=== PATIENT | male | born 1940 | race Caucasian/White ===

== ENCOUNTER 2017-11-28 21:52 | Emergency (ER) | payer MEDICARE, OTHER, SELFPAY ==
[2017-11-28 22:11] VITALS: BP 162/81; PULSE 67; RESP 18; TEMP 36.9; O2SAT 97; BMI 30.7
--- NOTE | 2017-11-28 23:17 | ED.BACK ---
HPI - Back Pain/Injury General Chief Complaint: Back Pain/Injury Stated Complaint: BACK SPASMS UNABLE TO STAND UP Time Seen by Provider: 11/28/17 22:42 Source: patient Mode of arrival: ambulatory Limitations: no limitations History of Present Illness HPI Narrative: Patient is a 77-year-old male here for evaluation of left-sided back spasms. He states that he saw his primary care doctor yesterday. Was diagnosed with a muscle spasm. Was told to take Aleve with food. He states that he has been taking this. States that the symptoms returned/continued today. No urinary symptoms. No fevers. No trauma. Related Data Previous Rx's Medication Instructions Recorded cyclobenzaprine 10 mg PO TID PRN #14 tab 11/28/17 Allergies Allergy/AdvReac Type Severity Reaction Status Date / Time latex Allergy Rash Verified 11/28/17 22:19 Penicillin Allergy Unknown Uncoded 06/24/17 11:49 Review of Systems Constitutional Denies fever(s), Denies frequent falls and Denies headache(s) ENT Ears, Nose, Mouth, and Throat: Denies headache(s) Cardiovascular Denies chest pain, Denies edema and Denies dyspnea Respiratory Denies dyspnea Gastrointestinal Gastrointestinal: Denies abdominal pain, Denies nausea and Denies vomiting Genitourinary Denies dysuria, Denies urinary frequency, Denies urinary hesitancy and Denies urinary incontinence Musculoskeletal Denies myalgias and Denies arthralgias Integumentary/Breasts Denies lesions and Denies rash Neurologic Denies frequent falls and Denies headache(s) Hematologic/Lymphatic Denies easy bleeding and Denies easy bruising [facility] Medical History Healthy adult (Acute) Surgical History No pertinent past surgical history (Acute) Social History Smoking Status: Never smoker Exam Initial Vital Signs Initial Vital Signs: Vital Signs Temperature 98.5 F 11/28/17 22:11 Pulse Rate 67 11/28/17 22:11 Respiratory Rate 18 11/28/17 22:11 Blood Pressure 162/81 H 11/28/17 22:11 Pulse Oximetry 97 11/28/17 22:11 Const General: cooperative, healthy appearing, comfortable, well developed, well groomed and No acute distress Orientation: alert, awake and oriented x3 HENMT Head: normal to inspection and normocephalic Resp Effort & Inspection: normal respiratory effort Cardio Rate: regular rate Back/Spine/Pelvis Cervical Spine: cervical ROM normal Other: Patient with tenderness to palpation left-sided lumbar paraspinal region with muscle fullness over the area of maximal tenderness. No midline tenderness. No right-sided tenderness. Skin Lesions: no lesions Rashes: no rashes Neuro General: alert, awake and oriented x3 Cognition: normal cognition Speech: speech normal Extrem General: normal to inspection and capillary refill normal Psych Appearance: grossly normal and well kempt Course Orders Ordered: Discontinued Medications Cyclobenzaprine HCl (Flexeril) 10 mg PO NOW ONE Stop: 11/28/17 23:18 Last Admin: 11/28/17 23:36 Dose: 10 mg Cyclobenzaprine HCl (Flexeril 10 Mg Prepack) 1 bottle MISC SEEINSTR ONE Stop: 11/28/17 23:18 Last Admin: 11/28/17 23:36 Dose: 1 bottle Vital Signs - 8 hr 11/28/17 22:11 11/28/17 23:45 Temperature 98.5 F Pulse Rate 67 69 Respiratory Rate 18 20 Blood Pressure 162/81 H Pulse Oximetry 97 98 MDM - Back Pain/Injury MDM Narrative Medical decision making narrative: No trauma. Left-sided back tenderness with pinpoint tenderness to palpation with muscle fullness. History and physical exam is not consistent with cauda equina. Doubt fracture. Will hold on x-rays hurt help. Will send home with muscle relaxers. He was given return precautions. He expressed understanding and agreement with plan. We also discussed the importance of him being careful secondary to the fact that the Flexeril can make him drowsy. Discharge Plan Departure Patient Disposition: Home Clinical Impression: Spasm of muscle of lower back Discharge Date/Time: 11/28/17 23:50 Interventions: ED Discharge Assessment Last Done: 11/28/17 23:45 Instructions: How To Perform RICE (Rest, Ice, Compress, Elevate), Activity May Be Better then Rest for Low Back Pain Recovery, DI for Back Spasm Activity Restrictions/Additional Instructions: Recommend that you continue with the anti-inflammatories such as Aleve. Make sure you are taking this with some food. Take the muscle relaxers as directed. Return to the emergency department for any new or worsening symptoms Prescriptions: New cyclobenzaprine 10 mg tablet 10 mg PO TID PRN (Reason: muscle spasm) Qty: 14 RF: 0
[2017-11-28] MEDS: CYCLOBENZAPRINE 10 MG TABLET PO (23:36)
[2017-11-28] MEDS: CYCLOBENZAPRINE 10 MG PREPACK 1 BOTTLE MISC (23:36)
[2017-11-28 23:45] VITALS: PULSE 69; RESP 20; O2SAT 98
== END 2017-11-28 23:50 | disposition home or self-care (01) ==
PROVIDERS: Emergency Provider Emergency Medicine
DX: M62.830 Muscle spasm of back (principal)
CPT/HCPCS: 99282; 99283

== ENCOUNTER → 2018-11-29 13:38 | Outpatient (CLI) | payer MEDICARE, OTHER, SELFPAY ==
[2018-11-29 14:14] LABS: HEMOLYSIS 16 (0-50); Sodium 141 mmol/L (137-145)
[2018-11-29 14:17] LABS: Blood Urea Nitrogen 19 mg/dL (9-20); Calcium 9.5 mg/dL (8.4-10.2); Carbon Dioxide 29 mmol/L (22-32); Chloride 102 mmol/L (98-107); Estimated Glomerular Filt Rate > 60.0 mL/min (>60); Glucose 84 mg/dL (80-110); Potassium 4.5 mmol/L (3.4-5.1)
== END ==
PROVIDERS: PCP Internal Medicine; Visit Provider Internal Medicine
DX: I10 Essential (primary) hypertension (principal)
CPT/HCPCS: 36415; 80048

== ENCOUNTER → 2019-08-25 10:54 | Outpatient (CLI) | payer MEDICARE, OTHER, SELFPAY ==
[2019-08-25 12:27] LABS: BUN Creatinine Ratio 23.2 (6-22); Blood Urea Nitrogen 22 mg/dL (9-20); Calcium 9.6 mg/dL (8.4-10.2); Carbon Dioxide 28 mmol/L (22-32); Chloride 103 mmol/L (98-107); Estimated Glomerular Filt Rate > 60.0 mL/min (>60); Glucose 94 mg/dL (80-110); HEMOLYSIS < 15 (0-50); Potassium 4.5 mmol/L (3.4-5.1); Sodium 139 mmol/L (137-145)
== END ==
PROVIDERS: PCP Internal Medicine; Referring Provider Internal Medicine; Visit Provider Internal Medicine
DX: I10 Essential (primary) hypertension (principal)
CPT/HCPCS: 36415; 80048

== ENCOUNTER → 2021-01-11 12:30 | Outpatient (CLI) | payer MEDICARE, OTHER, SELFPAY ==
--- NOTE | 2021-01-11 | DI.RAD.S_ITS ---
PROCEDURE: FL JOINT INJECTION LARGE RT INDICATIONS: Unilateral primary osteoarthritis, right hip COMPARISON: None. TECHNIQUE: The indications, alternatives, benefits, risks, and complications of the procedure were explained to the patient. Written informed consent was obtained and placed in the chart. The patient was placed in an appropriate position on the fluoroscopy table, and a site was chosen for percutaneous access under fluoroscopic guidance. The site was prepped and draped in a sterile fashion. Local anesthetic was administered using a 1% lidocaine solution. A hypodermic or spinal needle was then used to access the symptomatic joint. Intra-articular location of the needle tip was confirmed by injecting a small amount of contrast, followed by steroid administration. The needle was then withdrawn, and a bandage applied to the puncture site. FINDINGS: Joint injected: Right hip Medications injected: 1 mL of 40 mg/mL Kenalog and 3 cc 0.5% Ropivacaine mixture. Patient's pain before injection: 0/1 out of 10. Patient's pain after injection: Unchanged. Complications: None. IMPRESSION: Successful fluoroscopically guided administration of steroid and anaesthetic solution into the right hip joint. Dictated by: Jasper Kenney M.D. on 01/14/2021 at 9:35 Approved by: Jasper Kenney M.D. on 01/14/2021 at 9:43
== END ==
PROVIDERS: PCP Internal Medicine; Referring Provider Orthopaedic Surgery; Visit Provider Orthopaedic Surgery
DX: M16.11 Unilateral primary osteoarthritis, right hip (principal)
CPT/HCPCS: 20610; 77002

== ENCOUNTER 2021-06-23 08:35 | Emergency (ER) | payer MEDICARE, SELFPAY ==
[2021-06-23] VITALS (12 sets, daily range): BP systolic 168–179; BP diastolic 79–80; PULSE 65–77; RESP 18; TEMP 36.7; O2SAT 93–99
--- NOTE | 2021-06-23 10:19 | ED.MALEGU ---
HPI - Male Genitourinary General Chief complaint: Urogenital-Male Stated complaint: Hematuria Time Seen by Provider: 06/23/21 08:38 Source: patient and EMS Mode of arrival: EMS History of Present Illness HPI Narrative: 81M nonsmoker presents with a chief complaint of blood in his urine for the past few days. He denies any pain. He is not dizzy nor weak or lightheaded. He has had no fever or chills. He has had no difficulty with urine such as dysuria, frequency or urgency. He recently had a total hip surgery and has had trouble moving his bowels in the aftermath. He denies nausea or vomiting. Related Data Previous Rx's Medication Instructions Recorded cyclobenzaprine 10 mg tablet 10 mg PO TID PRN #14 tab 11/28/17 cefuroxime axetil 500 mg tablet 500 mg PO BID #14 tab 06/23/21 Allergies Allergy/AdvReac Type Severity Reaction Status Date / Time latex Allergy Rash Verified 11/28/17 22:19 Penicillin Allergy Unknown Uncoded 06/24/17 11:49 Review of Systems Review of Systems Narrative: GENERAL: Denies chills, fatigue, malaise, fever, sweats. HEENT: Denies sinus pain, ear pain, sore throat, difficulty swallowing, dizziness. RESPIRATORY: Denies dyspnea, cough, wheezing, hemoptysis, sputum. CARDIOVASCULAR: Denies chest pain, palpitations, orthopnea, edema, GASTROINTESTINAL: See HPI : See HPI MUSCULOSKELETAL: denies weakness, joint pain, or bony pain SKIN: Denies rash, skin lesions, or other NEUROLOGIC: Denies weakness, headache, numbness, change in speech, confusion, seizures, incoordination. PSYCHIATRIC: No concerning psychosocial issues. 12 point review of systems is negative except for those stated above Patient History Medical History Healthy adult Surgical History No pertinent past surgical history Social History Smoking Status: Never smoker Smoking Status: Never smoker alcohol intake frequency: 0-2 drinks per day Substance Use Type: does not use Exam Narrative Exam Narrative: GENERAL: [81] year old patient appears stated age. Well-developed patient, in mild distress. HEAD: Atraumatic. Normocephalic. EYES: Pupils equal round and reactive. Extraocular motions intact. No scleral icterus. No injection or drainage. ENT: Nose without bleeding, purulent drainage. Throat without erythema, tonsillar hypertrophy or exudate. Airway patent. NECK: Trachea midline. Non tender CARDIOVASCULAR: Regular rate and rhythm without murmurs, gallops, or rubs. RESPIRATORY: Clear to auscultation. Breath sounds equal bilaterally. No wheezes, rales, or rhonchi. GASTROINTESTINAL: Abdomen soft, non-tender, nondistended. EXTREMITIES: No edema or joint tenderness. BACK: Nontender without deformity or crepitance. No flank tenderness. NEURO: Cranial nerves 2-12 grossly intact SKIN: No rash or erythema of visible areas Initial Vital Signs Initial Vital Signs: Vital Signs Temperature 98.0 F 06/23/21 08:25 Pulse Rate 76 06/23/21 08:25 Respiratory Rate 18 06/23/21 08:25 Blood Pressure 179/79 H 06/23/21 08:25 Pulse Oximetry 93 06/23/21 08:25 Course Orders Ordered: ED Orders 06/23/21 10:17 Urinalysis and Microscopic Stat Urine Culture Stat 06/23/21 11:55 CT kidney ureter bladder (KUB) Stat Vital Signs Vital signs: Vital Signs - 8 hr 06/23/21 08:25 06/23/21 08:42 06/23/21 09:30 Temperature 98.0 F Pulse Rate 76 66 Respiratory Rate 18 Blood Pressure 179/79 H 179/79 H Pulse Oximetry 93 96 06/23/21 10:00 06/23/21 10:30 06/23/21 11:00 Temperature Pulse Rate 65 67 67 Respiratory Rate Blood Pressure Pulse Oximetry 96 96 98 06/23/21 11:30 06/23/21 12:00 06/23/21 12:30 Temperature Pulse Rate 67 75 67 Respiratory Rate 18 Blood Pressure Pulse Oximetry 97 98 99 06/23/21 13:00 06/23/21 13:30 06/23/21 13:32 Temperature Pulse Rate 66 77 73 Respiratory Rate Blood Pressure 168/80 H Pulse Oximetry 98 98 99 MDM - Male Genitourinary Lab Data Labs: Lab Results 06/23/21 Range/Units 10:17 Urine Color Yellow Urine Appearance Sl cloudy Urine pH 7.0 (4.5-8.0) Ur Specific Mascot 1.015 (1.000-1.035) Urine Protein Trace H (Negative) Urine Glucose (UA) Negative (Negative) g/dL Urine Ketones Trace H (NEGATIVE) Urine Occult Blood 1+ H (Negative) Urine Nitrate Negative (Negative) Urine Bilirubin Negative (NEGATIVE) Urine Urobilinogen 1.0 (0.2) E.U./dL Ur Leukocyte Esterase Trace H (NEGATIVE) Urine RBC 1-5/hpf (0-5/HPF) Urine WBC 10-30/hpf H (0-5/HPF) Ur Squamous Epith Cells 0-1 /hpf (0-5/HPF) Urine Bacteria Many (>30) H (None) Urine Mucus 1+ H (Negative) Ur Culture Indicated? Specimen cultured Imaging Data CT scan - abdomen/pelvis: Radiologist's Impression: Rickie Waters??81??M??1940 ? Allergy/Adv: latex, [Penicillin] Close Abdomen/Pelvis CT (Signed) Brad Perez - 06/23/21 Joint Aspiration/Injection (Signed) Jasper Kenney - 01/11/21 [place] [address] CT Scan Report Signed Patient: Rickie Waters MR#: [id number] : 1940 Acct:[id number] Age/Sex: 81 / M Date of Service: 06/23/21 Loc: ED Accession Number: [id number] ?? Procedure: CT kidney ureter bladder (KUB) Ordering Provider: Jaime Moreno D.O. PROCEDURE:? CT KIDNEY URETER BLADDER (KUB) ? INDICATIONS:? hematuria ? TECHNIQUE:? Axial sections were acquired from the lung bases to the pubic symphysis.? Coronal and sagittal reformats were performed.? For radiation dose reduction, the following was used: ?automated exposure control, adjustment of mA and/or kV according to patient size.? ? COMPARISON:? None. ? FINDINGS:? 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 The cardiac outflow tracts are not well seen on this study.? ? Lung bases:? Unremarkable.? ? A small hiatal hernia is incidentally noted.? Heart:? Calcification is seen involving the mitral valve annulus. ? URINARY: Right Kidney: ? No stones or hydronephrosis.? Right Ureter:? No hydroureter.? ? Left Kidney: ? No stones or hydronephrosis. Left Ureter:? No hydroureter.? ? Bladder:? Normal wall thickness. No stones. ? ? ? ABDOMEN: Liver:? Unremarkable.? ? Gallbladder:? Unremarkable.? ? Biliary ducts:? Unremarkable.? ? Pancreas:? Unremarkable.? ? Spleen:? Unremarkable.? ? Adrenal Glands:? Unremarkable.? ? ? Stomach and Bowel:? Stomach, small bowel loops, and colon are unremarkable.? Distal colonic diverticulosis is seen, without findings of active diverticulitis. A normal appendix is incidentally noted.? Peritoneum:? No abnormal intraperitoneal fluid.? No free air.? ? Ventral Wall: ? No hernia.? Abdominal Nodes:? No enlarged retroperitoneal or mesenteric lymph nodes.? Vessels:? Aorta and inferior vena cava are normal in size.? Atherosclerotic calcification is noted.? ? PELVIS: Pelvic Organs:? Unremarkable.? ? Pelvic Nodes: Unremarkable. Miscellaneous:? Bilateral fat containing inguinal hernias are seen, left larger than right.? Gas can be seen within the right buttock, as on series 2, image 64. Additional soft tissue gas can be seen involving the anterior left thigh, as on series 2, image 100. Generalized inflammatory change can be seen of the right gluteal subcutaneous fat. ? No focal abnormal soft tissue fluid collections are seen, however. ? Bones:? Bilateral hip arthroplasty hardware is seen, with associated streak artifact.? Relatively prominent lumbar spine degenerative changes are seen. ? IMPRESSION:? ? Negative for kidney stones or obstructive uropathy. ? Soft tissue gas and fatty stranding seen involving right thigh and the right gluteal region.? Recent surgery is suspected.? Please correlate with known patient history. ? ? ? Incidental note is made of: Mitral valve annulus calcification Small hiatal hernia Diverticulosis, without active diverticulitis Normal appendix Relatively prominent lumbar spine degenerative change Bilateral hip arthroplasty hardware Bilateral fat containing inguinal hernias ? ? ? Dictated by: Brad Perez M.D. on 06/23/2021 at 11:24 ? ? Approved by: Brad Perez M.D. on 06/23/2021 at 11:28 ? MDM Narrative Medical decision making narrative: Patient's pain is well controlled, there is no evidence of bowel obstruction and he has no systemic findings such as nausea, vomiting or weakness. Hematuria most likely due to UTI, there are no signs of sepsis, CT KUB shows no obstructive uropathy, kidney stone or other. Patient and given return precautions and questions answered to their apparent satisfaction. Discharge Plan Departure Patient Disposition: Home Clinical Impression: Hematuria, Acute UTI Instructions: DI for Urinary Tract Infection (UTI), DI for Hematuria Activity Restrictions/Additional Instructions: *You have been diagnosed with [hematuria, due to urine infection. Physical exam and images are very reassuring. *What to do: *Please continue to take your regular medications as directed. [x ] New medication prescriptions sent to your pharmacy: [[facility] in [place] ] [ ] New medication written as a paper prescription [ ] No new medications given *Please follow up with your primary care provider in 2-3 days, call for an appointment. Let them know you were seen in the Emergency Department and that we ask that you be seen in follow up. We will electronically transmit a record of today's note if your PCP is in our system *You have been diagnosed with [ abdominal pain due to constipation ] *What to do: *Take over the counter medications as directed: 1. Metamucil - is a bulk forming laxative and adds fiber 2. Colace - softens your stool 3. Dulcolax suppository - stimulates your bowels *Follow up with your primary care provider in 2-3 days, call for appointment *Return to ER if you should have any new, worsening or concerning symptoms *Drink plenty of water and eat foods high in fiber *Stay as active as you can as this helps move your bowels as well *Return to Emergency Department if you should have any new, worsening or concerning symptoms, such as [fever greater than 101 F, shaking chills, worsening pain, persistent vomiting or other bothersome symptoms] Prescriptions: New cefuroxime axetil 500 mg tablet 500 mg PO BID Qty: 14 0RF No Action cyclobenzaprine 10 mg tablet 10 mg PO TID PRN (Reason: muscle spasm) Qty: 14 0RF Referrals: Zaheer Charlton MD [Primary Care Provider] -
[2021-06-23 10:33] LABS: Appearance Urine UA SL CLOUDY; Bilirubin Urine UA NEGATIVE (NEGATIVE); Color Urine UA YELLOW; Glucose Urine UA NEGATIVE (Negative); Ketones Urine UA TRACE (NEGATIVE); Leukocyte Esterase Urine UA TRACE (NEGATIVE); Nitrite Urine UA NEGATIVE (Negative); Occult Blood Urine UA 1+ (Negative); Protein Urine UA TRACE (Negative); Specific Gravity Urine UA 1.015 (1.000-1.035)
[2021-06-23 10:43] LABS: Bacteria Urine Many (>30); Culture Indicated Urine Specimen Cultured; Mucus Urine 1+ (Negative); RBC Urine 1-5/HPF (0-5/HPF); Squamous Epithelial Cell Urine 0-1 /HPF (0-5/HPF); WBC Urine 10-30/HPF (0-5/HPF)
--- NOTE | 2021-06-23 11:55 | DI.CT.S_ITS ---
PROCEDURE: CT KIDNEY URETER BLADDER (KUB) INDICATIONS: hematuria TECHNIQUE: Axial sections were acquired from the lung bases to the pubic symphysis. Coronal and sagittal reformats were performed. For radiation dose reduction, the following was used: automated exposure control, adjustment of mA and/or kV according to patient size. COMPARISON: None. 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 The cardiac outflow tracts are not well seen on this study. Lung bases: Unremarkable. A small hiatal hernia is incidentally noted. Heart: Calcification is seen involving the mitral valve annulus. URINARY: Right Kidney: No stones or hydronephrosis. Right Ureter: No hydroureter. Left Kidney: No stones or hydronephrosis. Left Ureter: No hydroureter. Bladder: Normal wall thickness. No stones. ABDOMEN: Liver: Unremarkable. Gallbladder: Unremarkable. Biliary ducts: Unremarkable. Pancreas: Unremarkable. Spleen: Unremarkable. Adrenal Glands: Unremarkable. Stomach and Bowel: Stomach, small bowel loops, and colon are unremarkable. Distal colonic diverticulosis is seen, without findings of active diverticulitis. A normal appendix is incidentally noted. Peritoneum: No abnormal intraperitoneal fluid. No free air. Ventral Wall: No hernia. Abdominal Nodes: No enlarged retroperitoneal or mesenteric lymph nodes. Vessels: Aorta and inferior vena cava are normal in size. Atherosclerotic calcification is noted. PELVIS: Pelvic Organs: Unremarkable. Pelvic Nodes: Unremarkable. Miscellaneous: Bilateral fat containing inguinal hernias are seen, left larger than right. Gas can be seen within the right buttock, as on series 2, image 64. Additional soft tissue gas can be seen involving the anterior left thigh, as on series 2, image 100. Generalized inflammatory change can be seen of the right gluteal subcutaneous fat. No focal abnormal soft tissue fluid collections are seen, however. Bones: Bilateral hip arthroplasty hardware is seen, with associated streak artifact. Relatively prominent lumbar spine degenerative changes are seen. IMPRESSION: Negative for kidney stones or obstructive uropathy. Soft tissue gas and fatty stranding seen involving right thigh and the right gluteal region. Recent surgery is suspected. Please correlate with known patient history. Incidental note is made of: Mitral valve annulus calcification Small hiatal hernia Diverticulosis, without active diverticulitis Normal appendix Relatively prominent lumbar spine degenerative change Bilateral hip arthroplasty hardware Bilateral fat containing inguinal hernias Dictated by: Brad Perez M.D. on 06/23/2021 at 11:24 Approved by: Brad Perez M.D. on 06/23/2021 at 11:28
== END 2021-06-23 13:50 | disposition home or self-care (01) ==
PROVIDERS: Emergency Provider Emergency Medicine; PCP Family Medicine
DX: N39.0 Urinary tract infection, site not specified (principal)
CPT/HCPCS: 74176; 81001; 87086

== ENCOUNTER 2021-06-23 15:29 | Inpatient (IN) | payer MEDICARE, SELFPAY ==
[2021-06-23] VITALS (14 sets, daily range): BP systolic 92–196; BP diastolic 43–90; PULSE 69–94; RESP 15–33; TEMP 36.7–37; O2SAT 92–99; BMI 30.7; BMI 30.1
--- NOTE | 2021-06-23 15:36 | ED_ITS ---
HPI - Syncope General Chief Complaint: Syncope Stated Complaint: syncope Time Seen by Provider: 06/23/21 15:32 History of Present Illness HPI narrative: 81M nonsmoker with history of recent hip surgery at [facility] on Thursday presents for the second time today for evaluation. He was seen earlier today for painless hematuria. He had a workup noting UTI and a CT KUB without significant findings. He went home and upon standing collapsed into a chair despite the help of two family members. He returns for repeat evaluation. He denies any ongoing dizziness or lightheadedness. Denies any chest pain or shortness of breath. He denies any fever or shaking chills. He complains only of right hip pain, though not necessarily any different than it has been. Related Data Previous Rx's Medication Instructions Recorded cyclobenzaprine 10 mg tablet 10 mg PO TID PRN #14 tab 11/28/17 cefuroxime axetil 500 mg tablet 500 mg PO BID #14 tab 06/23/21 Allergies Allergy/AdvReac Type Severity Reaction Status Date / Time latex Allergy Rash Verified 06/23/21 16:52 Penicillin Allergy Unknown Uncoded 06/23/21 16:52 Review of Systems Review of Systems Narrative: GENERAL: Denies chills, fatigue, malaise, fever, sweats. HEENT: Denies sinus pain, ear pain, sore throat, difficulty swallowing, d izziness. RESPIRATORY: Denies dyspnea, cough, wheezing, hemoptysis, sputum. CARDIOVASCULAR: Denies chest pain, palpitations, orthopnea, edema, GASTROINTESTINAL: Denies nausea, vomiting, abdominal pain, diarrhea, constipation, melena. : Denies dysuria, frequency, incontinence, hematuria, urinary retention. MUSCULOSKELETAL: denies weakness, joint pain, or bony pain SKIN: Denies rash, skin lesions, or other NEUROLOGIC: Denies weakness, headache, numbness, change in speech, confusion, seizures, incoordination. PSYCHIATRIC: No concerning psychosocial issues. 12 point review of systems is negative except for those stated above Patient History Medical History Healthy adult Surgical History No pertinent past surgical history Social History Smoking Status: Never smoker Smoking Status: Never smoker alcohol intake frequency: 0-2 drinks per day Substance Use Type: does not use Exam Narrative Exam Narrative: GENERAL: [81] year old patient appears stated age. Well-developed patient, in mild distress. HEAD: Atraumatic. Normocephalic. EYES: Pupils equal round and reactive. Extraocular motions intact. No scleral icterus. No injection or drainage. ENT: Dry mucous membrane Nose without bleeding, purulent drainage. Throat without erythema, tonsillar hypertrophy or exudate. Airway patent. NECK: Trachea midline. Non tender CARDIOVASCULAR: Regular rate and rhythm without murmurs, gallops, or rubs. RESPIRATORY: Clear to auscultation. Breath sounds equal bilaterally. No wheezes, rales, or rhonchi. GASTROINTESTINAL: Abdomen soft, non-tender, nondistended. EXTREMITIES: Right hip with to be expected tenderness to palpation, minimal surrounding erythema and ecchymosis with clean, dry and intact incision. No edema or joint tenderness. BACK: Nontender without deformity or crepitance. No flank tenderness. NEURO: AOx3. SKIN: No rash or erythema of visible areas Initial Vital Signs Initial Vital Signs: Vital Signs Temperature 98.6 F 06/23/21 15:38 Pulse Rate 69 06/23/21 15:38 Respiratory Rate 16 06/23/21 15:38 Blood Pressure 178/81 H 06/23/21 15:38 Pulse Oximetry 96 06/23/21 15:38 Course Orders Ordered: ED Orders 06/23/21 15:12 Complete Blood Count AUTO DIFF Stat Comprehensive Metabolic Panel Stat Lactate (Lactic Acid) Stat Lipase Stat Magnesium Stat Troponin & CK Cardiac Panel Stat 06/23/21 15:37 EKG-12 Lead Stat 06/23/21 16:09 Blood Culture Stat 06/23/21 17:11 CT chest abd pel w con Stat 06/23/21 19:03 COVID19 -Nasal RAPID/Pre-Proc Stat Discontinued Medications Hydromorphone HCl (Hydromorphone 0.5 Mg Inj) 0.5 mg IV NOW ONE Stop: 06/23/21 18:16 Last Admin: 06/23/21 18:21 Dose: 0.5 mg Documented by: RSTONE Sodium Chloride (Normal Saline 0.9%) 1,000 mls @ 1,000 mls/hr IV BOLUS ONE Stop: 06/23/21 16:35 Last Infusion: 06/23/21 17:41 Dose: 0 mls/hr Documented by: Admin: 06/23/21 16:03 Dose: 1,000 mls/hr Documented by: DIMITRY Ceftriaxone Sodium 2,000 mg/ (Sodium Chloride) 100 mls @ 200 mls/hr IV NOW ONE Stop: 06/23/21 16:08 Last Infusion: 06/23/21 17:25 Dose: 0 mls/hr Documented by: Admin: 06/23/21 16:53 Dose: 200 mls/hr Documented by: DIMITRY Vital Signs Vital signs: Vital Signs - 8 hr 06/23/21 15:38 06/23/21 16:08 06/23/21 16:09 Temperature 98.6 F Pulse Rate 69 72 70 Respiratory Rate 16 20 16 Blood Pressure 178/81 H 166/74 H Pulse Oximetry 96 99 97 06/23/21 16:52 06/23/21 16:56 06/23/21 17:00 Temperature Pulse Rate 73 75 79 Respiratory Rate 19 23 20 Blood Pressure 196/90 H 190/85 H Pulse Oximetry 92 97 99 06/23/21 17:30 06/23/21 17:31 06/23/21 17:55 Temperature Pulse Rate 79 87 83 Respiratory Rate 29 H 33 H 15 Blood Pressure 180/79 H 170/79 H Pulse Oximetry 96 95 97 06/23/21 18:00 Temperature Pulse Rate 79 Respiratory Rate 17 Blood Pressure 169/81 H Pulse Oximetry 96 MDM - Syncope Lab Data Result diagrams: 06/23/21 15:12 06/23/21 15:12 Labs: Lab Results 06/23/21 06/23/21 06/23/21 Range/Units 15:12 15:12 15:12 WBC 8.9 (4.5-11.0) X10^3/uL RBC 4.28 L (4.5-5.9) X10^6/uL Hgb 12.5 L (13.5-17.5) g/dL Hct 37.1 L (41-53) % MCV 86.6 (80-100) fL MCH 29.2 (26-34) PG MCHC 33.7 (30-36) % RDW 13.8 (11.6-14.8) % Plt Count 256 (150-400) X10^3/uL Neut % (Auto) 58.8 (50-75) % Lymph % (Auto) 27.2 (25-40) % [place] % (Auto) 12.0 (3-14) % Eos % (Auto) 1.8 L (2-4) % Baso % (Auto) 0.2 (0-2) % Neut # (Auto) 5200 (3604-7249) /uL Lymph # (Auto) 2400 (6926-8711) /uL [place] # (Auto) 1100 H (0-900) /uL Eos # (Auto) 200 (0-450) /uL Baso # (Auto) 0 (0-100) /uL Sodium 138 (137-145) mmol/L Potassium 3.6 (3.4-5.1) mmol/L Chloride 101 (98-107) mmol/L Carbon Dioxide 28 (22-32) mmol/L BUN 23 H (9-20) mg/dL Creatinine 1.03 (0.66-1.25) mg/dL Estimated GFR > 60.0 (>60) mL/min BUN/Creatinine Ratio 22.3 H (6-22) Glucose 164 H (80-110) mg/dL Lactate 3.5 H (0.7-2.1) mmol/L Calcium 9.1 (8.4-10.2) mg/dL Magnesium 1.9 (1.6-2.3) mg/dL Total Bilirubin 1.6 H (0.2-1.3) mg/dL AST 29 (17-59) IU/L ALT 22 (<50) IU/L Alkaline Phosphatase 71 (38-126) U/L Total Creatine Kinase 75 (55-170) U/L CK-MB (CK-2) TNP CK-MB (CK-2) Rel Index TNP Troponin I < 0.012 (0.01-0.034) ng/mL Total Protein 6.9 (6.3-8.2) g/dL Albumin 3.6 (3.5-5.0) g/dL Globulin 3.3 (1.7-4.1) g/dL Albumin/Globulin Ratio 1.1 (1.0-2.8) Lipase 43 (23-300) U/L 04/10/22 Range/Units 17:50 WBC (4.5-11.0) X10^3/uL RBC (4.5-5.9) X10^6/uL Hgb (13.5-17.5) g/dL Hct (41-53) % MCV (80-100) fL MCH (26-34) PG MCHC (30-36) % RDW (11.6-14.8) % Plt Count (150-400) X10^3/uL Neut % (Auto) (50-75) % Lymph % (Auto) (25-40) % [place] % (Auto) (3-14) % Eos % (Auto) (2-4) % Baso % (Auto) (0-2) % Neut # (Auto) (0364-7104) /uL Lymph # (Auto) (7604-8571) /uL [place] # (Auto) (0-900) /uL Eos # (Auto) (0-450) /uL Baso # (Auto) (0-100) /uL Sodium (137-145) mmol/L Potassium (3.4-5.1) mmol/L Chloride (98-107) mmol/L Carbon Dioxide (22-32) mmol/L BUN (9-20) mg/dL Creatinine (0.66-1.25) mg/dL Estimated GFR (>60) mL/min BUN/Creatinine Ratio (6-22) Glucose (80-110) mg/dL Lactate 1.3 (0.7-2.1) mmol/L Calcium (8.4-10.2) mg/dL Magnesium (1.6-2.3) mg/dL Total Bilirubin (0.2-1.3) mg/dL AST (17-59) IU/L ALT (<50) IU/L Alkaline Phosphatase (38-126) U/L Total Creatine Kinase (55-170) U/L CK-MB (CK-2) CK-MB (CK-2) Rel Index Troponin I (0.01-0.034) ng/mL Total Protein (6.3-8.2) g/dL Albumin (3.5-5.0) g/dL Globulin (1.7-4.1) g/dL Albumin/Globulin Ratio (1.0-2.8) Lipase (23-300) U/L Imaging Data CT scan - chest: Radiologist's Impression: Rickie Waters??81??M??1940 ? Allergy/Adv: latex, [Penicillin] Close Chest/Abdomen/Pelvis CT (Signed) Brad Perez - 06/23/21 Abdomen/Pelvis CT (Signed) Brad Perez - 06/23/21 Joint Aspiration/Injection (Signed) Jasper Kenney - 01/11/21 Launch?Image [address] [address] [address] Scan Report Signed Patient: Rickie Waters MR#: [id number] : 1940 Acct:[id number] Age/Sex: 81 / M Date of Service: 06/23/21 Loc: ED Accession Number: [id number] ?? Procedure: CT chest abd pel w con Ordering Provider: Jaime Moreno D.O. PROCEDURE:? CT CHEST ABD PEL W CON ? INDICATIONS:? repeat visit, went home, syncope, critical lactate ? TECHNIQUE:? After the administration of oral and intravenous contrast, axial sections acquired from the supraclavicular neck to the pubic symphysis.? Coronal and sagittal reformats were performed.? For radiation dose reduction, the following was used:? automated exposure control, adjustment of mA and/or kV according to patient size.? ? COMPARISON: ? [facility], CT, CT KIDNEY URETER BLADDER (KUB), 06/23/2021, 12:08. ? FINDINGS:? Image quality:? There is artifact associated with the metallic hardware. ? Artifact from the metallic hardware is reduced by metal reconstruction algorithm.? ? CHEST: Lower Neck: No enlarged lymph nodes.? Thyroid:? A 13 mm low-density lesion can be seen within the right thyroid.? Axillae: No enlarged lymph nodes. Chest Wall:? Unremarkable.? ? Lungs and Airways: No consolidation or suspicious nodules. Pleura: No pneumothorax or pleural effusions.? ? Heart: Heart size is normal.? No pericardial effusion.? At least moderate coronary artery calcification is seen.? Mitral valve annulus calcification Thoracic Vessels: The aorta and pulmonary arteries demonstrate normal size.? Mediastinum and Mary: No enlarged lymph nodes.? Esophagus: No wall thickening. No hiatal hernia. ? ? ABDOMEN: Liver:? Unremarkable.? ? Gallbladder:? Unremarkable.? ? Biliary ducts:? Unremarkable.? ? Pancreas:? Unremarkable.? ? Spleen:? Unremarkable.? ? Adrenal Glands:? Unremarkable.? ? Kidneys and Ureters:? Unremarkable.? ? ? Stomach and Bowel:? Stomach, small bowel loops, and colon are unremarkable.? Colonic diverticulosis is seen, without findings of active diverticulitis. A normal appendix is incidentally noted.? Peritoneum:? No abnormal intraperitoneal fluid.? No free air.? ? Ventral Wall: ? No hernia.? Abdominal Nodes:? No retroperitoneal or mesenteric adenopathy by size criteria.? Vessels:? Aorta and inferior vena cava are normal in size.? ? PELVIS: Pelvic Organs:? Unremarkable.? ? Bladder:? Unremarkable.? ? Pelvic Nodes: No enlarged lymph nodes.? Miscellaneous:? Bilateral fat containing inguinal hernias are seen. ? Bones:? Bilateral hip arthroplasty hardware is seen, with associated streak artifact.? Generalized fat stranding and soft tissue gas can be seen involving the right proximal thigh and right gluteal region.? Generalized degenerative changes are seen, which are worst involving the lumbar spine. ? IMPRESSION:? Recent postoperative change can be seen involving the right hip, with poorly defined fluid and soft tissue gas.? No drainable abscess can be seen on these images.? If there is strong clinical concern for gluteal abscess, a follow-up ultrasound could be considered for further evaluation. ? 13 mm low-density lesion within right thyroid.? When clinically appropriate, a follow-up ultrasound could be considered evaluation. ? Incidental note is made of: Mitral valve annulus calcification Normal appendix Diverticulosis, without active diverticulitis Bilateral fat containing inguinal hernias Bilateral arthroplasty hardware ? Dictated by: Brad Perez M.D. on 06/23/2021 at 17:00 ? ? Approved by: Brad Perez M.D. on 06/23/2021 at 17:06? MDM Narrative Medical decision making narrative: Patient with repeat visit, this time after syncopal episode. Extensive ev aluation suggests likely element of dehydration, presumably associated with poor appetite and UTI. Initial elevated lactate improved by the time of redraw. Patient given fluids, antibiotics. Imaging of abdomen pelvis with IV contrast notes ill-defined fluid collection with gas in the tissues thought to be related to recent surgery as opposed to abscess. This was discussed with on-call Orthopedics sure this opinion. Hospitalist happy to accept Discharge Plan Departure Patient Disposition: Admitted as Observation Prescriptions: No Action cyclobenzaprine 10 mg tablet 10 mg PO TID PRN (Reason: muscle spasm) Qty: 14 0RF cefuroxime axetil 500 mg tablet 500 mg PO BID Qty: 14 0RF Referrals: Zaheer Charlton MD [Primary Care Provider] - Admit Date/Time: 06/23/21 19:10
[2021-06-23 15:43] LABS: Add Manual Diff / Slide Review NO; Basophils Absolute Auto 0 /uL (0-100); Basophils Percent Auto 0.2 % (0-2); Eosinophils Absolute Auto 200 /uL (0-450); Eosinophils Percent Auto 1.8 % (2-4); Hematocrit 37.1 % (41-53); Hemoglobin 12.5 g/dL (13.5-17.5); Lymphocytes Absolute Auto 2400 /uL (1100-4500); Lymphocytes Percent Auto 27.2 % (25-40); Mean Corpuscular HGB Conc 33.7 % (30-36); Mean Corpuscular Hemoglobin 29.2 PG (26-34); Mean Corpuscular Volume 86.6 fL (80-100); Monocytes Absolute Auto 1100 /uL (0-900); Neutrophils Absolute Auto 5200 /uL (1500-7000); Neutrophils Percent Auto 58.8 % (50-75); Platelet Count 256 X10^3/uL (150-400); Red Blood Cell Count 4.28 X10^6/uL (4.5-5.9); Red Cell Distribution Width 13.8 % (11.6-14.8); White Blood Cell Count 8.9 X10^3/uL (4.5-11.0)
[2021-06-23 15:52] LABS: Lactate (Lactic Acid) 3.5 mmol/L (0.7-2.1)
[2021-06-23 15:53] LABS: Alanine Aminotransferase 22 IU/L (<50); Albumin 3.6 g/dL (3.5-5.0); Albumin Globulin Ratio 1.1 (1.0-2.8); Alkaline Phosphatase 71 U/L (38-126); Aspartate Aminotransferase 29 IU/L (17-59); BUN Creatinine Ratio 22.3 (6-22); Bilirubin Total 1.6 mg/dL (0.2-1.3); Blood Urea Nitrogen 23 mg/dL (9-20); Calcium 9.1 mg/dL (8.4-10.2); Carbon Dioxide 28 mmol/L (22-32); Chloride 101 mmol/L (98-107); Creatine Kinase 75 U/L (55-170); Estimated Glomerular Filt Rate > 60.0 mL/min (>60); Globulin 3.3 g/dL (1.7-4.1); Glucose 164 mg/dL (80-110); HEMOLYSIS < 15 (0-50); Lipase 43 U/L (23-300); Magnesium 1.9 mg/dL (1.6-2.3); Potassium 3.6 mmol/L (3.4-5.1); Sodium 138 mmol/L (137-145); Total Protein 6.9 g/dL (6.3-8.2)
[2021-06-23] MEDS: SODIUM CHLORIDE 0.9% 1,000 ML 1000 ML IV (16:03)
[2021-06-23 16:04] LABS: Troponin I < 0.012 ng/mL (0.01-0.034)
[2021-06-23] MEDS: cefTRIAXone 2,000 MG in SODIUM CHLORIDE 0.9% 100 ML 200 ML IV (16:53)
--- NOTE | 2021-06-23 17:11 | DI.CT.S_ITS ---
PROCEDURE: CT CHEST ABD PEL W CON INDICATIONS: repeat visit, went home, syncope, critical lactate TECHNIQUE: After the administration of oral and intravenous contrast, axial sections acquired from the supraclavicular neck to the pubic symphysis. Coronal and sagittal reformats were performed. For radiation dose reduction, the following was used: automated exposure control, adjustment of mA and/or kV according to patient size. COMPARISON: [facility], CT, CT KIDNEY URETER BLADDER (KUB), 06/23/2021, 12:08. FINDINGS: Image quality: There is artifact associated with the metallic hardware. Artifact from the metallic hardware is reduced by metal reconstruction algorithm. CHEST: Lower Neck: No enlarged lymph nodes. Thyroid: A 13 mm low-density lesion can be seen within the right thyroid. Axillae: No enlarged lymph nodes. Chest Wall: Unremarkable. Lungs and Airways: No consolidation or suspicious nodules. Pleura: No pneumothorax or pleural effusions. Heart: Heart size is normal. No pericardial effusion. At least moderate coronary artery calcification is seen. Mitral valve annulus calcification Thoracic Vessels: The aorta and pulmonary arteries demonstrate normal size. Mediastinum and Mary: No enlarged lymph nodes. Esophagus: No wall thickening. No hiatal hernia. ABDOMEN: Liver: Unremarkable. Gallbladder: Unremarkable. Biliary ducts: Unremarkable. Pancreas: Unremarkable. Spleen: Unremarkable. Adrenal Glands: Unremarkable. Kidneys and Ureters: Unremarkable. Stomach and Bowel: Stomach, small bowel loops, and colon are unremarkable. Colonic diverticulosis is seen, without findings of active diverticulitis. A normal appendix is incidentally noted. Peritoneum: No abnormal intraperitoneal fluid. No free air. Ventral Wall: No hernia. Abdominal Nodes: No retroperitoneal or mesenteric adenopathy by size criteria. Vessels: Aorta and inferior vena cava are normal in size. PELVIS: Pelvic Organs: Unremarkable. Bladder: Unremarkable. Pelvic Nodes: No enlarged lymph nodes. Miscellaneous: Bilateral fat containing inguinal hernias are seen. Bones: Bilateral hip arthroplasty hardware is seen, with associated streak artifact. Generalized fat stranding and soft tissue gas can be seen involving the right proximal thigh and right gluteal region. Generalized degenerative changes are seen, which are worst involving the lumbar spine. IMPRESSION: Recent postoperative change can be seen involving the right hip, with poorly defined fluid and soft tissue gas. No drainable abscess can be seen on these images. If there is strong clinical concern for gluteal abscess, a follow-up ultrasound could be considered for further evaluation. 13 mm low-density lesion within right thyroid. When clinically appropriate, a follow-up ultrasound could be considered evaluation. Incidental note is made of: Mitral valve annulus calcification Normal appendix Diverticulosis, without active diverticulitis Bilateral fat containing inguinal hernias Bilateral arthroplasty hardware Dictated by: Brad Perez M.D. on 06/23/2021 at 17:00 Approved by: Brad Perez M.D. on 06/23/2021 at 17:06
[2021-06-23 17:40] LABS: Reflexed Lactate in 2 Hours Y
[2021-06-23 18:13] LABS: Lactate 2HR (Lactic Acid Rflx) 1.3 mmol/L (0.7-2.1)
[2021-06-23] MEDS: HYDROMORPHONE 0.5 MG INJ IV (18:21)
[2021-06-23 19:35] LABS: COVID19 -Nasal RAPID Negative (Negative)
--- NOTE | 2021-06-23 20:55 | P.HP_ITS ---
History of Present Illness History of Present Illness Date Patient Seen: 06/23/21 Time Patient Seen: 20:55 Chief complaint: syncope Narrative: 81 y/o male s/p right hip replacement, hypertension, urinary tract infection seen in the ED earlier today for hematuria and discharged home. According to his , upon arrival at home they were unable to get him to ambulate, he fell backwards and passed out. She notes he has been restless, confused, and getting up to the bathroom last night. He had surgery about one week ago and was discharged 24 hours after the procedure from [facility] in [place]. Since arriving home he has not really ambulated, has been reluctant to drink fluids but has continued taking his losartan. In the ED he was found to have an eleva rafal lactate of 3.6 which improved to 1.3 prior to discharge. He was noted to have a UTI given ceftriaxone and discharged home. Of note, the patient had a CT KUB which was unremarkable. Repeat CT of Chest/ABD/Pelvis remains unremarkable. Patient is admitted to the hospital with a UTI, weakness, syncope, and inability to ambulate. Patient History Medical History (Updated 06/23/21 @ 21:00 by Caryn Hardin MD) Hypertension Surgical History (Updated 06/23/21 @ 21:00 by Caryn Hardin MD) History of right hip replacement Family & Social History Family History (Updated 06/23/21 @ 21:01 by Caryn Hardin MD) Mother Myocardial infarction Father Myocardial infarction Safety & Behavioral: Feels Safe in Current Yes Environment Been Physically Hurt or No Threatened By a Person Suicidal Ideation Description None Tobacco & Substance use: Smoking Status Never smoker alcohol intake frequency 0-2 drinks per day Substance Use Type does not use Meds Home Medications and Allergies Home Medications Medication Instructions Recorded Confirmed Type losartan 100 12.5 tab DAILY 06/23/21 06/23/21 History mg-hydrochlorothiazide 12.5 mg tablet tramadol 50 mg tablet 50 mg PO Q6HR PRN 06/23/21 06/23/21 History Allergies Allergy/AdvReac Type Severity Reaction Status Date / Time latex Allergy Rash Verified 06/23/21 16:52 Penicillin Allergy Unknown Uncoded 06/23/21 16:52 Review of Systems Review of Systems Narrative: 10 point review of system is negative Exam Vital Signs (past 8 hours): - 06/23/21 15:38 06/23/21 16:08 06/23/21 16:09 Temperature 98.6 F Pulse Rate 69 72 70 Respiratory Rate 16 20 16 Blood Pressure 178/81 H 166/74 H Pulse Oximetry 96 99 97 06/23/21 16:52 06/23/21 16:56 06/23/21 17:00 Temperature Pulse Rate 73 75 79 Respiratory Rate 19 23 20 Blood Pressure 196/90 H 190/85 H Pulse Oximetry 92 97 99 06/23/21 17:30 06/23/21 17:31 06/23/21 17:55 Temperature Pulse Rate 79 87 83 Respiratory Rate 29 H 33 H 15 Blood Pressure 180/79 H 170/79 H Pulse Oximetry 96 95 97 06/23/21 18:00 Temperature Pulse Rate 79 Respiratory Rate 17 Blood Pressure 169/81 H Pulse Oximetry 96 Oxygen Delivery Method Room Air Narrative Exam Narrative: pleasant elderly male lying in bed in no acute distress HENMT Other: NC/AT, EOMI, Sclera Anicteric, oropharynx clear Neck Other: supple without adenopathy Resp Other: Lungs: clear to auscultation Cardio Other: CV: RRR nl Sl S2 2/6 GHULAM GI Other: Abd: soft/ non tender/ non distended/ no hepatosplenomegaly Other: normal phallus Neuro Other: awake, alert, and appropriate, cranial nerves, intact, strenght is equal, weakness of the right lower extremity, sensation grossly intact Extrem Other: right hip with edema, mild erythema, tender to palpation, some edema of ankle Psych Other: normal thought content, mental status intact, mood and speech appropriate Objective Labs Result Diagrams: 06/23/21 15:12 06/23/21 15:12 Labs: Laboratory Results - last 24 hr 06/23/21 06/23/21 06/23/21 15:12 15:12 15:12 WBC 8.9 RBC 4.28 L Hgb 12.5 L Hct 37.1 L MCV 86.6 MCH 29.2 MCHC 33.7 RDW 13.8 Plt Count 256 Neut % (Auto) 58.8 Lymph % (Auto) 27.2 [place] % (Auto) 12.0 Eos % (Auto) 1.8 L Baso % (Auto) 0.2 Neut # (Auto) 5200 Lymph # (Auto) 2400 [place] # (Auto) 1100 H Eos # (Auto) 200 Baso # (Auto) 0 Sodium 138 Potassium 3.6 Chloride 101 Carbon Dioxide 28 BUN 23 H Creatinine 1.03 Estimated GFR > 60.0 BUN/Creatinine Ratio 22.3 H Glucose 164 H Lactate 3.5 H Calcium 9.1 Magnesium 1.9 Total Bilirubin 1.6 H AST 29 ALT 22 Alkaline Phosphatase 71 Total Creatine Kinase 75 CK-MB (CK-2) TNP CK-MB (CK-2) Rel Index TNP Troponin I < 0.012 Total Protein 6.9 Albumin 3.6 Globulin 3.3 Albumin/Globulin Ratio 1.1 Lipase 43 SARS-CoV-2 (PCR) 06/23/21 06/23/21 17:50 19:03 WBC RBC Hgb Hct MCV MCH MCHC RDW Plt Count Neut % (Auto) Lymph % (Auto) [place] % (Auto) Eos % (Auto) Baso % (Auto) Neut # (Auto) Lymph # (Auto) [place] # (Auto) Eos # (Auto) Baso # (Auto) Sodium Potassium Chloride Carbon Dioxide BUN Creatinine Estimated GFR BUN/Creatinine Ratio Glucose Lactate 1.3 Calcium Magnesium Total Bilirubin AST ALT Alkaline Phosphatase Total Creatine Kinase CK-MB (CK-2) CK-MB (CK-2) Rel Index Troponin I Total Protein Albumin Globulin Albumin/Globulin Ratio Lipase SARS-CoV-2 (PCR) Negative Assessment & Plan Assessment and plan (1) Hematuria: Status: Acute (2) Acute UTI: Status: Acute Assessment & Plan narrative: 81 y/o male with a history of Hypertension, S/p Right THR, now with a UTI and syncope likely multifactorial * Syncope-suspect dehydration vs. vasovagal, in the setting of a UTI * No evidence of arrhythmia * No evidence to suspect Sepsis * Known UTI, await culture results, continue ceftriaxone for now * Will check orthostatics * Start IVFluids S/p Right THR * Will ask PT/OT to assess safety to return home * Will check orthostatics * Patient has home health RN/PT but they have not starting working with him * Tylenol 975 TID, prn tramadol * Start Lovenox for DVT prophylaxis * Will get records from [facility] Hypertension * Continue Losartan at current dose and follow blood pressure closely Patient will be admitted under observation as it is anticipated he will be in [facility] less than 48 hours I have utilized all available methods to review, update, and confirm the patients current medications Patient is a full code, his is his surrogate decision maker Time Spent With Patient Critical Care time: I spent a total of [] minutes of critical care time on this patient's care today; this time is exclusive of procedural time.
[2021-06-23] MEDS: DEXTROSE 5%-0.9% NS 1,000 ML 100 ML IV (21:38)
[2021-06-23] MEDS: ACETAMINOPHEN 325 MG TABLET 975 MG PO (21:42)
--- NOTE | 2021-06-23 22:43 | PC.ADMIT ---
Addendum entered by Marian Rodriguez R.N. 06/24/21 06:20: Patient transferred to ICU and report given to KRISTY Fernandez. Dr. Hardin at patient's bedside. Addendum entered by Marian Rodriguez R.N. 06/24/21 05:40: Around 0425 went into patient room and patients speech was gibberish. NIH performed and was 11. Patient not always following directions so difficult to assess vision and ataxia. Code stroke was called at [address] Hardin to bedside. CBG was 126. NIH now at 9 as patient is able to read sentences and words but still not able to identify objects or picture card. VS were 110/56-111-20 with sat of 84%. Oxygen increased to get sat > 92%. RT here and did EKG. Lab here and stacia blood. RT unable to get ABG at this time. Down to CT and returned and now BP low at 85/42. Dr. Hardin informed and new orders received. Addendum entered by Marian Rodriguez R.N. 06/24/21 03:25: Patient had 2 emesis of undigested food. VS 99.5-102-18 w/BP of 114/54 and O2 sat of 86%. Placed on oxygen at 2L/min. Dr. Hardin informed of this information and orders received for a chest x-ray, IV Zofran prn and to make patient NPO for now. Original Note: Patient admitted to room 211 from ER per stretcher at 2009. Is alert and oriented. Breath sounds CTA with RA sat of 98%. HRR but with elevated BP initially at 173/72. Telemetry ordered and reading was SR w/BBB. Denied nausea. States he has not had a BM since last Thursday. Is able to turn himself in bed. Reports at home he was walking with a walker. Did get out of bed to stand at bedside when orthostatics checked and was able to do so with 2 assist + walker. Orthostatics dropped from 136/62 lying to 92/43 sitting. Denied any dizziness of lightheadedness when sitting/standing. Bilateral calf SCD's have been applied. States pain in right hip (had SELAM past Thursday) is 5/10 but requests only Tylenol at that time. Fall risk score is high and bed alarm is activated. [email or web address] Admission Note: The patient,Rickie Waters,81 y/o, was given written information regarding hospital policies, unit procedures and contact persons. Patient's smoking status: Never smoker. Vital Signs - 8 hr 06/23/21 15:38 06/23/21 16:08 06/23/21 16:09 Temperature 98.6 F Pulse Rate 69 72 70 Respiratory Rate 16 20 16 Blood Pressure 178/81 H 166/74 H Pulse Oximetry 96 99 97 06/23/21 16:52 06/23/21 16:56 06/23/21 17:00 Temperature Pulse Rate 73 75 79 Respiratory Rate 19 23 20 Blood Pressure 196/90 H 190/85 H Pulse Oximetry 92 97 99 06/23/21 17:30 06/23/21 17:31 06/23/21 17:55 Temperature Pulse Rate 79 87 83 Respiratory Rate 29 H 33 H 15 Blood Pressure 180/79 H 170/79 H Pulse Oximetry 96 95 97 06/23/21 18:00 06/23/21 20:10 06/23/21 21:29 Temperature 98.3 F Pulse Rate 79 85 94 H Respiratory Rate 17 18 Blood Pressure 169/81 H 173/72 H 135/71 Pulse Oximetry 96 98 06/23/21 21:30 Temperature Pulse Rate 94 H Respiratory Rate Blood Pressure 92/43 L Pulse Oximetry
[2021-06-24] VITALS (29 sets, daily range): BP systolic 77–114; BP diastolic 41–57; PULSE 67–102; RESP 20–34; TEMP 37.2–39.4; O2SAT 91–98
--- NOTE | 2021-06-24 03:21 | DI.RAD.S_ITS ---
PROCEDURE: XR CHEST 1V INDICATIONS: vomited TECHNIQUE: One view of the chest was acquired. COMPARISON: [facility], CT, CT CHEST ABD PEL W CON, 06/23/2021, 17:17. [facility], CR, XR CHEST 1V, 06/24/2021, 6:42. FINDINGS: Surgical changes and devices: None. Lungs and pleura: Lungs are clear. No pleural effusions or pneumothorax. Mediastinum: Mediastinal contours appear normal. Heart size is normal. Bones and chest wall: No suspicious bony lesions. Left shoulder DJD. Overlying soft tissues appear unremarkable. IMPRESSION: No acute cardiopulmonary abnormality. This report is concordant with the overnight preliminary interpretation. Dictated by: Chaz Kay M.D. on 06/24/2021 at 7:27 Approved by: Chaz Kay M.D. on 06/24/2021 at 7:28
[2021-06-24] MEDS: ONDANSETRON 4 MG/2 ML INJ IV (03:32)
--- NOTE | 2021-06-24 03:39 | PC.NURSE ---
06/24/21 @ 0300 checked paients sats. sats are at 86%. After 2 episodes of emesis. Reported to Marian Abrams RN
[2021-06-24] MEDS: TRAMADOL 50 MG TABLET PO ×2 (03:40→18:06)
--- NOTE | 2021-06-24 04:46 | DI.CT.S_ITS ---
PROCEDURE: CT STROKE INDICATIONS: code stroke TECHNIQUE: Noncontrast 4.5 mm thick angled axial sections acquired from the foramen magnum to the vertex, with coronal reformats. For radiation dose reduction, the following was used: automated exposure control, adjustment of mA and/or kV according to patient size. COMPARISON: None. FINDINGS: Image quality: Excellent. CSF spaces: Basal cisterns are patent. No extra-axial fluid collections. Ventricles are normal in size and shape. Brain: No midline shift. No intracranial masses or hemorrhage. Small area of encephalomalacia in the left anterior cerebellum, (2/13). No area of hypodensity in a large vascular distribution to suggest acute infarction. Periventricular hypodensity consistent with chronic microvascular ischemic change. Age-related parenchymal loss. Skull and face: Calvarium and visualized facial bones are intact, without suspicious lesions. Sinuses: Visualized sinuses and mastoids are clear. IMPRESSION: 1. No acute intracranial hemorrhage. 2. 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 This report is concordant with the overnight preliminary interpretation. This study fulfills neurological imaging criteria for inclusion or exclusion of acute stroke therapies based on available published neurological imaging guidelines. Dictated by: Chaz Kay M.D. on 06/24/2021 at 7:35 Approved by: Chaz Kay M.D. on 06/24/2021 at 7:38
[2021-06-24 05:13] LABS: Hematocrit 32.1 % (41-53); Hemoglobin 10.9 g/dL (13.5-17.5); Mean Corpuscular Hemoglobin 29.4 PG (26-34); Mean Corpuscular Volume 86.4 fL (80-100); Platelet Count 198 X10^3/uL (150-400); Red Blood Cell Count 3.72 X10^6/uL (4.5-5.9); Red Cell Distribution Width 13.7 % (11.6-14.8); White Blood Cell Count 5.1 X10^3/uL (4.5-11.0)
[2021-06-24 05:14] LABS: Add Manual Diff / Slide Review YES
[2021-06-24 05:26] LABS: Albumin 2.8 g/dL (3.5-5.0); Alkaline Phosphatase 132 U/L (38-126); Aspartate Aminotransferase 74 IU/L (17-59); Blood Urea Nitrogen 27 mg/dL (9-20); Calcium 8.5 mg/dL (8.4-10.2); Carbon Dioxide 24 mmol/L (22-32); Chloride 106 mmol/L (98-107); Estimated Glomerular Filt Rate 56.2 mL/min (>60); Globulin 2.7 g/dL (1.7-4.1); Glucose 126 mg/dL (80-110); HEMOLYSIS < 15 (0-50); Potassium 3.4 mmol/L (3.4-5.1); Sodium 139 mmol/L (137-145); Total Protein 5.5 g/dL (6.3-8.2)
[2021-06-24 05:32] LABS: Alanine Aminotransferase 45 IU/L (<50)
[2021-06-24] MEDS: LACTATED RINGERS 1,000 ML 1000 ML IV ×3 (05:54→07:15)
--- NOTE | 2021-06-24 05:54 | PM.CN.EICU ---
History of Present Illness Consult details Chief complaint: syncope :: This patient was seen via real time interactive two-way audiovisual telecommunication. Narrative: Patient is a 81 year old male with history of hypertension, recent right hip replacement and UTI presents with hematuria, generalized weakness, and syncope. On admission he was treated for sepsis. CT abdomen/pelvis showed postoperative changes with defined fluid and soft tissue gas concerning for gluteal abscess. Overnight patient developed hypotension and slurred speech which code stroke was called. Stat CT head completed pending read. SBP ~70s and started on 2 liters LR bolus. Abx switched to zosyn and linezolid. Tele-ntensivist consulted for septic shock management. Labs notable for lactate 5.[address] abdomen/pelvis: Recent postoperative change can be seen involving the right hip, with poorly defined fluid and soft tissue gas.? No drainable abscess can be seen on these images.? If there is strong clinical concern for gluteal abscess, a follow-up ultrasound could be considered for further evaluation. [facility] Medical History (Updated 06/24/21 @ 06:17 by James Perez MD) Hypertension Surgical History (Updated 06/23/21 @ 21:00 by Caryn Hardin MD) History of right hip replacement Family History (Updated 06/23/21 @ 21:01 by Caryn Hardin MD) Mother Myocardial infarction Father Myocardial infarction Social History Smoking Status: Never smoker Current Medications Current Medications Medications: Home Medications losartan 100 mg-hydrochlorothiazide 12.5 mg tablet 12.5 tab DAILY 06/23/21 [History Confirmed 06/23/21] tramadol 50 mg tablet 50 mg PO Q6HR PRN 06/23/21 [History Confirmed 06/23/21] Visit Medications (administered) Generic Name Dose Route Start Last Admin Trade Name Freq PRN Reason Stop Dose Admin Acetaminophen 975 mg 06/23/21 22:00 06/23/21 21:42 Acetaminophen 325 Mg Tablet PO 975 mg Q8HR GORDON Administration Dextrose/Sodium Chloride 1,000 mls @ 100 mls/hr 06/23/21 21:15 06/23/21 21:38 Dextrose 5%-0.9% Ns IV 100 mls/hr CONT GORDON Administration Ondansetron HCl 4 mg 06/24/21 03:29 06/24/21 03:32 Ondansetron 4 Mg/2 Ml Inj IV 4 mg Q8HR PRN Administration NAUSEA/VOMITING Tramadol HCl 50 mg 06/23/21 21:11 06/24/21 03:40 Tramadol 50 Mg Tablet PO 50 mg Q4H PRN Administration Pain, Moderate (4-6) Exam Vital Signs (past 8 hours): - 06/23/21 23:29 06/24/21 01:15 06/24/21 03:25 Temperature 98.0 F 98.9 F 99.5 F Pulse Rate 75 102 H Respiratory Rate 18 20 Blood Pressure 135/67 114/54 L Pulse Oximetry 97 97 Oxygen Delivery Method Room Air Oxygen Flow Rate 2 Objective Labs Result Diagrams: 06/24/21 04:50 06/24/21 04:50 Labs: Laboratory Results - last 24 hr 06/23/21 06/23/21 06/23/21 15:12 15:12 15:12 WBC 8.9 RBC 4.28 L Hgb 12.5 L Hct 37.1 L MCV 86.6 MCH 29.2 MCHC 33.7 RDW 13.8 Plt Count 256 Neut % (Auto) 58.8 Lymph % (Auto) 27.2 [place] % (Auto) 12.0 Eos % (Auto) 1.8 L Baso % (Auto) 0.2 Neut # (Auto) 5200 Lymph # (Auto) 2400 [place] # (Auto) 1100 H Eos # (Auto) 200 Baso # (Auto) 0 Sodium 138 Potassium 3.6 Chloride 101 Carbon Dioxide 28 BUN 23 H Creatinine 1.03 Estimated GFR > 60.0 BUN/Creatinine Ratio 22.3 H Glucose 164 H Lactate 3.5 H Calcium 9.1 Magnesium 1.9 Total Bilirubin 1.6 H AST 29 ALT 22 Alkaline Phosphatase 71 Total Creatine Kinase 75 CK-MB (CK-2) TNP CK-MB (CK-2) Rel Index TNP Troponin I < 0.012 Total Protein 6.9 Albumin 3.6 Globulin 3.3 Albumin/Globulin Ratio 1.1 Lipase 43 SARS-CoV-2 (PCR) 06/23/21 06/23/21 06/24/21 17:50 19:03 04:50 WBC 5.1 RBC 3.72 L Hgb 10.9 L Hct 32.1 L MCV 86.4 MCH 29.4 MCHC 34.0 RDW 13.7 Plt Count 198 Neut % (Auto) Not Reportable Lymph % (Auto) Not Reportable [place] % (Auto) Not Reportable Eos % (Auto) Not Reportable Baso % (Auto) Not Reportable Neut # (Auto) Lymph # (Auto) Not Reportable [place] # (Auto) Not Reportable Eos # (Auto) Baso # (Auto) Not Reportable Sodium Potassium Chloride Carbon Dioxide BUN Creatinine Estimated GFR BUN/Creatinine Ratio Glucose Lactate 1.3 Calcium Magnesium Total Bilirubin AST ALT Alkaline Phosphatase Total Creatine Kinase CK-MB (CK-2) CK-MB (CK-2) Rel Index Troponin I Total Protein Albumin Globulin Albumin/Globulin Ratio Lipase SARS-CoV-2 (PCR) Negative 06/24/21 04:50 WBC RBC Hgb Hct MCV MCH MCHC RDW Plt Count Neut % (Auto) Lymph % (Auto) [place] % (Auto) Eos % (Auto) Baso % (Auto) Neut # (Auto) Lymph # (Auto) [place] # (Auto) Eos # (Auto) Baso # (Auto) Sodium 139 Potassium 3.4 Chloride 106 Carbon Dioxide 24 BUN 27 H Creatinine 1.23 Estimated GFR 56.2 L BUN/Creatinine Ratio 22.0 Glucose 126 H Lactate Calcium 8.5 Magnesium Total Bilirubin 2.0 H AST 74 H ALT 45 Alkaline Phosphatase 132 H D Total Creatine Kinase CK-MB (CK-2) CK-MB (CK-2) Rel Index Troponin I Total Protein 5.5 L Albumin 2.8 L Globulin 2.7 Albumin/Globulin Ratio 1.0 Lipase SARS-CoV-2 (PCR) Assessment & Plan Assessment and plan (1) Septic shock: Status: Acute (2) Lactic acidosis: Status: Acute (3) RUPERTO (acute kidney injury): Status: Acute Assessment & Plan narrative: NEURO: # Acute encephalopathy -- Secondary to septic shock and hypoperfusion -- Pending stat CT head read -- Avoid sedatives -- Early mobility as tolerated RESP: # Acute hypoxemia respiratory failure -- Secondary to aspiration and sepsis causing acute lung injury -- Cont aggressive IVF resuscitation -- HOB elevation -- Aspiration precaution -- Abx as below -- Goal SpO2 > 88% CVS: # Distributive shock -- Secondary to sepsis -- Sepsis workuop as below -- Cont aggresisve crystalloid resuscitation -- Trend lactic acid every 4 hours -- MAP goal > 65 # Hx of HTN -- HOld all BP meds ID: # Septic shock -- Secondary to ?gluteal asbcess based on CT findings -- On zosyn and linezolid -- Follow up urine and blood cx -- Recommend ortho consultation for gluteal abscess drainage to seek source control -- If hypotension persist then will need levophed and CVC placement HEME: # Anemia -- Secondary to sepsis causing BM suppression -- No signs of overt bleed -- Daily CBC -- Goal Hb > 7 : # RUPERTO -- Multifactorial due to dehydration and sepsis -- Cont aggressive crystalloid resuscitation -- Avoid nephrotoxin agents -- Daily BMP -- Monitor UOP ENDO: -- Goal Bs < 180 Time Spent With Patient Critical Care time: I spent a total of [] minutes of critical care time on this patient's care today; this time is exclusive of procedural time.
[2021-06-24 06:01] LABS: Lactate (Lactic Acid) 5.7 mmol/L (0.7-2.1)
[2021-06-24 06:10] LABS: D Dimer > 5250 ng/mL (<230)
[2021-06-24] MEDS: PIPERACILLIN/TAZO 3.375 GM in SODIUM CHLORIDE 0.9% 100 ML 200 ML IV (06:11)
--- NOTE | 2021-06-24 06:20 | PM.EVENT ---
Event Note Date Patient Seen: 06/24/21 Time Patient Seen: 06:20 Event Note (Rapid Response, Code, or fall): Willard is a 81-year-old male who was admitted to the hospital for syncope. Patient presented to the hospital earlier during the day with hematuria, diagnosed with a urinary tract infection, started on antibiotics. He initially had a lactate of 3.6, this improved to 1.3. When the patient was discharged home he attempted to get out of the car and was syncopal, he passed out, he was brought back to the emergency room. The patient had an extensive workup to include a CT of the chest abdomen and pelvis which were negative. He was admitted to the hospital for urinary tract infection and syncope. Subsequently the patient had an episode of emesis of undigested food. He became hypoxic. He was placed on 2 L and a chest x-ray was obtained. X-ray was negative for infiltrate. The patient subsequently was more confused. He had garbled speech. And will was perceived to be a facial droop. Code stroke was called. His NIH stroke scale score was 14, he underwent a head CT which was negative for any acute infarct. When the patient returned to the floor he was hypotensive, blood pressure 73/41, he was tachycardic with a heart rate of 102. He was treated for septic shock. Patient was started on lactated Ringer's, IV Zosyn was obtain, repeat blood cultures were obtained prior to antibiotics. Repeat lactate was 5.7, patient is currently receiving 2 L of lactated Ringer's, and a central line is about to be placed. Patient is confused, hypoxic, and hypotensive. Of note the patient is status post right total hip arthroplasty, he was supposed to be on aspirin for DVT prophylaxis, it is unclear whether he is on aspirin. Repeat D-dimer is 5250 Exam is significant for temperature 101?, blood pressure 84/52, pulse of 92, saturation 95% on 2 L Lungs: Clear to auscultation Cardiac exam: Regular rate and rhythm normal S1-S2 with a 2/6 systolic ejection murmur Abdomen: Soft and nontender Extremities: Right hip with edema, fluctuance, mild warmth, no erythema, minimally tender Patient has 1. Sepsis, manifested by infection due to his urinary tract, acute encephalopathy, acute hypoxic respiratory failure, and hypotension Will continue IV hydration with lactated Ringer's for 3 L, will initiate Levophed if no improvement in blood pressure, continue Zosyn, await blood cultures. Will reassess volume status, repeat lactate Central lying currently being placed
--- NOTE | 2021-06-24 06:41 | DI.RAD.S_ITS ---
PROCEDURE: XR CHEST 1V INDICATIONS: check for line placement TECHNIQUE: One view of the chest was acquired. COMPARISON: [facility], CT, CT CHEST ABD PEL W CON, 06/23/2021, 17:17. [facility], CR, XR CHEST 1V, 06/24/2021, 3:27. FINDINGS: Surgical changes and devices: Right IJ central venous line with the catheter tip projecting at the middle 3rd of the SVC. Lungs and pleura: Lungs appear clear. No pleural effusions or pneumothorax. Mediastinum: Mediastinal contours appear unchanged. Heart size is unchanged. Bones and chest wall: No suspicious bony lesions. Overlying soft tissues appear unremarkable. IMPRESSION: Right IJ central venous line with the catheter tip projecting at the middle 3rd of the SVC. No pneumothorax. Dictated by: Chaz Kay M.D. on 06/24/2021 at 7:21 Approved by: Chaz Kay M.D. on 06/24/2021 at 7:25
--- NOTE | 2021-06-24 06:45 | PM.EVENT ---
Event Note Event Note (Rapid Response, Code, or fall): informed of his change in status. Patient is PCN allergic. Zosyn discontinued Levofloxcin started
[2021-06-24] MEDS: NOREPINEPHRINE BITARTRATE/D5W 4 MG/250 ML PLAST..BAG 30 MG IV (06:59)
--- NOTE | 2021-06-24 07:08 | ED.CONSULT ---
ED Provider Consult/Code Note General Date Patient Seen: 06/24/21 Time Patient Seen: 06:30 Reason for Admission: syncope Lines Placed Central Line Lumen Inserted: triple Ultrasound Used for Placement: Yes Other Lines: Asked by hospitalist place central line in this gentleman currently in the intensive care unit developing sepsis. Verbal consent is obtained due to emergent situation. Right internal jugular with ultrasound guidance No complications Postprocedure chest x-ray shows appropriate placement with no sign of pneumothorax Review of x-ray discussed with Dr. Hardin at 7:05 a.m. with reassurance that line can be used for fluids and pressors.
[2021-06-24 07:15] LABS: Neutrophils Absolute Manual 3672 /uL (3000-5900); RBC Morphology Normal Morphology; Total Cells Counted 100
[2021-06-24 07:49] LABS: HCO3 ABG 22 mmol/L (22-26); Oxygen Saturation ABG 97 % (95-100); PCO2 ABG 29.3 mmHg (35-45); PO2 ABG 78 mmHg (80-100); TCO2 ABG 23 mmol/L (21-31); pH ABG 7.48 (7.35-7.45)
[2021-06-24 07:50] LABS: Fractionated Inspired Oxygen 45
[2021-06-24 07:50] LABS: Reflexed Lactate in 2 Hours Y
[2021-06-24] MEDS: levoFLOXacin 750 MG/150 ML PIGGYBACK 100 MG IV (07:51)
[2021-06-24] MEDS: LINEZOLID 600 MG/300 ML IV.SOLN IV (08:29)
[2021-06-24 09:00] LABS: Lactate (Lactic Acid) 3.5 mmol/L (0.7-2.1)
--- NOTE | 2021-06-24 10:02 | PM.ICURNDS ---
- :: This patient was seen via real time interactive two-way audiovisual telecommunication. Note: ?Discussed the patient on MDR, Septic shock secondary to gluteal asbcess, On zosyn and linezolid, waiting for otho eval and mgt , Iv albumin 25% 100 ml to wean off Levo, currently at low dose, LR to start 1t 75 ml/hr, received 3L of LR, good urine out put, trend lactate until normalized
--- NOTE | 2021-06-24 10:04 | OT.IPNOTE ---
Chart reviewed and nursing consulted. Pt admitted with UTI and weakness, found to be septic. Per nursing, pt is not medically stable for therapy services today. Will hold and continue to follow.
[2021-06-24 10:16] LABS: Lactate 2HR (Lactic Acid Rflx) 3.6 mmol/L (0.7-2.1)
[2021-06-24] MEDS: ALBUMIN HUMAN 25 GM/100 ML VIAL IV (10:17)
--- NOTE | 2021-06-24 10:23 | PT-IP ANOTE ---
Reviewed the chart after receiving PT orders. At AM rounds, hospitalist advised pt is not stable for therapy evaluation today. Will follow up tomorrow.
--- NOTE | 2021-06-24 10:28 | PC.NURSE ---
Addendum entered by Lissett Greene R.N. 06/24/21 13:41: Temp is down to 100.6. Addendum entered by Lissett Greene R.N. 06/24/21 13:39: 1300-Patient did well with Chicken noodle soup and given clear ensure, d/t lactose intolerance. Levophed continues with 3.2mcg/min to R IJ. More alert and conversive. Order requested for Miralax or same, per request. NC @ 2L, UOP is good, see I/o. Original Note: 0700-Assumed care of patient, central line being placed and confirmed via xray. PIV x2, BP cycling q5 with levophed infusing to R IJ @ 2.8mcg/min, BP remains 80/40-50 Goal of MAP >60. Mentation is slower, per , than baseline. Not able to make needs known. LR bolus completed, 3L. No maint IVF at present. IV ABX started. Latex Free galindo placed for I/o. Right hip with honeycomb dressing and old drainage noted . Dr Cristobal into assess, and dressing changed with aquacel placed. Pt continues to improve mentation, able to answer questions with less delay and more verbalization. Able to make needs known. Speech eval complete with easy chew diet. Levophed titrated.
--- NOTE | 2021-06-24 10:29 | P.PN_ITS ---
Subjective Subjective Date Patient Seen: 06/24/21 Time Patient Seen: 08:45 Interval history: Patient denies pain this morning, no shortness of breath, chest pain, pa lpitations. He is confused, alert and oriented only to name but slowly improving. Remains on a small amount of levophed this morning. Seen by speech today, okay for a soft diet with thin liquids. Exam Vital Signs (past 8 hours): - 06/24/21 03:25 06/24/21 06:10 06/24/21 08:24 Temperature 99.5 F 101.2 F H 102.9 F H Pulse Rate 102 H 91 H 83 Respiratory Rate 20 26 H 26 H Blood Pressure 114/54 L 77/49 L 82/50 L Pulse Oximetry 97 98 95 Oxygen Delivery Method Room Air Oxygen Flow Rate 6 Narrative Exam Narrative: General:? Patient is well developed and well nourished, though ill appearing male HEENT:? Normocephalic, atraumatic, extraocular muscles intact, oral pharynx is clear and mucous membranes are moist. Neck: supple and symmetric, trachea is midline, no cervical adenopathy. Negative for JVD Chest:? Normal AP diameter and contour without kyphoscoliosis, no tachypnea, equal chest rise bilaterally. Lungs:? CTA b/l no wheezing rhonchi or rales. Cardio:?RRR no m/r/g. Abdomen: S NT ND. No CVA tenderness. Musculoskeletal:? Muscle strength and tone are equal within normal limits, no deformity. Extremities: No edema or joint effusions. No cyanosis or clubbing. Skin:? Pale,? Warm to touch,dry and intact without rashes, ulcerations or petechiae.? Neuro:? Alert and orientated x3,? sensation to touch intact in all extremities, no gross deficits noted of cranial nerves. Psych:? Patient has a well-kept appearance, appropriate affect, mental status a ttitude thought context and judgment are appropriate for age. Objective Labs Result Diagrams: 06/24/21 04:50 06/24/21 08:44 Labs: Laboratory Results - last 24 hr 06/23/21 06/23/21 06/23/21 15:12 15:12 15:12 WBC 8.9 RBC 4.28 L Hgb 12.5 L Hct 37.1 L MCV 86.6 MCH 29.2 MCHC 33.7 RDW 13.8 Plt Count 256 Neut % (Auto) 58.8 Lymph % (Auto) 27.2 Isabela % (Auto) 12.0 Eos % (Auto) 1.8 L Baso % (Auto) 0.2 Neut # (Auto) 5200 Lymph # (Auto) 2400 Isabela # (Auto) 1100 H Eos # (Auto) 200 Baso # (Auto) 0 Total Counted Seg Neutrophils % Band Neutrophils % Lymphocytes % (Manual) Atypical Lymphs % Monocytes % (Manual) Eosinophils % (Manual) Neutrophils # (Manual) RBC Morphology D-Dimer ABG pH ABG pCO2 ABG pO2 ABG HCO3 ABG Total CO2 ABG O2 Saturation ABG Base Excess FiO2 Sodium 138 Potassium 3.6 Chloride 101 Carbon Dioxide 28 BUN 23 H Creatinine 1.03 Estimated GFR > 60.0 BUN/Creatinine Ratio 22.3 H Glucose 164 H Lactate 3.5 H Calcium 9.1 Magnesium 1.9 Total Bilirubin 1.6 H AST 29 ALT 22 Alkaline Phosphatase 71 Total Creatine Kinase 75 CK-MB (CK-2) TNP CK-MB (CK-2) Rel Index TNP Troponin I < 0.012 Total Protein 6.9 Albumin 3.6 Globulin 3.3 Albumin/Globulin Ratio 1.1 Lipase 43 Procalcitonin Nasal Screen MRSA (PCR) SARS-CoV-2 (PCR) 06/23/21 06/23/21 06/24/21 17:50 19:03 04:50 WBC 5.1 RBC 3.72 L Hgb 10.9 L Hct 32.1 L MCV 86.4 MCH 29.4 MCHC 34.0 RDW 13.7 Plt Count 198 Neut % (Auto) Not Reportable Lymph % (Auto) Not Reportable Isabela % (Auto) Not Reportable Eos % (Auto) Not Reportable Baso % (Auto) Not Reportable Neut # (Auto) Lymph # (Auto) Not Reportable Isabela # (Auto) Not Reportable Eos # (Auto) Baso # (Auto) Not Reportable Total Counted 100 Seg Neutrophils % 56.0 Band Neutrophils % 16.0 H Lymphocytes % (Manual) 21.0 L Atypical Lymphs % 1.0 H Monocytes % (Manual) 3.0 Eosinophils % (Manual) 3.0 Neutrophils # (Manual) 3672 RBC Morphology Normal morphology D-Dimer ABG pH ABG pCO2 ABG pO2 ABG HCO3 ABG Total CO2 ABG O2 Saturation ABG Base Excess FiO2 Sodium Potassium Chloride Carbon Dioxide BUN Creatinine Estimated GFR BUN/Creatinine Ratio Glucose Lactate 1.3 Calcium Magnesium Total Bilirubin AST ALT Alkaline Phosphatase Total Creatine Kinase CK-MB (CK-2) CK-MB (CK-2) Rel Index Troponin I Total Protein Albumin Globulin Albumin/Globulin Ratio Lipase Procalcitonin Nasal Screen MRSA (PCR) SARS-CoV-2 (PCR) Negative 06/24/21 06/24/21 06/24/21 04:50 04:50 04:50 WBC RBC Hgb Hct MCV MCH MCHC RDW Plt Count Neut % (Auto) Lymph % (Auto) Isabela % (Auto) Eos % (Auto) Baso % (Auto) Neut # (Auto) Lymph # (Auto) Isabela # (Auto) Eos # (Auto) Baso # (Auto) Total Counted Seg Neutrophils % Band Neutrophils % Lymphocytes % (Manual) Atypical Lymphs % Monocytes % (Manual) Eosinophils % (Manual) Neutrophils # (Manual) RBC Morphology D-Dimer > 5250 H ABG pH ABG pCO2 ABG pO2 ABG HCO3 ABG Total CO2 ABG O2 Saturation ABG Base Excess FiO2 Sodium 139 Potassium 3.4 Chloride 106 Carbon Dioxide 24 BUN 27 H Creatinine 1.23 Estimated GFR 56.2 L BUN/Creatinine Ratio 22.0 Glucose 126 H Lactate 5.7 H* Calcium 8.5 Magnesium Total Bilirubin 2.0 H AST 74 H ALT 45 Alkaline Phosphatase 132 H D Total Creatine Kinase CK-MB (CK-2) CK-MB (CK-2) Rel Index Troponin I Total Protein 5.5 L Albumin 2.8 L Globulin 2.7 Albumin/Globulin Ratio 1.0 Lipase Procalcitonin Nasal Screen MRSA (PCR) SARS-CoV-2 (PCR) 06/24/21 06/24/21 06/24/21 04:50 06:13 07:09 WBC RBC Hgb Hct MCV MCH MCHC RDW Plt Count Neut % (Auto) Lymph % (Auto) Isabela % (Auto) Eos % (Auto) Baso % (Auto) Neut # (Auto) Lymph # (Auto) Isabela # (Auto) Eos # (Auto) Baso # (Auto) Total Counted Seg Neutrophils % Band Neutrophils % Lymphocytes % (Manual) Atypical Lymphs % Monocytes % (Manual) Eosinophils % (Manual) Neutrophils # (Manual) RBC Morphology D-Dimer ABG pH 7.48 H ABG pCO2 29.3 L ABG pO2 78 L ABG HCO3 22 ABG Total CO2 23 ABG O2 Saturation 97 ABG Base Excess -1.0 FiO2 45 Sodium Potassium Chloride Carbon Dioxide BUN Creatinine Estimated GFR BUN/Creatinine Ratio Glucose Lactate Calcium Magnesium Total Bilirubin AST ALT Alkaline Phosphatase Total Creatine Kinase CK-MB (CK-2) CK-MB (CK-2) Rel Index Troponin I Total Protein Albumin Globulin Albumin/Globulin Ratio Lipase Procalcitonin 9.30 H Nasal Screen MRSA (PCR) Negative for mrsa SARS-CoV-2 (PCR) 06/24/21 06/24/21 08:44 08:44 WBC RBC Hgb Hct MCV MCH MCHC RDW Plt Count Neut % (Auto) Lymph % (Auto) Isabela % (Auto) Eos % (Auto) Baso % (Auto) Neut # (Auto) Lymph # (Auto) Isabela # (Auto) Eos # (Auto) Baso # (Auto) Total Counted Seg Neutrophils % Band Neutrophils % Lymphocytes % (Manual) Atypical Lymphs % Monocytes % (Manual) Eosinophils % (Manual) Neutrophils # (Manual) RBC Morphology D-Dimer ABG pH ABG pCO2 ABG pO2 ABG HCO3 ABG Total CO2 ABG O2 Saturation ABG Base Excess FiO2 Sodium Potassium Chloride Carbon Dioxide BUN Creatinine Estimated GFR BUN/Creatinine Ratio Glucose Lactate 3.5 H 3.6 H Calcium Magnesium Total Bilirubin AST ALT Alkaline Phosphatase Total Creatine Kinase CK-MB (CK-2) CK-MB (CK-2) Rel Index Troponin I Total Protein Albumin Globulin Albumin/Globulin Ratio Lipase Procalcitonin Nasal Screen MRSA (PCR) SARS-CoV-2 (PCR) [facility] Medical History (Updated 06/24/21 @ 06:17 by James Perez MD) Hypertension Surgical History (Updated 06/23/21 @ 21:00 by Caryn Hardin MD) History of right hip replacement Family History (Updated 06/23/21 @ 21:01 by Caryn Hardin MD) Mother Myocardial infarction Father Myocardial infarction Social History Smoking Status: Never smoker Assessment & Plan Assessment & Plan narrative: 1. Septic shock secondary to acute cytstitis secondary to likely catheter placement from recent surgery. With RUPERTO and acute hypoxic respiratory failure. - currently on 4 antibiotics, levaquin, aztreonam, flagyl, and linzeolid. Will work on narrowing. Patient is penicillin allergic. - continue to wean levophed as tolerated. Wean from O2, currently on 6L NC to maintain o2 saturations above 90% - orthopedic surgery to see, though less likely R hip at this time per their CT review. No other obvious intra-abdominal or pulmonary source. - more likely secondary to UTI in setting of catheter use from surgery. - galindo in place with good urine output. - follow labs and procalcitonin. - elevated bilirubin likely in setting of sepsis, continue to follow. CT imaging without obvious biliary pathology and no RUQ pain currently. 2. Essential hypertension - hold home antihypertensives. 3. S/p recent hip surgery - PT/OT when more stable. Ortho consultation requested as above. - continue tramadol prn for hip pain. Patient did not tolerate opiates well per spouse. I spent 35 minutes providing critical care management this patient. This excludes time spent in performing separately billed procedures. Code: Full, surrogate decision maker is patient's spouse Dispo: Remains ICU DVT: asa bid (orthopedics) Time Spent With Patient Critical Care time: I spent a total of [] minutes of critical care time on this patient's care today; this time is exclusive of procedural time.
[2021-06-24] MEDS: AZTREONAM 2 GM in DEXTROSE 5 % IN WATER 100 ML IV ×2 (11:39→20:25)
[2021-06-24] MEDS: ASPIRIN EC 81 MG TABLET PO (11:42)
[2021-06-24] MEDS: metroNIDAZOLE 500 MG/100 ML PIGGYBACK 100 MG IV ×2 (11:42→19:37)
[2021-06-24 11:50] LABS: BUN Creatinine Ratio 21.5 (6-22); Blood Urea Nitrogen 29 mg/dL (9-20); Calcium 8.2 mg/dL (8.4-10.2); Carbon Dioxide 25 mmol/L (22-32); Chloride 106 mmol/L (98-107); Estimated Glomerular Filt Rate 50.5 mL/min (>60); Glucose 117 mg/dL (80-110); HEMOLYSIS < 15 (0-50); Potassium 3.2 mmol/L (3.4-5.1); Sodium 138 mmol/L (137-145)
--- NOTE | 2021-06-24 12:00 | ST.IPCSEOM ---
Visit Care Team Role Provider Type Zaheer Charlton MD Primary Care Provider Non-Staff Specialty: Family Practice Address: [address], [place], [address] Email: Maryanne Junior MD Other Providers Physician Specialty: Orthopedics Orthopedic Surgery Address: [address] [place] [address], [id number] Email: [email or web address] Jaime Moreno DO Emergency Provider Physician Specialty: Emergency Medicine Address: [address] [place] [address], [address] Email: [email or web address] Caryn Hardin MD Admit Provider Physician Attending Provider Specialty: Internal Medicine Address: [address] [place] [address], [id number] Email: [email or web address] Current Diagnoses Sepsis, unspecified organism (06/23/21) Acidosis (06/23/21) Acute kidney failure, unspecified (06/23/21) Urinary tract infection, site not specified (06/23/21) Hematuria, unspecified (06/23/21) Severe sepsis with septic shock (06/23/21) Past Medical History (Last Updated 06/23/21 @ 21:00 by Caryn Hardin MD) History of right hip replacement (Medical) Hypertension (Medical) Speech-Language Pathology Swallow Evaluation CHILD CARE Clinical Swallow Evaluation Start: 06/24/21 11:29 Freq: Status: Active Protocol: Document 06/24/21 11:31 DENISEK (Rec: 06/24/21 12:00 DENISEK [id number]) Clinical Swallow Evaluation Session Time Visit Start Time 10:30 Visit Stop Time 11:15 Total Visit Minutes 45 Setting Assessment Location Acute Care Visit Type Note Type Initial evaluation Next Note Type Next Note Type Re-evaluation Patient Information Identification Type Name,Wristband History PER H&P: 81 y/o male s/p right hip replacement, hypertension, urinary tract infection seen in the ED earlier today for hematuria and discharged home. According to his , upon arrival at home they were unable to get him to ambulate, he fell backwards and passed out. She notes he has been restless, confused, and getting up to the bathroom last night. He had surgery about one week ago and was discharged 24 hours after the procedure from [facility] in [place]. Since arriving home he has not really ambulated, has been reluctant to drink fluids but has continued taking his losartan. In the ED he was found to have an elevated lactate of 3.6 which improved to 1.3 prior to discharge. He was noted to have a UTI given ceftriaxone and discharged home. Of note, the patient had a CT KUB which was unremarkable. Repeat CT of Chest/ABD/Pelvis remains unremarkable. Patient is admitted to the hospital with a UTI, weakness, syncope, and inability to ambulate. Subjective Observations Pt was rodrick bed with family in room with him. According to family and nursing, pt has emisis x2 last night of undigested sandwich. Objective Assessment Mental Status Alert,Responsive,Cooperative Oral Integrity WFL Dentition Within normal limits Lip Function Within normal limits Observation of Lips at Rest Symmetrical Pucker Within normal limits Lip Retraction Within normal limits Tongue Function Within normal limits Tongue Protrusion Within normal limits Tongue Lateralization Within normal limits Observations of Hard/Soft Palate Within normal limits Phonation Breathy,Reduced loudness Comment Family reports that breathy vocal quality is new since yesterday Food and Liquid Trials Position During Assessment Slightly reclined Liquids Trialed Ice chips,Thin Solids Trialed Puree,Dysphagia Advanced Administration Type Tea spoon,Cup single sip,Cup consecutive sips,Straw Oral Impairment Within normal limits Oral Phase Comments Dentition and oral structures adequate ROM and strength for mastication. No oral stasis observed following trials of solid foods. Pharyngeal Impairment Within functional limits Pharyngeal Phase Comments Adequate hyolaryngeal elevation per palpation. Pt demonstrated prompt swallow response. No cough/choke/wet vocal quality noted. Silent aspiration cannot be ruled out . Instrumental assessment would be needed to fully assess silent aspiration risk. Fatigue/Endurance Moderate fatigue Findings Swallowing Function Within functional limits Severity of Swallow Impairment Within functional limits Contributing Factors to Swallow Reduced alertness or attention Impairment Prognosis Good Based on Cognitive status,Age, Comorbidities,Duration of symptoms/severity Impact on Safety and Functioning Risk for aspiration Recommendations Instrumental Assessment No Swallowing Treatment Yes Frequency F/U 1-2x while inpt Recommended Solids Mechanical Soft Recommended Liquids Thin Other Recommendations Medications as tolerated Safety Precautions/Swallowing 1 to 1 distant supervision, Recommendations Reduce distractions,Remain upright (90 degrees) during all oral intake,Upright position at least 30 minutes after meals,Small bites and sips when eating,Slow rate; swallow between bites,Sip by straw only,Strict oral care after intake Medication Recommendations As Tolerated Discharge Recommendations half-way facility, Inpatient rehab facility,Home with Home Health,Outpatient therapy Education Patient/Caregiver Education Described results of evaluation,Patient expressed understanding of evaluation, Patient expressed agreement with goals & treatment plans, Family/caregivers expressed understanding of evaluation, Family/caregivers expressed agreement with goals & treatment plans,Patient expressed understanding of safety precautions,Family/ caregivers expressed understanding of safety precautions Goals Short-term Goals Pt and family will be educated in safe swallow strategies to reduce risk for aspiration Long-term Goals Pt will safely tolerate the least restrictive diet without s/sx aspiration to meet hydration/nutrition needs.
[2021-06-24] MEDS: polyethylene glycoL 3350 17 GM POWD.PACK PO (14:28)
[2021-06-24] MEDS: HEPARIN 5,000 UNIT/ML VIAL 5000 UNIT SUBCUT ×2 (14:29→21:43)
--- NOTE | 2021-06-24 16:28 | CM.DPC ---
DCP/Assessment: Reviewed chart. Patient is a 81yr old male admitted to [facility] after syncopal episode. PCP is Dr. Charlton. [facility] Met with patient and spouse/Zulay at bedside explained CM/SW role. Patient sleepy at time of visit. Spouse reports that patient was at [facility] a week ago having elective right hip surgery. Per spouse since he was discharged patient has been to the ED and now admitted to [facility] Unclear why patient had syncopal episode? Spouse discusses the difficulty she had caring for patient after surgery. Patient enrolled with [facility] for home therapy. Spouse questioning if SNF for short stay might be more appropriate. SORTING GRAPPLE OPERATOR notified spouse that it is too soon to tell. Once patient is seen by PT and OT we will have clearer picture of patient needs. SNF list provided to family for review. [facility] on hold during hospitalization. CM team to follow up tomorrow 4-12 to continue d/c conversaion. SORTING GRAPPLE OPERATOR encouraged family to review quality list of SNF's and to review state website for ratings. P: Pending. Anticipate SNF vs home with HH services resumed through [facility]. ARLEY Mcclain Discharge Planning/Care Management CM Discharge Assessment Start: 06/24/21 16:23 Freq: Status: Active Protocol: Document 06/24/21 16:23 KJS (Rec: 06/24/21 16:28 [facility] [id number]) Discharge Planning Assessment Assigned Acting Manager ARLEY Mcclain Contact Information Zulay Waters (spouse) # Advance Directives? Yes Advance Directives on File No History Provided By Family Member,Medical Record Prior Living Arrangements House Household Members spouse Type of transporation used prior to Drives own vehicle admit Independent with ADL's Yes: Prior to initial right hip surgery last week. Is patient alert and oriented? Yes Needs Assistance With Bathing,Toileting Caregiver for Another No DME Already Rented / Owned FWW / Walker Patient/Family Preference Correction Facility Barriers to Discharge No Comment Family hopeful patient can go to SNF for short stay. Patient underwent right hip surgery last week in [place] and has not been the same since. Discharge Plan Correction Facility Medicare Choice List Provided Yes SNF/HH Preference Family reviewing SNF's on quality website. Authorization will need to be obtained if patient goes to SNF. Has Agency SNF been contacted No Comment Curently patient on service with [facility]. Whiteboard Updated in Patient Room with Yes name and ext. # of Acting Manager Review Status In Process Next Review Type Continued Stay Review
[2021-06-24] MEDS: POTASSIUM CHLORIDE 20 MEQ TAB 40 MEQ PO ×2 (18:06→21:41)
--- NOTE | 2021-06-24 18:30 | P.CONS_ITS ---
History of Present Illness Consult details Date Patient Seen: 06/24/21 Time Patient Seen: 18:30 Chief complaint: syncope Reason for consult: Recent right hip replacement Requesting provider: Ron Cristobal Narrative: Patient is an 81-year-old male is status post a right total hip replacement in [place] 1 week ago. Per report the patient was discharged from after surgery but each day became more lethargic. And then eventually became altered and his night nurse recommended evaluation. He was reportedly seen and diagnosed with a UTI and later discharged but then worsened again and was brought back to the [facility]. His daughter is with him in the ICU today provides much of the history. The patient reportedly became much worse overnight last night developed sepsis requiring blood pressure support and was started on multiple antibiotics. He reportedly had a fever to 102. His daughter reports his general condition and mentation has improved throughout the day. And bacteria in his urine and is presumably suffering from urosepsis. Orthopedic surgery was consulted regarding the patient's recent hip replacement. A CT of the chest abdomen pelvis was done in the emergency room and demonstrated fluid and air levels at the surgery site no specific abscess was seen but they could not rule this out and consulted Orthopedic surgery. Patient has been dehydrated. Daughter states it is difficult to get him to drink fluids at home. He was reportedly a significantly altered earlier today but when asked to his hip surgeon was he initially has difficulty remembering but when I name off several telling him hip surgeons he acknowledges that the surgeon was Dr. Dobson and notes that he has now bilateral hip replacements. He follows commands and is sitting up in bed alert on my examination. Per the patient's daughter the dressing was changed today. Meds Home Medications and Allergies Home Medications Medication Instructions Recorded Confirmed Type losartan 100 12.5 tab DAILY 06/23/21 06/23/21 History mg-hydrochlorothiazide 12.5 mg tablet tramadol 50 mg tablet 50 mg PO Q6HR PRN 06/23/21 06/23/21 History Allergies Allergy/AdvReac Type Severity Reaction Status Date / Time Penicillins Allergy Unknown Verified 06/24/21 06:42 latex Allergy Rash Verified 06/23/21 16:52 lactose AdvReac Mild Verified 06/24/21 12:35 Review of Systems Review of Systems Narrative: Patient has had malaise altered mental status pain dehydration weakness fever and right hip pain Exam Vital Signs (past 8 hours): - 06/24/21 10:44 06/24/21 10:45 06/24/21 11:00 Temperature 101.7 F H 101.8 F H 101.7 F H Pulse Rate 84 85 83 Respiratory Rate 26 H 27 H 23 Blood Pressure 85/46 L 86/44 L 83/44 L Pulse Oximetry 98 98 97 06/24/21 11:15 06/24/21 11:30 06/24/21 11:45 Temperature 101.7 F H 101.5 F H 101.3 F H Pulse Rate 87 83 84 Respiratory Rate 32 H 27 H 27 H Blood Pressure 79/44 L 85/49 L 91/53 L Pulse Oximetry 98 98 97 06/24/21 12:00 06/24/21 12:15 06/24/21 12:30 Temperature 101.1 F H 101.1 F H 100.9 F H Pulse Rate 85 84 84 Respiratory Rate 32 H 29 H 26 H Blood Pressure 93/51 L 90/53 L 91/50 L Pulse Oximetry 97 97 97 06/24/21 12:45 06/24/21 13:00 06/24/21 14:00 Temperature 100.8 F H 100 F H 100.0 F H Pulse Rate 82 80 77 Respiratory Rate 29 H 29 H 22 Blood Pressure 91/50 L 92/54 L 87/48 L Pulse Oximetry 97 96 96 Oxygen Delivery Method Nasal Cannula Oxygen Flow Rate 2.5 Narrative Exam Narrative: The patient is sitting up in his ICU bed alert on my examination. His daughter is in the room and provides much of the history but the patient answers direct questions appropriately and when given names of surgeons is able to identify his hip surgeon. HEENT exam normocephalic atraumatic Respiratory exam nonlabored on room air Cardiac exam: Sinus rhythm : Shankar in place with yellow urine Musculoskeletal examination: Pillows between the legs for abduction are in place Right lower extremities normal alignment. Demonstrates 5/5 dorsiflexion plantar flexion. Lower extremity compartments are soft. Thigh compartments are soft. Knee demonstrates no effusion. Patient is rolled to his side and his incision inspected. There is a posterior hip approach incision this is healing well with Steri-Strips in place. There is some mild ecchymosis along the thigh in the expected distribution. There is no drainage. There is no erythema. There are no masses or fluctuance. No appearance of infection or concern signs along the incision. Dressing is replaced. Objective Imaging CT scan - pelvis: My impression: CT scan shows bilateral hip replacements. On the right side there is some fluid and air level seen at the surgery site indicative of recent operative procedure. No abscess loosening or fracture is demonstrated. Typical acutely postop appearance of an arthroplasty surgery site Radiologist's impression: IMPRESSION: Recent postoperative change can be seen involving the right hip, with poorly defined fluid and soft tissue gas. No drainable abscess can be seen on these images. If there is strong clinical concern for gluteal abscess, a follow-up ultrasound could be considered for further evaluation. Labs Result Diagrams: 06/24/21 04:50 06/24/21 08:44 Labs: Laboratory Results - last 24 hr 06/23/21 06/24/21 06/24/21 19:03 04:50 04:50 WBC 5.1 RBC 3.72 L Hgb 10.9 L Hct 32.1 L MCV 86.4 MCH 29.4 MCHC 34.0 RDW 13.7 Plt Count 198 Neut % (Auto) Not Reportable Lymph % (Auto) Not Reportable [place] % (Auto) Not Reportable Eos % (Auto) Not Reportable Baso % (Auto) Not Reportable Lymph # (Auto) Not Reportable [place] # (Auto) Not Reportable Baso # (Auto) Not Reportable Total Counted 100 Seg Neutrophils % 56.0 Band Neutrophils % 16.0 H Lymphocytes % (Manual) 21.0 L Atypical Lymphs % 1.0 H Monocytes % (Manual) 3.0 Eosinophils % (Manual) 3.0 Neutrophils # (Manual) 3672 RBC Morphology Normal morphology D-Dimer > 5250 H ABG pH ABG pCO2 ABG pO2 ABG HCO3 ABG Total CO2 ABG O2 Saturation ABG Base Excess FiO2 Sodium Potassium Chloride Carbon Dioxide BUN Creatinine Estimated GFR BUN/Creatinine Ratio Glucose Lactate Calcium Total Bilirubin AST ALT Alkaline Phosphatase Total Protein Albumin Globulin Albumin/Globulin Ratio Procalcitonin Nasal Screen MRSA (PCR) SARS-CoV-2 (PCR) Negative 06/24/21 06/24/21 06/24/21 04:50 04:50 04:50 WBC RBC Hgb Hct MCV MCH MCHC RDW Plt Count Neut % (Auto) Lymph % (Auto) [place] % (Auto) Eos % (Auto) Baso % (Auto) Lymph # (Auto) [place] # (Auto) Baso # (Auto) Total Counted Seg Neutrophils % Band Neutrophils % Lymphocytes % (Manual) Atypical Lymphs % Monocytes % (Manual) Eosinophils % (Manual) Neutrophils # (Manual) RBC Morphology D-Dimer ABG pH ABG pCO2 ABG pO2 ABG HCO3 ABG Total CO2 ABG O2 Saturation ABG Base Excess FiO2 Sodium 139 Potassium 3.4 Chloride 106 Carbon Dioxide 24 BUN 27 H Creatinine 1.23 Estimated GFR 56.2 L BUN/Creatinine Ratio 22.0 Glucose 126 H Lactate 5.7 H* Calcium 8.5 Total Bilirubin 2.0 H AST 74 H ALT 45 Alkaline Phosphatase 132 H D Total Protein 5.5 L Albumin 2.8 L Globulin 2.7 Albumin/Globulin Ratio 1.0 Procalcitonin 9.30 H Nasal Screen MRSA (PCR) SARS-CoV-2 (PCR) 06/24/21 06/24/21 06/24/21 06:13 07:09 08:44 WBC RBC Hgb Hct MCV MCH MCHC RDW Plt Count Neut % (Auto) Lymph % (Auto) [place] % (Auto) Eos % (Auto) Baso % (Auto) Lymph # (Auto) [place] # (Auto) Baso # (Auto) Total Counted Seg Neutrophils % Band Neutrophils % Lymphocytes % (Manual) Atypical Lymphs % Monocytes % (Manual) Eosinophils % (Manual) Neutrophils # (Manual) RBC Morphology D-Dimer ABG pH 7.48 H ABG pCO2 29.3 L ABG pO2 78 L ABG HCO3 22 ABG Total CO2 23 ABG O2 Saturation 97 ABG Base Excess -1.0 FiO2 45 Sodium 138 Potassium 3.2 L Chloride 106 Carbon Dioxide 25 BUN 29 H Creatinine 1.35 H Estimated GFR 50.5 L BUN/Creatinine Ratio 21.5 Glucose 117 H Lactate Calcium 8.2 L Total Bilirubin AST ALT Alkaline Phosphatase Total Protein Albumin Globulin Albumin/Globulin Ratio Procalcitonin Nasal Screen MRSA (PCR) Negative for mrsa SARS-CoV-2 (PCR) 06/24/21 06/24/21 08:44 08:44 WBC RBC Hgb Hct MCV MCH MCHC RDW Plt Count Neut % (Auto) Lymph % (Auto) [place] % (Auto) Eos % (Auto) Baso % (Auto) Lymph # (Auto) [place] # (Auto) Baso # (Auto) Total Counted Seg Neutrophils % Band Neutrophils % Lymphocytes % (Manual) Atypical Lymphs % Monocytes % (Manual) Eosinophils % (Manual) Neutrophils # (Manual) RBC Morphology D-Dimer ABG pH ABG pCO2 ABG pO2 ABG HCO3 ABG Total CO2 ABG O2 Saturation ABG Base Excess FiO2 Sodium Potassium Chloride Carbon Dioxide BUN Creatinine Estimated GFR BUN/Creatinine Ratio Glucose Lactate 3.5 H 3.6 H Calcium Total Bilirubin AST ALT Alkaline Phosphatase Total Protein Albumin Globulin Albumin/Globulin Ratio Procalcitonin Nasal Screen MRSA (PCR) SARS-CoV-2 (PCR) [facility] Medical History Hypertension Surgical History (Updated 06/24/21 @ 18:41 by Maryanne Junior MD) History of right hip replacement Family History Mother Myocardial infarction Father Myocardial infarction Social History household members: spouse Tobacco & Substance Use Smoking Status: Never smoker Assessment & Plan Assessment and plan (1) History of right hip replacement: Status: Acute Plan: 1-week-old right hip replacement with the typical appearance on imaging and healing of surgical site. Does not appear to have any signs of infection. Recommend routine posterior hip precautions and normal postoperative hip surgery protocol as overall clinical help of patient improves. On hospital discharge will follow up with her operating surgeon in [place] (2) RUPERTO (acute kidney injury): Status: Acute Plan: Acutely increased creatinine indicating acute kidney injury likely related to the to urosepsis. Management per medical team (3) Acute UTI: Status: Acute Plan: Management per medical team Plan Postoperative hip replacement care as general medical condition allows. Posterior hip precautions. Mobilization as able. Encourage nutrition hydration. DVT prophylaxis with SCDs and chemical prophylaxis based on kidney function COVID-19 COVID-19 status: Negative Time Spent With Patient Time with patient: less than 30 minutes Critical Care time: I spent a total of [] minutes of critical care time on this patient's care today; this time is exclusive of procedural time.
[2021-06-24 18:52] LABS: Add Manual Diff / Slide Review NO; Basophils Absolute Auto 0 /uL (0-100); Basophils Percent Auto 0.1 % (0-2); Eosinophils Absolute Auto 0 /uL (0-450); Eosinophils Percent Auto 0.1 % (2-4); Hematocrit 25.8 % (41-53); Hemoglobin 8.6 g/dL (13.5-17.5); Lymphocytes Absolute Auto 1300 /uL (1100-4500); Mean Corpuscular HGB Conc 33.5 % (30-36); Mean Corpuscular Hemoglobin 28.7 PG (26-34); Mean Corpuscular Volume 85.8 fL (80-100); Monocytes Absolute Auto 1100 /uL (0-900); Monocytes Percent Auto 4.2 % (3-14); Neutrophils Absolute Auto 23400 /uL (1500-7000); Neutrophils Percent Auto 90.6 % (50-75); Platelet Count 167 X10^3/uL (150-400); Red Blood Cell Count 3.01 X10^6/uL (4.5-5.9); Red Cell Distribution Width 14.1 % (11.6-14.8); White Blood Cell Count 25.9 X10^3/uL (4.5-11.0)
[2021-06-24] MEDS: LINEZOLID 600 MG/300 ML IV.SOLN 300 MG IV (19:54)
[2021-06-24] MEDS: LACTATED RINGERS 1,000 ML 75 ML IV (20:33)
[2021-06-24] MEDS: NOREPINEPHRINE BITARTRATE/D5W 4 MG/250 ML PLAST..BAG 15 MG IV (20:38)
--- NOTE | 2021-06-24 20:41 | PM.ICURNDS ---
- :: This patient was seen via real time interactive two-way audiovisual telecommunication. Note: Patient reports he's comfortable this evening. His daughter at bedside voices concern that her father hasn't had a bowel movement since his surgery, also notes she is still slightly confused. Currently on Levophed @ 2, LR @ 75/hour. MAPs >65 but SBP in the mid-high 80s. RN notes dressing site/surrounding skin of R hip/glute looks well appearing. Discussed with family that in setting of shock, immobility and recent surgery it will take some time for bowel function to improve. Can start colace, continue Miralax. UOP slightly below 0.5cc/kg/hour, given this, persistent AMS and his history of HTN, suspect current BP may be slightly low for adequate organ perfusion. Will increase LR to 100cc/hour and recommend Levo be titrated to achieve a MAP >65 and a SBP of >90. If persistent poor UOP despite these changes, would recommend morning labs be drawn early to evaluate Cr, lactate.
[2021-06-24] MEDS: ACETAMINOPHEN 325 MG TABLET 975 MG PO (21:41)
[2021-06-24 23:58] LABS: Hematocrit 25.8 % (41-53); Hemoglobin 8.7 g/dL (13.5-17.5); Mean Corpuscular HGB Conc 33.8 % (30-36); Mean Corpuscular Volume 85.9 fL (80-100); Platelet Count 180 X10^3/uL (150-400)
[2021-06-24 23:59] LABS: Add Manual Diff / Slide Review YES; White Blood Cell Count 31.2 X10^3/uL (4.5-11.0)
[2021-06-25] VITALS (16 sets, daily range): BP systolic 89–129; BP diastolic 48–76; PULSE 59–76; RESP 16–30; TEMP 36.6–37.3; O2SAT 92–100
[2021-06-25 00:09] LABS: Alanine Aminotransferase 33 IU/L (<50); Albumin 2.7 g/dL (3.5-5.0); Albumin Globulin Ratio 1.1 (1.0-2.8); Alkaline Phosphatase 73 U/L (38-126); Aspartate Aminotransferase 49 IU/L (17-59); BUN Creatinine Ratio 23.1 (6-22); Bilirubin Total 1.6 mg/dL (0.2-1.3); Blood Urea Nitrogen 34 mg/dL (9-20); Calcium 7.7 mg/dL (8.4-10.2); Carbon Dioxide 23 mmol/L (22-32); Chloride 100 mmol/L (98-107); Estimated Glomerular Filt Rate 45.7 mL/min (>60); Globulin 2.5 g/dL (1.7-4.1); Glucose 163 mg/dL (80-110); HEMOLYSIS < 15 (0-50); Magnesium 1.3 mg/dL (1.6-2.3); Sodium 132 mmol/L (137-145); Total Protein 5.2 g/dL (6.3-8.2)
[2021-06-25 00:26] LABS: Procalcitonin 53.7 ng/mL (<0.5)
[2021-06-25] MEDS: MAGNESIUM SULFATE 2 GM/50 ML PIGGYBACK IV (01:13)
[2021-06-25] MEDS: metroNIDAZOLE 500 MG/100 ML PIGGYBACK 100 MG IV ×2 (01:17→09:05)
[2021-06-25 01:39] LABS: Lactate (Lactic Acid) 2.6 mmol/L (0.7-2.1)
--- NOTE | 2021-06-25 01:55 | PC.NURSE ---
Pt turned to left for inspection of R hip wound. Area around dressing appears swollen an is firm to the touch. [employer] Machine Tender notified and orders noted to erika the area for observation. CVP checked and MD notified of result. Levophed maintained at 6mcg/min for map 65-70.
--- NOTE | 2021-06-25 01:56 | DI.US.S_ITS ---
PROCEDURE: US EXTREMITY NONVASC LOWER RT INDICATIONS: SEPTIC SHOCK POST RIGHT HIP; POSSIBLE ABSCESS TECHNIQUE: Real-time scanning was performed of the right hip , with image documentation. COMPARISON: None. FINDINGS: Sonographic images near the right hip demonstrate a 5.3 x 1.0 x 2.4 cm complex focus of echogenicity without increased vascularity. Subcutaneous edema is present. IMPRESSION: Heterogeneous focus within the soft tissues suggestive of hematoma versus abscess. Dictated by: Lotus Bonilla M.D. on 06/25/2021 at 8:29 Approved by: Lotus Bonilla M.D. on 06/25/2021 at 8:30
[2021-06-25 02:03] LABS: Neutrophils Absolute Manual 23088 /uL (3000-5900); Total Cells Counted 100
[2021-06-25 02:04] LABS: Anisocytosis 1+
[2021-06-25] MEDS: AZTREONAM 2 GM in DEXTROSE 5 % IN WATER 100 ML IV ×2 (03:17→12:31)
[2021-06-25 03:25] LABS: Reflexed Lactate in 2 Hours Y
[2021-06-25] MEDS: NOREPINEPHRINE BITARTRATE/D5W 4 MG/250 ML PLAST..BAG 18.75 MG IV (04:58)
[2021-06-25] MEDS: ACETAMINOPHEN 325 MG TABLET 975 MG PO (05:31)
[2021-06-25] MEDS: HEPARIN 5,000 UNIT/ML VIAL 5000 UNIT SUBCUT ×3 (05:32→20:33)
--- NOTE | 2021-06-25 06:07 | PC.NURSE ---
Urine output improved over the last few hours >80ml/hr Pt is more alert this AM than previous evening. Denies pain or discomfort. Norepi drip cont @ 5mcg/min
[2021-06-25] MEDS: LINEZOLID 600 MG/300 ML IV.SOLN IV (06:29)
[2021-06-25] MEDS: polyethylene glycoL 3350 17 GM POWD.PACK PO (08:27)
[2021-06-25] MEDS: DOCUSATE 100 MG CAPSULE PO ×2 (08:28→20:32)
[2021-06-25] MEDS: ASPIRIN EC 81 MG TABLET PO ×2 (08:28→20:32)
[2021-06-25 09:02] LABS: Add Manual Diff / Slide Review NO; Basophils Absolute Auto 100 /uL (0-100); Basophils Percent Auto 0.3 % (0-2); Eosinophils Absolute Auto 0 /uL (0-450); Eosinophils Percent Auto 0.1 % (2-4); Hematocrit 25.6 % (41-53); Hemoglobin 8.5 g/dL (13.5-17.5); Lymphocytes Absolute Auto 1800 /uL (1100-4500); Lymphocytes Percent Auto 6.9 % (25-40); Mean Corpuscular HGB Conc 33.2 % (30-36); Mean Corpuscular Volume 87.2 fL (80-100); Monocytes Absolute Auto 1700 /uL (0-900); Monocytes Percent Auto 6.4 % (3-14); Neutrophils Absolute Auto 22900 /uL (1500-7000); Neutrophils Percent Auto 86.3 % (50-75); Platelet Count 156 X10^3/uL (150-400); Red Blood Cell Count 2.94 X10^6/uL (4.5-5.9); White Blood Cell Count 26.6 X10^3/uL (4.5-11.0)
[2021-06-25 09:08] LABS: Alanine Aminotransferase 30 IU/L (<50); Albumin 2.5 g/dL (3.5-5.0); Alkaline Phosphatase 74 U/L (38-126); Aspartate Aminotransferase 47 IU/L (17-59); BUN Creatinine Ratio 23.1 (6-22); Bilirubin Total 1.3 mg/dL (0.2-1.3); Blood Urea Nitrogen 31 mg/dL (9-20); Carbon Dioxide 24 mmol/L (22-32); Chloride 103 mmol/L (98-107); Estimated Glomerular Filt Rate 52.6 mL/min (>60); Globulin 2.5 g/dL (1.7-4.1); Glucose 151 mg/dL (80-110); HEMOLYSIS < 15 (0-50); Potassium 3.8 mmol/L (3.4-5.1); Sodium 135 mmol/L (137-145)
[2021-06-25 09:09] LABS: Lactate (Lactic Acid) 2.3 mmol/L (0.7-2.1)
[2021-06-25] MEDS: TRAMADOL 50 MG TABLET PO ×2 (09:14→17:44)
--- NOTE | 2021-06-25 09:15 | P.TELICUPN_ITS ---
Subjective Subjective :: This patient was seen via real time interactive two-way audiovisual telecommunication. Low UOP noted overnight. ON levophed 4 mcg. Mentation improving slowly. UOP picked up this morning. Afebrile since yesterday evening. On room air. US R hip findings as below concerning for abscess vs hematoma. Lactate pending. Mg repleted pending repeat labs. Cr improving slowly. Right hip slilghtly more indurated and erythematous today per RN report. Urine cx growing GNR. Sonographic images near the right hip demonstrate a 5.3 x 1.0 x 2.4 cm complex focus of echogenicity without increased vascularity.? Subcutaneous edema is present. Current Medications Current Medications Medications: Home Medications losartan 100 mg-hydrochlorothiazide 12.5 mg tablet 12.5 tab DAILY 06/23/21 [History Confirmed 06/23/21] tramadol 50 mg tablet 50 mg PO Q6HR PRN 06/23/21 [History Confirmed 06/23/21] Visit Medications (administered) Generic Name Dose Route Start Last Admin Trade Name Freq PRN Reason Stop Dose Admin Acetaminophen 975 mg 06/23/21 22:00 06/25/21 05:31 Acetaminophen 325 Mg Tablet PO 975 mg Q8HR GORDON Administration Aspirin 81 mg 06/24/21 09:00 06/25/21 08:28 Aspirin Ec 81 Mg Tablet PO 81 mg BID GORDON Administration Docusate Sodium 100 mg 06/25/21 08:00 06/25/21 09:06 Docusate 100 Mg Capsule PO Not Given BID GORDON Heparin Sodium (Porcine) 5,000 unit 06/24/21 14:00 06/25/21 05:32 Heparin 5,000 Unit/Ml Vial SUBCUT 5,000 unit Q8HR GORDON Administration Linezolid 600 mg in 300 mls @ 600 mls/hr 06/24/21 07:00 06/25/21 07:34 Zyvox IV Infused Q12H GORDON Infusion NOREPINEPHRINE BITARTRATE/D5W 4 mg in 250 mls @ 30 mls/hr 06/24/21 06:45 06/25/21 04:58 Levophed IV 5 mcg/min TITRATE GORDON 18.75 mls/hr Administration Protocol 8 MCG/MIN Lactated Ringer's 1,000 mls @ 100 mls/hr 06/24/21 06:45 06/24/21 20:33 Lactated Ringers IV 100 mls/hr CONT GORDON Infusion Metronidazole 500 mg in 100 mls @ 100 mls/hr 06/24/21 10:00 06/25/21 09:05 Flagyl IV 100 mls/hr Q8H GORDON Administration Aztreonam 2 gm/ Dextrose 100 mls @ 100 mls/hr 06/24/21 11:00 06/25/21 05:00 IV Infused Q8H GORDON Infusion Ondansetron HCl 4 mg 06/24/21 03:29 06/24/21 03:32 Ondansetron 4 Mg/2 Ml Inj IV 4 mg Q8HR PRN Administration NAUSEA/VOMITING Polyethylene Glycol 17 gm 06/24/21 14:00 06/25/21 08:27 Polyethylene Glycol 3350 17 Gm Powd.Pack PO 17 gm DAILY GORDON Administration Tramadol HCl 50 mg 06/24/21 11:30 06/25/21 09:14 Tramadol 50 Mg Tablet PO 50 mg QID PRN Administration Pain, Severe (7-10) Objective Labs Result Diagrams: 06/25/21 08:00 06/25/21 08:00 Labs: Laboratory Results - last 24 hr 06/24/21 06/24/21 06/24/21 08:44 08:44 18:19 WBC 25.9 H D RBC 3.01 L Hgb 8.6 L Hct 25.8 L MCV 85.8 MCH 28.7 MCHC 33.5 RDW 14.1 Plt Count 167 Neut % (Auto) 90.6 H D Lymph % (Auto) 5.0 L D [place] % (Auto) 4.2 Eos % (Auto) 0.1 L Baso % (Auto) 0.1 Neut # (Auto) 27335 H Lymph # (Auto) 1300 [place] # (Auto) 1100 H Eos # (Auto) 0 Baso # (Auto) 0 Total Counted Seg Neutrophils % Band Neutrophils % Lymphocytes % (Manual) Monocytes % (Manual) Eosinophils % (Manual) Metamyelocytes % Myelocytes % Neutrophils # (Manual) RBC Morphology Anisocytosis Sodium 138 Potassium 3.2 L Chloride 106 Carbon Dioxide 25 BUN 29 H Creatinine 1.35 H Estimated GFR 50.5 L BUN/Creatinine Ratio 21.5 Glucose 117 H Lactate 3.6 H Calcium 8.2 L Magnesium Total Bilirubin AST ALT Alkaline Phosphatase Total Protein Albumin Globulin Albumin/Globulin Ratio Procalcitonin 06/24/21 06/24/21 06/25/21 23:30 23:30 01:15 WBC 31.2 H* RBC 3.00 L Hgb 8.7 L Hct 25.8 L MCV 85.9 MCH 29.0 MCHC 33.8 RDW 14.0 Plt Count 180 Neut % (Auto) Not Reportable Lymph % (Auto) Not Reportable [place] % (Auto) Not Reportable Eos % (Auto) Not Reportable Baso % (Auto) Not Reportable Neut # (Auto) Lymph # (Auto) Not Reportable [place] # (Auto) Not Reportable Eos # (Auto) Baso # (Auto) Not Reportable Total Counted 100 Seg Neutrophils % 41.0 Band Neutrophils % 33.0 H Lymphocytes % (Manual) 13.0 L Monocytes % (Manual) 3.0 Eosinophils % (Manual) 2.0 Metamyelocytes % 5.0 H Myelocytes % 3.0 H Neutrophils # (Manual) 80713 H RBC Morphology See below Anisocytosis 1+ H Sodium 132 L Potassium 4.0 Chloride 100 Carbon Dioxide 23 BUN 34 H Creatinine 1.47 H Estimated GFR 45.7 L BUN/Creatinine Ratio 23.1 H Glucose 163 H Lactate 2.6 H Calcium 7.7 L Magnesium 1.3 L Total Bilirubin 1.6 H AST 49 ALT 33 Alkaline Phosphatase 73 D Total Protein 5.2 L Albumin 2.7 L Globulin 2.5 Albumin/Globulin Ratio 1.1 Procalcitonin 53.7 H 06/25/21 06/25/21 06/25/21 08:00 08:00 08:00 WBC 26.6 H RBC 2.94 L Hgb 8.5 L Hct 25.6 L MCV 87.2 MCH 29.0 MCHC 33.2 RDW 14.0 Plt Count 156 Neut % (Auto) 86.3 H Lymph % (Auto) 6.9 L [place] % (Auto) 6.4 Eos % (Auto) 0.1 L Baso % (Auto) 0.3 Neut # (Auto) 53035 H Lymph # (Auto) 1800 [place] # (Auto) 1700 H Eos # (Auto) 0 Baso # (Auto) 100 Total Counted Seg Neutrophils % Band Neutrophils % Lymphocytes % (Manual) Monocytes % (Manual) Eosinophils % (Manual) Metamyelocytes % Myelocytes % Neutrophils # (Manual) RBC Morphology Anisocytosis Sodium 135 L Potassium 3.8 Chloride 103 Carbon Dioxide 24 BUN 31 H Creatinine 1.34 H Estimated GFR 52.6 L BUN/Creatinine Ratio 23.1 H Glucose 151 H Lactate 2.3 H Calcium 8.0 L Magnesium Total Bilirubin 1.3 AST 47 ALT 30 Alkaline Phosphatase 74 Total Protein 5.0 L Albumin 2.5 L Globulin 2.5 Albumin/Globulin Ratio 1.0 Procalcitonin Exam Vital Signs (past 8 hours): - 06/25/21 04:00 06/25/21 05:00 06/25/21 06:00 Temperature 98.6 F 98.4 F 98.4 F Pulse Rate 63 65 63 Respiratory Rate 21 20 23 Blood Pressure 123/56 L 111/55 L 106/54 L Pulse Oximetry 92 93 93 06/25/21 07:00 Temperature 98.1 F Pulse Rate 62 Respiratory Rate 19 Blood Pressure 115/55 L Pulse Oximetry 97 Oxygen Delivery Method Room Air Oxygen Flow Rate 2.5 Assessment & Plan Assessment & Plan narrative: NEURO: # Acute encephalopathy -- Secondary to septic shock -- Improving slowly -- Avoid sedatives -- Early mobility as tolerated RESP: -- On room air -- Encourage IS and OOB as tolerated CVS: # Distributive shock -- Secondary to UTI sepsis -- Cont LR 100cc/hr -- On levophed 4 mcg -- MAP goal > 65 # Hx of HTN -- HOld all BP meds ID: # Septic shock -- Secondary to GNR UTI and possible R hib abscess given US findings -- On linezolid/aztreonam/flagyl -- Follow up cx data -- Given US findings with ongoing shock concerning for uncontrolled source, would need ortho reevaluation for possible drainage to rule out abscess if lactate remains elevated wiht no improvement in shock. Given stable H/H, hematoma appears less likely. HEME: # Anemia -- Secondary to sepsis causing BM suppression -- No signs of overt bleed -- Daily CBC -- Goal Hb > 7 : # RUPERTO -- Improving slowly -- Cont LR infusion -- Avoid nephrotoxin agents -- Daily BMP -- Monitor UOP ENDO: -- Goal Bs < 180 Time Spent With Patient Critical Care time: I spent a total of [] minutes of critical care time on this patient's care today; this time is exclusive of procedural time.
--- NOTE | 2021-06-25 10:00 | PT-IP ANOTE ---
Discussed pt at AM rounds. Per hospitalist , pt is not medically stable for PT evaluation, continues to require pressor support. Will follow up Thursday AM and discharge orders if pt not appropriate at that time.
[2021-06-25] MEDS: LACTATED RINGERS 1,000 ML 100 ML IV ×2 (10:09→19:49)
--- NOTE | 2021-06-25 10:34 | OT.IPNOTE ---
Per hospitalist not medically appropriate for OT eval yet today and possibly ready tomorrow. However if pt still not ready tomorrow, hospitalist agreed can discharge OT eval orders. To check on the pt tomorrow.
[2021-06-25 10:58] LABS: Reflexed Lactate in 2 Hours Y
--- NOTE | 2021-06-25 11:03 | P.PN_ITS ---
Subjective Subjective Date Patient Seen: 06/25/21 Time Patient Seen: 11:03 Interval history: Patient denies pain this morning, no shortness of breath, chest pain, pa lpitations. He is confused, but improving and now oriented x2 today. Remains on a levophed this morning. Labs started to improve lateri in the morning finally with improving WBC and creatinine. Discontinued linezoild and flagyl, continued on levaquin and aztreonam. Urine cultures growing GNB. Awaiting culture results. Exam Vital Signs (past 8 hours): - 06/25/21 04:00 06/25/21 05:00 06/25/21 06:00 Temperature 98.6 F 98.4 F 98.4 F Pulse Rate 63 65 63 Respiratory Rate 21 20 23 Blood Pressure 123/56 L 111/55 L 106/54 L Pulse Oximetry 92 93 93 06/25/21 07:00 06/25/21 08:00 06/25/21 09:00 Temperature 98.1 F 97.9 F 98.1 F Pulse Rate 62 62 66 Respiratory Rate 19 19 19 Blood Pressure 115/55 L 114/55 L 109/52 L Pulse Oximetry 97 96 98 Oxygen Delivery Method Room Air Oxygen Flow Rate 2.5 Narrative Exam Narrative: General:? Patient is well developed and well nourished, though ill appearing male HEENT:? Normocephalic, atraumatic, extraocular muscles intact, oral pharynx is clear and mucous membranes are moist. Neck: supple and symmetric, trachea is midline, no cervical adenopathy. Negative for JVD Chest:? Normal AP diameter and contour without kyphoscoliosis, no tachypnea, equal chest rise bilaterally. Lungs:? CTA b/l no wheezing rhonchi or rales. Cardio:?RRR no m/r/g. Abdomen: S NT ND. No CVA tenderness. Musculoskeletal:? Muscle strength and tone are equal within normal limits, no deformity. Extremities: No edema or joint effusions. No cyanosis or clubbing. hip dressing c/d/i. area is demarcated but no significant erythema today. Some ecchymosis around sutures. Skin:? Pale,? Warm to touch,dry and intact without rashes, ulcerations or petechiae.? Neuro:? Alert and orientated x2,? sensation to touch intact in all extremities, no gross deficits noted of cranial nerves. Psych:? Patient has a well-kept appearance, appropriate affect, mental status attitude thought context and judgment are appropriate for age. Objective Labs Result Diagrams: 06/25/21 08:00 06/25/21 08:00 Labs: Laboratory Results - last 24 hr 06/24/21 06/24/21 06/24/21 08:44 18:19 23:30 WBC 25.9 H D 31.2 H* RBC 3.01 L 3.00 L Hgb 8.6 L 8.7 L Hct 25.8 L 25.8 L MCV 85.8 85.9 MCH 28.7 29.0 MCHC 33.5 33.8 RDW 14.1 14.0 Plt Count 167 180 Neut % (Auto) 90.6 H D Not Reportable Lymph % (Auto) 5.0 L D Not Reportable Holmes % (Auto) 4.2 Not Reportable Eos % (Auto) 0.1 L Not Reportable Baso % (Auto) 0.1 Not Reportable Neut # (Auto) 66756 H Lymph # (Auto) 1300 Not Reportable Holmes # (Auto) 1100 H Not Reportable Eos # (Auto) 0 Baso # (Auto) 0 Not Reportable Total Counted 100 Seg Neutrophils % 41.0 Band Neutrophils % 33.0 H Lymphocytes % (Manual) 13.0 L Monocytes % (Manual) 3.0 Eosinophils % (Manual) 2.0 Metamyelocytes % 5.0 H Myelocytes % 3.0 H Neutrophils # (Manual) 31614 H RBC Morphology See below Anisocytosis 1+ H Sodium 138 Potassium 3.2 L Chloride 106 Carbon Dioxide 25 BUN 29 H Creatinine 1.35 H Estimated GFR 50.5 L BUN/Creatinine Ratio 21.5 Glucose 117 H Lactate Calcium 8.2 L Magnesium Total Bilirubin AST ALT Alkaline Phosphatase Total Protein Albumin Globulin Albumin/Globulin Ratio Procalcitonin 06/24/21 06/25/21 06/25/21 23:30 01:15 08:00 WBC 26.6 H RBC 2.94 L Hgb 8.5 L Hct 25.6 L MCV 87.2 MCH 29.0 MCHC 33.2 RDW 14.0 Plt Count 156 Neut % (Auto) 86.3 H Lymph % (Auto) 6.9 L Holmes % (Auto) 6.4 Eos % (Auto) 0.1 L Baso % (Auto) 0.3 Neut # (Auto) 40971 H Lymph # (Auto) 1800 Holmes # (Auto) 1700 H Eos # (Auto) 0 Baso # (Auto) 100 Total Counted Seg Neutrophils % Band Neutrophils % Lymphocytes % (Manual) Monocytes % (Manual) Eosinophils % (Manual) Metamyelocytes % Myelocytes % Neutrophils # (Manual) RBC Morphology Anisocytosis Sodium 132 L Potassium 4.0 Chloride 100 Carbon Dioxide 23 BUN 34 H Creatinine 1.47 H Estimated GFR 45.7 L BUN/Creatinine Ratio 23.1 H Glucose 163 H Lactate 2.6 H Calcium 7.7 L Magnesium 1.3 L Total Bilirubin 1.6 H AST 49 ALT 33 Alkaline Phosphatase 73 D Total Protein 5.2 L Albumin 2.7 L Globulin 2.5 Albumin/Globulin Ratio 1.1 Procalcitonin 53.7 H 06/25/21 06/25/21 06/25/21 08:00 08:00 09:38 WBC RBC Hgb Hct MCV MCH MCHC RDW Plt Count Neut % (Auto) Lymph % (Auto) Holmes % (Auto) Eos % (Auto) Baso % (Auto) Neut # (Auto) Lymph # (Auto) Holmes # (Auto) Eos # (Auto) Baso # (Auto) Total Counted Seg Neutrophils % Band Neutrophils % Lymphocytes % (Manual) Monocytes % (Manual) Eosinophils % (Manual) Metamyelocytes % Myelocytes % Neutrophils # (Manual) RBC Morphology Anisocytosis Sodium 135 L Potassium 3.8 Chloride 103 Carbon Dioxide 24 BUN 31 H Creatinine 1.34 H Estimated GFR 52.6 L BUN/Creatinine Ratio 23.1 H Glucose 151 H Lactate 2.3 H Calcium 8.0 L Magnesium 2.0 Total Bilirubin 1.3 AST 47 ALT 30 Alkaline Phosphatase 74 Total Protein 5.0 L Albumin 2.5 L Globulin 2.5 Albumin/Globulin Ratio 1.0 Procalcitonin [facility] Medical History Hypertension Surgical History History of right hip replacement Family History Mother Myocardial infarction Father Myocardial infarction Social History household members: spouse Smoking Status: Never smoker Assessment & Plan Assessment & Plan narrative: 1. Septic shock secondary to acute cytstitis secondary to likely catheter placement from recent surgery. With RUPERTO, acute metabolic encephalopathy, and acute hypoxic respiratory failure. ?- initially on 4 antibiotics, levaquin, aztreonam, flagyl, and linzeolid. Patient is penicillin allergic. Discontinued flagyl and linezolid today. Will continue levaquin and aztreonam for now while urine cultures finalize. ?- continue to wean levophed as tolerated. Wean from O2, currently on 6L NC to maintain o2 saturations above 90% ?- orthopedic surgery does not believe this is likely R hip at this time per their review. US with possible hematoma or abscess. Appreciate their time. No other obvious intra-abdominal or pulmonary source. ?- more likely secondary to UTI in setting of catheter use from surgery. ?- galindo in place with good urine output. ?- follow labs and procalcitonin. ?- elevated bilirubin likely in setting of sepsis, continue to follow. CT imaging without obvious biliary pathology and no RUQ pain currently. 2. Essential hypertension ?- hold home antihypertensives. 3. S/p recent hip surgery ?- PT/OT when more stable. Ortho consultation requested as above. ?- continue tramadol prn for hip pain. Patient did not tolerate opiates well per spouse. I spent 40 minutes providing critical care management this patient.? This excludes time spent in performing separately billed procedures. 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
[2021-06-25 12:33] LABS: Lactate 2HR (Lactic Acid Rflx) 2.3 mmol/L (0.7-2.1)
--- NOTE | 2021-06-25 13:56 | PC.NURSE ---
Addendum entered by Lissett Greene R.N. 06/25/21 18:04: BP remains stable, a little soft. UOP significant improvement over 24 hours ago. Shankar patent, urine less concentrated, Spo2 96% RA. Afebrile. Pt feels like he could probably ambulate just fine and get home reminded patient about bed mobility, and increased need for assistance since becoming acutely ill. Pt is rolling his eyes, Whatever you say Tramadol given for pain, slight delay to speech at times. But ableto state bday name and that he is in hospital. Original Note: AM shift Pt is resting comfortably at present, afebrile, currently on Levophed currently at 3 mcg/min. Tapering down as BP tolerates. Completely turned off @ 1145. Bp remains soft. Discussed POC and potential for ambulation with PT OT later today. Pt requests Shankar removed when able. Dr Cristobal made aware. at bedside, and remains informed about care. US done on hip, report back, and c/s of urine back. NC infusing @ 75mls/hr
--- NOTE | 2021-06-25 14:40 | ST.IPDYTX ---
Visit Care Team Role Provider Type Zaheer Charlton MD Primary Care Provider Non-Staff Specialty: Family Practice Address: [address] [facility], [place], [address] Email: Maryanne Junior MD Other Providers Physician Specialty: Orthopedics Orthopedic Surgery Address: [address] [place] [address], [place], [address] Email: [email or web address] Jaime Moreno DO Emergency Provider Physician Specialty: Emergency Medicine Address: [address] [place] [address], [address] Email: [email or web address] Hardin MD Admit Provider Physician Attending Provider Specialty: Internal Medicine Address: [address] [place] [address], [address] Email: [email or web address] Dysphagia Treatment ADOPTION COORDINATOR Dysphagia Treatment Start: 06/24/21 11:29 Freq: Status: Active Protocol: Document 06/25/21 14:31 RACHEAL (Rec: 06/25/21 14:40 ZS [id number]) Dysphagia Treatment Session Time Visit Start Time 12:30 Visit Stop Time 12:45 Total Visit Minutes 15 Visit Information Visit Number 1 Setting Assessment Location Acute Care Visit Type Note Type Treatment Note Next Note Type Next Note Type Treatment Note Patient Information Identification Type Name Subjective Observations Pt was seated upright in bed with daughter at bedside when ADOPTION COORDINATOR arrived. Daughter reported eating went well, though he did not like his breakfast. She added the pt ate a doughnut instead of his breakfast and has had no difficulty with chewing or swallowing and no coughing or choking while eating. Pt was agreeable to eating some lunch for possible advancement of diet. Treatment Liquids Trialed Thin Solids Trialed Puree,Mechanical Soft,Regular Administration Type Tea Spoon,Straw Oral Strategies Upright at 90 degrees Pharyngeal Strategies Small Bites and Sips Treatment Activities Observed pt eat bites of turkey, some ice dessert, and a sip of water through a straw cup. Provided education regarding swallow safety and diet advancement. Assessment Patient Response to Treatment Excellent Rehab Potential Excellent Assessment of Improvement Pt exhibited prolonged chewing when eating turkey, with a breath break in the middle. Daughter prepared the turkey by cutting it into smaller bites, but pt independently ate after prep was complete. Pt reported he is tired all the time, not just for meals. Provided education regarding diet textures and fatigue while eating, recommended trying softer foods if pt finds he becomes tired while eating. No signs or symptoms of aspiration observed across all trials and pt demonstrated thorough chewing and pausing to chew between bites. Provided education regarding positioning and rate of eating as it relates to swallow safety. Recommend advancing diet to regular textures and thin liquids. Diet Recommendations Recommendations Upgrade Diet Order Liquids Order Thin Diet Order Regular Medication Recommendations As Tolerated Aspiration Precautions Recommended Precautions Upright at 90 Degrees, Alternate Liquids/Solids,Small Bites/Sips Additional Precautions Set-up assistance with cutting food into bite-sized pieces. Treatment Plan Appropriate for Continued Therapy Yes Therapy Recommendations Follow-up x1 to determine pt is safe with advanced diet. Dysphagia Goals Pt will safely tolerate least restrictive diet to meet his nutrition and hydration needs.
[2021-06-25 19:49] LABS: Lactate (Lactic Acid) 2.4 mmol/L (0.7-2.1)
[2021-06-25 21:32] LABS: Reflexed Lactate in 2 Hours Y
[2021-06-26 00:39] VITALS: BP 99/53; PULSE 70; RESP 19; TEMP 36.6; O2SAT 99
[2021-06-26] MEDS: TRAMADOL 50 MG TABLET PO ×2 (03:20→20:55)
[2021-06-26 04:03] VITALS: BP 101/51; PULSE 66; RESP 19; TEMP 36.7; O2SAT 97
[2021-06-26 04:35] LABS: Add Manual Diff / Slide Review NO; Basophils Absolute Auto 0 /uL (0-100); Basophils Percent Auto 0.1 % (0-2); Eosinophils Absolute Auto 400 /uL (0-450); Eosinophils Percent Auto 2.3 % (2-4); Hematocrit 23.6 % (41-53); Hemoglobin 7.8 g/dL (13.5-17.5); Lymphocytes Absolute Auto 2000 /uL (1100-4500); Lymphocytes Percent Auto 10.5 % (25-40); Mean Corpuscular Hemoglobin 28.9 PG (26-34); Mean Corpuscular Volume 87.6 fL (80-100); Monocytes Absolute Auto 600 /uL (0-900); Monocytes Percent Auto 3.4 % (3-14); Neutrophils Absolute Auto 15500 /uL (1500-7000); Neutrophils Percent Auto 83.7 % (50-75); Platelet Count 137 X10^3/uL (150-400); Red Blood Cell Count 2.69 X10^6/uL (4.5-5.9); Red Cell Distribution Width 14.3 % (11.6-14.8); White Blood Cell Count 18.5 X10^3/uL (4.5-11.0)
[2021-06-26 04:42] LABS: Lactate (Lactic Acid) 1.7 mmol/L (0.7-2.1)
[2021-06-26 04:43] LABS: Alanine Aminotransferase 23 IU/L (<50); Albumin 2.2 g/dL (3.5-5.0); Alkaline Phosphatase 60 U/L (38-126); Aspartate Aminotransferase 34 IU/L (17-59); BUN Creatinine Ratio 28.8 (6-22); Bilirubin Total 0.8 mg/dL (0.2-1.3); Blood Urea Nitrogen 30 mg/dL (9-20); Calcium 7.4 mg/dL (8.4-10.2); Carbon Dioxide 24 mmol/L (22-32); Chloride 108 mmol/L (98-107); Estimated Glomerular Filt Rate > 60 mL/min (>60); Globulin 2.2 g/dL (1.7-4.1); Glucose 90 mg/dL (80-110); HEMOLYSIS < 15 (0-50); Magnesium 1.9 mg/dL (1.6-2.3); Potassium 3.6 mmol/L (3.4-5.1); Sodium 136 mmol/L (137-145); Total Protein 4.4 g/dL (6.3-8.2)
[2021-06-26] MEDS: LACTATED RINGERS 1,000 ML 100 ML IV ×2 (05:35→16:45)
[2021-06-26] MEDS: HEPARIN 5,000 UNIT/ML VIAL 5000 UNIT SUBCUT ×3 (05:36→21:18)
--- NOTE | 2021-06-26 08:15 | PM.PN.1 ---
Subjective Subjective Date Patient Seen: 06/26/21 Time Patient Seen: 08:16 Interval history: Patient has no complaints this morning. He denies any new numbness or tingling. No fevers, chills, night sweats. He is currently being treated for his urinary tract infection. Patient is an 81-year-old male is status post a right total hip replacement in [place] 1 week ago.? Per report the patient was discharged from after surgery but each day became more lethargic.? And then eventually became altered and his night nurse recommended evaluation.? He was reportedly seen and diagnosed with a UTI and later discharged but then worsened again and was brought back to the hospital.? The patient reportedly became much worse, developed sepsis requiring blood pressure support and was started on multiple antibiotics.? He reportedly had a fever to 102.? He is suffering from urosepsis and being treated with antibiotics per the primary team. Exam Vital Signs (past 8 hours): - 06/26/21 00:39 06/26/21 04:03 Temperature 97.9 F 98.1 F Pulse Rate 70 66 Respiratory Rate 19 19 Blood Pressure 99/53 L 101/51 L Pulse Oximetry 99 97 Oxygen Delivery Method Room Air Oxygen Flow Rate 2.5 Narrative Exam Narrative: Pleasant 81-year-old male, resting comfortably in bed, no acute distress. He is alert and oriented x4, although somewhat confused or slow to answer my questions at times. Otherwise answering questions appropriately. Dressing is clean, dry, intact. There is firmness about the incision, possibly postoperative seroma. No surrounding erythema. Lower extremity: Motor functions are grossly intact, sensation is grossly intact to light touch, calves are soft and nontender to palpation. There is 2+ bilateral distal edema. Objective Labs Result Diagrams: 06/26/21 04:20 06/26/21 04:20 Labs: Laboratory Results - last 24 hr 06/25/21 06/25/21 06/25/21 08:00 08:00 08:00 WBC 26.6 H RBC 2.94 L Hgb 8.5 L Hct 25.6 L MCV 87.2 MCH 29.0 MCHC 33.2 RDW 14.0 Plt Count 156 Neut % (Auto) 86.3 H Lymph % (Auto) 6.9 L [place] % (Auto) 6.4 Eos % (Auto) 0.1 L Baso % (Auto) 0.3 Neut # (Auto) 07033 H Lymph # (Auto) 1800 [place] # (Auto) 1700 H Eos # (Auto) 0 Baso # (Auto) 100 Sodium 135 L Potassium 3.8 Chloride 103 Carbon Dioxide 24 BUN 31 H Creatinine 1.34 H Estimated GFR 52.6 L BUN/Creatinine Ratio 23.1 H Glucose 151 H Lactate 2.3 H Calcium 8.0 L Magnesium Total Bilirubin 1.3 AST 47 ALT 30 Alkaline Phosphatase 74 Total Protein 5.0 L Albumin 2.5 L Globulin 2.5 Albumin/Globulin Ratio 1.0 06/25/21 06/25/21 06/25/21 09:38 12:00 19:30 WBC RBC Hgb Hct MCV MCH MCHC RDW Plt Count Neut % (Auto) Lymph % (Auto) [place] % (Auto) Eos % (Auto) Baso % (Auto) Neut # (Auto) Lymph # (Auto) [place] # (Auto) Eos # (Auto) Baso # (Auto) Sodium Potassium Chloride Carbon Dioxide BUN Creatinine Estimated GFR BUN/Creatinine Ratio Glucose Lactate 2.3 H 2.4 H Calcium Magnesium 2.0 Total Bilirubin AST ALT Alkaline Phosphatase Total Protein Albumin Globulin Albumin/Globulin Ratio 06/26/21 06/26/21 06/26/21 04:20 04:20 04:20 WBC 18.5 H RBC 2.69 L Hgb 7.8 L Hct 23.6 L MCV 87.6 MCH 28.9 MCHC 33.0 RDW 14.3 Plt Count 137 L Neut % (Auto) 83.7 H Lymph % (Auto) 10.5 L [place] % (Auto) 3.4 Eos % (Auto) 2.3 Baso % (Auto) 0.1 Neut # (Auto) 29404 H Lymph # (Auto) 2000 [place] # (Auto) 600 Eos # (Auto) 400 Baso # (Auto) 0 Sodium 136 L Potassium 3.6 Chloride 108 H Carbon Dioxide 24 BUN 30 H Creatinine 1.04 Estimated GFR > 60 BUN/Creatinine Ratio 28.8 H Glucose 90 Lactate 1.7 Calcium 7.4 L Magnesium 1.9 Total Bilirubin 0.8 AST 34 ALT 23 Alkaline Phosphatase 60 Total Protein 4.4 L Albumin 2.2 L Globulin 2.2 Albumin/Globulin Ratio 1.0 [facility] Medical History Hypertension Surgical History History of right hip replacement Family History Mother Myocardial infarction Father Myocardial infarction Social History household members: spouse Smoking Status: Never smoker Assessment & Plan Assessment & Plan narrative: (1) History of right hip replacement: 1-week-old right hip replacement with the typical appearance on imaging and healing of surgical site.? Does not appear to have any signs of infection.? Recommend routine posterior hip precautions and normal postoperative hip surgery protocol as overall clinical help of patient improves.? On hospital discharge will follow up with her operating surgeon in [place] (2) RUPERTO (acute kidney injury): Acutely increased creatinine indicating acute kidney injury likely related to the to urosepsis.? Management per medical team (3) Acute UTI:Management per medical team Plan Postoperative hip replacement care as general medical condition allows.? Posterior hip precautions.? Mobilization as able.? Encourage nutrition hydration.? DVT prophylaxis with SCDs and chemical prophylaxis based on kidney function, per primary team Time Spent With Patient Critical Care time: I spent a total of [] minutes of critical care time on this patient's care today; this time is exclusive of procedural time.
[2021-06-26] MEDS: ASPIRIN EC 81 MG TABLET PO (08:51)
[2021-06-26] MEDS: levoFLOXacin 750 MG/150 ML PIGGYBACK 100 MG IV (08:51)
[2021-06-26 09:05] VITALS: BP 107/54; PULSE 69; RESP 23; TEMP 36.8; O2SAT 97
--- NOTE | 2021-06-26 11:36 | PT.IIE ---
Current Diagnoses Sepsis, unspecified organism (06/23/21) Acidosis (06/23/21) Acute kidney failure, unspecified (06/23/21) Urinary tract infection, site not specified (06/23/21) Hematuria, unspecified (06/23/21) Severe sepsis with septic shock (06/23/21) Presence of right artificial hip joint (06/23/21) Medical History (Last Reviewed 06/26/21 @ 08:19 by Ryann Jacob PA-C) Hypertension Physical Therapy Inpatient Evaluation/Re-Eval M1 PT/OT-IP Prior Functional Status Start: 06/24/21 08:57 Freq: NEEDED Status: Active Protocol: Document 06/26/21 11:36 AW (Rec: 06/26/21 13:01 AW [id number]) Medical Review Prior Functional Status Medical History Reviewed Yes Communication WNL. Pt is an effective verbal communicator. Mobility and Gait Independent without assistive device and without meaningful limit. Activities of Daily Living and IADL's Independent, including driving . Prior Functional Level (Other details) Pt had right posterior SELAM on 06/18/21 at another facility. There was discussion of discharging to SNF but family decided to get equipment and care for home. They were able to care for pt during the day, he had [facility], and had Visiting [facility] at night. Pt was home 4 days but developed infection. Pt was admitted to acute care but turned septic and transferred to ICU. He needed pressor support initially but was titrated down and has been off pressors for ~24 hours at time of this evaluation. Social History Household Members spouse Living Arrangements House Number of Floors (Floors) Two Floors Number of Stairs To Enter/Railing? 2 ALEXANDER with no rails. 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 He lives with his , Zulay, and their dog. M2 PT-IP Current Condition Start: 06/24/21 08:57 Freq: NEEDED Status: Active Protocol: Document 06/26/21 11:36 AW (Rec: 06/26/21 13:01 AW [id number]) Physical Therapy Current Condition Current Condition Evaluation Date 06/26/21 Treatment Diagnosis septic shock, recent R posterior SELAM; impaired mobility and gait. Onset Date 06/23/21 M3 PT-IP Subjective Start: 06/24/21 08:57 Freq: NEEDED Status: Active Protocol: Document 06/26/21 11:36 AW (Rec: 06/26/21 13:01 AW [id number]) Subjective Physical Therapy Visit Type Type Initial Evaluation Visit Start Time 10:46 Visit Stop Time 11:36 Total Visit Minutes 50 Notes Pt's daughter was present throughout evaluation. Pt's arrived later but remained in the perrin until pt settled in chair. Physical Therapy Visit Comments Patient Comments I'm not used to needing so much help. Patient Goals Pt's family would like pt to go to SNF rehab and pt is agreeable. Pt hopes to attend nephew's graduation in August. Therapy Pain Assessment Pain When Pain Assessed During Mobility Pain Present Pain Present Pain Reported Location Right Hip Intensity 6 Description With Movement Pain Behaviors Facial Grimacing,Wincing Pain Management Techniques Distraction,Modification of Treatment,Re-positioning, Timing of Activity with Medications M4 PT-IP Mobility and Gait Start: 06/24/21 08:57 Freq: NEEDED Status: Active Protocol: Document 06/26/21 11:36 AW (Rec: 06/26/21 13:01 AW [id number]) PT-Bed Mobility Assessment Supine to Sit Supine to Sit Maximum Assistance,1 Person Assistance,Bedrails Scooting Scooting to Edge of Bed Moderate Assistance PT-Transfer Assessment Sit to and From Stand Sit to and from Stand Maximum Assistance,1 Person Assistance,Use of Upper Extremities Equipment Transfer Assistive Device Gait Belt,Front Wheeled Walker Orthotic/Prosthetic Devices or Brace: No Transfers Transfer Destination Chair,Bedside Commode Transfer Technique Stand Step Pivot Transfer Ability Level of Assist Maximum Assistance,1 Person Assistance,Use of Upper Extremities Comments Mobility Comments Pt was sitting up in bed as PT arrived. BP was 98/59 HR 70 SpO2 99% on room air. PT reinforced education on posterior hip precautions. Pt was anxious to get up and stated urgent need to use the commode. With HOB flat, pt attempted to move legs toward the left side of the bed but was unable due to right hip pain. With PT providing support to maintain hip precautions, pt rolled toward left side and then sat up max A x 1. Pt was able to sit EOB and scoot forward mod A. With feet flat on the ground, BP was stable 97/61. Pt denied lightheadedness or dizziness. He stood max A and complained of increased R hip pain with weightbearing. He completed step pivot [place] [facility] right side using FWW max A. During transfer, pt lost control of his bowels but was able to settle on the commode and continue to move his bowels. Nursing assisted with clean up. Pt stood from the commode max A x 1 and nursing provided total assist pericare. Pt stood with min A for balance support ~90 seconds and then walked 2 feet to the chair (waffle cushion placed prior to transfer), transferring max A x 1. After activity, BP was 118/56 HR 67 SpO2 97% on room air. Pt was left in upright position on the chair with nursing attending. Gait Assessment Gait Gait Assistance Required: Maximum Assistance,1 Person Assist Distance (Feet) 2 Able to Maintain Weight Bearing Status Yes During Gait Assistive Devices Assistive Device Gait Belt,Front Wheeled Walker Orthotic/Prosthetic Devices or Brace: No Gait Deviations General Gait Pattern Antalgic,Decreased Stride Length,Decreased Feet Clearance,Flexed Trunk,Step-to Gait Factors Limiting Gait Function Factors Limiting Gait Function Decreased Activity Tolerance, Decreased Strength,Limited Range of Motion,Pain,Poor Balance Comments Gait Comments Steps taken during transfers only. See mobility comments for details. Stair Climbing Assessment Comments Stair Climbing Comments Not assessed. PT-Balance Assessment Sitting Balance and Reactions Static Sitting Balance Ability Good Dynamic Sitting Balance Ability Fair Standing Balance and Reactions Static Standing Balance Ability Poor Dynamic Standing Balance Ability Poor Device Used FWW M5 PT-IP Objective Assessments Start: 06/24/21 08:57 Freq: NEEDED Status: Active Protocol: Document 06/26/21 11:36 AW (Rec: 06/26/21 13:01 AW [id number]) Orientation Orientation/Cognition Level of Alertness Alert Orientation Name,Day of Week,Place, Situation Language Function Ability No Deficits Noted Safety Awareness Understands Safety Issues Memory Description No Deficits Noted Gross Range of Motion Lower Extremity ROM Assessment Within Functional Limits Strength Lower Extremity Strength Assessment Bilaterally Impaired Hip L 4/5; R 3-/5 Knee B 4-/5 Ankle B 4-/5 Coordination Assessment Gross Coordination Gross Coordination WNL Sensation Assessment Sensation Gross Sensation WNL Muscle Tone Muscle Tone WNL Yes Other Assessments Other Other Assessments Distal LE's are swollen. Pt has R hip hematoma. M6 PT-IP Treatment Start: 06/24/21 08:57 Freq: NEEDED Status: Active Protocol: Document 06/26/21 11:36 AW (Rec: 06/26/21 13:01 AW [id number]) Physical Therapy Treatment Education Education Provided Precautions,Weight Bearing Status,Safety Other Treatments Other Treatment Performed Educated pt and family about PT plan of care, posterior hip precautions, and level of assist currently required for mobility. M7 PT-IP Assessment and Plan Start: 06/24/21 08:57 Freq: NEEDED Status: Active Protocol: Document 06/26/21 11:36 AW (Rec: 06/26/21 13:01 AW [id number]) PT Summary Assessment and Plan Potential Rehabilitation Potential Good Status of Condition at Evaluation Evolving Summary Impairments Pain,ROM,Strength,Balance,Bed Mobility,Transfers,Gait, Activity Tolerance Assessment Summary Rickie is an 81 yo man admitted with septic shock secondary to acute cystitis. He is POD8 following R SELAM with posterior approach and has R hip hematoma. 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 On assessment, he required max assist for bed mobility and transfers using FWW. Pt has family at home to assist but will require SNF rehab to improve strength and mobility independence before safe return home with family support. Goals Bed Mobility Goal Standby Assistance Transfer Goal Minimal Assistance,Front Wheeled Walker Gait Goal Minimal Assistance,Front Wheel Walker Gait Distance 100 Other Goals -- up/down 2 steps with no rail using SPC and min A (if going home) -- LTG: improve transfers and gait to SBA with FWW Days to Meet Goals 10 Frequency of Treatment Frequency Of Treatment Once a Day Treatment Plan Physical Therapy Treatment Plan Bed Mobility Training,Transfer Training,Gait Training, Therapeutic Exercise,Balance Retraining,Post Op Education, Discharge Planning,Hot or Cold Pack,Neuromuscular Re-ed Other Recommendations and Next Treatment continue to reinforce Focus posterior hip precautions; standing tolerance; transfers; gait with FWW and chair follow as tolerated Precautions Posterior Hip Precautions No Hip Flexion > 90 degrees,No Hip Internal Rotation,No Hip Adduction Other Precautions hypotension; falls risk Weight Bearing Status Weight Bearing Status Weight Bear as Tolerated Recommendations To Nursing Amount of Assist Needed 2 Person Assist Discharge Recommendations PT Discharge Recommendations SNF Rehab Transportation Needs at Discharge Wheelchair/Cabulance
--- NOTE | 2021-06-26 12:12 | SLP.IPNOTE ---
Attempted to observe pt with noon meal, but pt was not hungry and did not want to eat. Family reported no difficulty with dinner last night or breakfast this morning and pt reported no difficulty chewing or swallowing. Pt stated he is tired all the time, but is able to eat to satisfaction without fatiguing. NSG reported no difficulty with eating or swallowing since diet upgrade. Discharging from speech therapy at this time as pt is tolerating least restrictive diet without overt signs or symptoms of aspiration.
[2021-06-26 12:30] VITALS: BP 118/56; PULSE 69; RESP 26; TEMP 36.7; O2SAT 99
--- NOTE | 2021-06-26 12:46 | CM.DPNOTE ---
Faxed snf referral packets to [facility]. Received fax conf. Olamide Smith CM Assist.
--- NOTE | 2021-06-26 13:48 | OT.IP.EVAL ---
Current Diagnoses Sepsis, unspecified organism (06/23/21) Acidosis (06/23/21) Acute kidney failure, unspecified (06/23/21) Urinary tract infection, site not specified (06/23/21) Hematuria, unspecified (06/23/21) Severe sepsis with septic shock (06/23/21) Presence of right artificial hip joint (06/23/21) Past Medical History (Last Reviewed 06/26/21 @ 08:19 by Ryann Jacob PA-C) History of right hip replacement Hypertension Surgical History (Last Reviewed 06/26/21 @ 08:19 by Ryann Jacob PA-C) History of right hip replacement Occupational Therapy Inpatient Evaluation/Re-Eval M1 PT/OT-IP Prior Functional Status Start: 06/24/21 08:57 Freq: NEEDED Status: Active Protocol: Document 06/26/21 13:20 [facility] (Rec: 06/26/21 14:54 [facility] [id number]) Medical Review Prior Functional Status Medical History Reviewed Yes Communication WNL. Pt is an effective verbal communicator. Mobility and Gait Independent without assistive device and without meaningful limit. Activities of Daily Living and IADL's Independent, including driving . Prior Functional Level (Other details) Pt had right posterior SELAM on 06/18/21 at another facility. There was discussion of discharging to SNF but family decided to get equipment and care for home. They were able to care for pt during the day, he had [facility], and had [facility] at night. Pt was home 4 days but developed infection. Pt was admitted to acute care but turned septic and transferred to ICU. He needed pressor support initially but was titrated down and has been off pressors for ~24 hours at time of this evaluation. Social History Household Members spouse Living Arrangements House Number of Floors (Floors) Two Floors Number of Stairs To Enter/Railing? 2 ALEXANDER with no rails. 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 He lives with his , Zulay, and their dog. M2 OT-IP Current Condition Start: 06/26/21 14:41 Freq: Status: Active Protocol: Document 06/26/21 13:20 [facility] (Rec: 06/26/21 14:54 [facility] [id number]) Occupational Therapy Current Condition Current Condition Evaluation Date 06/26/21 Treatment Diagnosis Sepsis , UTO, recent right hip replacement, decreased mobility Diagnosis Onset Date 06/23/21 Post Operative Precautions Posterior Hip Precautions No Hip Flexion > 90 degrees,No Hip Internal Rotation,No Hip Adduction M3 OT- IP Subjective and Pain Start: 06/26/21 14:41 Freq: Status: Active Protocol: Document 06/26/21 13:20 [facility] (Rec: 06/26/21 14:54 [facility] [id number]) OT- Subjective Occupational Therapy Visit Type Type Initial Evaluation Visit Start Time 13:20 Visit Stop Time 13:48 Total Visit Minutes 28 Occupational Therapy Visit Comments Patient Comments Pt wanting to get back to bed. Pt 7.8 Hgb and 23.6 Hct and per hospitalist okay for therapy to work with the pt. Patient/Caregiver Goals Pt wanting pt to go to skilled rehab. OT Pain Assessment Pain When Pain Assessed During Mobility Pain Present Pain Present Pain Reported M4 OT- IP ADL's Start: 06/26/21 14:41 Freq: Status: Active Protocol: Document 06/26/21 13:20 [facility] (Rec: 06/26/21 14:54 [facility] [id number]) OT [id number] Comments OT Self-Feeding Comments Not at meal time. OT ADL-Grooming Comments OT Grooming Comments Not performed. OT ADL-Oral Care Comments Oral Care Comments Not performed, pt wanting to get back to bed. OT ADL-Dressing General Eval Lower Body Dressing Ability Maximum Assistance Comments OT Dressing Comments Practiced use of sock aid and trial consultant to sid/ doff his left sock. OT ADL-Toileting Comments OT Toileting Comments Pt galindo in place. OT ADL-Bathing Comments OT Bathing Comments Sponge bath more appropriate at this time. M5 OT- IP IADL's Start: 06/26/21 14:41 Freq: Status: Active Protocol: Document 06/26/21 13:20 [facility] (Rec: 06/26/21 14:54 [facility] [id number]) OT-Instrumental Activities of Daily Living Home Safety Awareness Home Safety Comments At this time pt seems slow to respond to cues and groggy and would need assist for all ADl and IADL needs. M6 OT- IP Functional Cognition Start: 06/26/21 14:41 Freq: Status: Active Protocol: Document 06/26/21 13:20 [facility] (Rec: 06/26/21 14:54 [facility] [id number]) Cognitive Factors Limiting Selfcare Function Cognitive Ability Level of Alertness Alert,Drowsy Patient Orientation Name,Place,Situation Attention Span Ability Capable of Focused Attention, Capable of Sustained Attention Safety Awareness Decreased Recall of Precautions Cognitive Comments Cognitive Assessment Comments Pt needing assist to recall his hip precautions and step by step cues to use lower body dressing equipment. Pt has UTI which may be affecting his thinking at this time. OT- Vision and Hearing OT- Hearing Assessment OT- Hearing Assessment WFL OT- Vision Assessment Visual Acuity Glasses For Reading M7 OT- IP Mobility and Balance Start: 06/26/21 14:41 Freq: Status: Active Protocol: Document 06/26/21 13:20 [facility] (Rec: 06/26/21 14:54 [facility] [id number]) OT- Bed Mobility Assessment Sit to Supine Sit to Supine Assist Maximum Assistance,2 Person Assistance OT-Transfer Assessment Sit to and From Stand Sit to and from Stand Minimal Assistance,Maximum Assistance,2 Person Assistance Transfers Transfer Ability Maximum Assistance,2 Person Assistance Technique Transfer Destination Bed,Chair Transfer Technique Stand Step Pivot Devices Transfer Assistive Devices Gait Belt,Front Wheeled Walker Comments Mobility Comments 2 person assist to stand and MAX A X2 with FWW to transfer back to the bed. OT- Balance Assessment Sitting Balance and Reactions Static Sitting Balance Ability Good Dynamic Sitting Balance Ability Fair Standing Balance and Reactions Static Standing Balance Ability Poor Dynamic Standing Balance Ability Poor M8 OT- IP Objective Assessments Start: 06/26/21 14:41 Freq: Status: Active Protocol: Document 06/26/21 13:20 [facility] (Rec: 06/26/21 14:54 [facility] [id number]) OT Gross Range of Motion Upper Extremity Range of Motion Assessment Within Functional Limits OT-Muscle Tone Assessment Muscle Tone WNL Yes M9 OT- IP Assessment and Plan Start: 06/26/21 14:41 Freq: Status: Active Protocol: Document 06/26/21 13:20 [facility] (Rec: 06/26/21 14:54 [facility] [id number]) OT Summary Assessment and Plan Potential Rehabilitation Potential Good Analytic Complexity at Evaluation Moderate Summary OT Impairments Pain,Strength,Balance, Functional Cognition, Functional Mobility,Grooming, Dressing,Toileting,Bathing, Toilet Transfers,Shower Transfers,Activity Tolerance Progress Towards Goals Slow Progress due to Pain,Slow Progress due to Medical Issues,Slow Progress due to Activity Tolerance,Slow Progress due to Cognition Assessment Summary Pt MOD complexity here with sepsis, UTI and recent right hip replacement. Pt's main barriers are weakness,pain, and now needing extensive two person assist for all ADL and IADl needs. Pt also having difficulty to recall his hip precautions at this time. Pt will highly benefit from skilled rehab prior to going home. Goals Self-Feeding Goal Independent Grooming Goal Independent Dressing Goal Independent Toileting Goal Independent Bathing Goal Independent Toilet Transfer Goal Independent Shower Transfer Goal Independent Patient/Caregiver Education Goal Demonstrate Post-Op Precautions Days to Meet Goals 30 Frequency of Treatment Frequency Of Treatment Once a Day Treatment Plan OT Treatment Plan ADL Training,Functional Cognition Training,Functional Mobility,Patient/Family Education,Discharge Planning Other Treatment Recommendations and Next [place] [facility] [place] 2 Treatment Focus with FWW. Discharge Recommendations OT Discharge Recommendations SNF Rehab Transportation Needs at Discharge Wheelchair/Cabulance
--- NOTE | 2021-06-26 13:55 | CM.DPNOTE ---
Addendum entered by ARLEY Bellamy 06/26/21 15:02: ADD: Another call from [facility]; they can take [employer] if needed WILLIAMS Original Note: DCP Note Patient discussed in multidisciplinary rounds this morning; likely will need SNF upon DC Met w/patient and dtr, reviewed DCP. Patient/dtr request SNF referral be sent to 1. [facility] 2. [facility] SHANNA Quiñonez has faxed. [facility] not take patient's [employer] Insurance. Viry at [facility] expects she can accept patient and will need addtl clinical to begin insurance authorization Therapies pending today; Olamide OTERO has kindly agreed to fax new therapy notes to Viry/[facility] per her request Plan: DC expected to SNF vs return home w/family, HH and cg assist WILLIAMS
--- NOTE | 2021-06-26 14:56 | PM.PN.1 ---
Subjective Subjective Interval history: Patient reports feeling well this morning. He denies any issues with PO intake. Reports no issues with urination/defecation. Exam Vital Signs (past 8 hours): - 06/26/21 09:05 06/26/21 12:30 Temperature 98.2 F 98.0 F Pulse Rate 69 69 Respiratory Rate 23 26 H Blood Pressure 107/54 L 118/56 L Pulse Oximetry 97 99 Oxygen Delivery Method Room Air Oxygen Flow Rate 0 Const Other: Patient laying in bed comfortably upon my entering the room, in no apparent acute distress, with and daughter at bedside Eyes Other: No scleral icterus appreciated Resp Other: Lungs clear to auscultation bilaterally Cardio Other: RRR, S1 and S2 heart sounds normal, with no extra heart sounds or murmurs appreciated GI Other: Soft, non-distended, non-tender, bowel sounds present Skin Other: No grossly abnormal skin lesions noted Extrem Other: Palpable dorsalis pedis pulses bilaterally, no edema noted Objective Labs Result Diagrams: 06/26/21 04:20 06/26/21 04:20 Labs: Laboratory Results - last 24 hr 06/25/21 06/26/21 06/26/21 19:30 04:20 04:20 WBC 18.5 H RBC 2.69 L Hgb 7.8 L Hct 23.6 L MCV 87.6 MCH 28.9 MCHC 33.0 RDW 14.3 Plt Count 137 L Neut % (Auto) 83.7 H Lymph % (Auto) 10.5 L Dade % (Auto) 3.4 Eos % (Auto) 2.3 Baso % (Auto) 0.1 Neut # (Auto) 82842 H Lymph # (Auto) 2000 Dade # (Auto) 600 Eos # (Auto) 400 Baso # (Auto) 0 Sodium 136 L Potassium 3.6 Chloride 108 H Carbon Dioxide 24 BUN 30 H Creatinine 1.04 Estimated GFR > 60 BUN/Creatinine Ratio 28.8 H Glucose 90 Lactate 2.4 H Calcium 7.4 L Magnesium 1.9 Total Bilirubin 0.8 AST 34 ALT 23 Alkaline Phosphatase 60 Total Protein 4.4 L Albumin 2.2 L Globulin 2.2 Albumin/Globulin Ratio 1.0 06/26/21 04:20 WBC RBC Hgb Hct MCV MCH MCHC RDW Plt Count Neut % (Auto) Lymph % (Auto) Dade % (Auto) Eos % (Auto) Baso % (Auto) Neut # (Auto) Lymph # (Auto) Dade # (Auto) Eos # (Auto) Baso # (Auto) Sodium Potassium Chloride Carbon Dioxide BUN Creatinine Estimated GFR BUN/Creatinine Ratio Glucose Lactate 1.7 Calcium Magnesium Total Bilirubin AST ALT Alkaline Phosphatase Total Protein Albumin Globulin Albumin/Globulin Ratio [facility] Medical History Hypertension Surgical History History of right hip replacement Family History Mother Myocardial infarction Father Myocardial infarction Social History household members: spouse Smoking Status: Never smoker Assessment & Plan Assessment & Plan narrative: 1. Septic shock secondary to acute UTI, likely due to recent catheter placement from recent right hip replacement, improving - Urine culture growing Citrobacter diversus, improving on IV levofloxacin 750 mg daily (started on June 23, 2021), patient with penicillin allergy 2. RUPERTO, likely pre-renal, resolved with IV fluids 3. Right hip replacement, recent, stable, with hematoma formation - No focal abscess noted on US of the affected area - Hemoglobin downtrending but not requiring transfusion as of yet - Will hold home aspirin 81 mg bid for now, given small hematoma 4. Hypertension - Will hold home anti-BP meds given normotension so far VTE prophylaxis: Heparin 5000 units tid Code: Full code Proxy: I have utilized all immediate resources to obtain, review, or confirm the patient's medications. Time Spent With Patient Critical Care time: I spent a total of [] minutes of critical care time on this patient's care today; this time is exclusive of procedural time. Quality MIPS - Admit I confirm the patient?s Advance Care Plan is present, Code status is documented, Surrogate decision maker is in patient?s record [If Yes, STOP here]: Yes
[2021-06-26 17:00] VITALS: BP 109/54; PULSE 61; RESP 21; TEMP 36.8; O2SAT 99
[2021-06-26 20:00] VITALS: BP 119/60; PULSE 60; RESP 18; TEMP 37.3; O2SAT 99
[2021-06-26] MEDS: SODIUM CHLORIDE 0.9% FLUSH 10 ML IV (20:56)
[2021-06-26] MEDS: ACETAMINOPHEN 325 MG TABLET 650 MG PO (21:18)
[2021-06-27] VITALS: BP 134/63; PULSE 61; RESP 18; TEMP 37.1; O2SAT 97
[2021-06-27] MEDS: LACTATED RINGERS 1,000 ML 100 ML IV (02:56)
[2021-06-27] MEDS: TRAMADOL 50 MG TABLET PO ×2 (04:18→09:43)
[2021-06-27 04:45] VITALS: BP 131/60; PULSE 55; RESP 12; TEMP 37.2; O2SAT 97
[2021-06-27 05:07] LABS: Add Manual Diff / Slide Review NO; Basophils Absolute Auto 0 /uL (0-100); Basophils Percent Auto 0.2 % (0-2); Eosinophils Absolute Auto 400 /uL (0-450); Eosinophils Percent Auto 3.8 % (2-4); Hematocrit 26.9 % (41-53); Lymphocytes Absolute Auto 2100 /uL (1100-4500); Lymphocytes Percent Auto 18.4 % (25-40); Mean Corpuscular HGB Conc 33.3 % (30-36); Mean Corpuscular Hemoglobin 28.9 PG (26-34); Mean Corpuscular Volume 86.6 fL (80-100); Monocytes Absolute Auto 400 /uL (0-900); Monocytes Percent Auto 3.5 % (3-14); Neutrophils Absolute Auto 8500 /uL (1500-7000); Neutrophils Percent Auto 74.1 % (50-75); Platelet Count 176 X10^3/uL (150-400); Red Cell Distribution Width 14.4 % (11.6-14.8); White Blood Cell Count 11.5 X10^3/uL (4.5-11.0)
[2021-06-27 05:12] LABS: Alanine Aminotransferase 31 IU/L (<50); Albumin 2.4 g/dL (3.5-5.0); Alkaline Phosphatase 73 U/L (38-126); Aspartate Aminotransferase 45 IU/L (17-59); BUN Creatinine Ratio 26.5 (6-22); Bilirubin Total 0.8 mg/dL (0.2-1.3); Blood Urea Nitrogen 26 mg/dL (9-20); Calcium 8.1 mg/dL (8.4-10.2); Carbon Dioxide 25 mmol/L (22-32); Chloride 108 mmol/L (98-107); Estimated Glomerular Filt Rate > 60 mL/min (>60); Globulin 2.3 g/dL (1.7-4.1); Glucose 87 mg/dL (80-110); HEMOLYSIS < 15 (0-50); Magnesium 1.9 mg/dL (1.6-2.3); Potassium 3.9 mmol/L (3.4-5.1); Sodium 137 mmol/L (137-145); Total Protein 4.7 g/dL (6.3-8.2)
[2021-06-27] MEDS: HEPARIN 5,000 UNIT/ML VIAL 5000 UNIT SUBCUT ×2 (06:32→16:31)
--- NOTE | 2021-06-27 06:37 | PC.NURSE ---
Shift Note-Patient is oriented x3 with a flat affect. Tramadol and ice pack given for pain to right hip. Tylenol for low-grade temp, SB/SR, BP 130s/60s. Drsg to Rt hip D/I, mild edema and firmness in surrounding area, CMS intact. H/H 9.0/26.9, no signs of bleeding.
[2021-06-27] MEDS: levoFLOXacin 750 MG/150 ML PIGGYBACK 100 MG IV (07:53)
[2021-06-27 08:00] VITALS: BP 123/57; PULSE 57; RESP 19; TEMP 36.6; O2SAT 98
[2021-06-27] MEDS: ACETAMINOPHEN 325 MG TABLET 650 MG PO (09:43)
[2021-06-27] MEDS: SODIUM CHLORIDE 0.9% FLUSH 10 ML IV ×2 (09:44→23:59)
[2021-06-27] MEDS: OXYCODONE IR 5 MG TABLET PO ×2 (10:28→16:30)
--- NOTE | 2021-06-27 11:40 | OT.IP.TRT ---
Current Diagnoses Sepsis, unspecified organism (06/23/21) Acidosis (06/23/21) Acute kidney failure, unspecified (06/23/21) Urinary tract infection, site not specified (06/23/21) Hematuria, unspecified (06/23/21) Severe sepsis with septic shock (06/23/21) Presence of right artificial hip joint (06/23/21) Occupational Therapy Treatment Note M2 OT-IP Current Condition Start: 06/26/21 14:41 Freq: Status: Active Protocol: Document 06/26/21 13:20 [facility] (Rec: 06/26/21 14:54 [facility] [id number]) Occupational Therapy Current Condition Current Condition Evaluation Date 06/26/21 Treatment Diagnosis Sepsis , UTI, recent right hip replacement, decreased mobility Diagnosis Onset Date 06/23/21 Post Operative Precautions Posterior Hip Precautions No Hip Flexion > 90 degrees,No Hip Internal Rotation,No Hip Adduction M3 OT- IP Subjective and Pain Start: 06/26/21 14:41 Freq: Status: Active Protocol: Document 06/27/21 13:11 [facility] (Rec: 06/27/21 13:18 [facility] [id number]) OT- Subjective Occupational Therapy Visit Type Type Treatment Note Visit Start Time 11:20 Visit Stop Time 11:40 Total Visit Minutes 20 Occupational Therapy Visit Comments Patient Comments Pt agreed to get up and needing to use the commode. Patient/Caregiver Goals TO go to skilled rehab. OT Pain Assessment Pain When Pain Assessed During Mobility Pain Present Pain Present Pain Reported Location Right Hip Pain Behaviors Facial Grimacing M4 OT- IP ADL's Start: 06/26/21 14:41 Freq: Status: Active Protocol: Document 06/27/21 13:11 [facility] (Rec: 06/27/21 13:18 [facility] [id number]) OT LAM-Tpna-Eupspng Comments OT Self-Feeding Comments Not at meal time. OT ADL-Grooming Comments OT Grooming Comments Not performed. OT ADL-Dressing General Eval Lower Body Dressing Ability Maximum Assistance Comments OT Dressing Comments Pt able to practice use of bilingual sales representative but needing assist to help thread the catheter through the brief. OT ADL-Toileting General Evaluation Toileting Ability Maximum Assistance Areas Needing Assistance Manage Clothing,Perform Perineal Hygiene Comments OT Toileting Comments Assist for hygiene and to get brief up over his hips. OT ADL-Bathing Comments OT Bathing Comments Sponge bath more appropriate at this time. M5 OT- IP IADL's Start: 06/26/21 14:41 Freq: Status: Active Protocol: Document 06/26/21 13:20 [facility] (Rec: 06/26/21 14:54 [facility] [id number]) OT-Instrumental Activities of Daily Living Home Safety Awareness Home Safety Comments At this time pt seem slow to respond to cues and groggy and would need assist for all ADl and IADL needs. M6 OT- IP Functional Cognition Start: 06/26/21 14:41 Freq: Status: Active Protocol: Document 06/27/21 13:11 [facility] (Rec: 06/27/21 13:18 [facility] [id number]) Cognitive Factors Limiting Selfcare Function Cognitive Ability Level of Alertness Alert Patient Orientation Name,Place,Situation Attention Span Ability Capable of Focused Attention, Capable of Sustained Attention Safety Awareness Decreased Recall of Precautions Cognitive Comments Cognitive Assessment Comments Step by step instructions for bilingual sales representative use, FWW use, and to follow his hip precautions during ADl and mobility needs. M7 OT- IP Mobility and Balance Start: 06/26/21 14:41 Freq: Status: Active Protocol: Document 06/27/21 13:11 [facility] (Rec: 06/27/21 13:18 [facility] [id number]) OT- Bed Mobility Assessment Supine to Sit Supine to Sit Assist Maximum Assistance,1 Person Assistance OT-Transfer Assessment Sit to and From Stand Sit to and from Stand Maximum Assistance,2 Person Assistance Transfers Transfer Ability Maximum Assistance,2 Person Assistance Technique Transfer Destination Bed,Bedside Commode,Chair Devices Transfer Assistive Devices Gait Belt,Front Wheeled Walker Comments Mobility Comments MAX AX 2 to stand, guide the FWW and for his balance. OT- Balance Assessment Sitting Balance and Reactions Static Sitting Balance Ability Good Dynamic Sitting Balance Ability Fair Standing Balance and Reactions Static Standing Balance Ability Poor Dynamic Standing Balance Ability Poor M8 OT- IP Objective Assessments Start: 06/26/21 14:41 Freq: Status: Active Protocol: Document 06/26/21 13:20 [facility] (Rec: 06/26/21 14:54 [facility] [id number]) OT Gross Range of Motion Upper Extremity Range of Motion Assessment Within Functional Limits OT-Muscle Tone Assessment Muscle Tone WNL Yes M9 OT- IP Assessment and Plan Start: 06/26/21 14:41 Freq: Status: Active Protocol: Document 06/27/21 13:11 [facility] (Rec: 06/27/21 13:18 [facility] [id number]) OT Summary Assessment and Plan Potential Rehabilitation Potential Good Analytic Complexity at Evaluation Moderate Summary OT Impairments Pain,Strength,Balance, Functional Cognition, Functional Mobility,Grooming, Dressing,Toileting,Bathing, Toilet Transfers,Shower Transfers,Activity Tolerance Progress Towards Goals Slow Progress due to Pain,Slow Progress due to Medical Issues,Slow Progress due to Activity Tolerance,Slow Progress due to Cognition Assessment Summary Pt able to tolerate transfer to [facility] and to recliner and able to practice use of bilingual sales representative. Pt still needing extensive two person assist for ADl , mobility needs and step by step cues to follow his hips precautions. Pt will greatly benefit from skilled rehab. Goals Self-Feeding Goal Independent Grooming Goal Independent Dressing Goal Independent Toileting Goal Independent Bathing Goal Independent Toilet Transfer Goal Independent Shower Transfer Goal Independent Patient/Caregiver Education Goal Demonstrate Post-Op Precautions Days to Meet Goals 30 Frequency of Treatment Frequency Of Treatment Once a Day Treatment Plan OT Treatment Plan ADL Training,Functional Cognition Training,Functional Mobility,Patient/Family Education,Discharge Planning Other Treatment Recommendations and Next Transfer to [facility] with MODA X 2 Treatment Focus with FWW. Discharge Recommendations OT Discharge Recommendations SNF Rehab Transportation Needs at Discharge Wheelchair/Cabulance
--- NOTE | 2021-06-27 11:45 | PT.IPTN ---
Current Diagnoses Sepsis, unspecified organism (06/23/21) Acidosis (06/23/21) Acute kidney failure, unspecified (06/23/21) Urinary tract infection, site not specified (06/23/21) Hematuria, unspecified (06/23/21) Severe sepsis with septic shock (06/23/21) Presence of right artificial hip joint (06/23/21) Physical Therapy Treatment Note M2 PT-IP Current Condition Start: 06/24/21 08:57 Freq: NEEDED Status: Active Protocol: Document 06/26/21 11:36 [facility] (Rec: 06/26/21 13:01 [facility] [id number]) Physical Therapy Current Condition Current Condition Evaluation Date 06/26/21 Treatment Diagnosis septic shock, recent R posterior SELAM; impaired mobility and gait. Onset Date 06/23/21 M3 PT-IP Subjective Start: 06/24/21 08:57 Freq: NEEDED Status: Active Protocol: Document 06/27/21 11:21 [facility] (Rec: 06/27/21 12:53 [facility] [id number]) Subjective Physical Therapy Visit Type Type Treatment Note Visit Start Time 11:21 Visit Stop Time 11:45 Total Visit Minutes 24 Notes Co-treat w/ OT Number of DIRECTOR VACCINE Visits 1 Physical Therapy Visit Comments Patient Comments Pt requesting to use BSC. Patient Goals Pt's family would like pt to go to SNF rehab and pt is agreeable. Pt hopes to attend nephew's graduation in August. Therapy Pain Assessment Pain When Pain Assessed During Mobility Pain Present Pain Present Pain Reported M4 PT-IP Mobility and Gait Start: 06/24/21 08:57 Freq: NEEDED Status: Active Protocol: Document 06/27/21 11:21 [facility] (Rec: 06/27/21 12:53 [facility] [id number]) PT-Bed Mobility Assessment Supine to Sit Supine to Sit Maximum Assistance,1 Person Assistance,Bedrails PT-Transfer Assessment Sit to and From Stand Sit to and from Stand Maximum Assistance,2 Person Assistance,Use of Upper Extremities Equipment Transfer Assistive Device Gait Belt,Front Wheeled Walker Orthotic/Prosthetic Devices or Brace: No Transfers Transfer Destination Chair,Bedside Commode Transfer Technique Stand Step Pivot Transfer Ability Level of Assist Maximum Assistance,2 Person Assistance,Use of Upper Extremities Comments Mobility Comments Pt sitting EOB w/ OT upon arrival and requesting to use BSC. Max A x2 and cues to avoid hip flexion >90 for sit< >stand w/ FWW. Pt was able to perform stand step pivot Max A x2 from bed to BSC. After voiding, pt sit<>stand Max A x2 w/ FWW and OT assisted pt w / pericare while this DIRECTOR VACCINE provided Max A and cues for pt to maintain standing balance. He then took ~2 min seated rest break before performing additional sit<>stand Max A x2 and side stepping ~3 ft to L to sit in chair w/ FWW MAx A x2 for balance and FWW management. Max A and cues for hand placement for slow descent. Pt then performed 1x10 ankle pumps, quad sets, and glute sets. Pt left in chair w/ all needs in reach. Gait Assessment Gait Gait Assistance Required: Maximum Assistance,2 Person Assist Distance (Feet) 4 Able to Maintain Weight Bearing Status Yes During Gait Assistive Devices Assistive Device Gait Belt,Front Wheeled Walker Orthotic/Prosthetic Devices or Brace: No Gait Deviations General Gait Pattern Antalgic,Decreased Stride Length,Decreased Feet Clearance,Flexed Trunk,Step-to Gait Factors Limiting Gait Function Factors Limiting Gait Function Decreased Activity Tolerance, Decreased Strength,Limited Range of Motion,Pain,Poor Balance Comments Gait Comments Steps taken during transfers only. See mobility comments for details. Stair Climbing Assessment Comments Stair Climbing Comments Not assessed. PT-Balance Assessment Sitting Balance and Reactions Static Sitting Balance Ability Good Dynamic Sitting Balance Ability Fair Standing Balance and Reactions Static Standing Balance Ability Poor Dynamic Standing Balance Ability Poor Device Used FWW M5 PT-IP Objective Assessments Start: 06/24/21 08:57 Freq: NEEDED Status: Active Protocol: Document 06/26/21 11:36 [facility] (Rec: 06/26/21 13:01 [facility] [id number]) Orientation Orientation/Cognition Level of Alertness Alert Orientation Name,Day of Week,Place, Situation Language Function Ability No Deficits Noted Safety Awareness Understands Safety Issues Memory Description No Deficits Noted Gross Range of Motion Lower Extremity ROM Assessment Within Functional Limits Strength Lower Extremity Strength Assessment Bilaterally Impaired Hip L 4/5; R 3-/5 Knee B 4-/5 Ankle B 4-/5 Coordination Assessment Gross Coordination Gross Coordination WNL Sensation Assessment Sensation Gross Sensation WNL Muscle Tone Muscle Tone WNL Yes Other Assessments Other Other Assessments Distal LE's are swollen. Pt has R hip hematoma. M6 PT-IP Treatment Start: 06/24/21 08:57 Freq: NEEDED Status: Active Protocol: Document 06/27/21 11:21 [facility] (Rec: 06/27/21 12:53 [facility] [id number]) Physical Therapy Treatment Exercises Exercises Ankle Pumps,Gluteal Sets,Quad Sets Education Education Provided Precautions,Weight Bearing Status,Safety Other Treatments Other Treatment Performed Pt needs frequent reminders to avoid excessive hip flexion and for hand placement when transferring. M7 PT-IP Assessment and Plan Start: 06/24/21 08:57 Freq: NEEDED Status: Active Protocol: Document 06/27/21 11:21 [facility] (Rec: 06/27/21 12:53 [facility] [id number]) PT Summary Assessment and Plan Potential Rehabilitation Potential Good Status of Condition at Evaluation Evolving Summary Impairments Pain,ROM,Strength,Balance,Bed Mobility,Transfers,Gait, Activity Tolerance Assessment Summary Pt continues to require Max A x1-2 throughout treatment. Ablw to tolerate step pivot from bed to BSC, and lateral steps w/ FWW from BSC to chair but required Max A x2. Able to maintain standing balance Max A x1 for ~2 min during pericare. He is far from his baseline and will require SNF to improve strength and fuctional mobility. Goals Bed Mobility Goal Standby Assistance Transfer Goal Minimal Assistance,Front Wheeled Walker Gait Goal Minimal Assistance,Front Wheel Walker Gait Distance 100 Other Goals -- up/down 2 steps with no rail using SPC and min A (if going home) -- LTG: improve transfers and gait to SBA with FWW Days to Meet Goals 10 Frequency of Treatment Frequency Of Treatment Once a Day Treatment Plan Physical Therapy Treatment Plan Bed Mobility Training,Transfer Training,Gait Training, Therapeutic Exercise,Balance Retraining,Post Op Education, Discharge Planning,Hot or Cold Pack,Neuromuscular Re-ed Other Recommendations and Next Treatment continue to reinforce Focus posterior hip precautions; standing tolerance; transfers; gait with FWW and chair follow as tolerated Precautions Posterior Hip Precautions No Hip Flexion > 90 degrees,No Hip Internal Rotation,No Hip Adduction Other Precautions hypotension; falls risk Weight Bearing Status Weight Bearing Status Weight Bear as Tolerated Recommendations To Nursing Amount of Assist Needed 2 Person Assist Discharge Recommendations PT Discharge Recommendations SNF Rehab Transportation Needs at Discharge Wheelchair/Cabulance
[2021-06-27 13:00] VITALS: BP 115/56; PULSE 56; RESP 16; TEMP 36.7; O2SAT 99
--- NOTE | 2021-06-27 13:34 | PC.NURSE ---
Addendum entered by Jasper Hinkle R.N. 06/27/21 19:01: Pt's pain is much improved (3/10). Has been OOB to chair for lunch and dinner and in much better spirits than initial assessment. Addendum entered by Jasper Hinkle R.N. 06/27/21 15:06: Reported on rounds to Dr. Melgoza that pt is having mult loose stools, requesting clarification for scheduled colace and if we need to send stool spec to lab. Dr. Melgoza observed stool and verbally stated no need to send spec to lab at this time. Original Note: 0930- Pt reports increased pain to right hip. Attempted ice packs and repositioning which pt states increased his pain. Administered PRN tramadol and tylenol. On reassessment, pt reports increased pain and is requesting anything that might help. Reviewed PRN rx's available. Pt is agreeable to trying oxycodone. Requested clarification of orders r/t pain scale parameters, ineffective pain med regimen. Orders received and entered. Post med administration, pt reported pain level less than 5 which he states is tolerable for him.
--- NOTE | 2021-06-27 14:19 | PM.PN.1 ---
Subjective Subjective Interval history: The patient denies any acute complaints this morning. He endorses eating and drinking OK. He reports some softening of his stools, and is requesting that Dulcolax be stopped. Exam Vital Signs (past 8 hours): - 06/27/21 08:00 Temperature 97.8 F Pulse Rate 57 L Respiratory Rate 19 Blood Pressure 123/57 L Pulse Oximetry 98 Oxygen Delivery Method Room Air Oxygen Flow Rate 0 Narrative Exam Narrative: Const Other: Patient sitting up in bed comfortably upon my entering the room, in no apparent acute distress, with at bedside Eyes Other: No scleral icterus appreciated Resp Other: Lungs clear to auscultation bilaterally Cardio Other: RRR, S1 and S2 heart sounds normal, with no extra heart sounds or murmurs appreciated GI Other: Soft, non-distended, non-tender, bowel sounds present Skin Other: No grossly abnormal skin lesions noted Extrem Other: Palpable dorsalis pedis pulses bilaterally, no edema noted Objective Labs Result Diagrams: 06/27/21 04:45 06/27/21 04:45 Labs: Laboratory Results - last 24 hr 06/27/21 06/27/21 04:45 04:45 WBC 11.5 H RBC 3.10 L Hgb 9.0 L Hct 26.9 L MCV 86.6 MCH 28.9 MCHC 33.3 RDW 14.4 Plt Count 176 Neut % (Auto) 74.1 Lymph % (Auto) 18.4 L Ellis % (Auto) 3.5 Eos % (Auto) 3.8 Baso % (Auto) 0.2 Neut # (Auto) 8500 H Lymph # (Auto) 2100 Ellis # (Auto) 400 Eos # (Auto) 400 Baso # (Auto) 0 Sodium 137 Potassium 3.9 Chloride 108 H Carbon Dioxide 25 BUN 26 H Creatinine 0.98 Estimated GFR > 60 BUN/Creatinine Ratio 26.5 H Glucose 87 Calcium 8.1 L Magnesium 1.9 Total Bilirubin 0.8 AST 45 ALT 31 Alkaline Phosphatase 73 Total Protein 4.7 L Albumin 2.4 L Globulin 2.3 Albumin/Globulin Ratio 1.0 PFS Medical History Hypertension Surgical History History of right hip replacement Family History Mother Myocardial infarction Father Myocardial infarction Social History household members: spouse Smoking Status: Never smoker Assessment & Plan Assessment & Plan narrative: 1. Septic shock secondary to acute UTI, likely due to recent catheter placement from recent right hip replacement, improving ?- Urine culture growing Citrobacter diversus, improving on IV levofloxacin 750 mg daily (started on June 23, 2021), patient with penicillin allergy 2. RUPERTO, likely pre-renal, resolved with IV fluids 3. Right hip replacement, recent, stable, with hematoma formation ?- No focal abscess noted on US of the affected area ?- Hemoglobin downtrending but not requiring transfusion as of yet ?- Will hold home aspirin 81 mg bid for now, given small hematoma 4. Hypertension ?- Will hold home anti-BP meds given normotension so far VTE prophylaxis: Heparin 5000 units tid Time Spent With Patient Critical Care time: I spent a total of [] minutes of critical care time on this patient's care today; this time is exclusive of procedural time.
[2021-06-27 17:00] VITALS: BP 137/63; PULSE 61; RESP 19; TEMP 36.5; O2SAT 96
[2021-06-27 19:15] VITALS: BP 129/62; PULSE 65; RESP 18; TEMP 36.5; O2SAT 100
[2021-06-28 00:06] VITALS: BP 143/66; PULSE 60; RESP 15; TEMP 37.1; O2SAT 100
[2021-06-28 04:11] VITALS: BP 148/65; PULSE 59; RESP 19; TEMP 37.3; O2SAT 100
[2021-06-28 05:39] LABS: BUN Creatinine Ratio 25.5 (6-22); Blood Urea Nitrogen 24 mg/dL (9-20); Calcium 8.3 mg/dL (8.4-10.2); Carbon Dioxide 26 mmol/L (22-32); Chloride 109 mmol/L (98-107); Estimated Glomerular Filt Rate > 60 mL/min (>60); Glucose 93 mg/dL (80-110); HEMOLYSIS < 15 (0-50); Magnesium 1.9 mg/dL (1.6-2.3); Potassium 3.9 mmol/L (3.4-5.1); Sodium 138 mmol/L (137-145)
[2021-06-28 05:40] LABS: Add Manual Diff / Slide Review NO; Basophils Absolute Auto 0 /uL (0-100); Basophils Percent Auto 0.2 % (0-2); Eosinophils Absolute Auto 500 /uL (0-450); Eosinophils Percent Auto 6.9 % (2-4); Hematocrit 27.5 % (41-53); Hemoglobin 9.2 g/dL (13.5-17.5); Lymphocytes Absolute Auto 2100 /uL (1100-4500); Lymphocytes Percent Auto 27.5 % (25-40); Mean Corpuscular HGB Conc 33.5 % (30-36); Mean Corpuscular Hemoglobin 28.7 PG (26-34); Mean Corpuscular Volume 85.7 fL (80-100); Monocytes Absolute Auto 400 /uL (0-900); Monocytes Percent Auto 4.9 % (3-14); Neutrophils Absolute Auto 4700 /uL (1500-7000); Neutrophils Percent Auto 60.5 % (50-75); Platelet Count 211 X10^3/uL (150-400); Red Blood Cell Count 3.21 X10^6/uL (4.5-5.9); Red Cell Distribution Width 14.1 % (11.6-14.8); White Blood Cell Count 7.7 X10^3/uL (4.5-11.0)
--- NOTE | 2021-06-28 07:30 | PC.NURSE ---
Shift Note-Patient went back to bed at 1999, slept throughout night, declined need for pain medication, able to shift on own in the bed, SB/SR, VSS.
[2021-06-28 08:00] VITALS: BP 147/65; PULSE 64; RESP 15; TEMP 37.1; O2SAT 100
[2021-06-28] MEDS: levoFLOXacin 750 MG/150 ML PIGGYBACK 100 MG IV (08:27)
[2021-06-28] MEDS: HEPARIN 5,000 UNIT/ML VIAL 5000 UNIT SUBCUT ×4 (08:27→20:58)
[2021-06-28] MEDS: OXYCODONE IR 5 MG TABLET PO (08:28)
[2021-06-28] MEDS: ACETAMINOPHEN 325 MG TABLET 650 MG PO (08:28)
[2021-06-28] MEDS: SODIUM CHLORIDE 0.9% FLUSH 10 ML IV ×2 (08:29→20:59)
--- NOTE | 2021-06-28 09:47 | PT.IPTN ---
Current Diagnoses Sepsis, unspecified organism (06/23/21) Acidosis (06/23/21) Acute kidney failure, unspecified (06/23/21) Urinary tract infection, site not specified (06/23/21) Hematuria, unspecified (06/23/21) Severe sepsis with septic shock (06/23/21) Presence of right artificial hip joint (06/23/21) Physical Therapy Treatment Note M2 PT-IP Current Condition Start: 06/24/21 08:57 Freq: NEEDED Status: Active Protocol: Document 06/28/21 09:20 SP (Rec: 06/28/21 14:12 SP [id number]) Physical Therapy Current Condition Current Condition Evaluation Date 06/26/21 Treatment Diagnosis septic shock, recent R posterior SELAM; impaired mobility and gait. Onset Date 06/23/21 M3 PT-IP Subjective Start: 06/24/21 08:57 Freq: NEEDED Status: Active Protocol: Document 06/28/21 09:20 SP (Rec: 06/28/21 14:12 SP [id number]) Subjective Physical Therapy Visit Type Type Treatment Note Visit Start Time 09:20 Visit Stop Time 09:47 Total Visit Minutes 27 Notes Daughter in room, observed tx. TOBACCO ROLLER provided 2nd person assist required. Number of TRANSPLANT SURGEON Visits 2 Physical Therapy Visit Comments Patient Comments Pt agreeable to mobilizing with TRANSPLANT SURGEON to chair. Patient Goals Pt's family would like pt to go to SNF rehab to get stronger and pt is agreeable. Therapy Pain Assessment Pain When Pain Assessed During Mobility Pain Present Pain Present Pain Reported Location Right Hip Intensity 6 Description With Movement Pain Behaviors Facial Grimacing,Wincing Pain Management Techniques Distraction,Modification of Treatment,Re-positioning, Timing of Activity with Medications M4 PT-IP Mobility and Gait Start: 06/24/21 08:57 Freq: NEEDED Status: Active Protocol: Document 06/28/21 09:20 SP (Rec: 06/28/21 14:12 SP [id number]) PT-Bed Mobility Assessment Supine to Sit Supine to Sit Maximum Assistance,1 Person Assistance,Bedrails Scooting Scooting to Edge of Bed Minimal Assistance PT-Transfer Assessment Sit to and From Stand Sit to and from Stand Minimal Assistance,Maximum Assistance,2 Person Assistance ,Use of Upper Extremities Equipment Transfer Assistive Device Gait Belt,Front Wheeled Walker Orthotic/Prosthetic Devices or Brace: No Transfers Transfer Destination Chair Transfer Technique Stand Step Pivot Transfer Ability Level of Assist Minimal Assistance,Maximum Assistance,2 Person Assistance ,Use of Upper Extremities Comments Mobility Comments Pt elevated supine in bed when arrived, daughter in room. Completed elevated supine>sit using BUE on R bed rail. Mod A BLE to EOB and trunk support sit. Scoot to EOB Min with pt using B UE on bed. Sit>stand Max A x1, Min A x1, cued push from bed stand, SPT bed>chair Max A x1, Min A x1 and assisted IV pole, max cues for sequencing BLE and FWW repositioning 3 ft to chair. Cued center self and reach back, Mod A slow descent to chair. Pt able scoot back in chair self. Pt had call light and all needs in reach before left, TOBACCO ROLLER in room provided all needs when TRANSPLANT SURGEON leaving. Gait Assessment Gait Gait Assistance Required: Minimum Assistance,Maximum Assistance,2 Person Assist Distance (Feet) 3 Able to Maintain Weight Bearing Status Yes During Gait Assistive Devices Assistive Device Gait Belt,Front Wheeled Walker Orthotic/Prosthetic Devices or Brace: No Gait Deviations General Gait Pattern Antalgic,Decreased Stride Length,Decreased Feet Clearance,Flexed Trunk,Step-to Gait Factors Limiting Gait Function Factors Limiting Gait Function Decreased Activity Tolerance, Decreased Strength,Limited Range of Motion,Pain,Poor Balance Comments Gait Comments Steps taken during transfers only. See mobility comments for details. Stair Climbing Assessment Comments Stair Climbing Comments Not assessed due to decreased strength and assist required TFs. Pt has 2 step get into house and 2 step sunken living room with no HRs to complete for safe DC home when able. PT-Balance Assessment Sitting Balance and Reactions Static Sitting Balance Ability Good Dynamic Sitting Balance Ability Fair Standing Balance and Reactions Static Standing Balance Ability Poor Dynamic Standing Balance Ability Poor Device Used FWW M5 PT-IP Objective Assessments Start: 06/24/21 08:57 Freq: NEEDED Status: Active Protocol: Document 06/26/21 11:36 AW (Rec: 06/26/21 13:01 AW [id number]) Orientation Orientation/Cognition Level of Alertness Alert Orientation Name,Day of Week,Place, Situation Language Function Ability No Deficits Noted Safety Awareness Understands Safety Issues Memory Description No Deficits Noted Gross Range of Motion Lower Extremity ROM Assessment Within Functional Limits Strength Lower Extremity Strength Assessment Bilaterally Impaired Hip L 4/5; R 3-/5 Knee B 4-/5 Ankle B 4-/5 Coordination Assessment Gross Coordination Gross Coordination WNL Sensation Assessment Sensation Gross Sensation WNL Muscle Tone Muscle Tone WNL Yes Other Assessments Other Other Assessments Distal LE's are swollen. Pt has R hip hematoma. M6 PT-IP Treatment Start: 06/24/21 08:57 Freq: NEEDED Status: Active Protocol: Document 06/28/21 09:20 SP (Rec: 06/28/21 14:12 SP [id number]) Physical Therapy Treatment Education Education Provided Precautions,Weight Bearing Status,Safety Other Treatments Other Treatment Performed Pt needs frequent reminders to avoid excessive hip flexion and for hand placement when transferring. M7 PT-IP Assessment and Plan Start: 06/24/21 08:57 Freq: NEEDED Status: Active Protocol: Document 06/28/21 09:20 SP (Rec: 06/28/21 14:12 SP [id number]) PT Summary Assessment and Plan Potential Rehabilitation Potential Good Status of Condition at Evaluation Evolving Summary Impairments Pain,ROM,Strength,Balance,Bed Mobility,Transfers,Gait, Activity Tolerance Progress Towards Goals Slow Progress due to Pain,Slow Progress due to Activity Tolerance Assessment Summary Pt continues to require Max A x1-2 throughout treatment. Able to tolerate step pivot from bed to chair, forward and lateral steps w/ FWW. He is far from his baseline and will require SNF to improve strength and fuctional mobility. Goals Bed Mobility Goal Standby Assistance Transfer Goal Minimal Assistance,Front Wheeled Walker Gait Goal Minimal Assistance,Front Wheel Walker Gait Distance 100 Other Goals -- up/down 2 steps with no rail using SPC and min A (if going home) -- LTG: improve transfers and gait to SBA with FWW Days to Meet Goals 10 Frequency of Treatment Frequency Of Treatment Once a Day Treatment Plan Physical Therapy Treatment Plan Bed Mobility Training,Transfer Training,Gait Training, Therapeutic Exercise,Balance Retraining,Post Op Education, Discharge Planning,Hot or Cold Pack,Neuromuscular Re-ed Other Recommendations and Next Treatment continue to reinforce Focus posterior hip precautions; standing tolerance; transfers; gait with FWW and chair follow as tolerated Precautions Posterior Hip Precautions No Hip Flexion > 90 degrees,No Hip Internal Rotation,No Hip Adduction Other Precautions hypotension; falls risk Weight Bearing Status Weight Bearing Status Weight Bear as Tolerated Recommendations To Nursing Amount of Assist Needed 2 Person Assist Discharge Recommendations PT Discharge Recommendations SNF Rehab Transportation Needs at Discharge Wheelchair/Cabulance
[2021-06-28 10:02] VITALS: O2SAT 100
--- NOTE | 2021-06-28 11:27 | P.PN_ITS ---
Subjective Subjective Interval history: Patient reports feeling well. He denies any active issues. He reports eating and drinking OK. at bedside is inquiring about SNF options and status. Exam Vital Signs (past 8 hours): - 06/28/21 04:11 06/28/21 08:00 06/28/21 10:02 Temperature 99.1 F 98.7 F Pulse Rate 59 L 64 Respiratory Rate 19 15 Blood Pressure 148/65 H 147/65 H Pulse Oximetry 100 100 100 Oxygen Delivery Method Room Air Oxygen Flow Rate 0 Narrative Exam Narrative: Const Other: Patient sitting up in bed comfortably upon my entering the room, in no apparent acute distress, with at bedside Eyes Other: No scleral icterus appreciated Resp Other: Lungs clear to auscultation bilaterally Cardio Other: RRR, S1 and S2 heart sounds normal, with no extra heart sounds or murmurs appreciated GI Other: Soft, non-distended, non-tender, bowel sounds present Skin Other: No grossly abnormal skin lesions noted Extrem Other: Palpable dorsalis pedis pulses bilaterally, no edema noted Objective Labs Result Diagrams: 06/28/21 05:15 06/28/21 05:15 Labs: Laboratory Results - last 24 hr 06/28/21 06/28/21 05:15 05:15 WBC 7.7 RBC 3.21 L Hgb 9.2 L Hct 27.5 L MCV 85.7 MCH 28.7 MCHC 33.5 RDW 14.1 Plt Count 211 Neut % (Auto) 60.5 Lymph % (Auto) 27.5 [place] % (Auto) 4.9 Eos % (Auto) 6.9 H Baso % (Auto) 0.2 Neut # (Auto) 4700 Lymph # (Auto) 2100 [place] # (Auto) 400 Eos # (Auto) 500 H Baso # (Auto) 0 Sodium 138 Potassium 3.9 Chloride 109 H Carbon Dioxide 26 BUN 24 H Creatinine 0.94 Estimated GFR > 60 BUN/Creatinine Ratio 25.5 H Glucose 93 Calcium 8.3 L Magnesium 1.9 PFSH Medical History Hypertension Surgical History History of right hip replacement Family History Mother Myocardial infarction Father Myocardial infarction Social History household members: spouse Smoking Status: Never smoker Assessment & Plan Assessment & Plan narrative: 1. Septic shock secondary to acute UTI, likely due to recent catheter placement from recent right hip replacement, improving ?- Urine culture growing Citrobacter diversus, improving on IV levofloxacin 750 mg daily (started on June 23, 2021), patient with penicillin allergy 2. RUPERTO, likely pre-renal, resolved with IV fluids 3. Right hip replacement, recent, stable, with small hematoma formation ?- No focal abscess noted on US of the affected area ?- Hemoglobin downtrended intially but has since stabilized 4. Hypertension ?- Will hold home anti-BP meds given normotension so far VTE prophylaxis: Heparin 5000 units tid Time Spent With Patient Critical Care time: I spent a total of [] minutes of critical care time on this patient's care today; this time is exclusive of procedural time.
--- NOTE | 2021-06-28 11:39 | OT.IPNOTE ---
Pt just getting back to bed with nursing.
[2021-06-28 12:00] VITALS: BP 114/59; PULSE 66; RESP 17; TEMP 36.6; O2SAT 98
--- NOTE | 2021-06-28 15:29 | CM.DPNOTE ---
DCP Note [facility] has secured auth through patient's insurance and has a bed available tomorrow 06.29.21. W/c transport tentatively arranged for p/u at 1100 Spoke w/patient, dtr and spouse, reviewed above and all agreeable to plan Provided spouse w/Viry's number, [facility] for questions pertaining to private room availability, visitation policy, what to expect at SNF etc Patient does not need updated COVID PCR d/t booster received in February 2021, per [facility] Plan: DC expected Thursday06.29.21 to [facility] via w/c, PASRR completed, no need for another C19 PCR CM team will plan to follow closely for coordination of this DCP JW
--- NOTE | 2021-06-28 17:22 | PC.NURSE ---
Patient is comfortable and lying supine. Rhetthip is on a pillow and also has a pillow between his legs. He denies pain. Eating dinner now, in room. Shankar patent and dressing to r.hip is cdi.
[2021-06-28 19:20] VITALS: BP 132/65; PULSE 67; RESP 26; TEMP 37; O2SAT 100
[2021-06-29] VITALS: BP 162/68; PULSE 68; RESP 17; TEMP 37.3; O2SAT 98
--- NOTE | 2021-06-29 00:01 | PC.NURSE ---
Plan is for patient to be discharge to a facility in the am around 1100. Pt still has a galindo catheter. Pt requesting for this nurse to wait until am to remove catheter. Plan is to try to remove catheter by no later than 0630.
[2021-06-29] MEDS: OXYCODONE IR 5 MG TABLET PO ×2 (01:27→07:51)
[2021-06-29 04:00] VITALS: BP 162/72; PULSE 60; RESP 19; TEMP 36.8; O2SAT 99
[2021-06-29] MEDS: HEPARIN 5,000 UNIT/ML VIAL 5000 UNIT SUBCUT (06:15)
[2021-06-29] MEDS: levoFLOXacin 750 MG/150 ML PIGGYBACK 100 MG IV (07:34)
[2021-06-29 07:45] VITALS: BP 165/70; PULSE 63; RESP 11; TEMP 37.3; O2SAT 97
[2021-06-29] MEDS: ACETAMINOPHEN 325 MG TABLET 650 MG PO (07:51)
--- NOTE | 2021-06-29 08:37 | PM.DS.1 ---
History of Present Illness History of Present Illness Date Patient Seen: 06/29/21 Time Patient Seen: 08:37 Chief complaint: syncope Narrative: 81 y/o male s/p right hip replacement, hypertension, urinary tract infection seen in the ED earlier today for hematuria and discharged home. According to his , upon arrival at home they were unable to get him to ambulate, he fell backwards and passed out. She notes he has been restless, confused, and getting up to the bathroom last night. He had surgery about one week ago and was discharged 24 hours after the procedure from [facility] in [place]. Since arriving home he has not really ambulated, has been reluctant to drink fluids but has continued taking his losartan. In the ED he was found to have an elevated lactate of 3.6 which improved to 1.3 prior to discharge. He was noted to have a UTI given ceftriaxone and discharged home. Of note, the patient had a CT KUB which was unremarkable. Repeat CT of Chest/ABD/Pelvis remains unremarkable. Patient is admitted to the hospital with a UTI, weakness, syncope, and inability to ambulate. Discharge Providers Provider Date of admission: 06/23/21 19:10 Discharge Date: 06/29/21 Primary care physician: Zaheer Charlton MD Consults: 06/23/21 21:12 Consult to Discharge Planning Routine Comment: Consult to Occupational Therapy Evaluate & Treat Comment: Physician Instructions: Evaluate and treat Consult to Physical Therapy Evaluate & Treat Comment: Physician Instructions: Evaluate and Treat 06/24/21 08:10 Consult to Orthopedic Surgery Routine Comment: Consulting Provider: Maryanne Junior Reason for consultation: recent hip surgery, sepsis, ? operative site infection 06/24/21 09:39 Consult to Speech Therapy Evaluate & Treat Comment: difficulty swallowing in setting of sepsis Physician Instructions: Evaluate and treat Discharge provider: Caryn Hardin MD Summary Hospital Course Discharge Diagnosis: 1. Septic shock 2. Acute metabolic encephalopathy, present on admission, now resolved 3. Acute kidney injury, now resolved 4. Urinary tract infection, secondary to Citrobacter diversus 5. Status post right total hip replacement 6. Hypertension 7. Anemia Hospital Course: Patient was admitted to the hospital following a syncopal episode. He developed an episode of vomiting, followed by confusion. The patient had a code stroke called, head CT was negative for an acute stroke. The patient became hypotensive. He required IV fluids, and pressors, Levophed. Patient remained in shock For several hours. His lactate was elevated to 5.7, the lactate improved and normalized. He was no longer in shock after IV fluids and Levophed, Patient's antibiotics were adjusted. As he is allergic to penicillin he was placed on aztreonam, linezolid, levofloxacin, and metronidazole. His urine cultures grew Citrobacter dry versus, antibiotics were de-escalated to IV levofloxacin. The patient did have acute kidney injury, with IV hydration his renal function improved. Urine output improved. Oxygenation remained improved. The patient had improvement of his metabolic encephalopathy. He made slow but steady progress and hemodynamically improved. Patient was somewhat weak after his hip surgery. He did have some inflammation around the hip, CT of the hip revealed no evidence of abscess. He was seen in consultation with Orthopedics who recommended usual postoperative evaluation. Patient made slow but steady progress and was deemed appropriate for discharge to alf for ongoing rehabilitation. On the day of discharge she is awake alert and has no specific complaints. Patient will be discharged to [facility]. Exam Vital Signs (past 8 hours): - 06/29/21 04:00 06/29/21 07:45 Temperature 98.3 F 99.2 F Pulse Rate 60 63 Respiratory Rate 19 11 L Blood Pressure 162/72 H 165/70 H Pulse Oximetry 99 97 Oxygen Delivery Method Room Air Oxygen Flow Rate 0 Narrative Exam Narrative: Pleasant elderly male lying in bed in no acute distress Resp Other: Lungs clear to auscultation Cardio Other: Cardiac exam: Regular rate and rhythm normal S1-S2 GI Other: Abdomen: Soft nontender nondistended Extrem Other: Extremities: No edema Objective Labs Result Diagrams: 06/28/21 05:15 06/28/21 05:15 [facility] Medical History Hypertension Surgical History History of right hip replacement Family History Mother Myocardial infarction Father Myocardial infarction Social History household members: spouse Smoking Status: Never smoker Discharge Assessment & Plan Assessment and Plan Assessment: Septic shock 2. Acute metabolic encephalopathy, present on admission, now resolved 3. Acute kidney injury, now resolved 4. Urinary tract infection, secondary to Citrobacter diversus 5. Status post right total hip replacement 6. Hypertension 7. Anemia Plan of Treatment: [facility] Discharge Plan Discharge Plan Patient Disposition: SNF Transfer to: [facility] Consult as needed: Dental, Hearing, Mental health, Podiatry and Vision Discharge orders & Medications Prescriptions: New oxycodone 5 mg Tablet 5 mg PO Q4HR PRN (Reason: Pain, Severe (7-10)) Qty: 15 0RF acetaminophen 325 mg Tablet 650 mg PO Q6HR PRN (Reason: Fever/Mild Pain (1-3)) Qty: 30 0RF levofloxacin 500 mg tablet 500 mg PO DAILY 3 Days 0RF aspirin 81 mg tablet,delayed release (DR/EC) 81 mg PO BID 30 Days Qty: 60 0RF Continued losartan-hydrochlorothiazide 100-12.5 mg tablet 12.5 tab DAILY 0RF Label Comments: TAKE 1 TABLET BY MOUTH ONCE DAILY Discontinued tramadol 50 mg tablet 50 mg PO Q6HR PRN (Reason: Pain (Scale Score 4-6)) 0RF Label Comments: 1-2 tablet by mouth every six hours Follow up/Referrals: Zaheer Charlton MD [Primary Care Provider] - Diet/Activity/Treatments Diet: Low-sodium Liquid consistency: Normal/Thin Food texture: Regular Skin/Wound/Dressing Care Report to your healthcare provider any signs of infection, such as:: chills, fever and unusual redness [facility] Reason for rehabilitation: Recovery r/t decondition Rehab type: Physical therapy and Occupational therapy Discharge Data Primary Care Provider: Zaheer Charlton
[2021-06-29 09:10] VITALS: O2SAT 96
--- NOTE | 2021-06-29 11:15 | OT.IP.TRT ---
Current Diagnoses Sepsis, unspecified organism (06/23/21) Acidosis (06/23/21) Acute kidney failure, unspecified (06/23/21) Urinary tract infection, site not specified (06/23/21) Hematuria, unspecified (06/23/21) Severe sepsis with septic shock (06/23/21) Presence of right artificial hip joint (06/23/21) Occupational Therapy Treatment Note M2 OT-IP Current Condition Start: 06/26/21 14:41 Freq: Status: Active Protocol: Document 06/26/21 13:20 [facility] (Rec: 06/26/21 14:54 [facility] [id number]) Occupational Therapy Current Condition Current Condition Evaluation Date 06/26/21 Treatment Diagnosis Sepsis , UTO, recent right hip replacement, decreased mobility Diagnosis Onset Date 06/23/21 Post Operative Precautions Posterior Hip Precautions No Hip Flexion > 90 degrees,No Hip Internal Rotation,No Hip Adduction M3 OT- IP Subjective and Pain Start: 06/26/21 14:41 Freq: Status: Active Protocol: Document 06/29/21 11:16 [facility] (Rec: 06/29/21 11:21 [facility] [id number]) OT- Subjective Occupational Therapy Visit Type Type Treatment Note Visit Start Time 11:00 Visit Stop Time 11:15 Total Visit Minutes 15 Occupational Therapy Visit Comments Patient Comments Pt getting ready to go to skilled rehab. Patient/Caregiver Goals TO get better. OT Pain Assessment Pain When Pain Assessed At Rest Pain Present Pain Present Denied Pain M4 OT- IP ADL's Start: 06/26/21 14:41 Freq: Status: Active Protocol: Document 06/29/21 11:16 [facility] (Rec: 06/29/21 11:21 [facility] [id number]) OT ADL-Dressing General Eval Upper Body Dressing Ability Moderate Assistance M5 OT- IP IADL's Start: 06/26/21 14:41 Freq: Status: Active Protocol: Document 06/26/21 13:20 [facility] (Rec: 06/26/21 14:54 [facility] [id number]) OT-Instrumental Activities of Daily Living Home Safety Awareness Home Safety Comments At this time pt seem slow to respond to cues and groggy and would need assist for all ADl and IADL needs. M6 OT- IP Functional Cognition Start: 06/26/21 14:41 Freq: Status: Active Protocol: Document 06/29/21 11:16 [facility] (Rec: 06/29/21 11:21 [facility] [id number]) Cognitive Factors Limiting Selfcare Function Cognitive Comments Cognitive Assessment Comments Pt able to follow commands and ask questions appropriately. VC for his hip precautions to be sure to slide his leg forwards before sitting down. M7 OT- IP Mobility and Balance Start: 06/26/21 14:41 Freq: Status: Active Protocol: Document 06/29/21 11:16 [facility] (Rec: 06/29/21 11:21 [facility] [id number]) OT-Transfer Assessment Sit to and From Stand Sit to and from Stand Maximum Assistance,1 Person Assistance Transfers Transfer Ability Maximum Assistance,1 Person Assistance Technique Transfer Destination Chair,Wheelchair Devices Transfer Assistive Devices Gait Belt,Front Wheeled Walker Comments Mobility Comments MAX AX 1 to stand to FWW and assist to help with balance, guide the FWW and to help lower to sit. OT- Balance Assessment Sitting Balance and Reactions Static Sitting Balance Ability Good Dynamic Sitting Balance Ability Fair Standing Balance and Reactions Static Standing Balance Ability Poor Dynamic Standing Balance Ability Poor M8 OT- IP Objective Assessments Start: 06/26/21 14:41 Freq: Status: Active Protocol: Document 06/26/21 13:20 [facility] (Rec: 06/26/21 14:54 [facility] [id number]) OT Gross Range of Motion Upper Extremity Range of Motion Assessment Within Functional Limits OT-Muscle Tone Assessment Muscle Tone WNL Yes M9 OT- IP Assessment and Plan Start: 06/26/21 14:41 Freq: Status: Active Protocol: Document 06/29/21 11:16 [facility] (Rec: 06/29/21 11:21 [facility] [id number]) OT Summary Assessment and Plan Potential Rehabilitation Potential Good Analytic Complexity at Evaluation Moderate Summary OT Impairments Pain,Strength,Balance, Functional Cognition, Functional Mobility,Grooming, Dressing,Toileting,Bathing, Toilet Transfers,Shower Transfers,Activity Tolerance Progress Towards Goals Progressing Toward Goals Assessment Summary Able to to go over what to expect in skilled rehab- therapy, goals and questions to ask . Pt able to transfer to with MAX AX 1 and FWW. Goals Self-Feeding Goal Independent Grooming Goal Independent Dressing Goal Independent Toileting Goal Independent Bathing Goal Independent Toilet Transfer Goal Independent Shower Transfer Goal Independent Patient/Caregiver Education Goal Demonstrate Post-Op Precautions Days to Meet Goals 29 Frequency of Treatment Frequency Of Treatment Once a Day Treatment Plan OT Treatment Plan ADL Training,Functional Cognition Training,Functional Mobility,Patient/Family Education,Discharge Planning Discharge Recommendations OT Discharge Recommendations SNF Rehab Transportation Needs at Discharge Wheelchair/Cabulance
--- NOTE | 2021-06-29 11:20 | CM.DPC ---
DCP Discharge SNF Per MD, pt remains medically stable to d/c to SNF today after his dose of IV-Abx this morning and aware that transport was tentatively scheduled for today at 1100. completed discharge and already met bedside with pt and spouse and they remain agreeable and aware. ELIU called [facility] and confirmed they can accept today and SW faxed to requested w/e HOSIERY OPERATOR number the PASRR, med list signed, scripts, d/c summary, FLORENTINO gandara MD orders to [facility] admissions to review. [facility] RN will call [facility] RN [place] for report prior to d/c. ELIU updated RN and edge baster. Plan: Patient to d/c to [facility] today via facility van prior to safe return home with spouse. ARLEY Block
== END 2021-06-29 12:15 | DRG 698 ==
LOC: ED 15:52 → AC 19:13 → ICU 06-24 08:07 → AC 06-24 14:55 → ICU 06-24 14:55
PROVIDERS: Emergency Medicine; Internal Medicine; Internal Medicine Pulmonary Disease; Student in an Organized Health Care Education/Training Program; Admitting Provider Internal Medicine; Emergency Provider Emergency Medicine; PCP Family Medicine; Visit Provider Internal Medicine
DX: T83.511A Infection and inflammatory reaction due to indwelling urethral catheter, initial encounter (principal); R65.21 Severe sepsis with septic shock; J96.01 Acute respiratory failure with hypoxia; G93.41 Metabolic encephalopathy; A41.9 Sepsis, unspecified organism; N30.01 Acute cystitis with hematuria; N17.9 Acute kidney failure, unspecified; E87.2 Acidosis; M96.840 Postprocedural hematoma of a musculoskeletal structure following a musculoskeletal system procedure; I10 Essential (primary) hypertension; I95.9 Hypotension, unspecified; B96.89 Other specified bacterial agents as the cause of diseases classified elsewhere; D64.9 Anemia, unspecified; R55 Syncope and collapse; Z20.822 Contact with and (suspected) exposure to COVID-19; Z96.641 Presence of right artificial hip joint
CPT/HCPCS: 36415; 36592; 36600; 70450; 71045; 71260; 74176; 74177; 76882; 80048; 80053; 81001; 82550; 82805; 83605; 83690; 83735; 84145; 84484; 85007; 85025; 85379; 87040; 87077; 87086; 87186; 87635; 87797; 92526; 92610; 93005; 93010; 96361; 96365; 96375; 97110; 97163; 97166; 97530; 99283; 99284; C9803; S0073; J0696; J1170; J1642; J1644; J1956; J2020; J2405; J2543; J3475; P9041; Q9967

== ENCOUNTER 2022-01-30 14:22 | Emergency (ER) | payer MEDICARE, SELFPAY ==
[2021-06-23 20:45] VITALS: BMI 30.1
--- NOTE | 2022-01-30 14:17 | DI.CT.S_ITS ---
PROCEDURE: CT CERVICAL SPINE WO CON INDICATIONS: fall, head injury, scalp lac TECHNIQUE: Noncontrast 3 mm thick sections acquired from the skull base to the T4 level. Sagittal and coronal reformats were then constructed. For radiation dose reduction, the following was used: automated exposure control, adjustment of mA and/or kV according to patient size. COMPARISON: None. FINDINGS: Image quality: Excellent. Bones: No fractures or dislocations. Visualized superior ribs are intact. Multilevel degenerative changes are present. Soft tissues: Prevertebral soft tissues are normal in thickness. No paravertebral hematomas. No apical pneumothoraces. IMPRESSION: No visualized fracture. Dictated by: Lotus Bonilla M.D. on 01/30/2022 at 14:46 Approved by: Lotus Bonilla M.D. on 01/30/2022 at 14:47
--- NOTE | 2022-01-30 14:17 | DI.CT.S_ITS ---
PROCEDURE: CT HEAD/BRAIN WO CON INDICATIONS: fall, head injury, scalp lac TECHNIQUE: Noncontrast 4.5 mm thick angled axial sections acquired from the foramen magnum to the vertex, with coronal and sagittal reformats. For radiation dose reduction, the following was used: automated exposure control, adjustment of mA and/or kV according to patient size. COMPARISON: [facility], CT, CT HEAD WITHOUT CONTRAST, 01/10/2022, 20:06. FINDINGS: Image quality: Excellent. CSF spaces: Basal cisterns are patent. No extra-axial fluid collections. The ventricles are symmetric in size and shape. Brain: No intracranial bleeds or masses. There is cerebral volume loss for age, with resultant ventricular and sulcal prominence. There are periventricular and deep white matter chronic small vessel ischemic changes. There is intracranial internal carotid artery atherosclerosis. Old left cerebellar infarction. Skull and face: Calvarium and visualized facial bones appear intact, without suspicious lesions. Sinuses: Visualized sinuses and mastoids are clear. IMPRESSION: 1. No acute intracranial process. 2. Moderate atrophy and chronic microvascular ischemic changes. Dictated by: Lotus Bonilla M.D. on 01/30/2022 at 14:45 Approved by: Lotus Bonilla M.D. on 01/30/2022 at 14:46
--- NOTE | 2022-01-30 14:18 | ED.TRAUMA ---
HPI - Trauma General Chief Complaint: Fall Stated Complaint: GLF with head lac Time Seen by Provider: 01/30/22 14:18 Source: patient Mode of arrival: EMS Limitations: no limitations History of Present Illness HPI narrative: This is a 82-year-old male history of hypertension, possible TIA according to medics with complaint of ground level fall. Patient states he was walking on some rocks and js lost his balance and fell backwards striking the back of his head. He denies loss of consciousness. He denies any active headache, neck or back pain, no chest pain or shortness of breath. Denies any vision changes. No nausea or vomiting. He denies any numbness, tingling or weakness. Patient is not currently anticoagulated he states he used to take medication thinks for blood pressure but has been off that for some time. He states he has tonsils removed as a child, he is had hip replacement. Patient is allergic to penicillin, latex and lactose. Denies tobacco, alcohol or illicit. Related Data Home Medications Medication Instructions Recorded Confirmed losartan 100 12.5 tab DAILY 06/23/21 06/23/21 mg-hydrochlorothiazide 12.5 mg tablet Previous Rx's Medication Instructions Recorded acetaminophen 325 mg tablet 650 mg PO Q6HR PRN Fever/Mild Pain 06/29/21 (1-3) #30 tabs oxycodone 5 mg tablet 5 mg PO Q4HR PRN Pain, Severe 06/29/21 (7-10) #15 tabs clindamycin HCl 300 mg capsule 300 mg PO Q6H #20 caps 01/30/22 Allergies Allergy/AdvReac Type Severity Reaction Status Date / Time Penicillins Allergy Unknown Verified 06/24/21 06:42 latex Allergy Rash Verified 06/23/21 16:52 lactose AdvReac Mild Verified 06/24/21 12:35 Review of Systems Review of Systems ROS Unobtainable: All systems reviewed & are unremarkable except as noted in HPI and below Patient History Medical History Hypertension Surgical History History of right hip replacement Family History Mother Myocardial infarction Father Myocardial infarction Social History household members: spouse Smoking Status: Never smoker Smoking Status: Never smoker alcohol intake frequency: 0-2 drinks per day Substance Use Type: does not use Exam Narrative Exam Narrative: GEN: Patient appears in mild distress. HEAD: Patient has laceration to the forehead which is approximately 12 cm in total length which is a large avulsion flap that appears to be down to the bone it is stellate. Patient has a small linear lesion adjacent more central on the forehead. Frontal bone appears intact. no raccoon/Galvez sign. NECK: Nontender, painless range of motion, trachea midline Negative for Nexus criteria, there is no midline line tenderness, distracting injury, altered mental status, neuro deficit, recent EtOH. EYES: PERRLA, EOMI ENT: External inspection normal, trachea is midline, TM's are normal no hemotypanum, Nares are clear, no septal hematoma, no dental or oral injury, airway is normal and with normal occlusion, No bony tenderness RESP: Chest is nontender and has symmetric movement, no ecchymosis, breath sounds are normal no crackles, wheezes or rales CVS: Heart sounds are normal, no murmur noted, No JVD. ABG/GI: Nontender, soft, normal bowel sounds, no distention, no organomegaly, pelvic rock is negative NEURO: Oriented AOx3, neuro is grossly intact, sensation and motor is normal all 4 extremities moving, cranial nerves II through XII are intact, GCS is 15 PSYCH: Normal mood and affect SKIN: Intact, warm and dry, no crepitus and without decubitus BACK: No CVA tenderness, no vertebral tenderness, no step-off's, no crepitus EXT: Atraumatic, hips are nontender, no pedal edema, normal color and temperature, normal range of motion of extremities with normal tendon exam, 2+ pulses in all four extremities Initial Vital Signs Initial Vital Signs: Vital Signs Temperature 97.9 F 01/30/22 14:25 Pulse Rate 81 01/30/22 14:25 Respiratory Rate 18 01/30/22 14:25 Blood Pressure 178/76 H 01/30/22 14:25 Pulse Oximetry 98 01/30/22 14:25 Oxygen Delivery Method 01/30/22 14:25 Procedures Laceration Repair Laceration 1: Time of procedure: 03:50 Site: face (forehead) Size (cm): 12 Description: stellate, flap, irregular and clean Depth: simple, single layer and involves muscle layer Local Anesthetic: lidocaine 1% Amount of anesthesia used (mL): 8 Pre-repair: wound explored and irrigated extensively Skin layer closed with: vicryl Skin layer suture size: 4-0 Number of sutures: 15 Technique: simple, interrupted Scores GCS Radha coma scale eye opening: Spontaneous Radha coma scale verbal response: Orientated [place] coma scale motor response: Obey commands Radha coma scale total score: 15 Course Orders Ordered: ED Orders 01/30/22 14:17 CT cervical spine wo con Stat CT head/brain wo con Stat 01/30/22 16:14 CBC Auto Diff [Complete Blood Count AUTO DIFF] Stat CMP [Comprehensive Metabolic Panel] Stat 01/30/22 16:15 Consult to ACTING SECTION CHIEF - Six Pack Loader Operator Stat 01/30/22 16:52 Consult to Home Health Stat Discontinued Medications Acetaminophen (Acetaminophen 325 Mg Tablet) 650 mg PO NOW ONE Stop: 01/30/22 14:53 Last Admin: 01/30/22 14:55 Dose: 650 mg Documented By: KATHERINE Bacitracin (Bacitracin Oint 0.9 Gm Pckt) 3 applic TOP NOW ONE Stop: 01/30/22 15:34 Last Admin: 01/30/22 16:07 Dose: 3 applic Documented By: KATHERINE Diphtheria/Tetanus/Acell Pertussis (Tet,Diph,Pertuss(Acell),Vac/Pf 0.5 Ml Syringe) 0.5 ml IM .ONCE ONE Stop: 01/30/22 14:18 Last Admin: 01/30/22 14:46 Dose: 0.5 ml Documented By: KATHERINE Lidocaine HCl (Lidocaine 2% Inj Sdv) 5 ml INJ INTRA-OP ONE Stop: 01/30/22 14:23 Last Admin: 01/30/22 14:47 Dose: 5 ml Documented By: KATHERINE Vital Signs Vital signs: Vital Signs - 8 hr 01/30/22 14:25 01/30/22 14:57 01/30/22 16:03 Temperature 97.9 F Pulse Rate 81 78 75 Respiratory Rate 18 17 15 Blood Pressure 178/76 H 171/81 H 133/67 Pulse Oximetry 98 Oxygen Delivery Method Room Air MDM - Trauma Lab Data Result diagrams: 01/30/22 16:14 01/30/22 16:14 Labs: Lab Results 01/30/22 01/30/22 Range/Units 16:14 16:14 WBC 9.8 (4.5-11.0) X10^3/uL RBC 4.03 L (4.5-5.9) X10^6/uL Hgb 11.7 L (13.5-17.5) g/dL Hct 34.2 L (41-53) % MCV 84.8 (80-100) fL MCH 28.9 (26-34) PG MCHC 34.1 (30-36) % RDW 15.4 H (11.6-14.8) % Plt Count 209 (150-400) X10^3/uL Neut % (Auto) 72.1 (50-75) % Lymph % (Auto) 17.0 L (25-40) % [place] % (Auto) 10.3 (3-14) % Eos % (Auto) 0.2 L (2-4) % Baso % (Auto) 0.4 (0-2) % Neut # (Auto) 7000 (3229-4466) /uL Lymph # (Auto) 1700 (3013-8970) /uL [place] # (Auto) 1000 H (0-900) /uL Eos # (Auto) 0 (0-450) /uL Baso # (Auto) 0 (0-100) /uL Sodium 137 (137-145) mmol/L Potassium 4.2 (3.4-5.1) mmol/L Chloride 103 (98-107) mmol/L Carbon Dioxide 26 (22-32) mmol/L BUN 17 (9-20) mg/dL Creatinine 1.01 (0.66-1.25) mg/dL Estimated GFR > 60 (>60) mL/min BUN/Creatinine Ratio 16.8 (6-22) Glucose 106 (80-110) mg/dL Calcium 9.1 (8.4-10.2) mg/dL Total Bilirubin 0.8 (0.2-1.3) mg/dL AST 19 (17-59) IU/L ALT 13 (<50) IU/L Alkaline Phosphatase 96 (38-126) U/L Total Protein 6.6 (6.3-8.2) g/dL Albumin 3.7 (3.5-5.0) g/dL Globulin 2.9 (1.7-4.1) g/dL Albumin/Globulin Ratio 1.3 (1.0-2.8) Imaging Data CT scan - head: Radiologist's Impression: [address] [address] [address] Scan Report Signed Patient: Rickie Waters MR#: [id number] : 1940 Acct:[id number] Age/Sex: 82 / M Date of Service: 01/30/22 Loc: ED Accession Number: [id number] ?? Procedure: CT head/brain wo con Ordering Provider: Flor Vogt D.O. PROCEDURE:? CT HEAD/BRAIN WO CON ? INDICATIONS:? fall, head injury, scalp lac ? TECHNIQUE:? Noncontrast 4.5 mm thick angled axial sections acquired from the foramen magnum to the vertex, with coronal and sagittal reformats.? For radiation dose reduction, the following was used:? automated exposure control, adjustment of mA and/or kV according to patient size.? ? COMPARISON:? [facility], CT, CT HEAD WITHOUT CONTRAST, 01/10/2022, 20:06. ? FINDINGS:? Image quality:? Excellent.? ? CSF spaces:? Basal cisterns are patent.? No extra-axial fluid collections.? The ventricles are symmetric in size and shape.? ? Brain:? No intracranial bleeds or masses.? There is cerebral volume loss for age, with resultant ventricular and sulcal prominence.? There are periventricular and deep white matter chronic small vessel ischemic changes.? There is intracranial internal carotid artery atherosclerosis.? Old left cerebellar infarction. ? Skull and face:? Calvarium and visualized facial bones appear intact, without suspicious lesions.? ? Sinuses:? Visualized sinuses and mastoids are clear.? ? IMPRESSION:? ? 1. No acute intracranial process. ? 2. Moderate atrophy and chronic microvascular ischemic changes. ? ? ? Dictated by: Lotus Bonilla M.D. on 01/30/2022 at 14:45 ? ? Approved by: Lotus Bonilla M.D. on 01/30/2022 at 14:46?? CT - cervical spine: Radiologist's Impression: Close Head CT (Signed) Lotus Bonilla - 01/30/[address] (Signed) Lotus Bonilla - 01/30/22 Extremity Ultrasound (Signed) ChadLotus - 06/25/21 Chest X-Ray (Signed) Call,Chaz - 06/24/[address] (Signed) Call,Chaz - 06/24/21 Chest X-Ray (Signed) Call,Chaz - 06/24/21 Telemetry Strips 06/23/21 Chest/Abdomen/Pelvis CT (Signed) ChrisNormBrad - 06/23/21 Abdomen/Pelvis CT (Signed) OffermanBrad - 06/23/21 Joint Aspiration/Injection (Signed) Jasper Kenney - 01/11/21 [place] [address] CT Scan Report Signed Patient: Rickie Waters MR#: [id number] : 1940 Acct:[id number] Age/Sex: 82 / M Date of Service: 01/30/22 Loc: ED Accession Number: [id number] ?? Procedure: CT cervical spine wo con Ordering Provider: Flor Vogt D.O. PROCEDURE:? CT CERVICAL SPINE WO CON ? INDICATIONS:? fall, head injury, scalp lac ? TECHNIQUE:? Noncontrast 3 mm thick sections acquired from the skull base to the T4 level.? Sagittal and coronal reformats were then constructed.? For radiation dose reduction, the following was used:? automated exposure control, adjustment of mA and/or kV according to patient size.? ? COMPARISON:? None. ? FINDINGS:? Image quality:? Excellent.? ? Bones:? No fractures or dislocations.? Visualized superior ribs are intact.? Multilevel degenerative changes are present. ? Soft tissues:? Prevertebral soft tissues are normal in thickness.? No paravertebral hematomas.? No apical pneumothoraces.? ? ? IMPRESSION:? ? No visualized fracture. ? Dictated by: Lotus Bonilla M.D. on 01/30/2022 at 14:46 ? ? Approved by: Lotus Bonilla M.D. on 01/30/2022 at 14:47?? MDM Narrative Medical decision making narrative: This is an 82 year old male who is not anticoagulated with mechanical ground level fall no loss of consciousness but patient has a laceration, based on age head CT and C-spine were obtained and are negative. Patient has a large laceration on his forehead which was repaired with multiple absorbable sutures and patient tolerated procedure well, extensive irrigation started on oral antibiotics as it is quite deep and is high risk for infection. Spoke with his he is had multiple falls recently since this spring, he had workup about 10 days ago including head CT, chest CT and labs which were negative discussed obtaining labs including sodium. Patient was able to ambulate safely in the department. has been trying to obtain PT and home health care which she would had in the past and has been running into barriers with the primary care physician. bench worker apprentice evaluated with patient an order was signed as patient does require this. He was not using his walker or cane today according to his which likely also increased his risk for fall. Discharge Plan Departure Patient Disposition: Home Clinical Impression: Laceration of scalp, Head injury Activity Restrictions/Additional Instructions: You have a large laceration on your forehead. Sutures are absorbable but if still present at 7-10 days please follow-up with primary care, urgent care or the ER to have them removed. Wound Care: Keep wound(s) clean and dry. Wash daily with soap and water only. Do not use over the counter products (alcohol or peroxide)on the wounds unless instructed by a physician. If wound condition worsens (increased/expanding redness, developing fluid blisters, or worsening pain), either contact your doctor for an urgent re-assessment , or return to the Emergency Department. Take antibiotics until completely gone to help prevent infection. You can take Tylenol up to a 1000 mg every 6 hours as needed for pain. Prescription sent to [facility] in [place]. Please return for severe headaches, redness, signs of infection, purulent drainage, sudden vision changes, difficulty with speech, new weakness, persistent vomiting, new neck or back pain or other new or concerning changes. Prescriptions: New clindamycin HCl 300 mg capsule 300 mg PO Q6H Qty: 20 0RF No Action losartan-hydrochlorothiazide 100-12.5 mg tablet 12.5 tab DAILY Label Comments: TAKE 1 TABLET BY MOUTH ONCE DAILY acetaminophen 325 mg Tablet 650 mg PO Q6HR PRN (Reason: Fever/Mild Pain (1-3)) Qty: 30 0RF oxycodone 5 mg Tablet 5 mg PO Q4HR PRN (Reason: Pain, Severe (7-10)) Qty: 15 0RF Referrals: Zaheer Charlton MD [Primary Care Provider] - Visit Report Forms: Patient Portal/API
[2022-01-30 14:25] VITALS: BP 178/76; PULSE 81; RESP 18; TEMP 36.6; O2SAT 98
[2022-01-30] MEDS: TET,DIPH,PERTUSS(ACELL),VAC/PF 0.5 ML SYRINGE IM (14:46)
[2022-01-30] MEDS: LIDOCAINE 2% INJ SDV 5 ML INJ (14:47)
[2022-01-30] MEDS: ACETAMINOPHEN 325 MG TABLET 650 MG PO (14:55)
[2022-01-30 14:57] VITALS: BP 171/81; PULSE 78; RESP 17
[2022-01-30 16:03] VITALS: BP 133/67; PULSE 75; RESP 15
[2022-01-30] MEDS: BACITRACIN OINT 0.9 GM PCKT 3 APPLIC TOP (16:07)
[2022-01-30 16:22] LABS: Add Manual Diff / Slide Review NO; Basophils Absolute Auto 0 /uL (0-100); Basophils Percent Auto 0.4 % (0-2); Eosinophils Absolute Auto 0 /uL (0-450); Eosinophils Percent Auto 0.2 % (2-4); Hematocrit 34.2 % (41-53); Hemoglobin 11.7 g/dL (13.5-17.5); Lymphocytes Absolute Auto 1700 /uL (1100-4500); Mean Corpuscular HGB Conc 34.1 % (30-36); Mean Corpuscular Hemoglobin 28.9 PG (26-34); Mean Corpuscular Volume 84.8 fL (80-100); Monocytes Absolute Auto 1000 /uL (0-900); Monocytes Percent Auto 10.3 % (3-14); Neutrophils Absolute Auto 7000 /uL (1500-7000); Neutrophils Percent Auto 72.1 % (50-75); Platelet Count 209 X10^3/uL (150-400); Red Blood Cell Count 4.03 X10^6/uL (4.5-5.9); Red Cell Distribution Width 15.4 % (11.6-14.8); White Blood Cell Count 9.8 X10^3/uL (4.5-11.0)
[2022-01-30 16:34] LABS: Alanine Aminotransferase 13 IU/L (<50); Albumin 3.7 g/dL (3.5-5.0); Albumin Globulin Ratio 1.3 (1.0-2.8); Alkaline Phosphatase 96 U/L (38-126); Aspartate Aminotransferase 19 IU/L (17-59); BUN Creatinine Ratio 16.8 (6-22); Bilirubin Total 0.8 mg/dL (0.2-1.3); Blood Urea Nitrogen 17 mg/dL (9-20); Calcium 9.1 mg/dL (8.4-10.2); Carbon Dioxide 26 mmol/L (22-32); Chloride 103 mmol/L (98-107); Estimated Glomerular Filt Rate > 60 mL/min (>60); Globulin 2.9 g/dL (1.7-4.1); Glucose 106 mg/dL (80-110); HEMOLYSIS < 15 (0-50); Potassium 4.2 mmol/L (3.4-5.1); Sodium 137 mmol/L (137-145); Total Protein 6.6 g/dL (6.3-8.2)
--- NOTE | 2022-01-30 17:00 | CM.SWNOTE ---
DCP/ ED [employer]IEF OF HARBOR PATROL Assessment Note Patient is 82 y/o male who presents to ED today via EMS due to concern for recent mechanical GLF who presents with lacerations on head. Patient's PCP is Dr. Zaheer Charlton, patient has Medicare, [employer] [place] and [employer] [facility] insurance. Patient presents as A/Ox3, patient presents with . Patient resides in [place], [place] with . reports that patient has had more GLFs in the last few weeks and patient's baseline ebs and flows. Patient uses cane but also has FWW and walking sticks at home. Patient has hx of hip replacement and sepsis. Patient transferred to [facility] in June 2021- July 2021. Patient has hx of [facility] that ended in August 2021. endorses that she is awaiting neurology referral for patient and has been looking into caregivers and ALFs. endorses that neighbors, family and friends check in on patient while is at work. and patient request HH services for patient and endorse preference for [facility]. CHIEF OF HARBOR PATROL faxes orders, F2F and clinicals for HH referral for HH aide, RN, PT, OT and CHIEF OF HARBOR [employer]ROL. CHIEF OF HARBOR PATROL calls [facility] who indicates they will reach out to patient and tomorrow and start services as soon as early next week. CHIEF OF HARBOR PATROL reviews the above with patient and who indicate agreement and understanding. CHIEF OF HARBOR PATROL provides patient's with senior resource guide. endorses she has contact information for [facility]. Plan: Patient to d/c to home upon medical clearance with . [facility] to f/u with patient and start services. Patient to f/u with PCP and specialists. Cady Burton, CHAIRMAN AND CEO
== END 2022-01-30 17:07 | disposition home or self-care (01) ==
PROVIDERS: Emergency Provider Emergency Medicine; PCP Family Medicine
DX: S01.81XA Laceration without foreign body of other part of head, initial encounter (principal); W18.09XA Striking against other object with subsequent fall, initial encounter; Z23 Encounter for immunization
CPT/HCPCS: 12015; 36415; 70450; 72125; 80053; 85025; 90471; 99284; 99285; 90715

== ENCOUNTER 2022-11-12 10:45 | Emergency (ER) | payer MEDICARE, SELFPAY ==
[2021-06-23 20:45] VITALS: BMI 30.1
[2022-11-12] VITALS (7 sets, daily range): BP systolic 163–184; BP diastolic 74–85; PULSE 46–55; RESP 12–18; TEMP 36.8; O2SAT 98–100
--- NOTE | 2022-11-12 10:58 | DI.RAD.S_ITS ---
PROCEDURE: XR HIP W PEL IF DONE LT 2V INDICATIONS: L hip apin after fall TECHNIQUE: AP pelvis with lateral view(s) of the left hip(s). COMPARISON: None. FINDINGS: Bones: No fractures or dislocations. Pelvic ring appears intact. No suspicious bony lesions. Expected appearance of total left hip arthroplasty. Right hip arthroplasty incompletely visualized. Soft tissues: The visualized bowel gas pattern is normal. No suspicious soft tissue calcifications. IMPRESSION: Expected appearance of total left hip arthroplasty. No evidence acute bony abnormality. If clinical suspicion and/or symptoms persist, further assessment with repeat plain films, or advanced imaging (e.g., CT, MRI, or bone scan) may be helpful for further assessment. Dictated by: Regan Kaiser M.D. on 11/12/2022 at 11:24 Approved by: Regan Kaiser M.D. on 11/12/2022 at 11:25
--- NOTE | 2022-11-12 10:58 | DI.CT.S_ITS ---
PROCEDURE: CT HEAD/BRAIN WO CON INDICATIONS: fall and hit head and confusion TECHNIQUE: Noncontrast 4.5 mm thick angled axial sections acquired from the foramen magnum to the vertex, with coronal and sagittal reformats. For radiation dose reduction, the following was used: automated exposure control, adjustment of mA and/or kV according to patient size. COMPARISON: [facility], CT, CT HEAD/BRAIN WO CON, 01/30/2022, 14:28. FINDINGS: Image quality: Excellent. CSF spaces: Basal cisterns are patent. No extra-axial fluid collections. The ventricles are symmetric in size and shape. Brain: No intracranial bleeds or masses. There is cerebral volume loss for age, with resultant ventricular and sulcal prominence. There are periventricular and deep white matter chronic small vessel ischemic changes. Old medial superior left cerebellar infarct with encephalomalacia, unchanged. There is intracranial internal carotid artery atherosclerosis. Skull and face: Calvarium and visualized facial bones appear intact, without suspicious lesions. Sinuses: Visualized sinuses and mastoids are clear. IMPRESSION: 1. No acute intracranial abnormality. 2. Age-related findings, old left cerebellar focal infarct. Dictated by: Regan Kaiser M.D. on 11/12/2022 at 11:37 Approved by: Regan Kaiser M.D. on 11/12/2022 at 11:39
--- NOTE | 2022-11-12 11:00 | ED_ITS ---
HPI - General Adult General Chief complaint: Fall Stated complaint: fell in the shower this AM Time Seen by Provider: 11/12/22 10:52 Source: patient and family Mode of arrival: Family Vehicle Limitations: no limitations History of Present Illness HPI narrative: Patient is an 82-year-old male. Not on anticoagulation. Was standing in the shower this morning when he states that he turned and then he lost his balance and fell. He said that his left hip hurts and he has a skin tear to his left elbow. He states he did not hit his head although family states they found him lying on his side with his head up against the side of the shower. Here in the emergency department he reports no pain although family states that he was ?moaning? all the way here to the emergency department. Patient has been ambulatory. Related Data Home Medications Medication Instructions Recorded Confirmed losartan 100 12.5 tab DAILY 06/23/21 06/23/21 mg-hydrochlorothiazide 12.5 mg tablet Previous Rx's Medication Instructions Recorded acetaminophen 325 mg tablet 650 mg PO Q6HR PRN Fever/Mild Pain 06/29/21 (1-3) #30 tabs oxycodone 5 mg tablet 5 mg PO Q4HR PRN Pain, Severe 06/29/21 (7-10) #15 tabs clindamycin HCl 300 mg capsule 300 mg PO Q6H #20 caps 01/30/22 Allergies Allergy/AdvReac Type Severity Reaction Status Date / Time Penicillins Allergy Unknown Verified 06/24/21 06:42 latex Allergy Rash Verified 06/23/21 16:52 lactose AdvReac Mild Verified 06/24/21 12:35 Review of Systems Constitutional Constitutional: Reports system reviewed and no additional complaints, except as documented Cardiovascular Comments: Patient denies chest pain or shortness of breath or palpitations Respiratory Comments: No shortness of breath Gastrointestinal Gastrointestinal: Reports system reviewed and no additional complaints, except as documented Musculoskeletal Musculoskeletal: Reports system reviewed and no additional complaints, except as documented Integumentary/Breasts Skin/Breast: Reports system reviewed and no additional complaints, except as documented Neurologic Neurologic: Reports system reviewed and no additional complaints, except as documented Hematologic/Lymphatic On Anticoagulants: No Patient History Medical History Hypertension Surgical History History of right hip replacement Family History Mother Myocardial infarction Father Myocardial infarction Social History household members: spouse Smoking Status: Never smoker Smoking Status: Never smoker alcohol intake frequency: a few times a week Substance Use Type: does not use Exam Initial Vital Signs Initial Vital Signs: Vital Signs Temperature 98.2 F 11/12/22 10:45 Pulse Rate 50 L 11/12/22 10:45 Respiratory Rate 16 11/12/22 10:45 Blood Pressure 184/85 H 11/12/22 10:45 Pulse Oximetry 99 11/12/22 10:45 Oxygen Delivery Method Room Air 11/12/22 10:45 Const General: cooperative, comfortable and No ill appearing HENMT Head: normal to inspection and normocephalic Resp Effort & Inspection: normal respiratory effort Auscultation: clear to auscultation bilaterally Cardio Rate: regular rate Rhythm: regular rhythm GI Inspection: normal to inspection and non-distended Skin Other: Small skin tear left elbow, contusion to superior aspect of the right shoulder Neuro Other: Patient knows he is in the hospital. He does not know what year it is. He knows what month it is but states that it is October 14 when it is actually November 12. Patient does know his date. Family states that this is different from his baseline mental status. He is able to move all 4 extremities. Extrem Other: Patient is able to move all 4 extremities however he does have some left hip tenderness with movement. His right shoulder is unremarkable. Scores [place] CT Head Rule Age <16 years old: No Patient on blood thinners: No Seizure after injury: No Exclusion: Patient NOT Excluded, Proceed to next steps GCS < 15 at 2 hr post trauma: No Suspected open or depressed skull fracture: No Any sign of basilar skull fracture (hemotympanum, raccoon eyes, Galvez's sign, CSF doroteo-/rhinorrhea): No Two or more episodes of vomiting: No Age greater or equal to 65 years: Yes Retrograde amnesia to the event greater or equal to 30 min: Yes Dangerous Mechanism (pedestrian vs. mv, occupant ejected from mv, fall from >3 ft or > 5 stairs): No Recommendation: Consider CT. The [place] Head CT Rule cannot rule out need for Imaging. GCS Radha coma scale eye opening: Spontaneous [place] coma scale verbal response: Orientated Radha coma scale motor response: Obey commands [place] coma scale total score: 15 Course Orders Ordered: ED Orders 11/12/22 10:58 CT head/brain wo con Stat XR hip w pel if done LT 2V Stat EKG-12 Lead Stat Vital Signs Vital signs: Vital Signs - 8 hr 11/12/22 10:45 Temperature 98.2 F Pulse Rate 50 L Respiratory Rate 16 Blood Pressure 184/85 H Pulse Oximetry 99 Oxygen Delivery Method Room Air Medical Decision Making Imaging Data CT scan - head: Radiologist's Impression: No acute intracranial abnormality 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 ECG Data Attestation: I personally reviewed and interpreted this ECG as follows: Prior ECG tracings: available for review Interpretation: Sinus rhythm Ventricular rate of 47 Normal axis Normal QRS Normal QTC No ST T wave changes MDM Narrative Medical decision making narrative: Patient is alert to person and place but is somewhat confused about the year. His head CT is unremarkable. He has a contusion on his right shoulder but has full range motion of the right shoulder. Has discomfort in his left hip however the x-ray shows no acute pathology. Will discharge patient home with instructions for family to talk with his primary doctor about the indications for a Holter monitor. They were given return precautions. Discharge Plan Departure Patient Disposition: Home Clinical Impression: Contusion of shoulder, Bradycardia Instructions: How to Prevent Falls Activity Restrictions/Additional Instructions: I do recommend that he continues to take all of his medications as directed. I also recommend that you contact his primary doctor for follow-up to discuss the indications for a Holter monitor. Return to the emergency department for new or worsening symptoms. Prescriptions: No Action losartan-hydrochlorothiazide 100-12.5 mg tablet 12.5 tab DAILY Patient Comments: TAKE 1 TABLET BY MOUTH ONCE DAILY acetaminophen 325 mg Tablet 650 mg PO Q6HR PRN (Reason: Fever/Mild Pain (1-3)) Qty: 30 0RF oxycodone 5 mg Tablet 5 mg PO Q4HR PRN (Reason: Pain, Severe (7-10)) Qty: 15 0RF clindamycin HCl 300 mg capsule 300 mg PO Q6H Qty: 20 0RF Referrals: Zaheer Charlton MD [Primary Care Provider] - Stand Alone Forms: Patient Portal/API
--- NOTE | 2022-11-12 11:28 | PC.NURSE ---
left pedal pulses are palpable
== END 2022-11-12 12:23 | disposition home or self-care (01) ==
PROVIDERS: Emergency Provider Emergency Medicine; PCP Family Medicine
DX: S40.012A Contusion of left shoulder, initial encounter (principal); S09.90XA Unspecified injury of head, initial encounter; R00.1 Bradycardia, unspecified; W18.2XXA Fall in (into) shower or empty bathtub, initial encounter
CPT/HCPCS: 70450; 73502; 93005; 99284

== ENCOUNTER 2022-12-18 19:31 | Emergency (ER) | payer MEDICARE, SELFPAY ==
[2021-06-23 20:45] VITALS: BMI 30.1
[2022-12-18] VITALS (15 sets, daily range): BP systolic 164–209; BP diastolic 76–88; PULSE 74–96; RESP 16–18; TEMP 37.5; O2SAT 87–99; BMI 28.6
--- NOTE | 2022-12-18 19:40 | ED_ITS ---
HPI - General Adult <DO Esme Mcgee Last Filed: 12/26/22 07:28> General Chief complaint: Weakness Stated complaint: weakness Time Seen by Provider: 12/18/22 19:38 History of Present Illness HPI narrative: 82-year-old male nonsmoker with a history of UTI and septic shock, acute kidney injury, prior stroke without residual symptoms presents by EMS for evaluation of confusion and generalized weakness. His states that he does require some supervision when they are out and about but when at home he takes care of himself and gets around without difficulty. He is typically alert, sometimes mildly confused but certainly nothing like today. Over the course of the day she noted him to become increasingly weak and she called EMS when he was so weak he could not get out of bed. He is had no traumas or injuries. He is not had any report of seizure or fever. No headaches or blurred vision. He is certainly more confused than normal and actually has not been responding much to her questions though his eyes are open and he is apparently alert. He has been moving his extremities without apparent difficulty though he is sufficiently weak that he could not get out of bed. He is had no vomiting or diarrhea. No chest pain or shortness of breath. No change in medications and in fact does not take any prescription medications. He does not drink, does not use drugs. Related Data Home Medications Medication Instructions Recorded Confirmed losartan 100 12.5 tab DAILY 06/23/21 06/23/21 mg-hydrochlorothiazide 12.5 mg tablet Previous Rx's Medication Instructions Recorded acetaminophen 325 mg tablet 650 mg (2 x 325 mg) PO Q6HR PRN 06/29/21 Fever/Mild Pain (1-3) #30 tabs Allergies Allergy/AdvReac Type Severity Reaction Status Date / Time Penicillins Allergy Unknown Verified 12/19/22 11:41 crab Allergy Verified 12/19/22 11:41 iodine Allergy Verified 12/19/22 11:41 latex Allergy Rash Verified 12/19/22 11:41 lactose AdvReac Mild Verified 12/19/22 11:41 Review of Systems <DO Esme Mcgee Last Filed: 12/26/22 07:28> Review of Systems ROS Unobtainable: All systems reviewed & are unremarkable except as noted in HPI and below Patient History <DO Esme Mcgee Last Filed: 12/26/22 07:28> Medical History Hypertension Surgical History History of right hip replacement Family History Mother Myocardial infarction Father Myocardial infarction Social History household members: spouse Smoking Status: Never smoker Smoking Status: Never smoker alcohol intake frequency: a few times a week Substance Use Type: does not use Exam <Jaime Moreno DO - Last Filed: 12/26/22 07:28> Narrative Exam Narrative: GENERAL: [82] year old patient appears stated age. Well-developed patient, in mild distress. Pleasantly confused, sitting upright, eyes open and tracking, has very little to say, follows some commands HEAD: Atraumatic. Normocephalic. No contusion, abrasion or laceration EYES: Pupils equal round and reactive. Extraocular motions intact. No scleral icterus. No injection or drainage. ENT: Dry mucous membranes Nose without bleeding, purulent drainage. Throat without erythema, tonsillar hypertrophy or exudate. Airway patent. NECK: Trachea midline. Non tender CARDIOVASCULAR: Regular rate and rhythm without murmurs, gallops, or rubs. RESPIRATORY: Clear to auscultation. Breath sounds equal bilaterally. No wheezes, rales, or rhonchi. GASTROINTESTINAL: Abdomen soft, non-tender, nondistended. EXTREMITIES: No edema or joint tenderness. BACK: Nontender without deformity or crepitance. No flank tenderness. NEURO: Cranial nerves 2-12 grossly intact SKIN: No rash or erythema of visible areas Initial Vital Signs Initial Vital Signs: Vital Signs Temperature 99.5 F 12/18/22 19:37 Pulse Rate 87 12/18/22 19:37 Respiratory Rate 16 12/18/22 19:37 Blood Pressure 188/83 H 12/18/22 19:37 Pulse Oximetry 98 12/18/22 19:37 Oxygen Delivery Method Room Air 12/18/22 19:37 <Jose Irvin MD - Last Filed: 12/19/22 18:34> Initial Vital Signs Initial Vital Signs: Vital Signs Temperature 99.5 F 12/18/22 19:37 Pulse Rate 87 12/18/22 19:37 Respiratory Rate 16 12/18/22 19:37 Blood Pressure 188/83 H 12/18/22 19:37 Pulse Oximetry 98 12/18/22 19:37 Oxygen Delivery Method Room Air 12/18/22 19:37 Procedures <Jaime Moreno DO - Last Filed: 12/26/22 07:28> Lumbar Puncture Time Out Performed: Yes Patient Position: upright Skin Prep: 0.5% Chlorhexidine/Alcohol Local Anesthetic: lidocaine 1% Amount of anesthesia used (mL): 3 Spinal Needle Gauge: 22G Interspace Used: L4-L5 Fluid Initially Obtained: clear Complications: none Course <DO Esme Mcgee Last Filed: 12/26/22 07:28> Orders Ordered: Discontinued Medications Diphenhydramine HCl (Diphenhydramine 50 Mg/Ml Vial) 25 mg IV NOW ONE Stop: 12/18/22 20:54 Last Admin: 12/18/22 20:58 Dose: 25 mg Documented By: SHYANN Famotidine (Famotidine 20 Mg/2 Ml Vial) 20 mg IV NOW GORDON Last Admin: 12/18/22 20:56 Dose: 20 mg Documented By: SHYANN Sodium Chloride (Normal Saline 0.9%) 1,000 mls @ 1,000 mls/hr IV BOLUS ONE Stop: 12/18/22 20:41 Last Infusion: 12/18/22 22:00 Dose: Infused Documented By: Admin: 12/18/22 20:15 Dose: 1,000 mls/hr Documented By: SHYANN Methylprednisolone (Methylprednisolone 125 Mg/2 Ml Vial) 125 mg IV NOW ONE Stop: 12/18/22 20:54 Last Admin: 12/18/22 20:55 Dose: 125 mg Documented By: SHYANN Vital Signs Vital signs: Vital Signs - 8 hr 12/19/22 11:59 12/19/22 13:39 Pulse Rate 72 Respiratory Rate 14 Blood Pressure 162/74 H 150/78 H Pulse Oximetry 97 Oxygen Delivery Method Room Air <Jose Irvin MD - Last Filed: 12/19/22 18:34> Course Course Narrative: December 19, 2022 at 7:00 a.m.Albaro: ?sign out from Dr Moreno, patient awaiting multiple MRIs. He has spoken with [facility] neurology. No indication for medications antibiotics or steroids at this time. Lack of significant findings does not warrant any medications at this time. No indication for transfer of patient. Patient may stay here. Orders Ordered: Discontinued Medications Diphenhydramine HCl (Diphenhydramine 50 Mg/Ml Vial) 25 mg IV NOW ONE Stop: 12/18/22 20:54 Last Admin: 12/18/22 20:58 Dose: 25 mg Documented By: SHYANN Famotidine (Famotidine 20 Mg/2 Ml Vial) 20 mg IV NOW GORDON Last Admin: 12/18/22 20:56 Dose: 20 mg Documented By: SHYANN Sodium Chloride (Normal Saline 0.9%) 1,000 mls @ 1,000 mls/hr IV BOLUS ONE Stop: 12/18/22 20:41 Last Infusion: 12/18/22 22:00 Dose: Infused Documented By: Admin: 12/18/22 20:15 Dose: 1,000 mls/hr Documented By: SHYANN Methylprednisolone (Methylprednisolone 125 Mg/2 Ml Vial) 125 mg IV NOW ONE Stop: 12/18/22 20:54 Last Admin: 12/18/22 20:55 Dose: 125 mg Documented By: SHYANN Vital Signs Vital signs: Vital Signs - 8 hr 12/19/22 11:59 12/19/22 13:39 Pulse Rate 72 Respiratory Rate 14 Blood Pressure 162/74 H 150/78 H Pulse Oximetry 97 Oxygen Delivery Method Room Air Medical Decision Making <Jaime Moreno DO - Last Filed: 12/26/22 07:28> Lab Data 12/18/22 19:56 12/18/22 19:56 Labs: Lab Results 12/18/22 12/18/22 12/18/22 Range/Units 19:56 20:10 20:13 WBC 7.9 (4.5-11.0) X10^3/uL RBC 4.62 (4.5-5.9) X10^6/uL Hgb 13.4 L (13.5-17.5) g/dL Hct 39.5 L (41-53) % MCV 85.3 (80-100) fL MCH 29.0 (26-34) PG MCHC 34.0 (30-36) % RDW 14.5 (11.6-14.8) % Plt Count 193 (150-400) X10^3/uL Neut % (Auto) 77.7 H (50-75) % Lymph % (Auto) 13.4 L (25-40) % [place] % (Auto) 8.6 (3-14) % Eos % (Auto) 0.1 L (2-4) % Baso % (Auto) 0.2 (0-2) % Neut # (Auto) 6100 (4575-8292) /uL Lymph # (Auto) 1100 (1753-1277) /uL [place] # (Auto) 700 (0-900) /uL Eos # (Auto) 0 (0-450) /uL Baso # (Auto) 0 (0-100) /uL Sodium 137 (137-145) mmol/L Potassium 4.2 (3.4-5.1) mmol/L Chloride 103 (98-107) mmol/L Carbon Dioxide 25 (22-32) mmol/L BUN 23 H (9-20) mg/dL Creatinine 0.98 (0.66-1.25) mg/dL Estimated GFR > 60 (>60) mL/min BUN/Creatinine Ratio 23.5 H (6-22) Glucose 106 (80-110) mg/dL Lactate 1.4 (0.7-2.1) mmol/L Calcium 9.2 (8.4-10.2) mg/dL Magnesium 1.9 (1.6-2.3) mg/dL Total Bilirubin 0.5 (0.2-1.3) mg/dL AST 24 (17-59) IU/L ALT 17 (<50) IU/L Alkaline Phosphatase 72 (38-126) U/L Total Creatine Kinase 155 (55-170) U/L Troponin I < 0.012 (0.01-0.034) ng/mL Total Protein 6.5 (6.3-8.2) g/dL Albumin 3.8 (3.5-5.0) g/dL Globulin 2.7 (1.7-4.1) g/dL Albumin/Globulin Ratio 1.4 (1.0-2.8) Lipase 114 (23-300) U/L Procalcitonin 0.06 (<0.5) ng/mL CSF Tube Number CSF Volume CSF Appearance (Clear) CSF Color (Colorless) CSF WBC (0-5) MONO/uL CSF RBC RBC /uL CSF Mononuclear WBCs CSF Polynuclear WBCs CSF Glucose (40-70) mg/dL CSF Total Protein (12-60) mg/dL CSF C.neoform/gat PCR (Not Detect) CSF CMV DNA (PCR) (Not Detect) CSF Enterovirus (PCR) (Not Detect) CSF E. coli (PCR) (Not Detect) CSF H. influenzae (PCR) (Not Detect) CSF HSV I (PCR) (Not Detect) CSF HSV II (PCR) (Not Detect) CSF HHV 6 (PCR) (Not Detect) CSF L.monocytogenes PCR (Not Detect) CSF N. meningitidis PCR (Not Detect) CSF Parechovirus (PCR) (Not Detect) CSF S. agalactiae (PCR) (Not Detect) CSF S. pneumoniae (PCR) (Not Detect) CSF VZV (PCR) (Not Detecte) Salicylates < 1.0 (<20) mg/dL U Opiates 300ng/mL cut Negative (Negative) Ur Oxycodone Screen Negative (Negative) Urine Methadone Screen Negative (Negative) Acetaminophen < 10 (10-30) ug/mL Ur Barbiturates Screen Negative (Negative) U Tricyclic Antidepress Negative (Negative) Ur Phencyclidine Scrn Negative (Negative) Ur Amphetamines Screen Negative (Negative) U Methamphetamines Scrn Negative (Negative) Ur MDMA Scrn (Ecstasy) Negative (Negative) U Benzodiazepines Scrn Negative (Negative) Urine Cocaine Screen Negative (Negative) U Marijuana (THC) Screen Negative (Negative) Ethyl Alcohol < 10 ( - 10) mg/dL Chlamy pneumoniae PCR (Not Detect) Adenovirus (PCR) (Not Detect) B.parapertussis DNA PCR (Not Detecte) Coronavirus OC43 (PCR) (Not Detect) Coronavirus HKU1 (PCR) (Not Detect) Coronavirus 229E (PCR) (Not Detect) SARS-CoV-2 (PCR) Negative (Negative) Coronavirus NL63 (PCR) (Not Detect) Human Metapneumovir PCR (Not Detect) Influenza A (RT-PCR) Flu a negative (NEGATIVE) Influenza Type A (PCR) (Not Detect) Influenza B (RT-PCR) Flu b negative (NEGATIVE) Influenza Type B (PCR) (Not Detect) M. pneumoniae (PCR) (Not Detect) Parainfluenza 1 (PCR) (Not Detect) Parainfluenza 2 (PCR) (Not Detect) Parainfluenza 3 (PCR) (Not Detect) Parainfluenza 4 (PCR) (Not Detect) RSV (PCR) Negative (Negative) Entero/Rhino (PCR) (Not Detect) 12/18/22 12/19/22 Range/Units 22:58 13:26 WBC (4.5-11.0) X10^3/uL RBC (4.5-5.9) X10^6/uL Hgb (13.5-17.5) g/dL Hct (41-53) % MCV (80-100) fL MCH (26-34) PG MCHC (30-36) % RDW (11.6-14.8) % Plt Count (150-400) X10^3/uL Neut % (Auto) (50-75) % Lymph % (Auto) (25-40) % [place] % (Auto) (3-14) % Eos % (Auto) (2-4) % Baso % (Auto) (0-2) % Neut # (Auto) (0981-7679) /uL Lymph # (Auto) (5066-9937) /uL [place] # (Auto) (0-900) /uL Eos # (Auto) (0-450) /uL Baso # (Auto) (0-100) /uL Sodium (137-145) mmol/L Potassium (3.4-5.1) mmol/L Chloride (98-107) mmol/L Carbon Dioxide (22-32) mmol/L BUN (9-20) mg/dL Creatinine (0.66-1.25) mg/dL Estimated GFR (>60) mL/min BUN/Creatinine Ratio (6-22) Glucose (80-110) mg/dL Lactate (0.7-2.1) mmol/L Calcium (8.4-10.2) mg/dL Magnesium (1.6-2.3) mg/dL Total Bilirubin (0.2-1.3) mg/dL AST (17-59) IU/L ALT (<50) IU/L Alkaline Phosphatase (38-126) U/L Total Creatine Kinase (55-170) U/L Troponin I (0.01-0.034) ng/mL Total Protein (6.3-8.2) g/dL Albumin (3.5-5.0) g/dL Globulin (1.7-4.1) g/dL Albumin/Globulin Ratio (1.0-2.8) Lipase (23-300) U/L Procalcitonin (<0.5) ng/mL CSF Tube Number 2 CSF Volume 1.0 ml CSF Appearance Clear (Clear) CSF Color Colorless (Colorless) CSF WBC 0 (0-5) MONO/uL CSF RBC 6 RBC /uL CSF Mononuclear WBCs Not Reportable CSF Polynuclear WBCs Not Reportable CSF Glucose 70 (40-70) mg/dL CSF Total Protein 251 H* (12-60) mg/dL CSF C.neoform/gat PCR Not detected (Not Detect) CSF CMV DNA (PCR) Not detected (Not Detect) CSF Enterovirus (PCR) Not detected (Not Detect) CSF E. coli (PCR) Not detected (Not Detect) CSF H. influenzae (PCR) Not detected (Not Detect) CSF HSV I (PCR) Not detected (Not Detect) CSF HSV II (PCR) Not detected (Not Detect) CSF HHV 6 (PCR) Not detected (Not Detect) CSF L.monocytogenes PCR Not detected (Not Detect) CSF N. meningitidis PCR Not detected (Not Detect) CSF Parechovirus (PCR) Not detected (Not Detect) CSF S. agalactiae (PCR) Not detected (Not Detect) CSF S. pneumoniae (PCR) Not detected (Not Detect) CSF VZV (PCR) Not detected (Not Detecte) Salicylates (<20) mg/dL U Opiates 300ng/mL cut (Negative) Ur Oxycodone Screen (Negative) Urine Methadone Screen (Negative) Acetaminophen (10-30) ug/mL Ur Barbiturates Screen (Negative) U Tricyclic Antidepress (Negative) Ur Phencyclidine Scrn (Negative) Ur Amphetamines Screen (Negative) U Methamphetamines Scrn (Negative) Ur MDMA Scrn (Ecstasy) (Negative) U Benzodiazepines Scrn (Negative) Urine Cocaine Screen (Negative) U Marijuana (THC) Screen (Negative) Ethyl Alcohol ( - 10) mg/dL Chlamy pneumoniae PCR Not detected (Not Detect) Adenovirus (PCR) Not detected (Not Detect) B.parapertussis DNA PCR Not detected (Not Detecte) Coronavirus OC43 (PCR) Not detected (Not Detect) Coronavirus HKU1 (PCR) Not detected (Not Detect) Coronavirus 229E (PCR) Not detected (Not Detect) SARS-CoV-2 (PCR) Not detected (Negative) Coronavirus NL63 (PCR) Not detected (Not Detect) Human Metapneumovir PCR Not detected (Not Detect) Influenza A (RT-PCR) (NEGATIVE) Influenza Type A (PCR) Not detected (Not Detect) Influenza B (RT-PCR) (NEGATIVE) Influenza Type B (PCR) Not detected (Not Detect) M. pneumoniae (PCR) Not detected (Not Detect) Parainfluenza 1 (PCR) Not detected (Not Detect) Parainfluenza 2 (PCR) Not detected (Not Detect) Parainfluenza 3 (PCR) Not detected (Not Detect) Parainfluenza 4 (PCR) Not detected (Not Detect) RSV (PCR) Not detected (Negative) Entero/Rhino (PCR) Not detected (Not Detect) Urine Dip Bedside Urine Glucose Negative Bedside Urine Bilirubin - Negative Bedside Urine Ketone - Negative Urine Specific [place] 1.015 Bedside Urine Occult Blood + Bedside Urine pH 6.0 Bedside Urine Protein - Negative Bedside Urine Urobilinogen - Negative Bedside Urine Nitrite - Negative Bedside Urine Leukocytes - Negative Esterase Point of care testing: Urine Dip Bedside Urine Glucose Negative Bedside Urine Bilirubin - Negative Bedside Urine Ketone - Negative Urine Specific [place] 1.015 Bedside Urine Occult Blood + Bedside Urine pH 6.0 Bedside Urine Protein - Negative Bedside Urine Urobilinogen - Negative Bedside Urine Nitrite - Negative Bedside Urine Leukocytes - Negative Esterase MDM Narrative Medical decision making narrative: CC: 82-year-old male with confusion, globally encephalopathic and generalized weakness Complicating co-morbidities: Age, prior stroke, prior kidney injury Data collected from: Patient's , EMS Medical records reviewed: Prior notes reviewed in our EMR Differential considered, but not limited to: Stroke or TIA versus possible seizure versus infectious encephalopathy or meningitis versus electrolyte abnormality, dehydration versus UTI versus toxic encephalopathy versus other Exam documented above, pertinent findings include: Patient alert, follows some commands, very little speech, appears unaware and not at baseline per . No obvious focal findings, cranial nerves 2-12 grossly intact, heart rate regular, lungs clear, abdomen soft, dry mucous membranes and poor skin turgor, weak and requires assistance to stand Lab Test results independently reviewed as above. Pertinent findings: No leukocytosis or left shift, no signs of anemia, primary electrolytes and renal function within normal, glucose 106, lactate 1.4, magnesium 1.9, urine POC without evidence of leukocyte esterase or nitrites Independently reviewed EKG as above Imaging studies independently reviewed: Chest x-ray without focal infiltrate, head CT and CTA of head and neck without significant findings Consultations: Dr. Tello (hospitalist), must transfer given lack of access to neurology here. call to Neurology (Dr. Pereira). We have discussed the history and physical exam as well as labs and imaging. Agrees that preoperation be considered but there elements of the story, most notably some of the patient's confusion that would suggest an alternate diagnosis need to be considered. We discussed whether not ordering IVIG at this time would be appropriate and she requested we hold off. Suggest MRI of the brain as well as of the entire spine with and without contrast if possible but if full MRI is not possible at least the brain. No indication for transfer as yet Treatments: Fluids Discussion: Disposition: see below, along with detailed discharge instructions that have been reviewed with patient as well as indications for ED re-evaluation and additional outpatient follow up <Jose Irvin MD - Last Filed: 12/19/22 18:34> Lab Data Labs: Lab Results 12/18/22 12/18/22 12/18/22 Range/Units 19:56 20:10 20:13 WBC 7.9 (4.5-11.0) X10^3/uL RBC 4.62 (4.5-5.9) X10^6/uL Hgb 13.4 L (13.5-17.5) g/dL Hct 39.5 L (41-53) % MCV 85.3 (80-100) fL MCH 29.0 (26-34) PG MCHC 34.0 (30-36) % RDW 14.5 (11.6-14.8) % Plt Count 193 (150-400) X10^3/uL Neut % (Auto) 77.7 H (50-75) % Lymph % (Auto) 13.4 L (25-40) % [place] % (Auto) 8.6 (3-14) % Eos % (Auto) 0.1 L (2-4) % Baso % (Auto) 0.2 (0-2) % Neut # (Auto) 6100 (2758-3288) /uL Lymph # (Auto) 1100 (1321-7621) /uL [place] # (Auto) 700 (0-900) /uL Eos # (Auto) 0 (0-450) /uL Baso # (Auto) 0 (0-100) /uL Sodium 137 (137-145) mmol/L Potassium 4.2 (3.4-5.1) mmol/L Chloride 103 (98-107) mmol/L Carbon Dioxide 25 (22-32) mmol/L BUN 23 H (9-20) mg/dL Creatinine 0.98 (0.66-1.25) mg/dL Estimated GFR > 60 (>60) mL/min BUN/Creatinine Ratio 23.5 H (6-22) Glucose 106 (80-110) mg/dL Lactate 1.4 (0.7-2.1) mmol/L Calcium 9.2 (8.4-10.2) mg/dL Magnesium 1.9 (1.6-2.3) mg/dL Total Bilirubin 0.5 (0.2-1.3) mg/dL AST 24 (17-59) IU/L ALT 17 (<50) IU/L Alkaline Phosphatase 72 (38-126) U/L Total Creatine Kinase 155 (55-170) U/L Troponin I < 0.012 (0.01-0.034) ng/mL Total Protein 6.5 (6.3-8.2) g/dL Albumin 3.8 (3.5-5.0) g/dL Globulin 2.7 (1.7-4.1) g/dL Albumin/Globulin Ratio 1.4 (1.0-2.8) Lipase 114 (23-300) U/L Procalcitonin 0.06 (<0.5) ng/mL CSF Tube Number CSF Volume CSF Appearance (Clear) CSF Color (Colorless) CSF WBC (0-5) MONO/uL CSF RBC RBC /uL CSF Mononuclear WBCs CSF Polynuclear WBCs CSF Glucose (40-70) mg/dL CSF Total Protein (12-60) mg/dL CSF C.neoform/gat PCR (Not Detect) CSF CMV DNA (PCR) (Not Detect) CSF Enterovirus (PCR) (Not Detect) CSF E. coli (PCR) (Not Detect) CSF H. influenzae (PCR) (Not Detect) CSF HSV I (PCR) (Not Detect) CSF HSV II (PCR) (Not Detect) CSF HHV 6 (PCR) (Not Detect) CSF L.monocytogenes PCR (Not Detect) CSF N. meningitidis PCR (Not Detect) CSF Parechovirus (PCR) (Not Detect) CSF S. agalactiae (PCR) (Not Detect) CSF S. pneumoniae (PCR) (Not Detect) CSF VZV (PCR) (Not Detecte) Salicylates < 1.0 (<20) mg/dL U Opiates 300ng/mL cut Negative (Negative) Ur Oxycodone Screen Negative (Negative) Urine Methadone Screen Negative (Negative) Acetaminophen < 10 (10-30) ug/mL Ur Barbiturates Screen Negative (Negative) U Tricyclic Antidepress Negative (Negative) Ur Phencyclidine Scrn Negative (Negative) Ur Amphetamines Screen Negative (Negative) U Methamphetamines Scrn Negative (Negative) Ur MDMA Scrn (Ecstasy) Negative (Negative) U Benzodiazepines Scrn Negative (Negative) Urine Cocaine Screen Negative (Negative) U Marijuana (THC) Screen Negative (Negative) Ethyl Alcohol < 10 ( - 10) mg/dL Chlamy pneumoniae PCR (Not Detect) Adenovirus (PCR) (Not Detect) B.parapertussis DNA PCR (Not Detecte) Coronavirus OC43 (PCR) (Not Detect) Coronavirus HKU1 (PCR) (Not Detect) Coronavirus 229E (PCR) (Not Detect) SARS-CoV-2 (PCR) Negative (Negative) Coronavirus NL63 (PCR) (Not Detect) Human Metapneumovir PCR (Not Detect) Influenza A (RT-PCR) Flu a negative (NEGATIVE) Influenza Type A (PCR) (Not Detect) Influenza B (RT-PCR) Flu b negative (NEGATIVE) Influenza Type B (PCR) (Not Detect) M. pneumoniae (PCR) (Not Detect) Parainfluenza 1 (PCR) (Not Detect) Parainfluenza 2 (PCR) (Not Detect) Parainfluenza 3 (PCR) (Not Detect) Parainfluenza 4 (PCR) (Not Detect) RSV (PCR) Negative (Negative) Entero/Rhino (PCR) (Not Detect) 12/18/22 12/19/22 Range/Units 22:58 13:26 WBC (4.5-11.0) X10^3/uL RBC (4.5-5.9) X10^6/uL Hgb (13.5-17.5) g/dL Hct (41-53) % MCV (80-100) fL MCH (26-34) PG MCHC (30-36) % RDW (11.6-14.8) % Plt Count (150-400) X10^3/uL Neut % (Auto) (50-75) % Lymph % (Auto) (25-40) % [place] % (Auto) (3-14) % Eos % (Auto) (2-4) % Baso % (Auto) (0-2) % Neut # (Auto) (0335-4923) /uL Lymph # (Auto) (0991-7273) /uL [place] # (Auto) (0-900) /uL Eos # (Auto) (0-450) /uL Baso # (Auto) (0-100) /uL Sodium (137-145) mmol/L Potassium (3.4-5.1) mmol/L Chloride (98-107) mmol/L Carbon Dioxide (22-32) mmol/L BUN (9-20) mg/dL Creatinine (0.66-1.25) mg/dL Estimated GFR (>60) mL/min BUN/Creatinine Ratio (6-22) Glucose (80-110) mg/dL Lactate (0.7-2.1) mmol/L Calcium (8.4-10.2) mg/dL Magnesium (1.6-2.3) mg/dL Total Bilirubin (0.2-1.3) mg/dL AST (17-59) IU/L ALT (<50) IU/L Alkaline Phosphatase (38-126) U/L Total Creatine Kinase (55-170) U/L Troponin I (0.01-0.034) ng/mL Total Protein (6.3-8.2) g/dL Albumin (3.5-5.0) g/dL Globulin (1.7-4.1) g/dL Albumin/Globulin Ratio (1.0-2.8) Lipase (23-300) U/L Procalcitonin (<0.5) ng/mL CSF Tube Number 2 CSF Volume 1.0 ml CSF Appearance Clear (Clear) CSF Color Colorless (Colorless) CSF WBC 0 (0-5) MONO/uL CSF RBC 6 RBC /uL CSF Mononuclear WBCs Not Reportable CSF Polynuclear WBCs Not Reportable CSF Glucose 70 (40-70) mg/dL CSF Total Protein 251 H* (12-60) mg/dL CSF C.neoform/gat PCR Not detected (Not Detect) CSF CMV DNA (PCR) Not detected (Not Detect) CSF Enterovirus (PCR) Not detected (Not Detect) CSF E. coli (PCR) Not detected (Not Detect) CSF H. influenzae (PCR) Not detected (Not Detect) CSF HSV I (PCR) Not detected (Not Detect) CSF HSV II (PCR) Not detected (Not Detect) CSF HHV 6 (PCR) Not detected (Not Detect) CSF L.monocytogenes PCR Not detected (Not Detect) CSF N. meningitidis PCR Not detected (Not Detect) CSF Parechovirus (PCR) Not detected (Not Detect) CSF S. agalactiae (PCR) Not detected (Not Detect) CSF S. pneumoniae (PCR) Not detected (Not Detect) CSF VZV (PCR) Not detected (Not Detecte) Salicylates (<20) mg/dL U Opiates 300ng/mL cut (Negative) Ur Oxycodone Screen (Negative) Urine Methadone Screen (Negative) Acetaminophen (10-30) ug/mL Ur Barbiturates Screen (Negative) U Tricyclic Antidepress (Negative) Ur Phencyclidine Scrn (Negative) Ur Amphetamines Screen (Negative) U Methamphetamines Scrn (Negative) Ur MDMA Scrn (Ecstasy) (Negative) U Benzodiazepines Scrn (Negative) Urine Cocaine Screen (Negative) U Marijuana (THC) Screen (Negative) Ethyl Alcohol ( - 10) mg/dL Chlamy pneumoniae PCR Not detected (Not Detect) Adenovirus (PCR) Not detected (Not Detect) B.parapertussis DNA PCR Not detected (Not Detecte) Coronavirus OC43 (PCR) Not detected (Not Detect) Coronavirus HKU1 (PCR) Not detected (Not Detect) Coronavirus 229E (PCR) Not detected (Not Detect) SARS-CoV-2 (PCR) Not detected (Negative) Coronavirus NL63 (PCR) Not detected (Not Detect) Human Metapneumovir PCR Not detected (Not Detect) Influenza A (RT-PCR) (NEGATIVE) Influenza Type A (PCR) Not detected (Not Detect) Influenza B (RT-PCR) (NEGATIVE) Influenza Type B (PCR) Not detected (Not Detect) M. pneumoniae (PCR) Not detected (Not Detect) Parainfluenza 1 (PCR) Not detected (Not Detect) Parainfluenza 2 (PCR) Not detected (Not Detect) Parainfluenza 3 (PCR) Not detected (Not Detect) Parainfluenza 4 (PCR) Not detected (Not Detect) RSV (PCR) Not detected (Negative) Entero/Rhino (PCR) Not detected (Not Detect) Urine Dip Bedside Urine Glucose Negative Bedside Urine Bilirubin - Negative Bedside Urine Ketone - Negative Urine Specific [place] 1.015 Bedside Urine Occult Blood + Bedside Urine pH 6.0 Bedside Urine Protein - Negative Bedside Urine Urobilinogen - Negative Bedside Urine Nitrite - Negative Bedside Urine Leukocytes - Negative Esterase Point of care testing: Urine Dip Bedside Urine Glucose Negative Bedside Urine Bilirubin - Negative Bedside Urine Ketone - Negative Urine Specific [place] 1.015 Bedside Urine Occult Blood + Bedside Urine pH 6.0 Bedside Urine Protein - Negative Bedside Urine Urobilinogen - Negative Bedside Urine Nitrite - Negative Bedside Urine Leukocytes - Negative Esterase Imaging Data MRI brain/cervical/thoracic/lumbar: Radiologist's Impression: [place] [address] Magnetic Resonance Report Signed Patient: Rickie Waters MR#: [id number] : 1940 Acct:[id number] Age/Sex: 82 / M Date of Service: 12/19/22 Loc: ED Accession Number: [id number] Procedure: MR head/brain wo con Ordering Provider: Jaime Moreno D.O. PROCEDURE: MR HEAD/BRAIN WO CON INDICATIONS: altered, weak, per Neuro TECHNIQUE: Non-contrast axial T1 spin echo, axial T2 fast spin echo, sagittal and axial FLAIR, coronal T2 fast spin echo, axial gradient echo, axial diffusion and ADC through the brain. COMPARISON: CT, CT STROKE, 06/24/2021, 5:26. [facility], CT, CT ANGIO HEAD AND NECK, 12/18/2022, 20:40. [facility], CT, CT HEAD/BRAIN WO CON, 12/18/2022, 20:40. [facility], CT, CT HEAD/BRAIN WO CON, 11/12/2022, 11:14. [facility], CT, CT HEAD/BRAIN WO CON, 01/30/2022, 14:28. FINDINGS: Image quality: Excellent. CSF spaces: Ventricles appear symmetric in size and shape. There is slight prominence of the ventricular system in relation to gyral and sulcal atrophy. Basal cisterns are patent. No extra-axial fluid collections. Brain: No intracranial bleeds or mass effects. There is cerebral volume loss for age. There are periventricular and deep white matter chronic small vessel ischemic changes. Brainstem appears normal. Diffusion-weighted images show no acute ischemic insults. No chronic ischemic insults. Normal intravascular flow voids are present. Skull and face: Calvarial bone marrow is normal in signal. Orbits are normal. Sinuses: Sinuses and mastoids are clear. IMPRESSION: 1. No acute intracranial process. 2. Moderate atrophy and chronic microvascular ischemic changes. 3. Slight prominence of the ventricular system in relation to gyral and sulcal atrophy. While this could represent a more central atrophy pattern, normal pressure hydrocephalus should be considered and recommend clinical correlation. Overall appearance has been stable over prior exams. Dictated by: Lotus Bonilla M.D. on 12/19/2022 at 10:07 Approved by: Lotus Bonilla M.D. on 12/19/2022 at 10:09 [place] [address] Magnetic Resonance Report Signed Patient: Rickie Waters MR#: [id number] : 1940 Acct:[id number] Age/Sex: 82 / M Date of Service: 12/19/22 Loc: ED Accession Number: [id number] Procedure: MR cervical spine wo/w con Ordering Provider: Jaime Moreno D.O. PROCEDURE: MR CERVICAL SPINE WO/W CON INDICATIONS: lower extremity weakness, per Neuro TECHNIQUE: Noncontrast sagittal T1 spin echo and T2 fast spin echo, sagittal STIR, foraminal oblique sagittal T2 fast spin echo, axial gradient echo or T2 fast spin echo through the cervical spine. After the administration of contrast, axial and sagittal T1 spin echo with fat saturation through the cervical spine. COMPARISON: None. FINDINGS: Image quality: Excellent. Alignment and curvature: There is trace retrolisthesis of C3 on C4, C4 on C5, trace anterolisthesis of C5 on C6. Marrow: Marrow is normal in overall signal, without suspicious enhancement. Increased T1 and T2 signal is present within the T4 vertebral body most suggestive of hemangioma. Spinal cord: Visualized spinal cord has normal size and signal. No cerebellar tonsillar herniation. No abnormal intramedullary enhancement. Paraspinous soft tissues: No paravertebral masses or suspicious enhancement. Discs: Multilevel moderate to severe disc desiccation is present. C2-3: Minimal disc bulge without spinal stenosis. Minimal right foraminal narrowing with uncovertebral hypertrophy. C3-4: Mild disc bulge with acuj-pd-txnftipk spinal stenosis. Severe bilateral foraminal narrowing, right greater than left with uncovertebral hypertrophy. C4-5: Mild disc bulge with moderate spinal stenosis. Moderate to severe bilateral foraminal narrowing secondary to uncovertebral arthropathy. C5-6: Mild disc bulge with moderate spinal stenosis. Moderate to severe bilateral foraminal narrowing with uncovertebral hypertrophy. C6-7: Mild disc bulge without spinal stenosis. Moderate bilateral foraminal narrowing with uncovertebral hypertrophy. C7-T1: Mild disc bulge with minimal spinal stenosis. Moderate bilateral foraminal narrowing with uncovertebral hypertrophy. IMPRESSION: Multilevel degenerative changes including prominent spinal stenosis most severe at C4-5 and C5-6 predominantly secondary to disc bulges. Multilevel moderate to severe foraminal narrowing most severe at C3-4 secondary to uncovertebral arthropathy. Dictated by: Lotus Bonilla M.D. on 12/19/2022 at 10:09 Approved by: Lotus Bonilla M.D. on 12/19/2022 at 10:13 [place] [address] Magnetic Resonance Report Signed Patient: Rickie Waters MR#: [id number] : 1940 Acct:[id number] Age/Sex: 82 / M Date of Service: 12/19/22 Loc: ED Accession Number: [id number] Procedure: MR thoracic spine wo/w con Ordering Provider: Jaime Moreno D.O. PROCEDURE: MR THORACIC SPINE WO/W CON INDICATIONS: lower extremity weakness, per Neuro TECHNIQUE: Noncontrast sagittal T1 spin echo and T2 fast spin echo, sagittal STIR, axial T1 and T2 fast spin echo through the thoracic spine. After the administration of contrast, axial and sagittal T1 spin echo with fat saturation through the thoracic spine. COMPARISON: [facility], CT, CT CHEST WITHOUT CONTRAST, 01/10/2022, 20:06. [facility], MR, MR LUMBAR SPINE WO/W CON, 12/19/2022, 7:40. [facility], MR, MR CERVICAL SPINE WO/W CON, 12/19/2022, 7:40. [facility], MR, MR HEAD/BRAIN WO CON, 12/19/2022, 7:23. [facility], CT, CT ANGIO HEAD AND NECK, 12/18/2022, 20:40. [facility], CT, CT HEAD/BRAIN WO CON, 12/18/2022, 20:40. CT, CT CHEST ABD PEL W CON, 06/23/2021, 17:17. FINDINGS: Image quality: Excellent. Alignment and curvature: There is normal bony alignment. Marrow: Marrow is of normal overall signal. Increased T1 and T2 signal is present at T4 most suggestive of hemangioma. No acute vertebral body compression fractures. Spinal cord: Visualized spinal cord is of normal signal and size, without abnormal enhancement. Paraspinous soft tissues: No paravertebral masses or abnormal enhancement. Increased T2 signal is present within the right thyroid lobe unchanged compared to prior exam. Miscellaneous: Central canal and foramina appear widely patent at all scanned levels. Minimal scattered disc bulges are present. Multilevel disc desiccation. IMPRESSION: Minimal scattered disc bulges and multilevel disc desiccation. Dictated by: Lotus Bonilla M.D. on 12/19/2022 at 10:14 Approved by: Lotus Bonilla M.D. on 12/19/2022 at 10:[address] [address] Magnetic Resonance Report Signed Patient: Rickie Waters MR#: [id number] : 1940 Acct:[id number] Age/Sex: 82 / M Date of Service: 12/19/22 Loc: ED Accession Number: [id number] Procedure: MR lumbar spine wo/w con Ordering Provider: Jaime Moreno D.O. PROCEDURE: MR LUMBAR SPINE WO/W CON INDICATIONS: lower extremity weaknelower extremity weakness, per Neuro TECHNIQUE: Noncontrast sagittal T1 spin echo and T2 fast spin echo, sagittal STIR, axial T1 and T2 fast spin echo through the lumbar spine. In cases with scoliosis, additional coronal T2 fast spin echo may be performed. After the administration of contrast, sagittal and axial T1 spin echo with fat saturation through the lumbar spine. COMPARISON: [facility], MR, MR THORACIC SPINE WO/W CON, 12/19/2022, 7:40. [facility], MR, MR CERVICAL SPINE WO/W CON, 12/19/2022, 7:40. [facility], MR, MR HEAD/BRAIN WO CON, 12/19/2022, 7:23. FINDINGS: Image quality: Excellent. Alignment and curvature: There is normal bony alignment. Marrow: Marrow is of normal overall signal. No acute vertebral body compression fractures. No suspicious marrow enhancement. Spinal cord: Conus medullaris terminates at the L1 level. Visualized spinal cord demonstrates normal signal, without suspicious enhancement. Paraspinous soft tissues: No paravertebral masses or abnormal enhancement. Simple left renal cyst. Discs: Multilevel moderate to severe disc desiccation most severe from L3-4 through L5-S1. T12-L1: Minimal disc bulge without spinal stenosis or foraminal narrowing. L1-L2: No disc bulge without spinal stenosis. Minimal bilateral foraminal narrowing with facet and ligamentum flavum hypertrophy. L2-L3: Mild disc bulge with superimposed right posterior paracentral protrusion with indentation of the anterior thecal sac mild bilateral foraminal narrowing with facet and ligamentum flavum hypertrophy. L3-L4: Minimal disc bulge without spinal stenosis. Odrj-ea-wijstdxc bilateral foraminal narrowing with facet and ligamentum flavum hypertrophy L4-L5: Mild disc bulge without spinal stenosis. Moderate bilateral foraminal narrowing with facet and ligamentum flavum hypertrophy. L5-S1: Mild disc bulge without spinal stenosis moderate bilateral foraminal narrowing with facet and ligamentum flavum hypertrophy. IMPRESSION: Multilevel degenerative changes. Multilevel foraminal narrowing most severe at L4-5 and L5-S1 secondary to facet and ligamentum flavum arthropathy. Dictated by: Lotus Bonilla M.D. on 12/19/2022 at 10:17 Approved by: Lotus Bonilla M.D. on 12/19/2022 at 10:21 MDM Narrative Medical decision making narrative: CC: 82-year-old male with confusion, globally encephalopathic and generalized weakness Complicating co-morbidities: Age, prior stroke, prior kidney injury Data collected from: Patient's , EMS Medical records reviewed: Prior notes reviewed in our EMR Differential considered, but not limited to: Stroke or TIA versus possible seizure versus infectious encephalopathy or meningitis versus electrolyte abnormality, dehydration versus UTI versus toxic encephalopathy versus other Exam documented above, pertinent findings include: Patient alert, follows some commands, very little speech, appears unaware and not at baseline per . No obvious focal findings, cranial nerves 2-12 grossly intact, heart rate regular, lungs clear, abdomen soft, dry mucous membranes and poor skin turgor, weak and requires assistance to stand Lab Test results independently reviewed as above. Pertinent findings: No leukocytosis or left shift, no signs of anemia, primary electrolytes and renal function within normal, glucose 106, lactate 1.4, magnesium 1.9, urine POC without evidence of leukocyte esterase or nitrites Independently reviewed EKG as above Imaging studies independently reviewed: Chest x-ray without focal infiltrate, head CT and CTA of head and neck without significant findings MRI brain MRI cervical thoracic or lumbar spine no acute finding Consultations: Dr. Tello (hospitalist), must transfer given lack of access to neurology here. call to Neurology (Dr. Pereira). We have discussed the history and physical exam as well as labs and imaging. Agrees that preoperation be considered but there elements of the story, most notably some of the patient's confusion that would suggest an alternate diagnosis need to be considered. We discussed whether not ordering IVIG at this time would be appropriate and she requested we hold off. Suggest MRI of the brain as well as of the entire spine with and without contrast if possible but if full MRI is not possible at least the brain. No indication for transfer as yet December 19, 2022 at 12:[address] [facility], hospitalist, Dr. Cristobal, at this time no admission criteria medically. However may need social work consult and observe 48 hours 1:[address] [facility], Dr. Pereira, neurology, she was on-call last night and nose patient's case. At this time this is not Guillain- [place]. If patient up and walking now, likely not Guillain-[place]. At this time review of protein in the CSF may have been caused by technique of lumbar puncture were protein can be picked up but not in the CSF.. No medications indicated this time Treatments: Fluids Discussion: Appropriate for discharge home. Exam and laboratory studies and imaging otherwise reassuring. I did review with patient and . 1:33 p.m.. Patient is eating. Up and walking. Reviewed protein in CSF with . She states he improved remarkably last night with IV fluids alone. He is at baseline at this time. She patient does require constant one-to-one monitoring at home which is baseline. She watches him on baby monitor when away from home. She did call a neighbor to check up on him last night when he was lying down which is unusual for him. The event she witnessed was him lying down and unable to get up. He is not been eating or drinking very much. However when he received IV fluids last night he improved significantly. Return precautions reviewed with . They desire discharge home. did wish for respiratory panel but does not want to wait for results. Again, patient at baseline now. Up and walking to the bathroom and in the hallways. Disposition: see below, along with detailed discharge instructions that have been reviewed with patient as well as indications for ED re-evaluation and additional outpatient follow up Discharge Plan Departure Patient Disposition: Home Clinical Impression: Weakness Instructions: DI for Dehydration -- Adult, DI for Muscle Weakness Activity Restrictions/Additional Instructions: See family doctor within a week for re-evaluation. Keep well hydrated. Return if worse if any questions or concerns. Laboratory studies and imaging otherwise have been reassuring today. Your case was reviewed by neurology services and hospitalist services. May continue home medications. Prescriptions: No Action losartan-hydrochlorothiazide 100-12.5 mg tablet 12.5 tab DAILY Patient Comments: TAKE 1 TABLET BY MOUTH ONCE DAILY acetaminophen 325 mg Tablet 650 mg PO Q6HR PRN (Reason: Fever/Mild Pain (1-3)) Qty: 30 0RF Referrals: Zaheer Charlton MD [Primary Care Provider] - Stand Alone Forms: Patient Portal/API
--- NOTE | 2022-12-18 19:47 | DI.CT.S_ITS ---
PROCEDURE: CT HEAD/BRAIN WO CON INDICATIONS: altered mental status TECHNIQUE: Noncontrast 4.5 mm thick angled axial sections acquired from the foramen magnum to the vertex, with coronal and sagittal reformats. For radiation dose reduction, the following was used: automated exposure control, adjustment of mA and/or kV according to patient size. COMPARISON: , CT, CT HEAD/BRAIN WO CON, 11/12/2022, 11:14. FINDINGS: Image quality: Good CSF spaces: Basal cisterns are patent. Lateral ventricles are symmetric. Volume: Vascular calcifications. Periventricular white matter disease is commonly seen with chronic microangiopathy. Volume loss is present. 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 No new large loss of diaz-white differentiation or acute hemorrhage. Craniofacial structures: No displaced fracture. Sinuses are clear. Orbits are intact. IMPRESSION: No acute intracranial abnormality. Consider MRI to further evaluate for any parenchymal abnormalities. Encephalomalacia again seen in the left cerebellum. Dictated by: Kenneth Gregg M.D. on 12/18/2022 at 21:23 Approved by: Kenneth Gregg M.D. on 12/18/2022 at 21:24
--- NOTE | 2022-12-18 19:48 | DI.RAD.S_ITS ---
PROCEDURE: XR CHEST 1V INDICATIONS: weakness TECHNIQUE: One view of the chest was acquired. COMPARISON: [facility], CR, XR CHEST 1V, 06/24/2021, 6:42. [facility], CR, XR CHEST 1V, 06/24/2021, 3:27. FINDINGS: Surgical changes and devices: None. Lungs and pleura: Low lung volumes. There may be mild perihilar and basal opacities. No pleural effusions. Mediastinum: Heart size is at the upper limit of normal. Bones and chest wall: No suspicious bony lesions. Overlying soft tissues appear unremarkable. IMPRESSION: Mild perihilar and basal opacities representing infection, edema, or atelectasis. Consider future imaging surveillance to assess for resolution. This is a limited single view radiograph with low lung volumes. Dictated by: Kenneth Gregg M.D. on 12/18/2022 at 21:29 Approved by: Kenneth Gregg M.D. on 12/18/2022 at 21:31
--- NOTE | 2022-12-18 20:05 | DI.CT.S_ITS ---
PROCEDURE: CT ANGIO HEAD AND NECK INDICATIONS: altered, stroke symptoms TECHNIQUE: After the administration of intravenous contrast, 1 mm thick sections acquired from the aortic arch through the [place]. 3-dimensional yedrepg-jxbpmwwck-cdqpuouwxx (MIP) and/or volume rendering reformats were acquired of the central intracranial vasculature and neck separately. For radiation dose reduction, the following was used: automated exposure control, adjustment of mA and/or kV according to patient size. COMPARISON: None. FINDINGS: Image quality: Good Anterior circulation: ICAs: Moderate cavernous calcifications ACAs: Normal and symmetric MCAs: Normal and symmetric AComm: No aneurysm Venous sinuses: patent Posterior circulation: Dominance: Equal Vertebral arteries: Mild irregularity in the right and left intracranial vertebral arteries Basilar artery: Unremarkable PComms: No aneurysm director auto: Unremarkable NECK ANGIOGRAPHY Aortic arch and subclavian arteries: Mild atherosclerotic calcifications CCAs: No stenosis, occlusion, or aneurysm. ICA origins (by NASCET criteria): Mild calcifications without significant narrowing ICAs: No stenosis, occlusion or aneurysm. ECAs: Origins are patent. Vertebral arteries: Mild calcifications at origins bilaterally Soft tissues: No significant mass, aneurysm, or lymphadenopathy. A right thyroid nodule measures 2 cm, possibly cystic Lung apices: No apical pneumothorax. Bones: There are degenerative changes. IMPRESSION: No large vessel occlusion or high-grade stenosis. Consider MRI to further evaluate for infarct. Any quantitative measurements of stenosis were performed using NASCET criteria. Dictated by: Kenneth Gregg M.D. on 12/18/2022 at 21:31 Approved by: Kenneth Gregg M.D. on 12/18/2022 at 21:37
[2022-12-18 20:13] LABS: Add Manual Diff / Slide Review NO; Basophils Absolute Auto 0 /uL (0-100); Basophils Percent Auto 0.2 % (0-2); Eosinophils Absolute Auto 0 /uL (0-450); Eosinophils Percent Auto 0.1 % (2-4); Hematocrit 39.5 % (41-53); Hemoglobin 13.4 g/dL (13.5-17.5); Lymphocytes Absolute Auto 1100 /uL (1100-4500); Lymphocytes Percent Auto 13.4 % (25-40); Mean Corpuscular Volume 85.3 fL (80-100); Monocytes Absolute Auto 700 /uL (0-900); Monocytes Percent Auto 8.6 % (3-14); Neutrophils Absolute Auto 6100 /uL (1500-7000); Neutrophils Percent Auto 77.7 % (50-75); Platelet Count 193 X10^3/uL (150-400); Red Blood Cell Count 4.62 X10^6/uL (4.5-5.9); Red Cell Distribution Width 14.5 % (11.6-14.8); White Blood Cell Count 7.9 X10^3/uL (4.5-11.0)
[2022-12-18] MEDS: SODIUM CHLORIDE 0.9% 1,000 ML 1000 ML IV (20:15)
[2022-12-18 20:28] LABS: Acetaminophen < 10 ug/mL (10-30); Alanine Aminotransferase 17 IU/L (<50); Albumin 3.8 g/dL (3.5-5.0); Albumin Globulin Ratio 1.4 (1.0-2.8); Alkaline Phosphatase 72 U/L (38-126); Aspartate Aminotransferase 24 IU/L (17-59); BUN Creatinine Ratio 23.5 (6-22); Bilirubin Total 0.5 mg/dL (0.2-1.3); Blood Urea Nitrogen 23 mg/dL (9-20); Calcium 9.2 mg/dL (8.4-10.2); Carbon Dioxide 25 mmol/L (22-32); Chloride 103 mmol/L (98-107); Creatine Kinase 155 U/L (55-170); Estimated Glomerular Filt Rate > 60 mL/min (>60); Globulin 2.7 g/dL (1.7-4.1); Glucose 106 mg/dL (80-110); HEMOLYSIS 39 (0-50); Lactate (Lactic Acid) 1.4 mmol/L (0.7-2.1); Lipase 114 U/L (23-300); Magnesium 1.9 mg/dL (1.6-2.3); Potassium 4.2 mmol/L (3.4-5.1); Salicylate < 1.0 mg/dL (<20); Sodium 137 mmol/L (137-145); Total Protein 6.5 g/dL (6.3-8.2)
[2022-12-18 20:39] LABS: Troponin I < 0.012 ng/mL (0.01-0.034)
[2022-12-18 20:44] LABS: Procalcitonin 0.06 ng/mL (<0.5)
[2022-12-18 20:48] LABS: UR Morphine/Opiate cutoff 300 Negative (Negative); Ur Creatinine Normal (Normal); Ur Specific Gravity Normal (Normal); Urine Amphetamines Negative (Negative); Urine Cocaine Negative (Negative); Urine Tetrahydrocannabinol Negative (Negative); Urine pH Normal (Normal)
[2022-12-18 20:49] LABS: Urine Barbiturates Negative (Negative); Urine Benzodiazepines Negative (Negative); Urine MDMA Negative (Negative); Urine Methadone Negative (Negative); Urine Methamphetamines Negative (Negative); Urine Oxycodone Negative (Negative); Urine Phencyclidine Negative (Negative); Urine Tricyclic Antidepressant Negative (Negative)
[2022-12-18 20:51] LABS: Ethanol (ETOH) < 10 mg/dL
[2022-12-18] MEDS: methylPREDNISolone 125 MG/2 ML VIAL IV (20:55)
[2022-12-18] MEDS: FAMOTIDINE 20 MG/2 ML VIAL IV (20:56)
[2022-12-18] MEDS: diphenhydrAMINE 50 MG/ML VIAL 25 MG IV (20:58)
[2022-12-18 21:15] LABS: Influenza A - CEPHEID Flu A NEGATIVE (NEGATIVE); Influenza B - CEPHEID Flu B NEGATIVE (NEGATIVE); Respiratory Syncytial Virus Negative (Negative)
[2022-12-18 21:52] LABS: COVID-19 CEPHEID 4-PLEX PCR Negative (Negative)
[2022-12-18 23:29] LABS: Appearance CSF Clear (Clear); CSF Tube Number 2; CSF Tube Volume 1.0 mL; Color CSF Colorless (Colorless); Red Blood Cell CSF 6 RBC /uL; White Blood Cell CSF 0 MONO/uL (0-5)
[2022-12-18 23:44] LABS: Glucose CSF 70 mg/dL (40-70)
[2022-12-19] VITALS (27 sets, daily range): BP systolic 99–175; BP diastolic 53–93; PULSE 68–110; RESP 14–18; O2SAT 88–99
[2022-12-19 00:08] LABS: Total Protein CSF 251 mg/dL (12-60)
[2022-12-19 00:25] LABS: Escherichia coli K1 Not Detected (Not Detect)
[2022-12-19 00:26] LABS: Cryptococcus neoformans/gattii Not Detected (Not Detect); Enterovirus Not Detected (Not Detect); Haemophilus influenzae Not Detected (Not Detect); Herpes simplex virus 1 Not Detected (Not Detect); Herpes simplex virus 2 Not Detected (Not Detect); Human herpesvirus 6 Not Detected (Not Detect); Human parechovirus Not Detected (Not Detect); Listeria monocytogenes Not Detected (Not Detect); Neisseria meningitidis Not Detected (Not Detect); Streptococcus agalactiae Not Detected (Not Detect); Streptococcus pneumoniae Not Detected (Not Detect); Varicella Zoster Virus Not Detected (Not Detecte)
--- NOTE | 2022-12-19 04:25 | DI.MRI.S_ITS ---
PROCEDURE: MR LUMBAR SPINE WO/W CON INDICATIONS: lower extremity weaknelower extremity weakness, per Neuro TECHNIQUE: Noncontrast sagittal T1 spin echo and T2 fast spin echo, sagittal STIR, axial T1 and T2 fast spin echo through the lumbar spine. In cases with scoliosis, additional coronal T2 fast spin echo may be performed. After the administration of contrast, sagittal and axial T1 spin echo with fat saturation through the lumbar spine. COMPARISON: [facility], MR, MR THORACIC SPINE WO/W CON, 12/19/2022, 7:40. [facility], MR, MR CERVICAL SPINE WO/W CON, 12/19/2022, 7:40. [facility], MR, MR HEAD/BRAIN WO CON, 12/19/2022, 7:23. FINDINGS: Image quality: Excellent. Alignment and curvature: There is normal bony alignment. Marrow: Marrow is of normal overall signal. No acute vertebral body compression fractures. No suspicious marrow enhancement. Spinal cord: Conus medullaris terminates at the L1 level. Visualized spinal cord demonstrates normal signal, without suspicious enhancement. Paraspinous soft tissues: No paravertebral masses or abnormal enhancement. Simple left renal cyst. Discs: Multilevel moderate to severe disc desiccation most severe from L3-4 through L5-S1. T12-L1: Minimal disc bulge without spinal stenosis or foraminal narrowing. L1-L2: No disc bulge without spinal stenosis. Minimal bilateral foraminal narrowing with facet and ligamentum flavum hypertrophy. L2-L3: Mild disc bulge with superimposed right posterior paracentral protrusion with indentation of the anterior thecal sac mild bilateral foraminal narrowing with facet and ligamentum flavum hypertrophy. L3-L4: Minimal disc bulge without spinal stenosis. Xobr-mc-djwyfeko bilateral foraminal narrowing with facet and ligamentum flavum hypertrophy L4-L5: Mild disc bulge without spinal stenosis. Moderate bilateral foraminal narrowing with facet and ligamentum flavum hypertrophy. L5-S1: Mild disc bulge without spinal stenosis moderate bilateral foraminal narrowing with facet and ligamentum flavum hypertrophy. IMPRESSION: Multilevel degenerative changes. Multilevel foraminal narrowing most severe at L4-5 and L5-S1 secondary to facet and ligamentum flavum arthropathy. Dictated by: Lotus Bonilla M.D. on 12/19/2022 at 10:17 Approved by: Lotus Bonilla M.D. on 12/19/2022 at 10:21
--- NOTE | 2022-12-19 04:25 | DI.MRI.S_ITS ---
PROCEDURE: MR HEAD/BRAIN WO CON INDICATIONS: altered, weak, per Neuro TECHNIQUE: Non-contrast axial T1 spin echo, axial T2 fast spin echo, sagittal and axial FLAIR, coronal T2 fast spin echo, axial gradient echo, axial diffusion and ADC through the brain. COMPARISON: CT, CT STROKE, 06/24/2021, 5:26. [facility], CT, CT ANGIO HEAD AND NECK, 12/18/2022, 20:40. [facility], CT, CT HEAD/BRAIN WO CON, 12/18/2022, 20:40. [facility], CT, CT HEAD/BRAIN WO CON, 11/12/2022, 11:14. [facility], CT, CT HEAD/BRAIN WO CON, 01/30/2022, 14:28. FINDINGS: Image quality: Excellent. CSF spaces: Ventricles appear symmetric in size and shape. There is slight prominence of the ventricular system in relation to gyral and sulcal atrophy. Basal cisterns are patent. No extra-axial fluid collections. Brain: No intracranial bleeds or mass effects. There is cerebral volume loss for age. There are periventricular and deep white matter chronic small vessel ischemic changes. Brainstem appears normal. Diffusion-weighted images show no acute ischemic insults. No chronic ischemic insults. Normal intravascular flow voids are present. Skull and face: Calvarial bone marrow is normal in signal. Orbits are normal. Sinuses: Sinuses and mastoids are clear. IMPRESSION: 1. No acute intracranial process. 2. Moderate atrophy and chronic microvascular ischemic changes. 3. Slight prominence of the ventricular system in relation to gyral and sulcal atrophy. While this could represent a more central atrophy pattern, normal pressure hydrocephalus should be considered and recommend clinical correlation. Overall appearance has been stable over prior exams. Dictated by: Lotus Bonilla M.D. on 12/19/2022 at 10:07 Approved by: Lotus Bonilla M.D. on 12/19/2022 at 10:09
--- NOTE | 2022-12-19 04:25 | DI.MRI.S_ITS ---
PROCEDURE: MR CERVICAL SPINE WO/W CON INDICATIONS: lower extremity weakness, per [facility] TECHNIQUE: Noncontrast sagittal T1 spin echo and T2 fast spin echo, sagittal STIR, foraminal oblique sagittal T2 fast spin echo, axial gradient echo or T2 fast spin echo through the cervical spine. After the administration of contrast, axial and sagittal T1 spin echo with fat saturation through the cervical spine. COMPARISON: None. FINDINGS: Image quality: Excellent. Alignment and curvature: There is trace retrolisthesis of C3 on C4, C4 on C5, trace anterolisthesis of C5 on C6. Marrow: Marrow is normal in overall signal, without suspicious enhancement. Increased T1 and T2 signal is present within the T4 vertebral body most suggestive of hemangioma. Spinal cord: Visualized spinal cord has normal size and signal. No cerebellar tonsillar herniation. No abnormal intramedullary enhancement. Paraspinous soft tissues: No paravertebral masses or suspicious enhancement. Discs: Multilevel moderate to severe disc desiccation is present. C2-3: Minimal disc bulge without spinal stenosis. Minimal right foraminal narrowing with uncovertebral hypertrophy. C3-4: Mild disc bulge with nhoe-nw-edtkewre spinal stenosis. Severe bilateral foraminal narrowing, right greater than left with uncovertebral hypertrophy. C4-5: Mild disc bulge with moderate spinal stenosis. Moderate to severe bilateral foraminal narrowing secondary to uncovertebral arthropathy. C5-6: Mild disc bulge with moderate spinal stenosis. Moderate to severe bilateral foraminal narrowing with uncovertebral hypertrophy. C6-7: Mild disc bulge without spinal stenosis. Moderate bilateral foraminal narrowing with uncovertebral hypertrophy. C7-T1: Mild disc bulge with minimal spinal stenosis. Moderate bilateral foraminal narrowing with uncovertebral hypertrophy. IMPRESSION: Multilevel degenerative changes including prominent spinal stenosis most severe at C4-5 and C5-6 predominantly secondary to disc bulges. Multilevel moderate to severe foraminal narrowing most severe at C3-4 secondary to uncovertebral arthropathy. Dictated by: Lotus Bonilla M.D. on 12/19/2022 at 10:09 Approved by: Ltous Bonilla M.D. on 12/19/2022 at 10:13
--- NOTE | 2022-12-19 04:25 | DI.MRI.S_ITS ---
PROCEDURE: MR THORACIC SPINE WO/W CON INDICATIONS: lower extremity weakness, per Neuro TECHNIQUE: Noncontrast sagittal T1 spin echo and T2 fast spin echo, sagittal STIR, axial T1 and T2 fast spin echo through the thoracic spine. After the administration of contrast, axial and sagittal T1 spin echo with fat saturation through the thoracic spine. COMPARISON: [facility], CT, CT CHEST WITHOUT CONTRAST, 01/10/2022, 20:06. [facility], MR, MR LUMBAR SPINE WO/W CON, 12/19/2022, 7:40. [facility], MR, MR CERVICAL SPINE WO/W CON, 12/19/2022, 7:40. [facility], MR, MR HEAD/BRAIN WO CON, 12/19/2022, 7:23. [facility], CT, CT ANGIO HEAD AND NECK, 12/18/2022, 20:40. [facility], CT, CT HEAD/BRAIN WO CON, 12/18/2022, 20:40. CT, CT CHEST ABD PEL W CON, 06/23/2021, 17:17. FINDINGS: Image quality: Excellent. Alignment and curvature: There is normal bony alignment. Marrow: Marrow is of normal overall signal. Increased T1 and T2 signal is present at T4 most suggestive of hemangioma. No acute vertebral body compression fractures. Spinal cord: Visualized spinal cord is of normal signal and size, without abnormal enhancement. Paraspinous soft tissues: No paravertebral masses or abnormal enhancement. Increased T2 signal is present within the right thyroid lobe unchanged compared to prior exam. Miscellaneous: Central canal and foramina appear widely patent at all scanned levels. Minimal scattered disc bulges are present. Multilevel disc desiccation. IMPRESSION: Minimal scattered disc bulges and multilevel disc desiccation. Dictated by: Lotus Bonilla M.D. on 12/19/2022 at 10:14 Approved by: Lotus Bonilla M.D. on 12/19/2022 at 10:17
--- NOTE | 2022-12-19 07:39 | PC.NURSE ---
Patient left department with diagnostic r and d lab technician at 0735.
--- NOTE | 2022-12-19 11:45 | PT.IIE ---
Surgical History (Last Reviewed 12/18/22 @ 23:53 by Jaime Moreno DO) History of right hip replacement Medical History (Last Reviewed 12/18/22 @ 23:53 by Jaime oMreno DO) Hypertension Physical Therapy Inpatient Evaluation/Re-Eval M1 PT/OT-IP Prior Functional Status Start: 12/19/22 13:56 Freq: Status: Active Protocol: Document 12/19/22 11:45 AB (Rec: 12/19/22 14:13 AB [email or web address]) Medical Review Prior Functional Status Medical History Reviewed Yes Communication able to make needs known Mobility and Gait spouse in room and provided most of the PLOF and home set up for pt pt requires SBA with all mobilities, able to ambulate using a FWW indoors but uses a hurrycane for outdoor mobility. Social History Household Members spouse Living Arrangements House Number of Floors (Floors) One Floor Number of Stairs To Enter/Railing? 2 steps to enter with R side vertical bar on edge of door Home Environment High Toilet,Walk in Shower,Tub /Shower Doors Home Equipment Bedside Commode,Shower Seat with Backrest,Hand Held Shower ,Grab Bars In Shower M2 PT-IP Current Condition Start: 12/19/22 13:56 Freq: Status: Active Protocol: Document 12/19/22 11:45 AB (Rec: 12/19/22 14:13 AB [email or web address]) Physical Therapy Current Condition Current Condition Evaluation Date 12/19/22 Treatment Diagnosis confusion; generalized weakness Onset Date 12/19/22 M3 PT-IP Subjective Start: 12/19/22 13:56 Freq: Status: Active Protocol: Document 12/19/22 11:45 AB (Rec: 12/19/22 14:13 AB [id number]) Subjective Physical Therapy Visit Type Type Initial Evaluation Visit Start Time 11:45 Visit Stop Time 12:20 Total Visit Minutes 35 Number of STEW[employer] CLASS Visits 0 Physical Therapy Visit Comments Patient Comments agreeable to do PT M4 PT-IP Mobility and Gait Start: 12/19/22 13:56 Freq: Status: Active Protocol: Document 12/19/22 11:45 AB (Rec: 12/19/22 14:13 AB [email or web address]) PT-Bed Mobility Assessment Supine to Sit Supine to Sit Standby Assistance,Head of Bed Elevated Sit to Supine Sit to Supine Standby Assistance PT-Transfer Assessment Sit to and From Stand Sit to and from Stand Standby Assistance,Contact Guard Assistance,1 Person Assistance,Use of Upper Extremities Equipment Transfer Assistive Device Gait Belt,Front Wheeled Walker Orthotic/Prosthetic Devices or Brace: No Comments Mobility Comments pt completed supine to sit HOB elevated SBA. pt presents with difficulty completing task and needs time to complete but able to do with SBA. pt able to sit on EOB SBA . pt can be impulsive. completed sit to stand SBA to CGA and ambulated using FWW ~ 50 ft SBA to CGA for safety due to impulsiveness. presents with antalgic gait with increase lateral trunk lean to the R. Assessed ambulation using a hurrycane and completed CGA ~ 50 ft. cued pt to slow down. pt went back to bed sit to supine SBA. informed pt and spouse regarding current level of mobility. spouse admitted that pt has been impulsive and tends to do things fast. educated on safety. informed regarding use of FWW at this time instead of his hurrycane. pt and spouse understood. informed nurse regarding mobility. Gait Assessment Gait Gait Assistance Required: Standby Assistance,Contact Guard Assist Distance (Feet) 50 Able to Maintain Weight Bearing Status Yes During Gait Assistive Devices Assistive Device Gait Belt,Front Wheeled Walker Orthotic/Prosthetic Devices or Brace: No Gait Deviations General Gait Pattern Antalgic,Decreased Stride Length,Decreased Feet Clearance,Lateral Trunk Lean Factors Limiting Gait Function Factors Limiting Gait Function Decreased Activity Tolerance, Decreased Strength,Difficulty Following Directions,Pain,Poor Balance,Poor Safety Awareness PT-Balance Assessment Sitting Balance and Reactions Static Sitting Balance Ability Normal Dynamic Sitting Balance Ability Good Standing Balance and Reactions Static Standing Balance Ability Fair Dynamic Standing Balance Ability Fair Device Used FWW M5 PT-IP Objective Assessments Start: 12/19/22 13:56 Freq: Status: Active Protocol: Document 12/19/22 11:45 AB (Rec: 12/19/22 14:13 AB [id number]) Orientation Orientation/Cognition Level of Alertness Alert Orientation Name,Place,Situation Safety Awareness Decreased Safety Awareness Memory Description Short Term Impaired Gross Range of Motion Lower Extremity ROM Assessment Within Functional Limits Strength Lower Extremity Strength Assessment Within Functional Limits Sensation Assessment Sensation Gross Sensation WNL Muscle Tone Muscle Tone WNL Yes M6 PT-IP Treatment Start: 12/19/22 13:56 Freq: Status: Active Protocol: Document 12/19/22 11:45 AB (Rec: 12/19/22 14:13 AB [id number]) Physical Therapy Treatment Education Education Provided Safety M7 PT-IP Assessment and Plan Start: 12/19/22 13:56 Freq: Status: Active Protocol: Document 12/19/22 11:45 AB (Rec: 12/19/22 14:13 AB [email or web address]) PT Summary Assessment and Plan Potential Rehabilitation Potential Fair Status of Condition at Evaluation Stable Summary Impairments Pain,ROM,Strength,Balance, Coordination,Sensation,Tone, Cognition,Bed Mobility, Transfers,Gait,Activity Tolerance Assessment Summary Pt presented to the ED for weakness. spouse stated that pt has difficulty getting out of the bed and has not been out of his bed as much as he has before and stated that it started after pt got his RSV immunization shot. pt currently requiring SBA to CGA with ambulation using FWW and CGA using a hurrycane. CGA provided for safety as pt can be impulsive. pt seems to be at PLOF. spouse will be able to provide pt assistance at home. no further PT indicated at this time. Frequency of Treatment Frequency Of Treatment Discharge Precautions Other Precautions falls Recommendations To Nursing Amount of Assist Needed 1 Person Assist Discharge Recommendations PT Discharge Recommendations Home with Assistance Transportation Needs at Discharge Private Vehicle
--- NOTE | 2022-12-19 12:18 | PC.NURSE ---
PT evaluated patient. States patient is stable to walk with cane or walker. Impulsive with activity.
--- NOTE | 2022-12-19 12:38 | PM.CALLCOV.1 ---
Call Coverage Note Note Narrative of Care Provided: 82 M with PMH of prior CVA, HTN, prior UTI with septic shock last year brought into the emergency room for weakness. Vitals are unremarkable, no evidence of active infection with negative UA, chest xray, procalcitonin. LP was performed which showed no evidence of infection in his CSF. Labs are consistent with previous results without significant change. Total protein was elevated on CSF but can be non-specific, if there is concern for GBS I would recommend continued discussion with neurology. I do not see the opening pressure in LP documentation to comment on the possibility of NPH based on his MRI. CT of his spine is further not indicative of an acute etiology. My suspicion is that he has progressive decline based on previous and current documentation. Recommend PT/OT consultation, consultation with social work per social admission policy at this time to look for placement if discharge home is felt unsafe. At this time he does not meet inpatient or observation criteria, but recommend continued discussion with neurology to see if there is concern for an underlying reversible etiology.
--- NOTE | 2022-12-19 15:57 | PC.NURSE ---
Patient brought by friend for removal of IV and obtain discharge papers. Friend expresses concern that the patient be re evaluated in ER again. Patient adamant he does not want to check back into ER. Discussed discharge with patient. Patient signed papers and was ambulatory with alfredo out of ED.
[2022-12-19 16:49] LABS: Adenovirus Not Detected (Not Detect); Bordetella pertussis Not Detected (Not Detect); Coronavirus 229E Not Detected (Not Detect); Coronavirus HKU1 Not Detected (Not Detect); Coronavirus NL 63 Not Detected (Not Detect); Coronavirus OC43 Not Detected (Not Detect); Human Metapneumovirus Not Detected (Not Detect); Human Rhinovirus/Enterovirus Not Detected (Not Detect); Influenza B Not Detected (Not Detect); Parainfluenza Virus 1 Not Detected (Not Detect); Parainfluenza Virus 2 Not Detected (Not Detect); Parainfluenza Virus 3 Not Detected (Not Detect); Parainfluenza Virus 4 Not Detected (Not Detect); Respiratory Syncytial Virus Not Detected (Not Detect); SARS- CoV-2 Not Detected (Not Detecte)
[2022-12-19 16:50] LABS: B. parapertussis Not Detected (Not Detecte); Chlamydophila pneumoniae Not Detected (Not Detect); Influenza A Not Detected (Not Detect); Mycoplasma pneumoniae Not Detected (Not Detect)
== END 2022-12-19 14:10 | disposition home or self-care (01) ==
PROVIDERS: Emergency Medicine; Emergency Provider Emergency Medicine; PCP Family Medicine
DX: M51.26 Other intervertebral disc displacement, lumbar region (principal); M62.81 Muscle weakness (generalized); E86.0 Dehydration; R07.9 Chest pain, unspecified; R41.82 Altered mental status, unspecified; Z20.822 Contact with and (suspected) exposure to COVID-19
CPT/HCPCS: 0241U; 36415; 62270; 70450; 70496; 70498; 70551; 71045; 72156; 72157; 72158; 80053; 80305; 80320; 80329; 81003; 82550; 82945; 83605; 83690; 83735; 84145; 84157; 84484; 85025; 87040; 87070; 87205; 87633; 87798; 89051; 93005; 96361; 96374; 96375; 97161; 99284; 99285; G0480; J1200; J2930; Q9967

== ENCOUNTER 2023-05-02 14:49 | Emergency (ER) | payer MEDICARE, SELFPAY ==
[2021-06-23 20:45] VITALS: BMI 30.1
[2023-05-02 14:51] VITALS: BP 177/80; PULSE 58; RESP 18; TEMP 36.9; O2SAT 98; BMI 28.7
--- NOTE | 2023-05-02 16:17 | ED_ITS ---
HPI - Male Genitourinary <Mary Preston PA-C - Last Filed: 05/02/23 18:20> General Chief complaint: Urogenital-Male Stated complaint: urinary problem Time Seen by Provider: 05/02/23 15:05 Source: patient Mode of arrival: Ambulatory History of Present Illness HPI Narrative: 83-year-old male here today with his and caregiver for a problem with his penis. Patient has some baseline memory issues. noticed that patient seemed uncomfortable and was walking a little abnormally for a few days and yesterday he was wincing while showering. She inspected the area closer by retracting the foreskin and noticed a very red sore and raw area under the foreskin. Patient wears adult diapers for incontinence and does not often change them until they are very wet. Patient is also mostly responsible for his own personal hygiene and admits he has probably not retracting the foreskin every time he showers nor is he patting it dry afterwards. She did not noticed any white discharge. He has not had any urinary symptoms or fevers. No history of diabetes Related Data Home Medications Medication Instructions Recorded Confirmed losartan 100 12.5 tab DAILY 06/23/21 06/23/21 mg-hydrochlorothiazide 12.5 mg tablet Previous Rx's Medication Instructions Recorded acetaminophen 325 mg tablet 650 mg (2 x 325 mg) PO Q6HR PRN 06/29/21 Fever/Mild Pain (1-3) #30 tabs clotrimazole 1 % topical cream 1 applic topical BID #30 grams 05/02/23 Allergies Allergy/AdvReac Type Severity Reaction Status Date / Time Penicillins Allergy Unknown Verified 12/19/22 11:41 crab Allergy Verified 12/19/22 11:41 iodine Allergy Verified 12/19/22 11:41 latex Allergy Rash Verified 12/19/22 11:41 lactose AdvReac Mild Verified 12/19/22 11:41 Review of Systems <Mary Preston PA-C - Last Filed: 05/02/23 18:20> Review of Systems ROS Unobtainable: All systems reviewed & are unremarkable except as noted in HPI and below Patient History <Mary Preston PA-C - Last Filed: 05/02/23 18:20> Medical History Hypertension Surgical History History of right hip replacement Family History Mother Myocardial infarction Father Myocardial infarction Social History household members: spouse Smoking Status: Never smoker Smoking Status: Never smoker alcohol intake frequency: holidays/special occasions only Substance Use Type: does not use Exam <Mary Preston PA-C - Last Filed: 05/02/23 18:20> Narrative Exam Narrative: GENERAL: Well-developed, well-nourished, appears stated age. In no acute distress HEAD: Atraumatic. Normocephalic. EYES: Pupils equal round and reactive. Extraocular motions intact. No scleral icterus. No injection or drainage. ENT: Nose without bleeding, purulent drainage. Airway patent. NECK: Trachea midline. Non tender RESPIRATORY: Respiratory rate and effort normal EXTREMITIES: No edema or joint tenderness. NEURO: AOx3. SKIN: No rash or erythema of visible areas : Foreskin easily retractable. No swelling of the foreskin. No discharge noted. There is an erythematous raw area of the penile shaft and glans penis when the foreskin is retracted. Initial Vital Signs Initial Vital Signs: Vital Signs Temperature 98.4 F 05/02/23 14:51 Pulse Rate 58 L 05/02/23 14:51 Respiratory Rate 18 05/02/23 14:51 Blood Pressure 177/80 H 05/02/23 14:51 Pulse Oximetry 98 05/02/23 14:51 Oxygen Delivery Method Room Air 05/02/23 14:51 <Yany Aguirre DO - Last Filed: 05/03/23 07:46> Initial Vital Signs Initial Vital Signs: Vital Signs Temperature 98.4 F 05/02/23 14:51 Pulse Rate 58 L 05/02/23 14:51 Respiratory Rate 18 05/02/23 14:51 Blood Pressure 177/80 H 05/02/23 14:51 Pulse Oximetry 98 05/02/23 14:51 Oxygen Delivery Method Room Air 05/02/23 14:51 Course <Mary Preston PA-C - Last Filed: 05/02/23 18:20> Orders Ordered: ED Orders 05/02/23 16:45 Wound Culture and Gram Stain Stat Vital Signs Vital signs: Vital Signs - 8 hr 05/02/23 14:51 05/02/23 16:55 Temperature 98.4 F Pulse Rate 58 L 57 L Respiratory Rate 18 18 Blood Pressure 177/80 H 185/82 H Pulse Oximetry 98 99 Oxygen Delivery Method Room Air Room Air <Yany Aguirre DO - Last Filed: 05/03/23 07:46> Orders Ordered: ED Orders 05/02/23 16:45 Wound Culture and Gram Stain Stat Vital Signs Vital signs: Vital Signs - 8 hr 05/02/23 14:51 05/02/23 16:55 Temperature 98.4 F Pulse Rate 58 L 57 L Respiratory Rate 18 18 Blood Pressure 177/80 H 185/82 H Pulse Oximetry 98 99 Oxygen Delivery Method Room Air Room Air MDM - Male Genitourinary <Mary Preston PA-C - Last Filed: 05/02/23 18:20> Lab Data Labs: Urine Dip Bedside Urine Glucose Negative Bedside Urine Bilirubin - Negative Bedside Urine Ketone - Negative Urine Specific [place] 1.030 Bedside Urine Occult Blood + Bedside Urine pH 5.0 Bedside Urine Protein - Negative Bedside Urine Urobilinogen - Negative Bedside Urine Nitrite - Negative Bedside Urine Leukocytes - Negative Esterase MDM Narrative Medical decision making narrative: On exam patient has not easily retracted foreskin with no evidence of phimosis or paraphimosis. He has a raw erythematous lesion of the glans penis and shaft of the penis without any notable discharge on exam. Due to his history of wearing adult diapers and likely poor hygiene habits this is likely fungal balanitis but could have a bacterial component as well. Wound culture obtained. We will start patient on clotrimazole 1% and discussed importance of saline solution bathing twice daily indefinitely. We will call with culture results. If not improving with the clotrimazole and saline recommend follow up with PCP to discuss trial of hydrocortisone or referral to derm for possible biopsy. Multiple etiologies for patient's symptoms considered including, but not limited to: Balanitis, phimosis, paraphimosis, UTI Findings and discharge diagnosis discussed with patient/family followed by verbalization of understanding Return precautions discussed with patient/family whom verbalize understanding of diagnosis and plan <Yany Aguirre DO - Last Filed: 05/03/23 07:46> Lab Data Labs: Urine Dip Bedside Urine Glucose Negative Bedside Urine Bilirubin - Negative Bedside Urine Ketone - Negative Urine Specific [place] 1.030 Bedside Urine Occult Blood + Bedside Urine pH 5.0 Bedside Urine Protein - Negative Bedside Urine Urobilinogen - Negative Bedside Urine Nitrite - Negative Bedside Urine Leukocytes - Negative Esterase Discharge Plan Departure Patient Disposition: Home Clinical Impression: Acute balanitis due to infection Instructions: DI for Balanitis Activity Restrictions/Additional Instructions: You were seen today for an infection of the penis underneath the foreskin. This is called balanitis. It is most often caused by a fungal infection but can occasionally grow a bacterial infection as well. We did a wound culture today and we will call you with the results in 2-3 days. In the meantime please start doing saline rinses of the area twice daily, following with patting the area dry thoroughly, and then applying the antifungal cream. If you do not see any improvement in the next 1-2 weeks please follow up with your primary care physician to discuss additional treatment. If you develop swelling of the foreskin or inability to retract or reduce the foreskin this is urgent and please return to the emergency department in this case. Prescriptions: New clotrimazole 1 % cream 1 applic topical BID Qty: 30 0RF No Action losartan-hydrochlorothiazide 100-12.5 mg tablet 12.5 tab DAILY Patient Comments: TAKE 1 TABLET BY MOUTH ONCE DAILY acetaminophen 325 mg Tablet 650 mg PO Q6HR PRN (Reason: Fever/Mild Pain (1-3)) Qty: 30 0RF Referrals: Zaheer Charlton MD [Primary Care Provider] - Stand Alone Forms: Patient Portal/API ED Sign-out <Yany Aguirre DO - Last Filed: 05/03/23 07:46> Cosign ED Attending Cosignature Attestation: I was available for consultation.
--- NOTE | 2023-05-02 16:48 | PC.NURSE ---
penis wound assessed and cultured by WONG Helms without RN involvment.
[2023-05-02 16:55] VITALS: BP 185/82; PULSE 57; RESP 18; O2SAT 99
== END 2023-05-02 16:58 | disposition home or self-care (01) ==
PROVIDERS: Emergency Provider Physician Assistant; PCP Family Medicine
DX: N48.1 Balanitis (principal)
CPT/HCPCS: 81003; 87070; 87075; 87205; 99282

== ENCOUNTER 2023-08-03 13:06 | Emergency (ER) | payer MEDICARE, SELFPAY ==
[2021-06-23 20:45] VITALS: BMI 30.1
--- NOTE | 2023-08-03 13:19 | ED_ITS ---
HPI - General Adult General Chief complaint: Syncope Stated complaint: Syncope Time Seen by Provider: 08/03/23 13:10 History of Present Illness HPI narrative: 83-year-old gentleman with a history of prior stroke, urinary tract infection with sepsis was reportedly taking a shower when his reports that he fell down and passed out. Patient states that he simply sat down. He is complaining of no pain and states he did not hit his head. states that he did hit his head. He is not on thinners. When asked why his was concerned about him if he is simply sat in the shower, he states ?she is always concerned about me?. He is no localizing neurologic complaints. He seems slightly confused and slowed but when given time can answer appropriately and is oriented. He has no complaints of pain. He does not report any recent fevers, cough, abdominal pain, palpitations, diarrhea or constipation. Related Data Home Medications Medication Instructions Recorded Confirmed losartan 100 12.5 tab DAILY 06/23/21 06/23/21 mg-hydrochlorothiazide 12.5 mg tablet Previous Rx's Medication Instructions Recorded acetaminophen 325 mg tablet 650 mg (2 x 325 mg) PO Q6HR PRN 06/29/21 Fever/Mild Pain (1-3) #30 tabs clotrimazole 1 % topical cream 1 applic topical BID #30 grams 05/02/23 Allergies Allergy/AdvReac Type Severity Reaction Status Date / Time Penicillins Allergy Unknown Verified 12/19/22 11:41 crab Allergy Verified 12/19/22 11:41 iodine Allergy Verified 12/19/22 11:41 latex Allergy Rash Verified 12/19/22 11:41 lactose AdvReac Mild Verified 12/19/22 11:41 Review of Systems Review of Systems Narrative: Pertinent positive and negative findings as per HPI Patient History Medical History (Updated 08/03/23 @ 15:26 by Michaela Gonzáles MD) Stroke Hypertension Surgical History History of right hip replacement Family History Mother Myocardial infarction Father Myocardial infarction Social History household members: spouse Smoking Status: Never smoker Smoking Status: Never smoker alcohol intake frequency: holidays/special occasions only Substance Use Type: does not use Exam Initial Vital Signs Initial Vital Signs: Vital Signs Temperature 98 F 08/03/23 13:21 Pulse Rate 56 L 08/03/23 13:21 Respiratory Rate 17 08/03/23 13:21 Blood Pressure 155/61 H 08/03/23 13:21 Pulse Oximetry 99 08/03/23 13:21 Oxygen Delivery Method Room Air 08/03/23 13:21 General: Healthy appearing, in no acute distress. Slightly slowed but he is able to participate with history, uncertain how reliable all of his answers truly are HEENT: Moist mucous membranes, normal sclera with reactive pupils, atraumatic Neck: No cervical spine tenderness Respiratory: Lungs are clear to auscultation, no wheezing no rales no rhonchi. Full and symmetrical air movement, no tenderness to chest with compression Cardiac: Regular rate and rhythm no murmurs no bruits Abdomen: Soft, nontender, good bowel tones, no flank pain Skin: Multiple bruises in various stages of healing particularly over the lower extremities Neurologic: Overall cognitive slowing but Grossly neurologically intact with no obvious asymmetries or abnormalities Extremities: Old contusion to the right vázquez and left patella. No new contusions appreciated Psych: Cooperative, able to speak in complete sentences Course Orders Ordered: ED Orders 08/03/23 13:30 Complete Blood Count AUTO DIFF Stat Comprehensive Metabolic Panel Stat Lactate (Lactic Acid) Stat Lipase Stat Magnesium Stat NT-proBNP (BNP-Adult 18+) Stat Troponin I Stat 08/03/23 13:38 XR chest 1V Stat Urinalysis and Microscopic Stat 08/03/23 13:39 EKG-12 Lead Stat Vital Signs Vital signs: Vital Signs - 8 hr 08/03/23 13:21 Temperature 98 F Pulse Rate 56 L Respiratory Rate 17 Blood Pressure 155/61 H Pulse Oximetry 99 Oxygen Delivery Method Room Air Medical Decision Making Lab Data 08/03/23 13:30 08/03/23 13:30 Labs: Lab Results 08/03/23 Range/Units 13:30 WBC 6.5 (4.5-11.0) X10^3/uL RBC 4.44 L (4.5-5.9) X10^6/uL Hgb 12.8 L (13.5-17.5) g/dL Hct 38.5 L (41-53) % MCV 86.7 (80-100) fL MCH 28.8 (26-34) PG MCHC 33.2 (30-36) % RDW 14.6 (11.6-14.8) % Plt Count 182 (150-400) X10^3/uL Neut % (Auto) 66.7 (50-75) % Lymph % (Auto) 19.9 L (25-40) % [place] % (Auto) 11.9 (3-14) % Eos % (Auto) 1.2 L (2-4) % Baso % (Auto) 0.3 (0-2) % Neut # (Auto) 4300 (8344-0078) /uL Lymph # (Auto) 1300 (9546-4095) /uL [place] # (Auto) 800 (0-900) /uL Eos # (Auto) 100 (0-450) /uL Baso # (Auto) 0 (0-100) /uL Sodium 142 (137-145) mmol/L Potassium 4.3 (3.4-5.1) mmol/L Chloride 109 H (98-107) mmol/L Carbon Dioxide 29 (22-32) mmol/L BUN 25 H (9-20) mg/dL Creatinine 1.00 (0.66-1.25) mg/dL Estimated GFR > 60 (>60) mL/min BUN/Creatinine Ratio 25.0 H (6-22) Glucose 135 H (80-110) mg/dL Lactate 1.2 (0.7-2.1) mmol/L Calcium 8.8 (8.4-10.2) mg/dL Magnesium 2.0 (1.6-2.3) mg/dL Total Bilirubin 0.8 (0.2-1.3) mg/dL AST 22 (17-59) IU/L ALT 14 (<50) IU/L Alkaline Phosphatase 81 (38-126) U/L Troponin I < 0.012 (0.01-0.034) ng/mL NT-Pro-B Natriuret Pep 139 (<450) pg/mL Total Protein 6.1 L (6.3-8.2) g/dL Albumin 3.8 (3.5-5.0) g/dL Globulin 2.3 (1.7-4.1) g/dL Albumin/Globulin Ratio 1.7 (1.0-2.8) Lipase 45 (23-300) U/L MDM Narrative Medical decision making narrative: CC: Fall in the shower with syncope versus simply sitting down in the shower Complicating co-morbidities: Age, patient's perception and 's story are very different Data collected from: [email or web address] is now available for additional consultation. She describes him becoming increasingly weak and she helped him to the ground in the shower after he had been standing in the shower for 10-15 minutes. She called 911 from there. Social determinants of health that may influence the patients condition: Prior stroke Medical records reviewed: Prior ER visits as well as hospitalizations in the last year are reviewed. Differential considered: Orthostatic hypotension secondary to being in the shower, patient did simply sit down, TIA, arrhythmia, acute coronary syndrome, infection with sepsis Exam documented above, pertinent findings include: Aside from slight overall cognitive slowing exam is benign Lab Test results independently reviewed as above. Pertinent findings: CBC is unremarkable, chronic stable anemia Chemistries are reassuring Troponin is undetectable Urine dip is positive for nitrites but no leukocytes. Do not suspect UTI at this time Independently reviewed EKG: Sinus rhythm at a rate of 60. Normal intervals, normal axis. No acute ischemic changes Imaging studies independently reviewed: Patient has had multiple brain imaging studies most recently December of 2022 with a brain MRI head and neck CTA and a head CT all of which were unremarkable. With today's events not looking like an acute stroke on clinical exam and fairly recent studies suggesting no evidence of metastatic disease or occupying mass in his brain, additional imaging study of his brain is likely not going to change recommendations at this time Re-evaluations: Patient is able to get up and walk to the bathroom with minimal difficulty Discussion: 83-year-old gentleman with weakness and was helped to the ground in the bathroom earlier today. Workup is quite reassuring I am not seeing signs of stroke, significant orthostatic hypotension, acute infection, electrolyte abnormalities or acute coronary syndrome. All of these findings reviewed with the patient and his . At this point he is safe for discharge home Discharge Plan Departure Patient Disposition: Home Clinical Impression: Near syncope Instructions: DI for Syncope in Adults (Fainting) Activity Restrictions/Additional Instructions: Thank you for coming in today On your emergency department evaluation I am not seeing signs of stroke, heart attack, sepsis or other infection. No obvious musculoskeletal abnormalities that are new as of today. I am wondering if simply standing in the shower with the water for as long as you were caused your blood pressure to drop slightly. We call this orthostatic hypotension and it is relatively common in the bathroom and in showers. At this point, it is safe for you to be discharged home. Please make sure that you are drinking appropriate amounts of fluids. If you find that you are getting worse or develop any new symptoms, please feel free to return to the emergency department for further evaluation. Prescriptions: No Action losartan-hydrochlorothiazide 100-12.5 mg tablet 12.5 tab DAILY Patient Comments: TAKE 1 TABLET BY MOUTH ONCE DAILY acetaminophen 325 mg Tablet 650 mg PO Q6HR PRN (Reason: Fever/Mild Pain (1-3)) Qty: 30 0RF clotrimazole 1 % cream 1 applic topical BID Qty: 30 0RF Referrals: Zaheer Charlton MD [Primary Care Provider] - Stand Alone Forms: Patient Portal/API
[2023-08-03 13:21] VITALS: BP 155/61; PULSE 56; RESP 17; TEMP 36.6; O2SAT 99; BMI 27.3
--- NOTE | 2023-08-03 13:38 | DI.RAD.S_ITS ---
PROCEDURE: XR CHEST 1V INDICATIONS: syncope TECHNIQUE: One view of the chest was acquired. COMPARISON: [facility], CR, XR CHEST 1V, 12/18/2022, 20:32. [facility], CR, XR CHEST 1V, 06/24/2021, 6:42. FINDINGS: Surgical changes and devices: None. Lungs and pleura: Low lung volumes. Mild basal opacities, similar to prior. No new dense consolidation or pleural effusion. Mediastinum: Normal heart size. Unchanged cardiomediastinal contours Bones and chest wall: Degenerative changes. IMPRESSION: Mild bibasilar opacities likely scarring or atelectasis. No new dense consolidation. Limited portable single view radiograph with low lung volumes. Dictated by: Kenneth Gregg M.D. on 08/03/2023 at 16:15 Approved by: Kenneth Gregg M.D. on 08/03/2023 at 16:16
--- NOTE | 2023-08-03 13:51 | PC.NURSE ---
Pt brought to ED via EMS because he had syncopal episode while in shower. states that pt started shaking and she lowered pt down to floor. is unsure if pt hit his head on the way down. states that he does not take any medications but is prone to UTI. Pt confused at baseline, but reports to EMS that he is acting funny and unlike himself. Pt answers questions appropriately, but very slowly.
[2023-08-03 13:55] LABS: Basophils Absolute Auto 0 /uL (0-100); Eosinophils Absolute Auto 100 /uL (0-450); Lymphocytes Absolute Auto 1300 /uL (1100-4500); Monocytes Absolute Auto 800 /uL (0-900); Neutrophils Absolute Auto 4300 /uL (1500-7000); White Blood Cell Count 6.5 X10^3/uL (4.5-11.0)
[2023-08-03 13:57] LABS: Alanine Aminotransferase 14 IU/L (<50); Albumin 3.8 g/dL (3.5-5.0); Albumin Globulin Ratio 1.7 (1.0-2.8); Alkaline Phosphatase 81 U/L (38-126); Aspartate Aminotransferase 22 IU/L (17-59); Bilirubin Total 0.8 mg/dL (0.2-1.3); Blood Urea Nitrogen 25 mg/dL (9-20); Calcium 8.8 mg/dL (8.4-10.2); Carbon Dioxide 29 mmol/L (22-32); Chloride 109 mmol/L (98-107); Estimated Glomerular Filt Rate > 60 mL/min (>60); Globulin 2.3 g/dL (1.7-4.1); Glucose 135 mg/dL (80-110); HEMOLYSIS < 15 (0-50); Lipase 45 U/L (23-300); Potassium 4.3 mmol/L (3.4-5.1); Sodium 142 mmol/L (137-145); Total Protein 6.1 g/dL (6.3-8.2)
[2023-08-03 13:58] LABS: Lactate (Lactic Acid) 1.2 mmol/L (0.7-2.1)
[2023-08-03 14:00] LABS: Add Manual Diff / Slide Review NO; Basophils Percent Auto 0.3 % (0-2); Eosinophils Percent Auto 1.2 % (2-4); Hematocrit 38.5 % (41-53); Hemoglobin 12.8 g/dL (13.5-17.5); Lymphocytes Percent Auto 19.9 % (25-40); Mean Corpuscular HGB Conc 33.2 % (30-36); Mean Corpuscular Hemoglobin 28.8 PG (26-34); Mean Corpuscular Volume 86.7 fL (80-100); Monocytes Percent Auto 11.9 % (3-14); Neutrophils Percent Auto 66.7 % (50-75); Platelet Count 182 X10^3/uL (150-400); Red Blood Cell Count 4.44 X10^6/uL (4.5-5.9); Red Cell Distribution Width 14.6 % (11.6-14.8)
[2023-08-03 14:09] LABS: NT-proBNP (BNP-Adult 18+) 139 pg/mL (<450); Troponin I < 0.012 ng/mL (0.01-0.034)
[2023-08-03 15:10] VITALS: PULSE 60; RESP 15; O2SAT 99
[2023-08-03 15:39] VITALS: PULSE 67; PULSE 70; O2SAT 94; O2SAT 96
[2023-08-03 15:40] VITALS: PULSE 65; RESP 17; O2SAT 97
--- NOTE | 2023-08-03 15:41 | PC.NURSE ---
Pt ambulated with walker. Denies sob/dizziness. Slightly shaky but states that is normal for pt.
[2023-08-03 15:46] VITALS: BP 178/77; PULSE 63; RESP 16; O2SAT 98
[2023-08-03 16:08] LABS: Appearance Urine UA CLOUDY; Bilirubin Urine UA NEGATIVE (NEGATIVE); Color Urine UA YELLOW; Glucose Urine UA NEGATIVE (Negative); Ketones Urine UA NEGATIVE (NEGATIVE); Leukocyte Esterase Urine UA NEGATIVE (NEGATIVE); Nitrite Urine UA POSITIVE (Negative); Occult Blood Urine UA NEGATIVE (Negative); Protein Urine UA NEGATIVE (Negative); Urobilinogen Urine UA 0.2 E.U./dL (0.2); pH Urine UA 6.5 (4.5-8.0)
[2023-08-03 16:23] LABS: Bacteria Urine Many (>30); Culture Indicated Urine Specimen Cultured; RBC Urine None Seen (0-5/HPF); Squamous Epithelial Cell Urine 0-1 /HPF (0-5/HPF); Urine Volume 10mL (spun); WBC Urine 1-5/HPF (0-5/HPF)
== END 2023-08-03 16:13 | disposition home or self-care (01) ==
PROVIDERS: Emergency Provider Emergency Medicine; PCP Family Medicine
DX: R55 Syncope and collapse (principal)
CPT/HCPCS: 36415; 71045; 80053; 81001; 81003; 83605; 83690; 83735; 83880; 84484; 85025; 87077; 87086; 87186; 93005; 99282; 99284

== ENCOUNTER 2023-08-29 08:58 | Emergency (ER) | payer MEDICARE, SELFPAY ==
[2021-06-23 20:45] VITALS: BMI 30.1
[2023-08-29 09:02] VITALS: BP 150/65; PULSE 65; RESP 12; TEMP 36.5; O2SAT 100; BMI 28.5
--- NOTE | 2023-08-29 09:04 | ED_ITS ---
HPI - Male Genitourinary General Chief complaint: Recheck/Abnormal Lab/Rx Stated complaint: recheck urine test Time Seen by Provider: 08/29/23 09:04 History of Present Illness HPI Narrative: 83-year-old male presents for repeat evaluation. Patient was seen in the emergency department on 08/02 after undergoing a syncopal episode. He was discharged home without the formal urinalysis results, but was told that they would call with results. states that after looking at her 's phone she realized that she missed a call stating that he would need to be on antibiotics. Since it has been 3 weeks she was advised to come back to the ER for evaluation. Patient states he feels ?fine?. states that his urine smells foul and she was concerned that it is infected. Denies fevers or other complaints. Related Data Home Medications Medication Instructions Recorded Confirmed losartan 100 12.5 tab DAILY 06/23/21 06/23/21 mg-hydrochlorothiazide 12.5 mg tablet Previous Rx's Medication Instructions Recorded acetaminophen 325 mg tablet 650 mg (2 x 325 mg) PO Q6HR PRN 06/29/21 Fever/Mild Pain (1-3) #30 tabs clotrimazole 1 % topical cream 1 applic topical BID #30 grams 05/02/23 ciprofloxacin HCl 500 mg tablet 500 mg PO Q12H #14 tabs 08/29/23 Allergies Allergy/AdvReac Type Severity Reaction Status Date / Time Penicillins Allergy Unknown Verified 08/29/23 09:06 crab Allergy Verified 08/29/23 09:06 iodine Allergy Verified 08/29/23 09:06 latex Allergy Rash Verified 08/29/23 09:06 lactose AdvReac Mild Verified 08/29/23 09:06 Patient History Medical History Stroke Hypertension Surgical History History of right hip replacement Family History Mother Myocardial infarction Father Myocardial infarction Social History household members: spouse Smoking Status: Never smoker Smoking Status: Never smoker alcohol intake frequency: holidays/special occasions only Substance Use Type: does not use Exam Initial Vital Signs Initial Vital Signs: Vital Signs Temperature 97.7 F 08/29/23 09:02 Pulse Rate 65 08/29/23 09:02 Respiratory Rate 12 08/29/23 09:02 Blood Pressure 150/65 H 08/29/23 09:02 Pulse Oximetry 100 08/29/23 09:02 Oxygen Delivery Method Room Air 08/29/23 09:02 Const: Awake, alert, no acute distress, nontoxic appearing Cardiac: regular rate, regular rhythm RESP: unlabored, clear bilaterally, no wheezing GI: Soft, nontender, nondistended MSK: Atraumatic, full range of motion, no CVA tenderness bilaterally Skin: Warm, Dry, intact, no rashes Neuro: AO x3, CN II-XII grossly intact, moves all extremities Course Orders Ordered: ED Orders 08/29/23 09:15 UA Complete [Urinalysis and Microscopic] Stat Urine Culture Stat Vital Signs Vital signs: Vital Signs - 8 hr 08/29/23 09:02 Temperature 97.7 F Pulse Rate 65 Respiratory Rate 12 Blood Pressure 150/65 H Pulse Oximetry 100 Oxygen Delivery Method Room Air MDM - Male Genitourinary Lab Data Labs: Lab Results 08/29/23 Range/Units 09:15 Urine Color Yellow Urine Appearance Clear Urine pH 5.5 (4.5-8.0) Ur Specific [place] >=1.030 H (1.000-1.035) Urine Protein Negative (Negative) Urine Glucose (UA) Negative (Negative) g/dL Urine Ketones Negative (NEGATIVE) Urine Occult Blood Negative (Negative) Urine Nitrate Positive H (Negative) Urine Bilirubin Negative (NEGATIVE) Urine Urobilinogen 0.2 (0.2) E.U./dL Ur Leukocyte Esterase Negative (NEGATIVE) Urine RBC None seen (0-5/HPF) Urine WBC 1-5/hpf (0-5/HPF) Ur Squamous Epith Cells 0-1 /hpf (0-5/HPF) Urine Bacteria Many (>30) H (None) Ur Culture Indicated? Specimen cultured Vol Urine Centrifuged 10ml (spun) MDM Narrative Medical decision making narrative: Nontoxic patient presenting for repeat evaluation. reports cloudy and foul-smelling urine. Patient denies feeling poorly. No CVA tenderness to suggest pyelonephritis. Urine continues to have nitrites and many bacteria. Started on course of antibiotics. Home care instructions counseled with the patient and at bedside. Discharge Plan Departure Patient Disposition: Home Clinical Impression: Acute UTI Instructions: DI for Urinary Tract Infection (UTI) Activity Restrictions/Additional Instructions: Finish all antibiotics as prescribed even if you are feeling better. Make sure to drink plenty of fluids. Follow up with your primary care doctor. Prescriptions: New ciprofloxacin HCl 500 mg tablet 500 mg PO Q12H Qty: 14 0RF No Action losartan-hydrochlorothiazide 100-12.5 mg tablet 12.5 tab DAILY Patient Comments: TAKE 1 TABLET BY MOUTH ONCE DAILY acetaminophen 325 mg Tablet 650 mg PO Q6HR PRN (Reason: Fever/Mild Pain (1-3)) Qty: 30 0RF clotrimazole 1 % cream 1 applic topical BID Qty: 30 0RF Referrals: Zaheer Charlton MD [Primary Care Provider] - Stand Alone Forms: Patient Portal/API
[2023-08-29 09:20] LABS: Appearance Urine UA CLEAR; Bilirubin Urine UA NEGATIVE (NEGATIVE); Color Urine UA YELLOW; Glucose Urine UA NEGATIVE (Negative); Ketones Urine UA NEGATIVE (NEGATIVE); Leukocyte Esterase Urine UA NEGATIVE (NEGATIVE); Nitrite Urine UA POSITIVE (Negative); Occult Blood Urine UA NEGATIVE (Negative); Protein Urine UA NEGATIVE (Negative); Specific Gravity Urine UA >=1.030 (1.000-1.035); Urobilinogen Urine UA 0.2 E.U./dL (0.2); pH Urine UA 5.5 (4.5-8.0)
[2023-08-29 09:35] LABS: Bacteria Urine Many (>30); Squamous Epithelial Cell Urine 0-1 /HPF (0-5/HPF); Urine Volume 10mL (spun); WBC Urine 1-5/HPF (0-5/HPF)
[2023-08-29 09:36] LABS: Culture Indicated Urine Specimen Cultured; RBC Urine None Seen (0-5/HPF)
[2023-08-29 09:47] VITALS: BP 141/65; PULSE 64; RESP 16; TEMP 37.1; O2SAT 96
== END 2023-08-29 09:48 | disposition home or self-care (01) ==
PROVIDERS: Emergency Provider Emergency Medicine; PCP Family Medicine
DX: N39.0 Urinary tract infection, site not specified (principal)
CPT/HCPCS: 81001; 87077; 87086; 87186; 99281; 99282

== ENCOUNTER 2023-09-07 12:52 | Inpatient (IN) | payer MEDICARE, SELFPAY ==
[2021-06-23 20:45] VITALS: BMI 30.1
[2023-09-07] VITALS (12 sets, daily range): BP systolic 156–193; BP diastolic 60–81; PULSE 62–74; RESP 16–31; TEMP 37–37.2; O2SAT 96–100; BMI 31.5
--- NOTE | 2023-09-07 13:28 | DI.CT.S_ITS ---
PROCEDURE: CT HEAD/BRAIN WO CON INDICATIONS: Positive BE-FAST, Stroke symptoms TECHNIQUE: Noncontrast 4.5 mm thick angled axial sections acquired from the foramen magnum to the vertex, with coronal and sagittal reformats. For radiation dose reduction, the following was used: automated exposure control, adjustment of mA and/or kV according to patient size. COMPARISON: [facility], CT, CT HEAD WITHOUT CONTRAST, 01/10/2022, 20:06. CT, CT HEAD/BRAIN WO CON, 12/18/2022, 20:40. CT, CT ANGIO HEAD AND NECK, 12/18/2022, 20:40. FINDINGS: Image quality: Diagnostic. CSF spaces: Basal cisterns are patent. No extra-axial fluid collections. The ventricles are symmetric in size and shape. Brain: No intracranial bleeds or masses. There is cerebral volume loss for age, with resultant ventricular and sulcal prominence. There are periventricular and deep white matter chronic small vessel ischemic changes. There is intracranial internal carotid artery atherosclerosis. Encephalomalacia within the left anterior cerebellar hemisphere consistent with prior infarction, unchanged. Skull and face: Calvarium and visualized facial bones appear intact, without suspicious lesions. Sinuses: Visualized sinuses and mastoids demonstrate mild scattered mucosal thickening most prominent in the right maxillary sinus. Frontal sinuses are aplastic. IMPRESSION: 1. No acute intracranial process. 2. Moderate atrophy and chronic microvascular ischemic changes. Dictated by: Lotus Bonilla M.D. on 09/07/2023 at 14:43 Approved by: Lotus Bonilla M.D. on 09/07/2023 at 14:45
--- NOTE | 2023-09-07 13:28 | DI.RAD.S_ITS ---
PROCEDURE: XR CHEST 1V INDICATIONS: Possible stroke TECHNIQUE: One view of the chest was acquired. COMPARISON: [facility], CR, XR CHEST 1V, 08/03/2023, 13:48. FINDINGS: Surgical changes and devices: None. Lungs and pleura: Mild appearance of increased vascularity. Minimal left effusion. Mediastinum: Mediastinal contours appear normal. Heart size is mildly prominent. Bones and chest wall: No suspicious bony lesions. Overlying soft tissues appear unremarkable. IMPRESSION: Mild appearance of increased vascularity minimal left effusions suggestive of edema. Dictated by: Lotus Bonilla M.D. on 09/07/2023 at 14:40 Approved by: Lotus Bonilla M.D. on 09/07/2023 at 14:40
--- NOTE | 2023-09-07 13:28 | EKG_ITS ---
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
[2023-09-07 13:52] LABS: Add Manual Diff / Slide Review NO; Basophils Absolute Auto 0 /uL (0-100); Basophils Percent Auto 0.4 % (0-2); Eosinophils Absolute Auto 0 /uL (0-450); Eosinophils Percent Auto 0.1 % (2-4); Hematocrit 42.3 % (41-53); Hemoglobin 14.2 g/dL (13.5-17.5); Lymphocytes Absolute Auto 1000 /uL (1100-4500); Mean Corpuscular HGB Conc 33.6 % (30-36); Mean Corpuscular Volume 86.5 fL (80-100); Monocytes Absolute Auto 1100 /uL (0-900); Monocytes Percent Auto 13.8 % (3-14); Neutrophils Absolute Auto 5700 /uL (1500-7000); Neutrophils Percent Auto 72.7 % (50-75); Platelet Count 186 X10^3/uL (150-400); Red Blood Cell Count 4.89 X10^6/uL (4.5-5.9); Red Cell Distribution Width 14.6 % (11.6-14.8); White Blood Cell Count 7.8 X10^3/uL (4.5-11.0)
[2023-09-07 13:58] LABS: PTT Partial Thromboplastin Tim 34 SECONDS (25.1-36.5)
[2023-09-07 14:02] LABS: Alanine Aminotransferase 26 IU/L (<50); Albumin 4.4 g/dL (3.5-5.0); Albumin Globulin Ratio 1.5 (1.0-2.8); Alkaline Phosphatase 66 U/L (38-126); Aspartate Aminotransferase 88 IU/L (17-59); BUN Creatinine Ratio 30.8 (6-22); Bilirubin Total 0.9 mg/dL (0.2-1.3); Blood Urea Nitrogen 28 mg/dL (9-20); Calcium 9.1 mg/dL (8.4-10.2); Carbon Dioxide 26 mmol/L (22-32); Chloride 105 mmol/L (98-107); Estimated Glomerular Filt Rate > 60 mL/min (>60); Globulin 2.9 g/dL (1.7-4.1); Glucose 100 mg/dL (80-110); HEMOLYSIS 67 (0-50); Magnesium 2.1 mg/dL (1.6-2.3); Potassium 4.2 mmol/L (3.4-5.1); Sodium 138 mmol/L (137-145); Total Protein 7.3 g/dL (6.3-8.2)
[2023-09-07 14:14] LABS: Troponin I < 0.012 ng/mL (0.01-0.034)
[2023-09-07 14:21] LABS: Creatine Kinase 3022 U/L (55-170)
--- NOTE | 2023-09-07 15:25 | PC.NURSE ---
pts found him down this morning at 0730 and its unclear how long he was down for or if he hit his head. pt is not responding to any questions about the fall. when asked if he was in any pain he pointed to his right shoulder
--- NOTE | 2023-09-07 15:34 | ED.FALL ---
HPI - Fall General Chief Complaint: Fall Stated Complaint: fall, unable to stand on his own Time Seen by Provider: 09/07/23 15:29 Source: family Mode of arrival: Wheelchair Limitations: altered mental status History of Present Illness HPI Narrative: Patient is an 83-year-old male. Presents to the emergency department with the financial services auditor and family members for evaluation of a fall. Unable to stand on his own, weakness and confusion. Family states that at baseline he is normally able to ambulate without assistance. He has had some memory issues in the past but is normally able to state his date, where he is and what year it is. Family states that last evening they checked on him about 130 in the morning. They did not check on him again until late this morning. They have found him lying next to his bed. He had been lying on his right arm. He has been unable to stand secondary to weakness. Patient is unable to provide any HPI. Family states he recently was treated for a urinary tract infection. Yesterday was his last dose of antibiotics. Related Data Home Medications Medication Instructions Recorded Confirmed coenzyme Q10 30 mg capsule 30 mg PO DAILY 09/07/23 09/07/23 fexofenadine 60 mg tablet (Kay 60 mg PO DAILY 09/07/23 09/07/23 Allergy) ibuprofen 200 mg tablet 200 mg PO Q6H PRN Pain (Scale 09/07/23 09/07/23 Score 4-6) multivit with minerals-iron 18 1 tab PO DAILY 09/07/23 09/07/23 mg-folic ac 400 mcg-vit K 25 mcg tablet (Adults Multivitamin) Previous Rx's Medication Instructions Recorded acetaminophen 325 mg tablet 650 mg (2 x 325 mg) PO Q6HR PRN 06/29/21 Fever/Mild Pain (1-3) #30 tabs Allergies Allergy/AdvReac Type Severity Reaction Status Date / Time Penicillins Allergy Unknown Verified 09/07/23 13:24 crab Allergy Verified 09/07/23 13:24 iodine Allergy Verified 09/07/23 13:24 latex Allergy Rash Verified 09/07/23 13:24 lactose AdvReac Mild Verified 09/07/23 13:24 Review of Systems Review of Systems ROS Unobtainable: Unobtainable due to mental status/LOC Patient History Medical History Stroke Hypertension Surgical History History of right hip replacement Family History Mother Myocardial infarction Father Myocardial infarction Social History household members: spouse Smoking Status: Never smoker alcohol intake: current Smoking Status: Never smoker alcohol intake frequency: holidays/special occasions only Substance Use Type: does not use Exam Initial Vital Signs Initial Vital Signs: Vital Signs Temperature 98.9 F 09/07/23 13:17 Pulse Rate 62 09/07/23 13:17 Respiratory Rate 18 09/07/23 13:17 Blood Pressure 156/68 H 09/07/23 13:17 Pulse Oximetry 98 09/07/23 13:17 Oxygen Delivery Method Room Air 09/07/23 13:17 Const General: cooperative and healthy appearing HENMT Head: normal to inspection Resp Effort & Inspection: normal respiratory effort Auscultation: clear to auscultation bilaterally Cardio Rate: regular rate Rhythm: regular rhythm GI Inspection: normal to inspection Skin Other: Bruising over the right shoulder and right flank Neuro Other: Patient is able to move all 4 extremities equally. He was able to follow commands. Does not know any orientation questions to include where he is, why he is here, what year it is, date Extrem Other: No apparent discomfort with movement of bilateral upper extremities or lower extremities Scores GCS [place] coma scale eye opening: Spontaneous Radha coma scale verbal response: Words Radha coma scale motor response: Obey commands [place] coma scale total score: 13 Course Orders Ordered: ED Orders 09/07/23 13:28 CT head/brain wo con Stat XR chest 1V Stat EKG-12 Lead Stat 09/07/23 13:40 Complete Blood Count AUTO DIFF Stat Comprehensive Metabolic Panel Stat Ethanol (ETOH) Stat Magnesium Stat PTT Partial Thromboplastin Jf Stat Prothrombin Time INR Stat Troponin & CK Cardiac Panel Stat 09/07/23 16:43 Urine Drug Screen, Rapid Stat 09/07/23 17:05 Ammonia (NH3) Stat Acetaminophen (Acetaminophen 325 Mg Tablet) 650 mg PO Q6H PRN PRN Reason: Fever/Mild Pain (1-3) Enoxaparin Sodium (Enoxaparin 40 Mg/0.4 Ml Syringe) 40 mg SUBCUT DAILY GORDON Hydralazine HCl (Hydralazine 20 Mg/Ml Vial) 10 mg IV Q6HR PRN PRN Reason: Hypertension Sodium Chloride (Normal Saline 0.9%) 1,000 mls @ 150 mls/hr IV CONT GORDON Last Admin: 09/07/23 16:23 Dose: 150 mls/hr Documented By: AKOSUA Naloxone HCl (Naloxone 0.4 Mg/Ml Vial) 0.2 mg IV Q2MIN PRN PRN Reason: Opiate Reversal Ondansetron HCl (Ondansetron 4 Mg/2 Ml Inj) 4 mg IV Q4HR PRN PRN Reason: nausea and vomiting Oxycodone HCl (Oxycodone Ir 5 Mg Tablet) 5 mg PO Q4HR PRN PRN Reason: Pain, Moderate (4-6) Oxycodone HCl (Oxycodone Ir 10 Mg Tablet) 10 mg PO Q4HR PRN PRN Reason: Pain, Severe (7-10) Discontinued Medications Ondansetron HCl (Ondansetron 4 Mg/2 Ml Inj) 4 mg IV NOW PRN PRN Reason: Nausea And Vomiting Ondansetron HCl (Ondansetron 4 Mg Odt) 4 mg SL NOW PRN PRN Reason: Nausea And Vomiting Vital Signs Vital signs: Vital Signs - 8 hr 09/07/23 13:17 09/07/23 15:02 09/07/23 15:03 Temperature 98.9 F Pulse Rate 62 67 Respiratory Rate 18 Blood Pressure 156/68 H 174/77 H Pulse Oximetry 98 98 Oxygen Delivery Method Room Air 09/07/23 15:07 09/07/23 15:07 09/07/23 15:30 Temperature Pulse Rate 66 Respiratory Rate Blood Pressure 169/74 H 158/70 H Pulse Oximetry 99 Oxygen Delivery Method 09/07/23 15:30 09/07/23 16:00 09/07/23 16:00 Temperature Pulse Rate 68 68 Respiratory Rate 16 16 Blood Pressure 167/76 H Pulse Oximetry 99 99 Oxygen Delivery Method 09/07/23 16:30 Temperature Pulse Rate 68 Respiratory Rate 22 Blood Pressure Pulse Oximetry 100 Oxygen Delivery Method MDM - Fall Medical Records Attestation: I reviewed the patient's medical records. Lab Data Attestation: I reviewed the patient's lab results. 09/07/23 13:40 06/24/24 13:40 Labs: Lab Results 09/07/23 Range/Units 13:40 WBC 7.8 (4.5-11.0) X10^3/uL RBC 4.89 (4.5-5.9) X10^6/uL Hgb 14.2 (13.5-17.5) g/dL Hct 42.3 (41-53) % MCV 86.5 (80-100) fL MCH 29.0 (26-34) PG MCHC 33.6 (30-36) % RDW 14.6 (11.6-14.8) % Plt Count 186 (150-400) X10^3/uL Neut % (Auto) 72.7 (50-75) % Lymph % (Auto) 13.0 L (25-40) % [place] % (Auto) 13.8 (3-14) % Eos % (Auto) 0.1 L (2-4) % Baso % (Auto) 0.4 (0-2) % Neut # (Auto) 5700 (5470-0491) /uL Lymph # (Auto) 1000 L (5716-2455) /uL [place] # (Auto) 1100 H (0-900) /uL Eos # (Auto) 0 (0-450) /uL Baso # (Auto) 0 (0-100) /uL PT 12.0 (9.4-12.5) SECONDS INR 1.0 (0.9-1.3) APTT 34 (25.1-36.5) SECONDS Sodium 138 (137-145) mmol/L Potassium 4.2 (3.4-5.1) mmol/L Chloride 105 (98-107) mmol/L Carbon Dioxide 26 (22-32) mmol/L BUN 28 H (9-20) mg/dL Creatinine 0.91 (0.66-1.25) mg/dL Estimated GFR > 60 (>60) mL/min BUN/Creatinine Ratio 30.8 H (6-22) Glucose 100 (80-110) mg/dL Calcium 9.1 (8.4-10.2) mg/dL Magnesium 2.1 (1.6-2.3) mg/dL Total Bilirubin 0.9 (0.2-1.3) mg/dL AST 88 H (17-59) IU/L ALT 26 (<50) IU/L Alkaline Phosphatase 66 (38-126) U/L Total Creatine Kinase 3022 H (55-170) U/L Troponin I < 0.012 (0.01-0.034) ng/mL Total Protein 7.3 (6.3-8.2) g/dL Albumin 4.4 (3.5-5.0) g/dL Globulin 2.9 (1.7-4.1) g/dL Albumin/Globulin Ratio 1.5 (1.0-2.8) Ethyl Alcohol < 10 ( - 10) mg/dL Imaging Data CT scan - head: Radiologist's Impression: PROCEDURE: CT HEAD/BRAIN WO CON INDICATIONS: Positive BE-FAST, Stroke symptoms TECHNIQUE: Noncontrast 4.5 mm thick angled axial sections acquired from the foramen magnum to the vertex, with coronal and sagittal reformats. For radiation dose reduction, the following was used: automated exposure control, adjustment of mA and/or kV according to patient size. COMPARISON: [facility], CT, CT HEAD WITHOUT CONTRAST, 01/10/2022, 20:06. CT, CT HEAD/BRAIN WO CON, 12/18/2022, 20:40. CT, CT ANGIO HEAD AND NECK, 12/18/2022, 20:40. FINDINGS: Image quality: Diagnostic. CSF spaces: Basal cisterns are patent. No extra-axial fluid collections. The ventricles are symmetric in size and shape. Brain: No intracranial bleeds or masses. There is cerebral volume loss for age, with resultant ventricular and sulcal prominence. There are periventricular and deep white matter chronic small vessel ischemic changes. There is intracranial internal carotid artery atherosclerosis. Encephalomalacia within the left anterior cerebellar hemisphere consistent with prior infarction, unchanged. Skull and face: Calvarium and visualized facial bones appear intact, without suspicious lesions. Sinuses: Visualized sinuses and mastoids demonstrate mild scattered mucosal thickening most prominent in the right maxillary sinus. Frontal sinuses are aplastic. IMPRESSION: 1. No acute intracranial process. 2. Moderate atrophy and chronic microvascular ischemic changes. Chest x-ray: Radiologist's Impression: PROCEDURE: XR CHEST 1V INDICATIONS: Possible stroke TECHNIQUE: One view of the chest was acquired. COMPARISON: [facility], CR, XR CHEST 1V, 08/03/2023, 13:48. FINDINGS: Surgical changes and devices: None. Lungs and pleura: Mild appearance of increased vascularity. Minimal left effusion. Mediastinum: Mediastinal contours appear normal. Heart size is mildly prominent. Bones and chest wall: No suspicious bony lesions. Overlying soft tissues appear unremarkable. IMPRESSION: Mild appearance of increased vascularity minimal left effusions suggestive of edema. ECG Data Attestation: I personally reviewed and interpreted this ECG as follows: Interpretation: Sinus rhythm Ventricular rate is 62 Normal axis Normal QRS Normal QTC No ST T wave changes MDM Narrative Medical decision making narrative: Patient is certainly confused which is not baseline for him. He was unable to provide any HPI or review of systems. He does have bruising throughout his right shoulder but has no apparent discomfort with movement of the right shoulder right elbow right wrist. His head CT is unremarkable. His lower extremities are unremarkable. Patient does have an elevation in his CK. Review his medical record shows that he has been treated with Cipro for a pansensitive E coli. A cath urinalysis was obtained here in the emergency department. Discussed the case with Dr. Cristobal hospitalist on-call who will admit for further evaluation and treatment. Discussed the need for admission with the family. They expressed understanding and agreement with plan. Discharge Plan Departure Patient Disposition: Admitted as Observation Clinical Impression: Rhabdomyolysis, Confusion Admit Date/Time: 09/07/23 16:33 Admit Provider: Ron Cristobal
[2023-09-07] MEDS: SODIUM CHLORIDE 0.9% 1,000 ML 150 ML IV ×2 (16:23→23:28)
--- NOTE | 2023-09-07 16:38 | P.HP_ITS ---
History of Present Illness History of Present Illness Date Patient Seen: 09/07/23 Time Patient Seen: 17:50 Chief complaint: fall, unable to stand on his own Narrative: 82 M with PMH of prior CVA without residual deficits, HTN, prior UTI with septic shock and just recently completed course of ciprofloxacin for a xie-sensitive E. coli yesterday who presented with altered mental status after being found in his bedroom next to his bed. According to his spouse, his head was in between his dresser and bed. He was not able to get up. He is usually very with in mentally but was and currently remains confused. He was also seen to be possibly shaking his hands and his R arm, though this did not continue. He cannot reliably state why he is in the hospital and cannot recall what happened currently. In the ER, patient was hypertensive but the remainder of his vitals were unremarkable. labs showed a CK of 3022. He was started on IV fluids, UA was negative for infection. CXR showed possible volume overload but no consolidations. Ammonia was undetectable. He was admitted for further evaluation and management of rhabdomyolysis. [facility] Medical History Stroke Hypertension Surgical History History of right hip replacement Family History Mother Myocardial infarction Father Myocardial infarction Social History household members: spouse Smoking Status: Never smoker Meds Home Medications and Allergies Home Medications Medication Instructions Recorded Confirmed Type acetaminophen 325 mg tablet 650 mg (2 x 325 mg) PO Q6HR PRN 06/29/21 09/07/23 Rx Fever/Mild Pain (1-3) #30 tabs coenzyme Q10 30 mg capsule 30 mg PO DAILY 09/07/23 09/07/23 History fexofenadine 60 mg tablet (Kay 60 mg PO DAILY 09/07/23 09/07/23 History Allergy) ibuprofen 200 mg tablet 200 mg PO Q6H PRN Pain (Scale 09/07/23 09/07/23 History Score 4-6) multivit with minerals-iron 18 1 tab PO DAILY 09/07/23 09/07/23 History mg-folic ac 400 mcg-vit K 25 mcg tablet (Adults Multivitamin) Allergies Allergy/AdvReac Type Severity Reaction Status Date / Time Penicillins Allergy Unknown Verified 09/07/23 13:24 crab Allergy Verified 09/07/23 13:24 iodine Allergy Verified 09/07/23 13:24 latex Allergy Rash Verified 09/07/23 13:24 lactose AdvReac Mild Verified 09/07/23 13:24 Review of Systems Review of Systems Narrative: All other systems reviewed with the patient and are negative unless otherwise stated. Exam Vital Signs (past 8 hours): - 09/07/23 13:17 09/07/23 15:02 09/07/23 15:03 Temperature 98.9 F Pulse Rate 62 67 Respiratory Rate 18 Blood Pressure 156/68 H 174/77 H Pulse Oximetry 98 98 Oxygen Delivery Method Room Air 09/07/23 15:07 09/07/23 15:07 09/07/23 15:30 Temperature Pulse Rate 66 Respiratory Rate Blood Pressure 169/74 H 158/70 H Pulse Oximetry 99 Oxygen Delivery Method 09/07/23 15:30 Temperature Pulse Rate 68 Respiratory Rate 16 Blood Pressure Pulse Oximetry 99 Oxygen Delivery Method Oxygen Delivery Method Room Air Narrative Exam Narrative: General:? Patient is well developed and well nourished, no acute distress HEENT:? Normocephalic, atraumatic, extraocular muscles intact, oral pharynx is clear and mucous membranes are moist. No tongue lacerations obvious Neck: supple and symmetric, trachea is midline, no cervical adenopathy. Chest:? Normal AP diameter and contour without kyphoscoliosis, no tachypnea, equal chest rise bilaterally. Lungs:? CTA b/l no wheezing rhonchi or rales. Cardio:?RRR no m/r/g. Abdomen: S NT ND. Musculoskeletal:? Muscle strength and tone are equal within normal limits, no deformity. No back tenderness or stepoffs. Extremities: trace pedal edema bilaterally. No cyanosis or clubbing. R upper arm ecchymosis, with tenderness. Neuro:? Alert and orientated x2,? sensation to touch intact in all extremities, no gross deficits noted of cranial nerves. Psych:? Patient has a well-kept appearance, appropriate affect, mental status attitude thought context and judgment are appropriate for age. Objective ECG Impression: NSR without acute ischemic changes Labs 09/07/23 13:40 09/07/23 13:40 Labs: Laboratory Results - last 24 hr 09/07/23 13:40 WBC 7.8 RBC 4.89 Hgb 14.2 Hct 42.3 MCV 86.5 MCH 29.0 MCHC 33.6 RDW 14.6 Plt Count 186 Neut % (Auto) 72.7 Lymph % (Auto) 13.0 L [place] % (Auto) 13.8 Eos % (Auto) 0.1 L Baso % (Auto) 0.4 Neut # (Auto) 5700 Lymph # (Auto) 1000 L [place] # (Auto) 1100 H Eos # (Auto) 0 Baso # (Auto) 0 PT 12.0 INR 1.0 APTT 34 Sodium 138 Potassium 4.2 Chloride 105 Carbon Dioxide 26 BUN 28 H Creatinine 0.91 Estimated GFR > 60 BUN/Creatinine Ratio 30.8 H Glucose 100 Calcium 9.1 Magnesium 2.1 Total Bilirubin 0.9 AST 88 H ALT 26 Alkaline Phosphatase 66 Total Creatine Kinase 3022 H Troponin I < 0.012 Total Protein 7.3 Albumin 4.4 Globulin 2.9 Albumin/Globulin Ratio 1.5 Assessment & Plan Assessment & Plan narrative: 1. Acute metabolic or toxic encephalopathy -unclear etiology but not currently at baseline mentation. -UA is clear though he just completed a course of antibiotics. Chest xray is without obvious infiltrates. -may be concussion or secondary to fall. Head CT with no bleeding or acute pathologies. Rarely can be reaction to fluoroquinolones. Another possibility could be seizure in setting of cipro use given elevated CK. - continue management of rhabdomyolysis as noted below. Monitor for seizure activity. - PT/OT tomorrow if hemodynamically stable. - will add a prolactin to labs, if elevated may be consistent with seizure. 2. Acute non-traumatic rhabdomyolysis. - given IV fluid bolus in the ER, continue NS at 150 cc, CK >3000 but no RUPERTO on presentation - continue to follow CK with morning labs - with R arm and shoulder bruising along with pain, check XR to rule out fracture. - pain control with tylenol and oxycodone for severe pain. 3. Essential hypertension - Not on home antihypertensives. Hypertensive on admit, possible from pain from fall. - hold currently on therapy, give IV hydralazine for now for SBP >180 Code: Full, surrogate is patient's spouse DVT: Lovenox daily I have utilized all available immediate resources to obtain, update, or review the patient's current medications. Dispo: patient admitted under inpatient status. Unclear if will be able to discharge home or possible SNF, will have PT/OT evaluations. Additional history obtained via discussions with the ER provider and spouse. These discussions contributed to the creation of the above assessment and plan. I have reviewed patient's presenting documentation, labs, and imaging personally.
[2023-09-07 16:55] LABS: Ethanol (ETOH) < 10 mg/dL
[2023-09-07 17:11] LABS: Appearance Urine UA CLEAR; Bilirubin Urine UA NEGATIVE (NEGATIVE); Color Urine UA YELLOW; Glucose Urine UA NEGATIVE (Negative); Ketones Urine UA TRACE (NEGATIVE); Leukocyte Esterase Urine UA NEGATIVE (NEGATIVE); Nitrite Urine UA NEGATIVE (Negative); Occult Blood Urine UA 1+ (Negative); Protein Urine UA NEGATIVE (Negative); Specific Gravity Urine UA >=1.030 (1.000-1.035); Urobilinogen Urine UA 0.2 E.U./dL (0.2); pH Urine UA 5.5 (4.5-8.0)
[2023-09-07 17:15] LABS: UR Morphine/Opiate cutoff 300 Negative (Negative); Ur Creatinine Normal (Normal); Ur Specific Gravity Normal (Normal); Urine Amphetamines Negative (Negative); Urine Barbiturates Negative (Negative); Urine Benzodiazepines Negative (Negative); Urine Cocaine Negative (Negative); Urine MDMA Negative (Negative); Urine Methadone Negative (Negative); Urine Methamphetamines Negative (Negative); Urine Oxycodone Negative (Negative); Urine Phencyclidine Negative (Negative); Urine Tetrahydrocannabinol Negative (Negative); Urine Tricyclic Antidepressant Negative (Negative); Urine pH Normal (Normal)
[2023-09-07 17:24] LABS: Ammonia (NH3) < 9 umol/L (9-30)
[2023-09-07 17:45] LABS: RBC Urine 0-1/HPF (0-5/HPF); Urine Volume 10mL (spun); WBC Urine 0-1/HPF (0-5/HPF)
[2023-09-07 17:46] LABS: Bacteria Urine Occasional (0-1); Culture Indicated Urine Cult Not Indicated; Squamous Epithelial Cell Urine 1-5 /HPF (0-5/HPF)
--- NOTE | 2023-09-07 17:58 | DI.RAD.S_ITS ---
PROCEDURE: XR HUMERUS RT 2V INDICATIONS: Fall R humeral / shoulder bruising and pain TECHNIQUE: 2 views of the humerus were acquired. COMPARISON: None. FINDINGS: Bones: No fractures or dislocations. No suspicious bony lesions. 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 Soft tissues: No suspicious soft tissue calcifications. IMPRESSION: No visualized acute fracture or dislocation. However, if clinical concern and/or pain persist, short interval imaging followup in 7-10 days is recommended, as occult injury cannot be definitively excluded. Dictated by: Lotus Bonilla M.D. on 09/07/2023 at 18:52 Approved by: Lotus Bonilla M.D. on 09/07/2023 at 18:53
--- NOTE | 2023-09-07 18:07 | DI.RAD.S_ITS ---
PROCEDURE: XR SHOULDER RT MIN 2V INDICATIONS: R shoulder pain after fall TECHNIQUE: 3 views of the shoulder were acquired. COMPARISON: None. FINDINGS: Bones: No fractures or dislocations. No suspicious bony lesions. Visualized ribs appear intact. Moderate to severe arthritic changes are present at the glenohumeral and acromioclavicular joint space. Prominent humeral osteophyte. Soft tissues: No suspicious soft tissue calcifications. IMPRESSION: Prominent arthritic changes. No visualized acute fracture or dislocation. However, if clinical concern and/or pain persist, short interval imaging followup in 7-10 days is recommended, as occult injury cannot be definitively excluded. Dictated by: Lotus Bonilla M.D. on 09/07/2023 at 18:48 Approved by: Lotus Bonilla M.D. on 09/07/2023 at 18:50
[2023-09-07 18:49] LABS: Prolactin 7.3 ng/mL (3.7-17.9)
[2023-09-08] VITALS (8 sets, daily range): BP systolic 120–168; BP diastolic 50–73; PULSE 56–66; RESP 15–19; TEMP 36.6–37.7; O2SAT 94–98
[2023-09-08 05:34] LABS: Add Manual Diff / Slide Review NO; Basophils Absolute Auto 0 /uL (0-100); Basophils Percent Auto 0.3 % (0-2); Eosinophils Absolute Auto 0 /uL (0-450); Eosinophils Percent Auto 0.4 % (2-4); Hematocrit 35.9 % (41-53); Hemoglobin 12.2 g/dL (13.5-17.5); Lymphocytes Absolute Auto 1200 /uL (1100-4500); Lymphocytes Percent Auto 22.5 % (25-40); Mean Corpuscular HGB Conc 33.9 % (30-36); Mean Corpuscular Hemoglobin 28.9 PG (26-34); Mean Corpuscular Volume 85.3 fL (80-100); Monocytes Absolute Auto 800 /uL (0-900); Monocytes Percent Auto 15.4 % (3-14); Neutrophils Absolute Auto 3200 /uL (1500-7000); Neutrophils Percent Auto 61.4 % (50-75); Platelet Count 162 X10^3/uL (150-400); Red Blood Cell Count 4.21 X10^6/uL (4.5-5.9); Red Cell Distribution Width 14.7 % (11.6-14.8); White Blood Cell Count 5.2 X10^3/uL (4.5-11.0)
[2023-09-08] MEDS: ACETAMINOPHEN 325 MG TABLET 650 MG PO ×2 (05:35→18:10)
[2023-09-08 06:06] LABS: BUN Creatinine Ratio 21.2 (6-22); Blood Urea Nitrogen 18 mg/dL (9-20); Calcium 7.9 mg/dL (8.4-10.2); Carbon Dioxide 26 mmol/L (22-32); Chloride 108 mmol/L (98-107); Estimated Glomerular Filt Rate > 60 mL/min (>60); Glucose 97 mg/dL (80-110); HEMOLYSIS < 15 (0-50); Magnesium 1.9 mg/dL (1.6-2.3); Sodium 134 mmol/L (137-145)
[2023-09-08 06:09] LABS: Creatine Kinase 2847 U/L (55-170)
[2023-09-08] MEDS: SODIUM CHLORIDE 0.9% 1,000 ML 150 ML IV ×3 (06:18→19:32)
[2023-09-08] MEDS: ENOXAPARIN 40 MG/0.4 ML SYRINGE SUBCUT (08:21)
[2023-09-08 12:23] LABS: COVID19 - ADMIT (NP swab/PCR) POSITIVE (Negative)
--- NOTE | 2023-09-08 13:15 | P.PN_ITS ---
Subjective Subjective Interval history: tested positive for COVID today, patient was swabbed and also positive. He is not short of breath, remains confused not oriented to month or year currently. CK is improved slightly. Exam Vital Signs (past 8 hours): - 09/08/23 05:35 09/08/23 06:20 09/08/23 08:00 Temperature 99.7 F H 98.9 F 97.9 F Pulse Rate 56 L Respiratory Rate 15 Blood Pressure 125/55 L Pulse Oximetry 96 Oxygen Delivery Method Oxygen Flow Rate 0 09/08/23 08:00 Temperature Pulse Rate Respiratory Rate Blood Pressure Pulse Oximetry 96 Oxygen Delivery Method Room Air Oxygen Flow Rate 0 Oxygen Delivery Method Room Air Oxygen Flow Rate 0 Narrative Exam Narrative: General:? Patient is well developed and well nourished, no acute distress HEENT:? Normocephalic, atraumatic, extraocular muscles intact, oral pharynx is clear and mucous membranes are moist. No tongue lacerations obvious Neck: supple and symmetric, trachea is midline, no cervical adenopathy. Chest:? Normal AP diameter and contour without kyphoscoliosis, no tachypnea, equal chest rise bilaterally. Lungs:? CTA b/l no wheezing rhonchi or rales. Cardio:?RRR no m/r/g. Abdomen: S NT ND. Musculoskeletal:? Muscle strength and tone are equal within normal limits, no deformity. No back tenderness or stepoffs. Extremities: trace pedal edema bilaterally. No cyanosis or clubbing. R upper arm ecchymosis, with tenderness. Neuro:? Alert and orientated x2,? sensation to touch intact in all extremities, no gross deficits noted of cranial nerves. Psych:? Patient has a well-kept appearance, appropriate affect, mental status attitude thought context and judgment are appropriate for age. Objective Labs 09/08/23 04:55 09/08/23 04:55 Labs: Laboratory Results - last 24 hr 09/07/23 09/07/23 09/07/23 13:40 16:43 16:43 WBC 7.8 RBC 4.89 Hgb 14.2 Hct 42.3 MCV 86.5 MCH 29.0 MCHC 33.6 RDW 14.6 Plt Count 186 Neut % (Auto) 72.7 Lymph % (Auto) 13.0 L [place] % (Auto) 13.8 Eos % (Auto) 0.1 L Baso % (Auto) 0.4 Neut # (Auto) 5700 Lymph # (Auto) 1000 L [place] # (Auto) 1100 H Eos # (Auto) 0 Baso # (Auto) 0 PT 12.0 INR 1.0 APTT 34 Sodium 138 Potassium 4.2 Chloride 105 Carbon Dioxide 26 BUN 28 H Creatinine 0.91 Estimated GFR > 60 BUN/Creatinine Ratio 30.8 H Glucose 100 Calcium 9.1 Magnesium 2.1 Total Bilirubin 0.9 AST 88 H ALT 26 Alkaline Phosphatase 66 Ammonia Total Creatine Kinase 3022 H Troponin I < 0.012 Total Protein 7.3 Albumin 4.4 Globulin 2.9 Albumin/Globulin Ratio 1.5 Prolactin Urine Color Yellow Urine Appearance Clear Urine pH 5.5 Normal Ur Specific [place] >=1.030 H Urine Protein Negative Urine Glucose (UA) Negative Urine Ketones Trace H Urine Occult Blood 1+ H Urine Nitrate Negative Urine Bilirubin Negative Urine Urobilinogen 0.2 Ur Leukocyte Esterase Negative Urine RBC 0-1/hpf Urine WBC 0-1/hpf Ur Squamous Epith Cells 1-5 /hpf Urine Bacteria Occasional (0-1) D Ur Culture Indicated? Cult not indicated Vol Urine Centrifuged 10ml (spun) U Opiates 300ng/mL cut Negative Ur Oxycodone Screen Negative Urine Methadone Screen Negative Ur Barbiturates Screen Negative U Tricyclic Antidepress Negative Ur Phencyclidine Scrn Negative Ur Amphetamines Screen Negative U Methamphetamines Scrn Negative Ur MDMA Scrn (Ecstasy) Negative U Benzodiazepines Scrn Negative Urine Cocaine Screen Negative U Marijuana (THC) Screen Negative Urine Specific [place] Normal Ethyl Alcohol < 10 Ur Creatinine Normal SARS-CoV-2 (PCR) 09/07/23 09/08/23 09/08/23 17:05 04:55 10:53 WBC 5.2 RBC 4.21 L Hgb 12.2 L Hct 35.9 L MCV 85.3 MCH 28.9 MCHC 33.9 RDW 14.7 Plt Count 162 Neut % (Auto) 61.4 Lymph % (Auto) 22.5 L [place] % (Auto) 15.4 H Eos % (Auto) 0.4 L Baso % (Auto) 0.3 Neut # (Auto) 3200 Lymph # (Auto) 1200 [place] # (Auto) 800 Eos # (Auto) 0 Baso # (Auto) 0 PT INR APTT Sodium 134 L Potassium 4.0 Chloride 108 H Carbon Dioxide 26 BUN 18 Creatinine 0.85 Estimated GFR > 60 BUN/Creatinine Ratio 21.2 Glucose 97 Calcium 7.9 L Magnesium 1.9 Total Bilirubin AST ALT Alkaline Phosphatase Ammonia < 9 L Total Creatine Kinase 2847 H Troponin I Total Protein Albumin Globulin Albumin/Globulin Ratio Prolactin 7.3 Urine Color Urine Appearance Urine pH Ur Specific [place] Urine Protein Urine Glucose (UA) Urine Ketones Urine Occult Blood Urine Nitrate Urine Bilirubin Urine Urobilinogen Ur Leukocyte Esterase Urine RBC Urine WBC Ur Squamous Epith Cells Urine Bacteria Ur Culture Indicated? Vol Urine Centrifuged U Opiates 300ng/mL cut Ur Oxycodone Screen Urine Methadone Screen Ur Barbiturates Screen U Tricyclic Antidepress Ur Phencyclidine Scrn Ur Amphetamines Screen U Methamphetamines Scrn Ur MDMA Scrn (Ecstasy) U Benzodiazepines Scrn Urine Cocaine Screen U Marijuana (THC) Screen Urine Specific [place] Ethyl Alcohol Ur Creatinine SARS-CoV-2 (PCR) Positive H [facility] Medical History Stroke Hypertension Surgical History History of right hip replacement Family History Mother Myocardial infarction Father Myocardial infarction Social History household members: spouse Smoking Status: Never smoker alcohol intake: current Assessment & Plan Assessment & Plan narrative: 1. Acute metabolic, less likely toxic encephalopathy -unclear etiology but not currently at baseline mentation. -UA is clear though he just completed a course of antibiotics. Chest xray is without obvious infiltrates. He is COVID positive so may be a covid encephalopathy. -may be concussion or secondary to fall. Head CT with no bleeding or acute pathologies. Rarely can be reaction to fluoroquinolones. Another possibility could be seizure in setting of cipro use given elevated CK. - continue management of rhabdomyolysis as noted below. Monitor for seizure activity. - PT/OT to continue - prolactin was within normal limits, seizure seems less likely at this time. - if no improvement tomorrow obtain to rule out subacute stroke leading to worsened confusion as there are no definitive stroke signs or symptoms on exam. 2. Acute non-traumatic rhabdomyolysis. - given IV fluid bolus in the ER, continue NS at 150 cc, CK >3000 but no RUPERTO on presentation - continue to follow CK with morning labs - with R arm and shoulder bruising along with pain, checked XR to rule out fracture which were negative. - pain control with tylenol and oxycodone for severe pain. 3. Essential hypertension - Not on home antihypertensives. Hypertensive on admit, possible from pain from fall. - hold currently on therapy, give IV hydralazine for now for SBP >180 - will start lisinopril starting tomorrow for persistently high BP today. 4. COVID 19 infection - continue supportive care. No respiratory symptoms currently. Code: Full, surrogate is patient's spouse DVT: Lovenox daily I have utilized all available immediate resources to obtain, update, or review the patient's current medications. Dispo: patient admitted under inpatient status. Unclear if will be able to discharge home or possible SNF, PT evaluations ordered. Additional history obtained via discussions with the spouse. These discussions contributed to the creation of the above assessment and plan. I have reviewed patient's presenting documentation, labs, and imaging personally. Quality VTE Deep Vein Thrombosis/Pulmonary Embolism Present on Admission: No
--- NOTE | 2023-09-08 15:29 | CM.DANOTE ---
DCP Assessment Note Pt is an 83yo M here after GLF at home. Pt with AMS/Rhabdo and found to be COVID pos. PCP Zaheer Charlton Payer M[facility] and self pay PERMIT COORDINATOR reviewed EMR. Per hospitalist in morning rounds, will hold off PT/OT evals until more appropriate. Plan is for MRI tomorrow (Thursday) if does not improve cognitively. Per RN, pt only oriented to self. Does not know , place, or circumstance. PERMIT COORDINATOR met with spouse in [facility] due to pt/spouse being COVID pos. Spouse reports they live together in [facility]. at baseline, spouse coming more forgetful and she helps with meal prep, med management, grooming, and IADLs. Pt walks 6 blocks twice a day with cane at baseline. They have a wheelchair. Two steps into house. Spouse reports hx of SNF at [facility] and Hx of HH with [facility]. At this point reviewing options for SNF preference and preference is [facility] if HH indicated. Based on how he is at the moment, spouse is hopeful for SNF placement due to weakness. PERMIT COORDINATOR reported to spouse pt's COVID diagnosis could be barrier to placement, spouse expressed understanding. Spouse reports hx of [facility]. PERMIT COORDINATOR gave spouse [employer] booklet for options in case interested in hiring CGs in home again. P: medical POC continues to develop. CM team will follow closely for PT/OT recs when appropriate. SNF vs HH referrals needed. CM team will follow closely. ARLEY Morrison Discharge Planning/Care Management CM Discharge Assessment Start: 09/08/23 15:25 Freq: Status: Active Protocol: Document 09/08/23 15:25 (Rec: 09/08/23 15:29 [id number]) Discharge Planning Assessment Assigned Millinery Teacher ARLEY Núñez DPOA/Assigned Designee Name Zulay, spouse Contact Information [phone] Advance Directives? Yes Advance Directives on File No History Provided By Family Member,Medical Record Prior Living Arrangements House Household Members spouse Type of transporation used prior to Relies on Others admit Independent with ADL's No Is patient alert and oriented? No Needs Assistance With Grooming,Meal Prep,Managing Medications,Home Chores / Shopping DME Already Rented / Owned Wheelchair,Cane Patient/Family Preference Nursing Home Facility Comment based on pt's current needs, spouse is hopeful for SNF placement Comment Family hopeful patient can go to SNF for short stay. Discharge Plan Nursing Home Facility Additional Comment pending PT/OT recs, will work with therapies when medically stable Inpatient Status as of 09/07/23 SNF/HH Preference hx of [facility], do not necessarily prefer there. Hx of [facility] and [facility], preference [facility] Has Agency SNF been contacted No Whiteboard Updated in Patient Room with No name and ext. # of Millinery Teacher Review Status In Process Please Provide Date Initial DC 09/08/23 Assessment Was Performed Next Review Type Continued Stay Review
[2023-09-08] MEDS: OXYCODONE IR 5 MG TABLET PO (18:52)
[2023-09-08] MEDS: polyethylene glycoL 3350 17 GM POWD.PACK PO (18:57)
[2023-09-08] MEDS: DOCUSATE 100 MG CAPSULE PO (20:56)
[2023-09-08] MEDS: SENNOSIDES 8.6 MG TABLET 17.2 MG PO (20:56)
[2023-09-09] VITALS (13 sets, daily range): BP systolic 131–182; BP diastolic 57–76; PULSE 54–67; RESP 14–20; TEMP 36.6–37.2; O2SAT 95–100
[2023-09-09] MEDS: SODIUM CHLORIDE 0.9% 1,000 ML 150 ML IV ×2 (02:16→09:01)
[2023-09-09] MEDS: HYDRALAZINE 20 MG/ML VIAL 10 MG IV (05:40)
[2023-09-09 06:44] LABS: Add Manual Diff / Slide Review NO; Basophils Absolute Auto 0 /uL (0-100); Basophils Percent Auto 0.5 % (0-2); Eosinophils Absolute Auto 0 /uL (0-450); Eosinophils Percent Auto 0.9 % (2-4); Hematocrit 37.6 % (41-53); Hemoglobin 12.9 g/dL (13.5-17.5); Lymphocytes Absolute Auto 1800 /uL (1100-4500); Lymphocytes Percent Auto 41.1 % (25-40); Mean Corpuscular HGB Conc 34.3 % (30-36); Mean Corpuscular Hemoglobin 29.3 PG (26-34); Mean Corpuscular Volume 85.4 fL (80-100); Monocytes Absolute Auto 600 /uL (0-900); Monocytes Percent Auto 12.8 % (3-14); Neutrophils Absolute Auto 2000 /uL (1500-7000); Neutrophils Percent Auto 44.7 % (50-75); Platelet Count 158 X10^3/uL (150-400); Red Cell Distribution Width 14.4 % (11.6-14.8); White Blood Cell Count 4.4 X10^3/uL (4.5-11.0)
[2023-09-09 06:54] LABS: BUN Creatinine Ratio 19.4 (6-22); Blood Urea Nitrogen 18 mg/dL (9-20); Calcium 7.7 mg/dL (8.4-10.2); Carbon Dioxide 27 mmol/L (22-32); Chloride 109 mmol/L (98-107); Estimated Glomerular Filt Rate > 60 mL/min (>60); Glucose 93 mg/dL (80-110); HEMOLYSIS < 15 (0-50); Magnesium 2.1 mg/dL (1.6-2.3); Sodium 139 mmol/L (137-145)
[2023-09-09] MEDS: DOCUSATE 100 MG CAPSULE PO ×2 (08:01→20:31)
[2023-09-09] MEDS: ENOXAPARIN 40 MG/0.4 ML SYRINGE SUBCUT (08:01)
[2023-09-09] MEDS: lisinopriL 10 MG TABLET PO (08:06)
[2023-09-09] MEDS: polyethylene glycoL 3350 17 GM POWD.PACK PO (08:07)
--- NOTE | 2023-09-09 13:35 | OT.IP.EVAL ---
Current Diagnoses Rhabdomyolysis (09/07/23) Past Medical History (Last Reviewed 09/07/23 @ 18:16 by Riley Leiva DO) Hypertension Stroke Surgical History (Last Reviewed 09/07/23 @ 16:39 by Ron Cristobal DO) History of right hip replacement Occupational Therapy Inpatient Evaluation/Re-Eval M1 PT/OT-IP Prior Functional Status Start: 09/09/23 13:44 Freq: NEEDED Status: Active Protocol: Document 09/09/23 13:44 [facility] (Rec: 09/09/23 14:01 [facility] [id number]) Medical Review Prior Functional Status Mobility and Gait Per ,pt uses a SPC at home for 95% of the time, otherwise use of FWW. Activities of Daily Living and IADL's Pt able to do his basic ADL needs, at times his to assist for completeness after toileting and SBA for safety for showering needs. Pt's does all the IADL needs. Social History Household Members spouse Living Arrangements House Number of Floors (Floors) Two Floors Number of Stairs To Enter/Railing? 2 steps with right rail to get into the house. Pt is able to stay on the main level. Home Environment High Toilet,Walk in Shower Home Equipment Front Wheel Walker,Four Wheel Walker,Straight Cane,Manual Wheelchair,Bedside Commode, Shower Seat with Backrest,Hand Held Shower Additional Social History Comment Per ,pt uses the BSC over the toilet at home. Pt has a standard walker pushed up against the wall for safety while showering at home and shower chair behind for safety . M2 OT-IP Current Condition Start: 09/09/23 13:44 Freq: Status: Active Protocol: Document 09/09/23 13:44 [facility] (Rec: 09/09/23 14:01 [facility] [id number]) Occupational Therapy Current Condition Current Condition Evaluation Date 09/09/23 Treatment Diagnosis Acute metabolic encephalopathy , COVID+ M3 OT- IP Subjective and Pain Start: 09/09/23 13:44 Freq: Status: Active Protocol: Document 09/09/23 13:44 [facility] (Rec: 09/09/23 14:01 [facility] [id number]) OT- Subjective Occupational Therapy Visit Type Type Initial Evaluation Visit Start Time 12:55 Visit Stop Time 13:35 Occupational Therapy Visit Comments Patient Comments Pt agreed to get up for OT eval and his was present in the room. Pt's also has COVID+ Patient/Caregiver Goals Pt's wanting pt to go to skilled rehab prior to going home. OT Pain Assessment Pain When Pain Assessed During Mobility Pain Present Pain Present Pain Reported Location Right Shoulder Pain Behaviors Holding Area M4 OT- IP ADL's Start: 09/09/23 13:44 Freq: Status: Active Protocol: Document 09/09/23 13:44 [facility] (Rec: 09/09/23 14:01 [facility] [id number]) OT [id number] Comments OT Self-Feeding Comments Not at meal time. OT ADL-Grooming Comments OT Grooming Comments NOt performed. OT ADL-Oral Care Comments Oral Care Comments Not performed. OT ADL-Dressing General Eval Lower Body Dressing Ability Maximum Assistance Comments OT Dressing Comments Pt needing assist to sid his socks and assist for all brief management needs at this time . OT ADL-Toileting General Evaluation Toileting Ability Maximum Assistance Areas Needing Assistance Manage Clothing,Perform Perineal Hygiene Comments OT Toileting Comments Pt incontinent of bowels and needing assist for all brief and hygiene needs at this time . OT ADL-Bathing Bathing Type Bathing Type Shower General Evaluation Bathing Ability Maximal Assistance Comments OT Bathing Comments Pt needing MAX vc and assist at this time. M5 OT- IP IADL's Start: 09/09/23 13:44 Freq: Status: Active Protocol: Document 09/09/23 13:44 [facility] (Rec: 09/09/23 14:01 [facility] [id number]) OT-Instrumental Activities of Daily Living Home Safety Awareness Awareness of Need for Assistance at Home Decreased Awareness Ability to Problem Solve Emergency Unable to Problem Solve Situations Medication Management Medication Management Caregiver Administers Money Management Money Management Caregiver Provides Assistance Meal Preparation Meal Preparation Caregiver Provides Assist Quality Control Expert Quality Control Expert Caregiver Provides Assist Driving Driving Caregiver Provides Assist M6 OT- IP Functional Cognition Start: 09/09/23 13:44 Freq: Status: Active Protocol: Document 09/09/23 13:44 [facility] (Rec: 09/09/23 14:01 [facility] [id number]) Cognitive Factors Limiting Selfcare Function Cognitive Ability Level of Alertness Alert,Confusional State Patient Orientation Name Attention Span Ability Capable of Focused Attention, Unable to Sustain Attention Ability to Follow Commands Able to Follow One Step Commands with Increased Time, Able to Follow One Step Commands with Repetition Memory Description Short Term Impaired,Working Impaired Cognitive Comments Cognitive Assessment Comments Pt is slow to initiate movements and follow commands. Pt however is very hard of hearing and per does not wear his hearing aids. Pt is impulsive and needing MAX vc for safety. OT- Vision and Hearing OT- Hearing Assessment OT- Hearing Assessment Hearing Impaired OT- Vision Assessment Visual Acuity Glasses For Reading Visual Attentiveness WFL Occular Pursuits WFL Vision Assessment Comments Pt is a little slower to scan to the left initially. M7 OT- IP Mobility and Balance Start: 09/09/23 13:44 Freq: Status: Active Protocol: Document 09/09/23 13:44 [facility] (Rec: 09/09/23 14:01 [facility] [id number]) OT-Transfer Assessment Sit to and From Stand Sit to and from Stand Contact Guard Assistance Transfers Transfer Ability Minimal Assistance,Moderate Assistance Technique Transfer Destination Bed,Bedside Commode,Shower Stall Transfer Technique Stand Step Pivot Devices Transfer Assistive Devices Gait Belt,Front Wheeled Walker Comments Mobility Comments CGA to stand and able to walk into the bathroom and MORENO to help guide the FWW and for his balance while turning. Pt needing MOD Ax2 to take a few steps backwards and suggested to nursing best to go in forwards into the shower. OT- Balance Assessment Sitting Balance and Reactions Static Sitting Balance Ability Good Dynamic Sitting Balance Ability Good Standing Balance and Reactions Static Standing Balance Ability Fair Dynamic Standing Balance Ability Poor M8 OT- IP Objective Assessments Start: 09/09/23 13:44 Freq: Status: Active Protocol: Document 09/09/23 13:44 [facility] (Rec: 09/09/23 14:01 [facility] [id number]) OT Gross Range of Motion Upper Extremity Range of Motion ROM Impairments grossly WFL OT Strength Comments Strength Comments BUE 4-/5 to 4/5 from proximal to distal. Pt complains of RUE soreness. OT- Coordination Assessment Comments Coordination Comments Slightly off for finger to nose with both R and L sides. M9 OT- IP Assessment and Plan Start: 09/09/23 13:44 Freq: Status: Active Protocol: Document 09/09/23 13:44 [facility] (Rec: 09/09/23 14:01 [facility] [id number]) OT Summary Assessment and Plan Potential Rehabilitation Potential Good Analytic Complexity at Evaluation Moderate Summary OT Impairments Pain,Strength,Balance, Functional Cognition, Functional Mobility,Self- Feeding,Grooming,Dressing, Toileting,Bathing,Toilet Transfers,Shower Transfers, Activity Tolerance Progress Towards Goals Slow Progress due to Pain,Slow Progress due to Medical Issues,Slow Progress due to Activity Tolerance,Slow Progress due to Cognition Assessment Summary Pt MOD complexity and main barriers are weakness, decreased balance , having more difficulty time to follow commands and now needing more assist 1-2 person assist for dressing, toileting, and bathing needs at this time due to weakness, decreased balance and increased difficulty to follow commands . Pt would benefit from rehab at this time to help return to his baseline of supervision for ADL and mobility with SPC. Currently pt's has COVID and not able to assist him as not feeling well herself. Goals Self-Feeding Goal Standby Assistance Grooming Goal Standby Assistance Dressing Goal Minimal Assistance Toileting Goal Standby Assistance Bathing Goal Minimal Assistance Toilet Transfer Goal Standby Assistance Shower Transfer Goal Minimal Assistance Days to Meet Goals 20 Frequency of Treatment Frequency Of Treatment Once a Day Treatment Plan OT Treatment Plan ADL Training,Functional Cognition Training,Functional Mobility,Patient/Family Education,Discharge Planning Other Treatment Recommendations and Next Standing at sink for ADL's to Treatment Focus help increase activity tolerance Discharge Recommendations OT Discharge Recommendations SNF Rehab Transportation Needs at Discharge Wheelchair/Cabulance
--- NOTE | 2023-09-09 13:57 | PM.PN.1 ---
Subjective Subjective Interval history: Patient without complaints today, he is still confused. Ordered MRI to rule out CVA. Exam Vital Signs (past 8 hours): - 09/09/23 06:25 09/09/23 08:00 09/09/23 08:06 Temperature 98.9 F Pulse Rate 60 64 Respiratory Rate 14 Blood Pressure 171/69 H 148/68 H 148/68 H Pulse Oximetry 98 Oxygen Delivery Method Oxygen Flow Rate 0 09/09/23 09:00 09/09/23 12:00 09/09/23 13:00 Temperature 98.8 F Pulse Rate 67 Respiratory Rate 16 Blood Pressure 131/74 Pulse Oximetry 98 99 99 Oxygen Delivery Method Room Air Room Air Oxygen Flow Rate 0 0 0 Oxygen Delivery Method Room Air Oxygen Flow Rate 0 Narrative Exam Narrative: General:? Patient is well developed and well nourished, no acute distress HEENT:? Normocephalic, atraumatic, extraocular muscles intact, oral pharynx is clear and mucous membranes are moist. No tongue lacerations obvious Neck: supple and symmetric, trachea is midline, no cervical adenopathy. Chest:? Normal AP diameter and contour without kyphoscoliosis, no tachypnea, equal chest rise bilaterally. Lungs:? CTA b/l no wheezing rhonchi or rales. Cardio:?RRR no m/r/g. Abdomen: S NT ND. Musculoskeletal:? Muscle strength and tone are equal within normal limits, no deformity. No back tenderness or stepoffs. Extremities: trace pedal edema bilaterally. No cyanosis or clubbing. R upper arm ecchymosis, with tenderness. Neuro:? Alert and orientated x2,? sensation to touch intact in all extremities, no gross deficits noted of cranial nerves. Psych:? Patient has a well-kept appearance, appropriate affect, mental status attitude thought context and judgment are appropriate for age. Objective Labs 09/09/23 05:25 09/09/23 05:25 Labs: Laboratory Results - last 24 hr 09/09/23 05:25 WBC 4.4 L RBC 4.40 L Hgb 12.9 L Hct 37.6 L MCV 85.4 MCH 29.3 MCHC 34.3 RDW 14.4 Plt Count 158 Neut % (Auto) 44.7 L Lymph % (Auto) 41.1 H [place] % (Auto) 12.8 Eos % (Auto) 0.9 L Baso % (Auto) 0.5 Neut # (Auto) 2000 Lymph # (Auto) 1800 [place] # (Auto) 600 Eos # (Auto) 0 Baso # (Auto) 0 Sodium 139 Potassium 4.0 Chloride 109 H Carbon Dioxide 27 BUN 18 Creatinine 0.93 Estimated GFR > 60 BUN/Creatinine Ratio 19.4 Glucose 93 Calcium 7.7 L Magnesium 2.1 [facility] Medical History Stroke Hypertension Surgical History History of right hip replacement Family History Mother Myocardial infarction Father Myocardial infarction Social History household members: spouse Smoking Status: Never smoker alcohol intake: current Assessment & Plan Assessment & Plan narrative: 1. Acute metabolic, less likely toxic encephalopathy -unclear etiology but not currently at baseline mentation. -UA is clear though he just completed a course of antibiotics. Chest xray is without obvious infiltrates. He is COVID positive so may be a covid encephalopathy. -may be concussion or secondary to fall. Head CT with no bleeding or acute pathologies. Rarely can be reaction to fluoroquinolones. Another possibility could be seizure in setting of cipro use given elevated CK. - prolactin was within normal limits, seizure seems less likely at this time. - continue management of rhabdomyolysis as noted below. Monitor for seizure activity. - PT/OT to continue - given no improvement will obtain MRI to rule out subacute stroke leading to worsened confusion as there are no definitive stroke signs or symptoms on exam except for imbalance leading to fall. 2. Acute non-traumatic rhabdomyolysis. - given IV fluid bolus in the ER, continue NS at 150 cc, CK >3000 but no RUPERTO on presentation. Cr stable the last few days. - continue to follow CK with morning labs, repeat ordered for tomorrow. - with R arm and shoulder bruising along with pain, checked XR of humerus and shoulder to rule out fracture which were negative. - pain control with tylenol and oxycodone for severe pain. 3. Essential hypertension - Not on home antihypertensives. Hypertensive on admit, possible from pain from fall. - hold currently on therapy, give IV hydralazine for now for SBP >180 - will start lisinopril starting tomorrow for persistently high BP today. 4. COVID 19 infection - continue supportive care. No respiratory symptoms currently. Code: Full, surrogate is patient's spouse DVT: Lovenox daily I have utilized all available immediate resources to obtain, update, or review the patient's current medications. Dispo: patient admitted under inpatient status. Unclear if will be able to discharge home or possible SNF, PT evaluations ordered. Additional history obtained via discussions with the spouse. These discussions contributed to the creation of the above assessment and plan. I have reviewed patient's presenting documentation, labs, and imaging personally. Quality VTE Deep Vein Thrombosis/Pulmonary Embolism Present on Admission: No
--- NOTE | 2023-09-09 15:55 | PT.IIE ---
Current Diagnoses Rhabdomyolysis (09/07/23) Surgical History (Last Reviewed 09/07/23 @ 16:39 by Ron Cristobal DO) History of right hip replacement Medical History (Last Reviewed 09/07/23 @ 18:16 by Riley Leiva DO) Hypertension Stroke Physical Therapy Inpatient Evaluation/Re-Eval M1 PT/OT-IP Prior Functional Status Start: 09/09/23 18:30 Freq: NEEDED Status: Active Protocol: Document 09/09/23 15:55 AB (Rec: 09/09/23 18:46 AB [id number]) Medical Review Prior Functional Status Medical History Reviewed Yes Communication able to make needs known; needs time to respond to questions Mobility and Gait pt stated that he was modified independent with all mobilities and ambulation without AD but occasionally uses his hurrycane Activities of Daily Living and IADL's per OT note: Pt able to do his basic ADL needs, at times his to assist for completeness after toileting and SBA for safety for shoering needs. Pt's does all the IADL needs. Social History Household Members spouse Living Arrangements House Number of Floors (Floors) Two Floors Number of Stairs To Enter/Railing? pt stays on main level of the house pt unable to recall how many steps he has to enter the house but from previous PT eval: 2 steps without rails Home Environment Standard Height Toilet,Walk in Shower Home Equipment Straight Cane,Shower Seat with Backrest,Hand Held Shower, Grab Bars Near Toilet,Grab Bars In Shower Additional Social History Comment Pt uses the BSC over the toilet at home. Pt has a standard walker pushed up against the wall for safety while showering at home and shower chair behind for safety . M2 PT-IP Current Condition Start: 09/09/23 18:30 Freq: NEEDED Status: Active Protocol: Document 09/09/23 15:55 AB (Rec: 09/09/23 18:46 AB [id number]) Physical Therapy Current Condition Current Condition Evaluation Date 09/09/23 Treatment Diagnosis s/p fall; acute encephalopathy ; Covid; difficulty in walking Onset Date 09/07/23 M3 PT-IP Subjective Start: 09/09/23 18:30 Freq: NEEDED Status: Active Protocol: Document 09/09/23 15:55 AB (Rec: 09/09/23 18:46 AB [id number]) Subjective Physical Therapy Visit Type Type Initial Evaluation Visit Start Time 15:55 Visit Stop Time 16:35 Number of SAND BOBBER Visits 0 Physical Therapy Visit Comments Patient Comments agreeable to do PT Therapy Pain Assessment Pain Present Pain Present Denied Pain M4 PT-IP Mobility and Gait Start: 09/09/23 18:30 Freq: NEEDED Status: Active Protocol: Document 09/09/23 15:55 AB (Rec: 09/09/23 18:46 AB [id number]) PT-Bed Mobility Assessment Supine to Sit Supine to Sit Standby Assistance Sit to Supine Sit to Supine Standby Assistance PT-Transfer Assessment Sit to and From Stand Sit to and from Stand Minimal Assistance,1 Person Assistance,Use of Upper Extremities Equipment Transfer Assistive Device Gait Belt,Front Wheeled Walker Orthotic/Prosthetic Devices or Brace: No Transfers Transfer Destination Bed,Chair Transfer Technique ambulated Transfer Ability Level of Assist Minimal Assistance,1 Person Assistance,Use of Upper Extremities Comments Mobility Comments pt sitting on the chair and agreeable to do PT. obtained PLOF and home set up from pt but pt has memory issues and was pt was uncertain regarding info he provided. pt completed sit to stand from the chair min A and cues and ambulated in room ~ 15 ft using FWW min A and cues. presents with unsteady, narrow based gait and pt tends to push FWW too far forward. pt sat on EOB and completed sit < >supine SBA. pt completed sit to stand from the chair min A and ambulated back to the chair using fWW min A and cues . positioned pt back on the chair. call light and table placed within reach. Gait Assessment Gait Gait Assistance Required: Minimum Assistance,1 Person Assist Distance (Feet) 15 Able to Maintain Weight Bearing Status Yes During Gait Assistive Devices Assistive Device Gait Belt,Front Wheeled Walker Orthotic/Prosthetic Devices or Brace: No Gait Deviations General Gait Pattern Decreased Stride Length, Decreased Feet Clearance, Narrow Based Gait,Step-to Gait Factors Limiting Gait Function Factors Limiting Gait Function Decreased Activity Tolerance, Decreased Strength,Difficulty Following Directions,Limited Range of Motion,Poor Balance, Poor Safety Awareness PT-Balance Assessment Sitting Balance and Reactions Static Sitting Balance Ability Good Dynamic Sitting Balance Ability Good Standing Balance and Reactions Static Standing Balance Ability Fair Dynamic Standing Balance Ability Fair Device Used FWW M5 PT-IP Objective Assessments Start: 09/09/23 18:30 Freq: NEEDED Status: Active Protocol: Document 09/09/23 15:55 AB (Rec: 09/09/23 18:46 AB [id number]) Orientation Orientation/Cognition Level of Alertness Confusional State Orientation Name Safety Awareness Decreased Safety Awareness Memory Description Short Term Impaired,[facility] Impaired Gross Range of Motion Lower Extremity ROM Assessment Within Functional Limits Strength Lower Extremity Strength Assessment Within Functional Limits Muscle Tone Muscle Tone WNL Yes M6 PT-IP Treatment Start: 09/09/23 18:30 Freq: NEEDED Status: Active Protocol: Document 09/09/23 15:55 AB (Rec: 09/09/23 18:46 AB [id number]) Physical Therapy Treatment Education Education Provided Safety M7 PT-IP Assessment and Plan Start: 09/09/23 18:30 Freq: NEEDED Status: Active Protocol: Document 09/09/23 15:55 AB (Rec: 09/09/23 18:46 AB [id number]) PT Summary Assessment and Plan Potential Rehabilitation Potential Fair Status of Condition at Evaluation Evolving Summary Impairments Pain,ROM,Strength,Balance, Coordination,Sensation,Tone, Cognition,Bed Mobility, Transfers,Gait,Activity Tolerance Assessment Summary pt is an 83 y/o M s/p fall and presented with increase confusion. pt admitted for acute encephalopathy, rhabdomyolysis and also found to be COVID (+). pt requiring min A with transfers and ambulation using FWW. pt stated that spouse will be able to assist him if needed. will continue to assess progress. Goals Bed Mobility Goal Independent Transfer Goal Independent,Front Wheeled Walker Gait Goal Independent,Front Wheel Walker Gait Distance 200 Other Goals improve transfers and ambulation using LRAD 300 ft mod I up/down 2 steps using LRAD mod I Days to Meet Goals 10 Frequency of Treatment Frequency Of Treatment Once a Day Treatment Plan Physical Therapy Treatment Plan Bed Mobility Training,Transfer Training,Gait Training, Therapeutic Exercise,Balance Retraining,Discharge Planning, Hot or Cold Pack,Neuromuscular Re-ed,Coordination Retraining Precautions Other Precautions Covid; falls Recommendations To Nursing Amount of Assist Needed 1 Person Assist Discharge Recommendations PT Discharge Recommendations Home with 06/10 Assist Available,Home Health Transportation Needs at Discharge Private Vehicle
--- NOTE | 2023-09-09 15:56 | CM.DPNOTE ---
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 Per OT, rec SNF. PT eval pending. Per RN, pt more alert today. Still confused. LAUNDRY OPERATOR WASH ROOM spoke wth spouse briefly on phone ([phone]). Spouse reports being very sick with COVID herself. Reviewed SNF preferences, spouse reports preference is as close to home as possible but really wants pt to get SNF rehab wherever will take him with COVID. With his ins, need both PT and OT eval for referral to complete authorization. Due to triaging needs, unable to place official referrals today for review. PASRR needed. P: spouse hopeful for SNF placement ([facility] vs [facility] ([facility] main preference but are case by case basis with ins). Referral needed. PASRR needed. CM team will continue to follow clsoely. Hallie Moncada, ARLEY
--- NOTE | 2023-09-09 20:00 | DI.MRI.S_ITS ---
PROCEDURE: MR HEAD/BRAIN WO CON INDICATIONS: persistent confusion, imbalance, r/o cva TECHNIQUE: Non-contrast axial T1 spin echo, axial T2 fast spin echo, sagittal and axial FLAIR, coronal T2 fast spin echo, axial gradient echo, axial diffusion and ADC through the brain. COMPARISON: [facility], , MR HEAD/BRAIN WO CON, 12/19/2022, 7:23. FINDINGS: Image quality: Excellent. CSF spaces: Ventricles are prominent, mildly out of proportion to the gyral and sulcal atrophy. Basal cisterns are patent. No extra-axial fluid collections. Brain: No intracranial bleeds or mass effects. There is cerebral volume loss for age. There are periventricular and deep white matter chronic small vessel ischemic changes. Brainstem appears normal. Diffusion-weighted images show no acute infarct. No chronic ischemic insults. Normal intravascular flow voids are present. Skull and face: Calvarial bone marrow is normal in signal. Orbits are normal. Sinuses: Moderate right maxillary sinus and ethmoid air cell mucosal thickening. The mastoids are clear. IMPRESSION: No acute or subacute infarct. No acute intracranial abnormalities. Redemonstration of ventricular prominence out of proportion to gyral and sulcal atrophy. A nonspecific finding which can be seen with normal pressure hydrocephalus and clinical correlation is recommended. Moderate chronic microvascular ischemic changes. Dictated by: Spencer Fraire M.D. on 09/09/2023 at 19:31 Approved by: Spencer Fraire M.D. on 09/09/2023 at 19:33
[2023-09-09] MEDS: SENNOSIDES 8.6 MG TABLET 17.2 MG PO (20:31)
[2023-09-10] VITALS (12 sets, daily range): BP systolic 109–166; BP diastolic 47–68; PULSE 56–63; RESP 16–17; TEMP 36.1–36.7; O2SAT 95–98
[2023-09-10] MEDS: SODIUM CHLORIDE 0.9% 1,000 ML 75 ML IV (03:40)
[2023-09-10 06:47] LABS: Add Manual Diff / Slide Review NO; Basophils Absolute Auto 0 /uL (0-100); Basophils Percent Auto 0.4 % (0-2); Eosinophils Absolute Auto 100 /uL (0-450); Eosinophils Percent Auto 1.4 % (2-4); Hematocrit 36.5 % (41-53); Hemoglobin 12.5 g/dL (13.5-17.5); Lymphocytes Absolute Auto 1700 /uL (1100-4500); Lymphocytes Percent Auto 42.5 % (25-40); Mean Corpuscular HGB Conc 34.2 % (30-36); Mean Corpuscular Hemoglobin 28.8 PG (26-34); Mean Corpuscular Volume 84.1 fL (80-100); Monocytes Absolute Auto 600 /uL (0-900); Monocytes Percent Auto 14.2 % (3-14); Neutrophils Absolute Auto 1700 /uL (1500-7000); Neutrophils Percent Auto 41.5 % (50-75); Platelet Count 150 X10^3/uL (150-400); Red Blood Cell Count 4.34 X10^6/uL (4.5-5.9); Red Cell Distribution Width 14.8 % (11.6-14.8)
[2023-09-10 06:52] LABS: Creatine Kinase 1252 U/L (55-170)
[2023-09-10 06:56] LABS: BUN Creatinine Ratio 20.8 (6-22); Blood Urea Nitrogen 16 mg/dL (9-20); Carbon Dioxide 24 mmol/L (22-32); Chloride 109 mmol/L (98-107); Estimated Glomerular Filt Rate > 60 mL/min (>60); Glucose 93 mg/dL (80-110); HEMOLYSIS < 15 (0-50); Potassium 3.3 mmol/L (3.4-5.1); Sodium 138 mmol/L (137-145)
--- NOTE | 2023-09-10 08:23 | P.PN_ITS ---
Subjective Subjective Interval history: S: He feels well today. He does have a dry cough. No dyspnea. He denies rhinorrhea, or sore throat. He does have diarrhea. His is also will ill with COVID. His daughter feels his confusion is much better than yesterday, yet not quite back to baseline. From Cristobal: Interval history: Patient without complaints today, he is still confused. Ordered MRI to rule out CVA. Exam Vital Signs (past 8 hours): - 09/10/23 01:00 09/10/23 04:00 09/10/23 05:00 Temperature 97.0 F L Pulse Rate 56 L Respiratory Rate 17 Blood Pressure 166/68 H Pulse Oximetry 96 95 98 Oxygen Delivery Method Room Air Room Air Oxygen Flow Rate 0 0 0 Oxygen Delivery Method Room Air Oxygen Flow Rate 0 Narrative Exam Narrative: NAD, alert and oriented. Fluent speech. Lungs are clear, normal rate and effort. Heart is regular, no murmur gallop or rub. Abdomen is soft, non distended. Extremities are free of edema. Objective Labs 09/10/23 05:20 09/10/23 05:20 Labs: Laboratory Results - last 24 hr 09/10/23 05:20 WBC 4.0 L RBC 4.34 L Hgb 12.5 L Hct 36.5 L MCV 84.1 MCH 28.8 MCHC 34.2 RDW 14.8 Plt Count 150 Neut % (Auto) 41.5 L Lymph % (Auto) 42.5 H Emery % (Auto) 14.2 H Eos % (Auto) 1.4 L Baso % (Auto) 0.4 Neut # (Auto) 1700 Lymph # (Auto) 1700 Emery # (Auto) 600 Eos # (Auto) 100 Baso # (Auto) 0 Sodium 138 Potassium 3.3 L Chloride 109 H Carbon Dioxide 24 BUN 16 Creatinine 0.77 Estimated GFR > 60 BUN/Creatinine Ratio 20.8 Glucose 93 Calcium 8.0 L Magnesium 2.0 Total Creatine Kinase 1252 [facility] Medical History Stroke Hypertension Surgical History History of right hip replacement Family History Mother Myocardial infarction Father Myocardial infarction Social History household members: spouse Smoking Status: Never smoker alcohol intake: current Assessment & Plan Assessment & Plan narrative: Assessment & Plan narrative: 1. Acute metabolic encephalopathy, present on admission and improving. -UA is clear though he just completed a course of antibiotics. Chest xray is without obvious infiltrates. He is COVID positive so may be a covid encephalopathy. -continue management of rhabdomyolysis as noted below. Monitor for seizure activity. 2. Acute non-traumatic rhabdomyolysis, present on admission and improving. - given IV fluid bolus in the ER, continue NS at 150 cc, CK >3000 but no RUPERTO on presentation. Cr stable the last few days. - continue to follow CK with morning labs, 1252 today. - with R arm and shoulder bruising along with pain, checked XR of humerus and shoulder to rule out fracture which were negative. 3. Essential hypertension, present on admission and active. - Not on home antihypertensives. Hypertensive on admit, possible from pain from fall. -monitor, BARBI 113/59 this AM. 4. COVID 19 infection (cough), present on admission and active. - continue supportive care. No respiratory symptoms currently. PLAN: -continue supportive care, MRI negative. -OOB, PT and OT. -Discharge planning. -Covid isolation. Code: Full, surrogate is patient's spouse DVT: Lovenox daily Dispo: patient admitted under inpatient status. Unclear if will be able to discharge home or possible SNF, PT evaluations ordered. Quality VTE Deep Vein Thrombosis/Pulmonary Embolism Present on Admission: No
[2023-09-10] MEDS: lisinopriL 10 MG TABLET PO (09:27)
[2023-09-10] MEDS: ENOXAPARIN 40 MG/0.4 ML SYRINGE SUBCUT (09:27)
--- NOTE | 2023-09-10 11:20 | PT.IPTN ---
Current Diagnoses Rhabdomyolysis (09/07/23) Physical Therapy Treatment Note M2 PT-IP Current Condition Start: 09/09/23 18:30 Freq: NEEDED Status: Active Protocol: Document 09/09/23 15:55 AB (Rec: 09/09/23 18:46 AB [id number]) Physical Therapy Current Condition Current Condition Evaluation Date 09/09/23 Treatment Diagnosis s/p fall; acute encephalopathy ; Covid; difficulty in walking Onset Date 09/07/23 M3 PT-IP Subjective Start: 09/09/23 18:30 Freq: NEEDED Status: Active Protocol: Document 09/10/23 11:49 TS (Rec: 09/10/23 12:11 TS [id number]) Subjective Physical Therapy Visit Type Type Treatment Note Visit Start Time 11:20 Visit Stop Time 11:44 Number of CAD ADMINISTRATOR Visits 1 Physical Therapy Visit Comments Patient Comments Pt found resting in chair, continues to have confusion but did recall where he was. Pt is agreeable to PT. M4 PT-IP Mobility and Gait Start: 09/09/23 18:30 Freq: NEEDED Status: Active Protocol: Document 09/10/23 11:49 TS (Rec: 09/10/23 12:11 TS [id number]) PT-Transfer Assessment Sit to and From Stand Sit to and from Stand Contact Guard Assistance,1 Person Assistance,Use of Upper Extremities Equipment Transfer Assistive Device Gait Belt,Front Wheeled Walker Orthotic/Prosthetic Devices or Brace: No Comments Mobility Comments Pt is impulsive to stand before therapist is ready with FWW even when instructed to do so. STS from chair with FWW CGA, pt has a slight posterior lean. He ambulated in room ~80'SBA with FWW, requries cues for FWW management and turning with FWW. He performed steps x5 CGA with B rails, cues provided for foot fully on step. Pt sat back in chair, performed seated marches, knee flex/ext and seated heel/toe lifts. Pt was left in chair, alarm on, all needs met. Gait Assessment Gait Gait Assistance Required: Standby Assistance Distance (Feet) 80 Able to Maintain Weight Bearing Status Yes During Gait Assistive Devices Assistive Device Gait Belt,Front Wheeled Walker Orthotic/Prosthetic Devices or Brace: No Gait Deviations General Gait Pattern Decreased Stride Length, Decreased Feet Clearance, Narrow Based Gait,Step-to Gait Factors Limiting Gait Function Factors Limiting Gait Function Decreased Activity Tolerance, Decreased Strength,Difficulty Following Directions,Limited Range of Motion,Poor Balance, Poor Safety Awareness Stair Climbing Assessment Evaluation Level of Assist On Stairs Contact Guard Assistance Devices Stair Climbing Assistive Devices Left Railing,Right Railing Technique/Endurance Stair Climbing Direction Ascend and Descend Stair Climbing Technique Step to Step Number of Steps Climbed 5 PT-Balance Assessment Sitting Balance and Reactions Static Sitting Balance Ability Good Dynamic Sitting Balance Ability Good Standing Balance and Reactions Static Standing Balance Ability Fair Dynamic Standing Balance Ability Fair Device Used FWW M5 PT-IP Objective Assessments Start: 09/09/23 18:30 Freq: NEEDED Status: Active Protocol: Document 09/09/23 15:55 AB (Rec: 09/09/23 18:46 AB [id number]) Orientation Orientation/Cognition Level of Alertness Confusional State Orientation Name Safety Awareness Decreased Safety Awareness Memory Description Short Term Impaired,[facility] Impaired Gross Range of Motion Lower Extremity ROM Assessment Within Functional Limits Strength Lower Extremity Strength Assessment Within Functional Limits Muscle Tone Muscle Tone WNL Yes M6 PT-IP Treatment Start: 09/09/23 18:30 Freq: NEEDED Status: Active Protocol: Document 09/10/23 11:49 TS (Rec: 09/10/23 12:11 TS [id number]) Physical Therapy Treatment Education Education Provided Safety M7 PT-IP Assessment and Plan Start: 09/09/23 18:30 Freq: NEEDED Status: Active Protocol: Document 09/10/23 11:49 TS (Rec: 09/10/23 12:11 TS [id number]) PT Summary Assessment and Plan Potential Rehabilitation Potential Fair Summary Impairments Pain,ROM,Strength,Balance, Coordination,Sensation,Tone, Cognition,Bed Mobility, Transfers,Gait,Activity Tolerance Progress Towards Goals Progressing Toward Goals Assessment Summary Rickie is making progress with his mobility. He progressed his gait to ~80'SBA with FWW. He is unsteady and requires cues for safety with use of FWW. He performed steps x5 CGA . Pt continues to have confusion but did recall where he was. Salvatore assists pt in answering questions. PT is recommending Home with 24/ assist and HHPT. Pt would benefit from a manager intermediate care plan, possibly memory care. Goals Bed Mobility Goal Independent Transfer Goal Independent,Front Wheeled Walker Gait Goal Independent,Front Wheel Walker Gait Distance 200 Other Goals improve transfers and ambulation using LRAD 300 ft mod I up/down 2 steps using LRAD mod I Days to Meet Goals 10 Frequency of Treatment Frequency Of Treatment Once a Day Treatment Plan Physical Therapy Treatment Plan Bed Mobility Training,Transfer Training,Gait Training, Therapeutic Exercise,Balance Retraining,Discharge Planning, Hot or Cold Pack,Neuromuscular Re-ed,Coordination Retraining Precautions Other Precautions Covid; falls Recommendations To Nursing Amount of Assist Needed 1 Person Assist Discharge Recommendations PT Discharge Recommendations Home with 06/10 Assist Available,Home Health Other Discharge Recommendations [facility] memory care Transportation Needs at Discharge Private Vehicle
[2023-09-10] MEDS: POTASSIUM CHLORIDE 20 MEQ TAB 40 MEQ PO ×2 (11:32→16:07)
--- NOTE | 2023-09-10 12:25 | CM.DPC ---
DCP Cont. Reviewed EMR and team rounds for status updates. Sent referral for SNF rehab to [facility]-, they cannot accept due to pt's covid+ status. They CAN accept on Thursday to [facility] Will need to call on Thursday and determine time for transport, may need to arrange, assess for [facility] appropriateness. Updated pt's .
--- NOTE | 2023-09-10 14:58 | OT.IP.TRT ---
Current Diagnoses Rhabdomyolysis (09/07/23) Occupational Therapy Treatment Note M2 OT-IP Current Condition Start: 09/09/23 13:44 Freq: Status: Active Protocol: Document 09/09/23 13:44 [facility] (Rec: 09/09/23 14:01 [facility] [id number]) Occupational Therapy Current Condition Current Condition Evaluation Date 09/09/23 Treatment Diagnosis Acute metabolic encephalopathy , COVID+ M3 OT- IP Subjective and Pain Start: 09/09/23 13:44 Freq: Status: Active Protocol: Document 09/10/23 15:01 [facility] (Rec: 09/10/23 15:24 [facility] [id number]) OT- Subjective Occupational Therapy Visit Type Type Treatment Note Visit Start Time 14:30 Visit Stop Time 14:58 Occupational Therapy Visit Comments Patient Comments Pt agreed to get up to brush his teeth. Patient/Caregiver Goals To go home. OT Pain Assessment Pain When Pain Assessed At Rest Pain Present Pain Present Denied Pain M4 OT- IP ADL's Start: 09/09/23 13:44 Freq: Status: Active Protocol: Document 09/10/23 15:01 [facility] (Rec: 09/10/23 15:24 [facility] [id number]) OT [id number] Comments OT Self-Feeding Comments Not at meal time. OT ADL-Grooming General Evaluation Grooming Ability Standby Assistance Comments OT Grooming Comments VC to keep the FWW in front of him. OT ADL-Oral Care General Eval Oral Care Ability Standby Assistance OT ADL-Dressing General Eval Lower Body Dressing Ability Minimal Assistance Comments OT Dressing Comments MORENO for brief management needs. OT ADL-Toileting General Evaluation Toileting Ability Minimal Assistance Comments OT Toileting Comments Pt did not have to go at this time and needing MORENO to help pull up the brief up over his hips. OT ADL-Bathing Comments OT Bathing Comments Not performed. Pt will need at least supervision for safety and completeness. M5 OT- IP IADL's Start: 09/09/23 13:44 Freq: Status: Active Protocol: Document 09/09/23 13:44 [facility] (Rec: 09/09/23 14:01 [facility] [id number]) OT-Instrumental Activities of Daily Living Home Safety Awareness Awareness of Need for Assistance at Home Decreased Awareness Ability to Problem Solve Emergency Unable to Problem Solve Situations Medication Management Medication Management Caregiver Administers Money Management Money Management Caregiver Provides Assistance Meal Preparation Meal Preparation Caregiver Provides Assist Eyeglass Inspector Eyeglass Inspector Caregiver Provides Assist Driving Driving Caregiver Provides Assist M6 OT- IP Functional Cognition Start: 09/09/23 13:44 Freq: Status: Active Protocol: Document 09/10/23 15:01 [facility] (Rec: 09/10/23 15:24 [facility] [id number]) Cognitive Factors Limiting Selfcare Function Cognitive Ability Level of Alertness Alert Patient Orientation Name Attention Span Ability Capable of Focused Attention, Capable of Sustained Attention Ability to Follow Commands Able to Follow One Step Commands Memory Description Short Term Impaired Cognitive Comments Cognitive Assessment Comments Pt able to follow commands better today. Pt however still needing cues for FWW safety, hand placement to push up from the FWW before standing up. VC to back up all the way to a surface before sitting down. Educated to have pt's feet wider apart prior to standing up. M7 OT- IP Mobility and Balance Start: 09/09/23 13:44 Freq: Status: Active Protocol: Document 09/10/23 15:01 [facility] (Rec: 09/10/23 15:24 [facility] [id number]) OT-Transfer Assessment Sit to and From Stand Sit to and from Stand Contact Guard Assistance Transfers Transfer Ability Contact Guard Assistance Technique Transfer Destination Chair,Toilet Transfer Technique Stand Step Pivot Devices Transfer Assistive Devices Gait Belt,Front Wheeled Walker Comments Mobility Comments CGA to stand to the FWW and CGA to close SBA with the FWW for safety as pt is unsteady on his feet and needing VC for safety. Pt tends to put his weight on his heels and leans backwards and needing cues to lean forwards. OT- Balance Assessment Sitting Balance and Reactions Static Sitting Balance Ability Good Dynamic Sitting Balance Ability Good Standing Balance and Reactions Static Standing Balance Ability Fair Dynamic Standing Balance Ability Poor M8 OT- IP Objective Assessments Start: 09/09/23 13:44 Freq: Status: Active Protocol: Document 09/09/23 13:44 [facility] (Rec: 09/09/23 14:01 [facility] [id number]) OT Gross Range of Motion Upper Extremity Range of Motion ROM Impairments grossly WFL OT Strength Comments Strength Comments BUE 4-/5 to 4/5 from proximal to distal. Pt complains of RUE soreness. OT- Coordination Assessment Comments Coordination Comments Slightly off for finger to nose with both R and L sides. M9 OT- IP Assessment and Plan Start: 06/26/24 13:44 Freq: Status: Active Protocol: Document 09/10/23 15:01 [facility] (Rec: 09/10/23 15:24 [facility] [id number]) OT Summary Assessment and Plan Potential Rehabilitation Potential Good Analytic Complexity at Evaluation Moderate Summary OT Impairments Pain,Strength,Balance, Functional Cognition, Functional Mobility,Self- Feeding,Grooming,Dressing, Toileting,Bathing,Toilet Transfers,Shower Transfers, Activity Tolerance Progress Towards Goals Progressing Toward Goals Assessment Summary Pt doing much better to follow commands and participate in basic ADl needs and just needing one person assist. Pt to go to skilled rehab when medically stable. Goals Self-Feeding Goal Standby Assistance Grooming Goal Standby Assistance Dressing Goal Standby Assistance Toileting Goal Standby Assistance Bathing Goal Standby Assistance Toilet Transfer Goal Standby Assistance Shower Transfer Goal Standby Assistance OT-Other Goals Goals based on pt using a SPC. Days to Meet Goals 15 Frequency of Treatment Frequency Of Treatment Once a Day Treatment Plan OT Treatment Plan ADL Training,Functional Cognition Training,Functional Mobility,Patient/Family Education,Discharge Planning Other Treatment Recommendations and Next CGA with SPC while doing Treatment Focus standing ADl needs. Discharge Recommendations OT Discharge Recommendations SNF Rehab Transportation Needs at Discharge Wheelchair/Cabulance
[2023-09-11 06:02] LABS: BUN Creatinine Ratio 23.2 (6-22); Blood Urea Nitrogen 19 mg/dL (9-20); Calcium 8.1 mg/dL (8.4-10.2); Carbon Dioxide 23 mmol/L (22-32); Chloride 112 mmol/L (98-107); Estimated Glomerular Filt Rate > 60 mL/min (>60); Glucose 100 mg/dL (80-110); HEMOLYSIS < 15 (0-50); Potassium 4.1 mmol/L (3.4-5.1); Sodium 139 mmol/L (137-145)
[2023-09-11 07:00] VITALS: O2SAT 96
[2023-09-11 08:30] VITALS: BP 153/63; PULSE 56; RESP 17; TEMP 36.4; O2SAT 96
[2023-09-11 08:31] VITALS: BP 153/63; PULSE 53
[2023-09-11] MEDS: DOCUSATE 100 MG CAPSULE PO ×2 (08:31→21:17)
[2023-09-11] MEDS: lisinopriL 10 MG TABLET PO (08:31)
[2023-09-11] MEDS: ENOXAPARIN 40 MG/0.4 ML SYRINGE SUBCUT (08:31)
[2023-09-11] MEDS: polyethylene glycoL 3350 17 GM POWD.PACK PO (08:31)
--- NOTE | 2023-09-11 08:52 | DIET.CONS2 ---
Dietary Inpatient Consultation Note Admission Date: 09/07/2023 16:33 83 y M admitted after GLF. Nutrition screened for LOS. Chart reviewed. No weight loss noted, recorded po intakes avg 85%, DFM reviewed to ensure adequate meal composition. No nutritional interventions needed at this time. F/u prn. Diet: 09/07/23 Dinner General (Regular) Diet Diet Modifications: lactose intolerant Nutrition Percent Meal Consumed 100% 09/10/23 18:00 Percent Meal Consumed 50% 09/10/23 13:08 Percent Meal Consumed 100% 09/10/23 09:06 Percent Meal Consumed 75% 09/09/23 18:00 Percent Meal Consumed 75% 09/09/23 10:51 Electronically Signed by: Brooklyn Beebe 09/11/23 08:53 Clinical Dietitian [address] [address]
--- NOTE | 2023-09-11 10:47 | PT.IPTN ---
Current Diagnoses Rhabdomyolysis (09/07/23) Physical Therapy Treatment Note M2 PT-IP Current Condition Start: 09/09/23 18:30 Freq: NEEDED Status: Active Protocol: Document 09/09/23 15:55 [facility] (Rec: 09/09/23 18:46 AB [id number]) Physical Therapy Current Condition Current Condition Evaluation Date 09/09/23 Treatment Diagnosis s/p fall; acute encephalopathy ; Covid; difficulty in walking Onset Date 09/07/23 M3 PT-IP Subjective Start: 09/09/23 18:30 Freq: NEEDED Status: Active Protocol: Document 09/11/23 10:47 [facility] (Rec: 09/11/23 13:42 AB [id number]) Subjective Physical Therapy Visit Type Type Treatment Note Visit Start Time 10:47 Visit Stop Time 11:25 Number of JUDICIAL REGISTRAR Visits 0 Physical Therapy Visit Comments Patient Comments agreeable to do PT M4 PT-IP Mobility and Gait Start: 09/09/23 18:30 Freq: NEEDED Status: Active Protocol: Document 09/11/23 10:47 [facility] (Rec: 09/11/23 13:42 AB [id number]) PT-Bed Mobility Assessment Supine to Sit Supine to Sit Standby Assistance PT-Transfer Assessment Sit to and From Stand Sit to and from Stand Contact Guard Assistance,1 Person Assistance,Use of Upper Extremities Equipment Transfer Assistive Device Gait Belt,Tripod Cane/Hurry Cane Orthotic/Prosthetic Devices or Brace: No Transfers Transfer Destination Chair Transfer Technique ambulated Transfer Ability Level of Assist Contact Guard Assistance, Minimal Assistance,1 Person Assistance,Use of Upper Extremities Comments Mobility Comments pt supine in bed and agreed to get up. completed supine to sit SBA. presents with difficulty completing task and needed time to complete. completed sit to stand from EOB CGA and ambulated using hurrycane CGA to min A ~ 30 ft . presents with unsteady gait and pt tends to reach/hold on to counter for support. pt sat on the chair. pt stated that he has 2 steps to enter the house without rails. completed up/down step stool using hurrycane+ rail mod to max A and max cues. pt unable to complete if just using the cane. informed pt regarding assistance with stairs and stated that his will be able to assist hime. educated pt regarding safety and use of FWW at home. pt stated that he has a FWW at home. pt ambulated more in room using FWW ~ 40 ft SBA to CGA. pt agreed to stay up on the chair. positioned pt on the chair. pt needing to cleaned up and NAC informed. Left pt with NAC. Gait Assessment Gait Gait Assistance Required: Standby Assistance,Contact Guard Assist,Minimum Assistance Distance (Feet) 40 Able to Maintain Weight Bearing Status Yes During Gait Assistive Devices Assistive Device Gait Belt,Tripod Cane/Hurry Cane,Front Wheeled Walker Orthotic/Prosthetic Devices or Brace: No Gait Deviations General Gait Pattern Ataxic,Decreased Stride Length ,Decreased Feet Clearance Factors Limiting Gait Function Factors Limiting Gait Function Decreased Activity Tolerance, Decreased Strength,Difficulty Following Directions,Poor Safety Awareness Stair Climbing Assessment Evaluation Level of Assist On Stairs Moderate Assistance,Maximal Assistance Devices Stair Climbing Assistive Devices Tripod Cane/Hurry Cane Technique/Endurance Stair Climbing Direction Ascend and Descend Stair Climbing Technique Step to Step Number of Steps Climbed 1 Stair Climbing Set # Repetitions (reps) 1 M5 PT-IP Objective Assessments Start: 09/09/23 18:30 Freq: NEEDED Status: Active Protocol: Document 09/09/23 15:55 [facility] (Rec: 09/09/23 18:46 AB [id number]) Orientation Orientation/Cognition Level of Alertness Confusional State Orientation Name Safety Awareness Decreased Safety Awareness Memory Description Short Term Impaired,Earth Auger Operator Impaired Gross Range of Motion Lower Extremity ROM Assessment Within Functional Limits Strength Lower Extremity Strength Assessment Within Functional Limits Muscle Tone Muscle Tone WNL Yes M6 PT-IP Treatment Start: 09/09/23 18:30 Freq: NEEDED Status: Active Protocol: Document 09/11/23 10:47 [facility] (Rec: 09/11/23 13:42 AB [id number]) Physical Therapy Treatment Education Education Provided Safety M7 PT-IP Assessment and Plan Start: 09/09/23 18:30 Freq: NEEDED Status: Active Protocol: Document 09/11/23 10:47 [facility] (Rec: 09/11/23 13:42 AB [id number]) PT Summary Assessment and Plan Potential Rehabilitation Potential Fair Summary Impairments Pain,ROM,Strength,Balance, Coordination,Sensation,Tone, Cognition,Bed Mobility, Transfers,Gait,Activity Tolerance Progress Towards Goals Slow Progress due to Activity Tolerance,Slow Progress - Other Assessment Summary pt progressing slowly with mobility. Assessed ambulation using a hurrycane and pt requiring CGA to min A. recommending use of FWW at this time. pt also needing assist with stair climbing mod to max A and max cues. pt will require 24/7 assist at home due to decrease safety awareness. d/c plan depending on progress but may require SNF rehab at this time. will continue to assess. Goals Bed Mobility Goal Independent Transfer Goal Independent,Front Wheeled Walker Gait Goal Independent,Front Wheel Walker Gait Distance 200 Other Goals improve transfers and ambulation using LRAD 300 ft mod I up/down 2 steps using LRAD mod I Days to Meet Goals 10 Frequency of Treatment Frequency Of Treatment Once a Day Treatment Plan Physical Therapy Treatment Plan Bed Mobility Training,Transfer Training,Gait Training, Therapeutic Exercise,Balance Retraining,Discharge Planning, Hot or Cold Pack,Neuromuscular Re-ed,Coordination Retraining Precautions Other Precautions Covid; falls Recommendations To Nursing Amount of Assist Needed 1 Person Assist Discharge Recommendations PT Discharge Recommendations Home with 24/7 Assist Available,Home Health,SNF Rehab Transportation Needs at Discharge Private Vehicle,Wheelchair/ Cabulance
--- NOTE | 2023-09-11 14:15 | OT.IP.TRT ---
Current Diagnoses Rhabdomyolysis (09/07/23) Occupational Therapy Treatment Note M2 OT-IP Current Condition Start: 09/09/23 13:44 Freq: Status: Active Protocol: Document 09/09/23 13:44 [facility] (Rec: 09/09/23 14:01 [facility] [id number]) Occupational Therapy Current Condition Current Condition Evaluation Date 09/09/23 Treatment Diagnosis Acute metabolic encephalopathy , COVID+ M3 OT- IP Subjective and Pain Start: 09/09/23 13:44 Freq: Status: Active Protocol: Document 09/11/23 14:21 [facility] (Rec: 09/11/23 14:30 [facility] [id number]) OT- Subjective Occupational Therapy Visit Type Type Treatment Note Visit Start Time 13:55 Visit Stop Time 14:21 Occupational Therapy Visit Comments Patient Comments Pt initially not wanting to get up and then assist to work on transition to stand. Patient/Caregiver Goals To get better. OT Pain Assessment Pain When Pain Assessed At Rest Pain Present Pain Present Denied Pain M5 OT- IP IADL's Start: 09/09/23 13:44 Freq: Status: Active Protocol: Document 09/09/23 13:44 [facility] (Rec: 09/09/23 14:01 [facility] [id number]) OT-Instrumental Activities of Daily Living Home Safety Awareness Awareness of Need for Assistance at Home Decreased Awareness Ability to Problem Solve Emergency Unable to Problem Solve Situations Medication Management Medication Management Caregiver Administers Money Management Money Management Caregiver Provides Assistance Meal Preparation Meal Preparation Caregiver Provides Assist Water/Wastewater Engineer Water/Wastewater Engineer Caregiver Provides Assist Driving Driving Caregiver Provides Assist M6 OT- IP Functional Cognition Start: 09/09/23 13:44 Freq: Status: Active Protocol: Document 09/11/23 14:21 [facility] (Rec: 09/11/23 14:30 [facility] [id number]) Cognitive Factors Limiting Selfcare Function Cognitive Ability Level of Alertness Alert Patient Orientation Name Attention Span Ability Capable of Focused Attention, Capable of Sustained Attention Ability to Follow Commands Able to Follow One Step Commands Memory Description Short Term Impaired Cognitive Comments Cognitive Assessment Comments Pt continues to need safety cues for FWW use , hand,feet and body positioning needs when transitioning from coming to stand and sitting down. M7 OT- IP Mobility and Balance Start: 09/09/23 13:44 Freq: Status: Active Protocol: Document 09/11/23 14:21 [facility] (Rec: 09/11/23 14:30 [facility] [id number]) OT-Transfer Assessment Sit to and From Stand Sit to and from Stand Standby Assistance,Contact Guard Assistance Comments Mobility Comments Pt to have pt to ankle pumps with gentle stretch in preps of practicing to stand up. VC for use of his hand on the armrests of the recliner and to also try to engage his core when scooting forwards. Pt has a tendency to push on the back on the recliner with his legs to assist to stand and tends to have his weight on his heels. Able to practice over and over so better able to get his weight over his feet when coming to stand. OT- Balance Assessment Sitting Balance and Reactions Static Sitting Balance Ability Good Dynamic Sitting Balance Ability Good Standing Balance and Reactions Static Standing Balance Ability Fair Dynamic Standing Balance Ability Poor M8 OT- IP Objective Assessments Start: 09/09/23 13:44 Freq: Status: Active Protocol: Document 09/09/23 13:44 [facility] (Rec: 09/09/23 14:01 [facility] [id number]) OT Gross Range of Motion Upper Extremity Range of Motion ROM Impairments grossly WFL OT Strength Comments Strength Comments BUE 4-/5 to 4/5 from proximal to distal. Pt complains of RUE soreness. OT- Coordination Assessment Comments Coordination Comments Slightly off for finger to nose with both R and L sides. M9 OT- IP Assessment and Plan Start: 09/09/23 13:44 Freq: Status: Active Protocol: Document 09/11/23 14:21 [facility] (Rec: 09/11/23 14:30 [facility] [id number]) OT Summary Assessment and Plan Potential Rehabilitation Potential Good Analytic Complexity at Evaluation Moderate Summary OT Impairments Pain,Strength,Balance, Functional Cognition, Functional Mobility,Self- Feeding,Grooming,Dressing, Toileting,Bathing,Toilet Transfers,Shower Transfers, Activity Tolerance Progress Towards Goals Progressing Toward Goals Assessment Summary Able to practice steps to increased safety for transition to stand via hand, feet, body placement and techniques. Pt tends to compensate by leaning his legs on the back of the recliner to stand. Pt will benefit from skilled rehab prior to going home. Goals Self-Feeding Goal Standby Assistance Grooming Goal Standby Assistance Dressing Goal Standby Assistance Toileting Goal Standby Assistance Bathing Goal Standby Assistance Toilet Transfer Goal Standby Assistance Shower Transfer Goal Standby Assistance OT-Other Goals Goals based on pt using a SPC. Frequency of Treatment Frequency Of Treatment Once a Day Treatment Plan OT Treatment Plan ADL Training,Functional Cognition Training,Functional Mobility,Patient/Family Education,Discharge Planning Other Treatment Recommendations and Next CGA with SPC while doing Treatment Focus standing ADl needs. Discharge Recommendations OT Discharge Recommendations SNF Rehab Transportation Needs at Discharge Wheelchair/Cabulance
--- NOTE | 2023-09-11 15:40 | P.PN_ITS ---
Subjective Subjective Interval history: He is doing well, he has less of a cough today he denies any dyspnea. No pain. He knows where he is and his name but can not state the year. Exam Vital Signs (past 8 hours): - 09/11/23 08:30 09/11/23 08:31 Temperature 97.5 F L Pulse Rate 56 L 53 L Respiratory Rate 17 Blood Pressure 153/63 H 153/63 H Pulse Oximetry 96 Oxygen Flow Rate 0 Oxygen Delivery Method Room Air Oxygen Flow Rate 0 Narrative Exam Narrative: NAD, alert and oriented to person and place. Fluent speech. Lungs are with normal rate and effort. Abdomen is soft, non distended. Extremities are free of edema. Objective Labs 09/10/23 05:20 09/11/23 04:39 Labs: Laboratory Results - last 24 hr 09/11/23 04:39 Sodium 139 Potassium 4.1 Chloride 112 H Carbon Dioxide 23 BUN 19 Creatinine 0.82 Estimated GFR > 60 BUN/Creatinine Ratio 23.2 H Glucose 100 [facility] 8.1 L [facility] Medical History Stroke Hypertension Surgical History History of right hip replacement Family History Mother Myocardial infarction Father Myocardial infarction Social History household members: spouse Smoking Status: Never smoker alcohol intake: current Assessment & Plan Assessment & Plan narrative: 1. Acute metabolic encephalopathy, present on admission and improving. 2. Acute non-traumatic rhabdomyolysis, present on admission and improving. - given IV fluid bolus in the ER, continue NS at 150 cc, CK >3000 but no RUPERTO on presentation. Cr stable the last few days. 3. Essential hypertension, present on admission and active. -increase lisinopril from 10 to 20 daily. 4. COVID 19 infection (cough), present on admission and active. - continue supportive care. No respiratory symptoms currently. PLAN: -continue supportive care, MRI negative. -OOB, PT and OT. -Discharge planning. -Covid isolation. Quality VTE Deep Vein Thrombosis/Pulmonary Embolism Present on Admission: No
[2023-09-11 20:00] VITALS: BP 147/64; PULSE 52; RESP 17; TEMP 36.2; O2SAT 97
[2023-09-11 21:15] VITALS: O2SAT 95
[2023-09-11] MEDS: SENNOSIDES 8.6 MG TABLET 17.2 MG PO (21:17)
[2023-09-12 07:00] VITALS: O2SAT 97
--- NOTE | 2023-09-12 08:37 | CM.DPC ---
Addendum entered by Caitlin Sanchez R.N. 09/12/23 15:11: Faxed updated notes to Maryjane at [facility], today's P.T. notes, and yesterday's O.T and P.T. notes, there are no current nursing notes. Addendum entered by Caitlin Sanchez R.N. 09/12/23 12:15: Patient's spouse, Zulay, called back. Stated, she is still ill, not sure if she can take him home, would rather get him stronger before coming home. Barrier is that auth may not occur until Thursday, and Maryjane at [facility] may not be able to take him until Thursday. Asked her if she can prioritize if she gets a cancellation on discharge. Did let Maryjane know that if insurance does not auth him, she is prepared to take him home with home health services. Addendum entered by Caitlin Sanchez R.N. 09/12/23 10:11: Left message with spouse, Zulay, to discuss discharge planning, skilled versus home. Addendum entered by Caitlin Sanchez R.N. 09/12/23 08:42: Spoke to Maryjane at [facility], indicated that she does not yet have the auth. Stated, most likely will not have until Thursday. P.T. note currently indicates that he is a one person assist. Will speak to P.T today, and see if home would be an option, otherwise, would need to wait until Thursday, and would be avoidable day. Original Note: DCP Cont: Left a message with Maryjane at [facility], for notes indicate that she was working on insurance auth. Notes also indicate that he would need BLS transport. Patient is medically ready for discharge according to hospitalist. P: DCP working on getting patient to [facility], but unclear if insurance auth was completed, or if facility can accept. Will await call back from [facility]. Caitlin Sanchez, RN/Equipment [employer]
[2023-09-12 08:46] VITALS: BP 125/57; PULSE 55
[2023-09-12] MEDS: lisinopriL 10 MG TABLET 20 MG PO (08:46)
[2023-09-12] MEDS: ENOXAPARIN 40 MG/0.4 ML SYRINGE SUBCUT (08:46)
[2023-09-12 08:58] VITALS: BP 146/57; PULSE 53; RESP 14; TEMP 36.5; O2SAT 97
[2023-09-12 09:25] LABS: Hematocrit 37.8 % (41-53); Hemoglobin 12.6 g/dL (13.5-17.5); Mean Corpuscular HGB Conc 33.5 % (30-36); Mean Corpuscular Hemoglobin 28.6 PG (26-34); Mean Corpuscular Volume 85.6 fL (80-100); Platelet Count 175 X10^3/uL (150-400); Red Blood Cell Count 4.42 X10^6/uL (4.5-5.9); Red Cell Distribution Width 14.6 % (11.6-14.8); White Blood Cell Count 5.7 X10^3/uL (4.5-11.0)
[2023-09-12 10:06] LABS: Alanine Aminotransferase 38 IU/L (<50); Albumin 3.2 g/dL (3.5-5.0); Albumin Globulin Ratio 1.5 (1.0-2.8); Alkaline Phosphatase 65 U/L (38-126); Aspartate Aminotransferase 57 IU/L (17-59); BUN Creatinine Ratio 23.1 (6-22); Bilirubin Total 0.4 mg/dL (0.2-1.3); Blood Urea Nitrogen 21 mg/dL (9-20); Calcium 8.5 mg/dL (8.4-10.2); Carbon Dioxide 26 mmol/L (22-32); Chloride 108 mmol/L (98-107); Estimated Glomerular Filt Rate > 60 mL/min (>60); Globulin 2.1 g/dL (1.7-4.1); Glucose 98 mg/dL (80-110); HEMOLYSIS < 15 (0-50); Potassium 4.5 mmol/L (3.4-5.1); Sodium 139 mmol/L (137-145); Total Protein 5.3 g/dL (6.3-8.2)
--- NOTE | 2023-09-12 11:41 | PT.IPTN ---
Current Diagnoses Rhabdomyolysis (09/07/23) Physical Therapy Treatment Note M2 PT-IP Current Condition Start: 09/09/23 18:30 Freq: NEEDED Status: Active Protocol: Document 09/09/23 15:55 AB (Rec: 09/09/23 18:46 AB [id number]) Physical Therapy Current Condition Current Condition Evaluation Date 09/09/23 Treatment Diagnosis s/p fall; acute encephalopathy ; Covid; difficulty in walking Onset Date 09/07/23 M3 PT-IP Subjective Start: 09/09/23 18:30 Freq: NEEDED Status: Active Protocol: Document 09/12/23 12:08 TS (Rec: 09/12/23 12:19 TS [id number]) Subjective Physical Therapy Visit Type Type Treatment Note Visit Start Time 11:41 Visit Stop Time 12:05 Number of SPECIMEN BOSS Visits 1 Physical Therapy Visit Comments Patient Comments Pt found resting in bed, pleasantly confused, he is agreeable to PT. M4 PT-IP Mobility and Gait Start: 09/09/23 18:30 Freq: NEEDED Status: Active Protocol: Document 09/12/23 12:08 TS (Rec: 09/12/23 12:19 TS [id number]) PT-Transfer Assessment Sit to and From Stand Sit to and from Stand Standby Assistance Equipment Transfer Assistive Device Gait Belt,Tripod Cane/Hurry Cane Orthotic/Prosthetic Devices or Brace: No Comments Mobility Comments STS from chair x2 with hurrycane SBA, pt uses BUE support pushing from arms. He ambulated in room 2x30'SBA/CGA with hurrycane, pt is unsteady but has no LOB's. He performed steps x5 with hurrycane and sink counter support CGA. Pt was left back in chair, chair alarm on, all needs met. Gait Assessment Gait Gait Assistance Required: Standby Assistance,Contact Guard Assist Distance (Feet) 60 Able to Maintain Weight Bearing Status Yes During Gait Assistive Devices Assistive Device Gait Belt,Tripod Cane/Hurry Cane Orthotic/Prosthetic Devices or Brace: No Gait Deviations General Gait Pattern Ataxic,Decreased Stride Length ,Decreased Feet Clearance Factors Limiting Gait Function Factors Limiting Gait Function Decreased Activity Tolerance, Decreased Strength,Poor Balance,Poor Safety Awareness Comments Gait Comments See mobility comments Stair Climbing Assessment Evaluation Level of Assist On Stairs Contact Guard Assistance Devices Stair Climbing Assistive Devices Tripod Cane/Hurry Cane Technique/Endurance Stair Climbing Direction Ascend and Descend Stair Climbing Technique Step to Step Number of Steps Climbed 5 PT-Balance Assessment Sitting Balance and Reactions Static Sitting Balance Ability Good Dynamic Sitting Balance Ability Good Standing Balance and Reactions Static Standing Balance Ability Fair Dynamic Standing Balance Ability Fair Device Used FWW M5 PT-IP Objective Assessments Start: 09/09/23 18:30 Freq: NEEDED Status: Active Protocol: Document 09/09/23 15:55 AB (Rec: 09/09/23 18:46 AB [id number]) Orientation Orientation/Cognition Level of Alertness Confusional State Orientation Name Safety Awareness Decreased Safety Awareness Memory Description Short Term Impaired,Retirement Impaired Gross Range of Motion Lower Extremity ROM Assessment Within Functional Limits Strength Lower Extremity Strength Assessment Within Functional Limits Muscle Tone Muscle Tone WNL Yes M6 PT-IP Treatment Start: 09/09/23 18:30 Freq: NEEDED Status: Active Protocol: Document 09/12/23 12:08 TS (Rec: 09/12/23 12:19 TS [id number]) Physical Therapy Treatment Education Education Provided Safety M7 PT-IP Assessment and Plan Start: 09/09/23 18:30 Freq: NEEDED Status: Active Protocol: Document 09/12/23 12:08 TS (Rec: 09/12/23 12:19 TS [id number]) PT Summary Assessment and Plan Potential Rehabilitation Potential Fair Summary Impairments Pain,ROM,Strength,Balance, Coordination,Sensation,Tone, Cognition,Bed Mobility, Transfers,Gait,Activity Tolerance Progress Towards Goals Slow Progress - Other Assessment Summary Rickie performed STS x2 SBA with use of hurrycane. He ambulated in room 2x30'SBA/CGA with hurrycane. He continues to be unsteady but has no LOB. He performed steps x5 CGA with hurrycane and support of sink counter. He follows cues and instructions well. PT continues to recommend SNF vs Home. Goals Bed Mobility Goal Independent Transfer Goal Independent,Front Wheeled Walker Gait Goal Independent,Front Wheel Walker Gait Distance 200 Other Goals improve transfers and ambulation using LRAD 300 ft mod I up/down 2 steps using LRAD mod I Days to Meet Goals 10 Frequency of Treatment Frequency Of Treatment Once a Day Treatment Plan Physical Therapy Treatment Plan Bed Mobility Training,Transfer Training,Gait Training, Therapeutic Exercise,Balance Retraining,Discharge Planning, Hot or Cold Pack,Neuromuscular Re-ed,Coordination Retraining Precautions Other Precautions Covid; falls Recommendations To Nursing Amount of Assist Needed 1 Person Assist Discharge Recommendations PT Discharge Recommendations Home with 06/10 Assist Available,Home Health,SNF Rehab Transportation Needs at Discharge Private Vehicle,Wheelchair/ Cabulance
--- NOTE | 2023-09-12 17:19 | PM.PN.1 ---
Subjective Subjective Interval history: He feels less confused today and denies any problems. His cough is improved and he has no shortness a breath. He continues to be able to name the place and year but mislabel his younger daughter as his older daughter. Exam Vital Signs (past 8 hours): Oxygen Delivery Method Room Air Oxygen Flow Rate 0 Narrative Exam Narrative: NAD, alert and oriented to person, place and year but misdentifies the daughter. Fluent speech. Lungs are clear, normal rate and effort. Heart is regular, no murmur gallop or rub. Abdomen is soft, non distended. Extremities are free of edema. Objective Labs 09/12/23 09:18 09/12/23 09:18 Labs: Laboratory Results - last 24 hr 09/12/23 09:18 WBC 5.7 RBC 4.42 L Hgb 12.6 L Hct 37.8 L MCV 85.6 MCH 28.6 MCHC 33.5 RDW 14.6 Plt Count 175 Sodium 139 Potassium 4.5 Chloride 108 H Carbon Dioxide 26 BUN 21 H Creatinine 0.91 Estimated GFR > 60 BUN/Creatinine Ratio 23.1 H Glucose 98 Calcium 8.5 Total Bilirubin 0.4 AST 57 ALT 38 Alkaline Phosphatase 65 Total Protein 5.3 L Albumin 3.2 L Globulin 2.1 Albumin/Globulin Ratio 1.5 [facility] Medical History Stroke Hypertension Surgical History History of right hip replacement Family History Mother Myocardial infarction Father Myocardial infarction Social History household members: spouse Smoking Status: Never smoker alcohol intake: current Assessment & Plan Assessment & Plan narrative: 1. Acute metabolic encephalopathy, present on admission and improving. 2. Acute non-traumatic rhabdomyolysis, present on admission and resolved. 3. Essential hypertension, present on admission and active. -continue lisinopril from 10 to 20 daily. 4. COVID 19 infection (cough), present on admission and active. - continue supportive care. No respiratory symptoms currently. 5. Probable baseline cognitive impairment, present on admission and active. PLAN: -continue supportive care, MRI negative. -OOB, PT and OT. -Discharge planning. SNF auth pending. -Covid isolation. Quality VTE Deep Vein Thrombosis/Pulmonary Embolism Present on Admission: No
[2023-09-12 19:00] VITALS: BP 161/64; PULSE 60; RESP 18; TEMP 36.6; O2SAT 96; O2SAT 97
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
[2023-09-13 07:00] VITALS: BP 139/56; PULSE 49; RESP 12; TEMP 36.1; O2SAT 98
[2023-09-13 08:06] VITALS: BP 139/56; PULSE 49
[2023-09-13] MEDS: lisinopriL 10 MG TABLET 20 MG PO (08:06)
[2023-09-13] MEDS: ENOXAPARIN 40 MG/0.4 ML SYRINGE SUBCUT (08:06)
--- NOTE | 2023-09-13 08:07 | P.PN_ITS ---
Subjective Subjective Interval history: He was doing well, improvement of cough. No dyspnea. He remains confused. The plan in working with the family is residential facility on September 13. We are awaiting for pre authorization. Exam Vital Signs (past 8 hours): - 09/13/23 07:00 Temperature 97.0 F L Pulse Rate 49 L Respiratory Rate 12 Blood Pressure 139/56 L Pulse Oximetry 98 Oxygen Flow Rate 0 Oxygen Delivery Method Room Air Oxygen Flow Rate 0 Narrative Exam Narrative: NAD, alert and oriented. Fluent speech. Oriented to person, place with some assistance, but not month. He did get the year right. Lungs are clear, normal rate and effort. Heart is regular, no murmur gallop or rub. Abdomen is soft, non distended. Extremities are free of edema. Objective Labs 09/13/23 09:02 09/13/23 09:02 Labs: Laboratory Results - last 24 hr 09/12/23 09:18 WBC 5.7 RBC 4.42 L Hgb 12.6 L Hct 37.8 L MCV 85.6 MCH 28.6 MCHC 33.5 RDW 14.6 Plt Count 175 Sodium 139 Potassium 4.5 Chloride 108 H Carbon Dioxide 26 BUN 21 H Creatinine 0.91 Estimated GFR > 60 BUN/Creatinine Ratio 23.1 H Glucose 98 Calcium 8.5 Total Bilirubin 0.4 AST 57 ALT 38 Alkaline Phosphatase 65 Total Protein 5.3 L Albumin 3.2 L Globulin 2.1 Albumin/Globulin Ratio 1.5 [facility] Medical History Stroke Hypertension Surgical History History of right hip replacement Family History Mother Myocardial infarction Father Myocardial infarction Social History household members: spouse Smoking Status: Never smoker alcohol intake: current Assessment & Plan Assessment & Plan narrative: 1. Acute metabolic encephalopathy, present on admission and improving. 2. Acute non-traumatic rhabdomyolysis, present on admission and resolved. 3. Essential hypertension, present on admission and active. -continue lisinopril from 10 to 20 daily. 4. COVID 19 infection (cough), present on admission and active. - continue supportive care. No respiratory symptoms currently. 5. Probable baseline cognitive impairment, present on admission and active. PLAN: -continue supportive care, MRI negative. -OOB, PT and OT. -Discharge planning. SNF auth pending. Anticipate SNF 09/13 ([facility]) -Covid isolation. -we will do a some score on September 13 for baseline. The family does note a year long history of some cognitive decline. Quality VTE Deep Vein Thrombosis/Pulmonary Embolism Present on Admission: No
[2023-09-13 09:33] LABS: Hematocrit 40.2 % (41-53); Hemoglobin 13.5 g/dL (13.5-17.5); Mean Corpuscular HGB Conc 33.6 % (30-36); Mean Corpuscular Hemoglobin 28.7 PG (26-34); Mean Corpuscular Volume 85.7 fL (80-100); Platelet Count 182 X10^3/uL (150-400); Red Blood Cell Count 4.69 X10^6/uL (4.5-5.9); Red Cell Distribution Width 14.4 % (11.6-14.8); White Blood Cell Count 5.4 X10^3/uL (4.5-11.0)
[2023-09-13 09:45] LABS: BUN Creatinine Ratio 24.4 (6-22); Blood Urea Nitrogen 22 mg/dL (9-20); Calcium 8.7 mg/dL (8.4-10.2); Carbon Dioxide 29 mmol/L (22-32); Chloride 106 mmol/L (98-107); Estimated Glomerular Filt Rate > 60 mL/min (>60); Glucose 105 mg/dL (80-110); HEMOLYSIS < 15 (0-50); Sodium 138 mmol/L (137-145)
--- NOTE | 2023-09-13 11:32 | PT.IPTN ---
Current Diagnoses Rhabdomyolysis (09/07/23) Physical Therapy Treatment Note M2 PT-IP Current Condition Start: 09/09/23 18:30 Freq: NEEDED Status: Active Protocol: Document 09/09/23 15:55 AB (Rec: 09/09/23 18:46 AB [id number]) Physical Therapy Current Condition Current Condition Evaluation Date 09/09/23 Treatment Diagnosis s/p fall; acute encephalopathy ; Covid; difficulty in walking Onset Date 09/07/23 M3 PT-IP Subjective Start: 09/09/23 18:30 Freq: NEEDED Status: Active Protocol: Document 09/13/23 11:20 KS (Rec: 09/13/23 12:12 KS [id number]) Subjective Physical Therapy Visit Type Type Treatment Note Visit Start Time 11:20 Visit Stop Time 11:32 Number of FOAM GUN OPERATOR Visits 2 Physical Therapy Visit Comments Patient Comments Pt in chair, agreeable to PT. M4 PT-IP Mobility and Gait Start: 09/09/23 18:30 Freq: NEEDED Status: Active Protocol: Document 09/13/23 11:20 KS (Rec: 09/13/23 12:12 KS [id number]) PT-Transfer Assessment Sit to and From Stand Sit to and from Stand Contact Guard Assistance,1 Person Assistance,Use of Upper Extremities Equipment Transfer Assistive Device Gait Belt,Tripod Cane/Hurry Cane Orthotic/Prosthetic Devices or Brace: No Transfers Transfer Destination Chair Transfer Technique ambulated Transfer Ability Level of Assist Contact Guard Assistance, Minimal Assistance,1 Person Assistance,Use of Upper Extremities Comments Mobility Comments Pt in chair upon arrival, seemingly still slightly confused but agreeable to ambulate. CGA for sit<>Stand w / hurrycane. Pt balancing on heels/leaning backwards initially but able to correct w/ cues. He ambulated ~50 ft in room w/ hurrycane CGA. Somewhat unsteady but no LOB. He then returned to his chair and completed LE exercises. Pt left in chair w/ all needs in reach and alarm on. Gait Assessment Gait Gait Assistance Required: Standby Assistance,Contact Guard Assist Distance (Feet) 50 Able to Maintain Weight Bearing Status Yes During Gait Assistive Devices Assistive Device Gait Belt,Tripod Cane/Hurry Cane Orthotic/Prosthetic Devices or Brace: No Gait Deviations General Gait Pattern Ataxic,Decreased Stride Length ,Decreased Feet Clearance Factors Limiting Gait Function Factors Limiting Gait Function Decreased Activity Tolerance, Decreased Strength,Poor Balance,Poor Safety Awareness Comments Gait Comments See mobility comments PT-Balance Assessment Sitting Balance and Reactions Static Sitting Balance Ability Good Dynamic Sitting Balance Ability Good Standing Balance and Reactions Static Standing Balance Ability Fair Dynamic Standing Balance Ability Fair Device Used hurrycane M5 PT-IP Objective Assessments Start: 09/09/23 18:30 Freq: NEEDED Status: Active Protocol: Document 09/09/23 15:55 AB (Rec: 09/09/23 18:46 AB [id number]) Orientation Orientation/Cognition Level of Alertness Confusional State Orientation Name Safety Awareness Decreased Safety Awareness Memory Description Short Term Impaired,Early Education Teacher Impaired Gross Range of Motion Lower Extremity ROM Assessment Within Functional Limits Strength Lower Extremity Strength Assessment Within Functional Limits Muscle Tone Muscle Tone WNL Yes M6 PT-IP Treatment Start: 09/09/23 18:30 Freq: NEEDED Status: Active Protocol: Document 09/13/23 11:20 KS (Rec: 09/13/23 12:12 KS [id number]) Physical Therapy Treatment Exercises Exercises Ankle Pumps,Quad Sets,Heel Slides,Straight Leg Raises Education Education Provided Safety M7 PT-IP Assessment and Plan Start: 09/09/23 18:30 Freq: NEEDED Status: Active Protocol: Document 09/13/23 11:20 KS (Rec: 09/13/23 12:12 KS [id number]) PT Summary Assessment and Plan Potential Rehabilitation Potential Fair Summary Impairments Pain,ROM,Strength,Balance, Coordination,Sensation,Tone, Cognition,Bed Mobility, Transfers,Gait,Activity Tolerance Progress Towards Goals Slow Progress - Other Assessment Summary Pt continues to require mostly CGA with south. He is still confused, not always answering questions approproately. Ambulated 50 ft w/ hurrycane and completed LE exercises. He is unsteady while ambulating and a fall risk. He would benefit from SNF to improve safety and functional mobility. Goals Bed Mobility Goal Independent Transfer Goal Independent,Front Wheeled Walker Gait Goal Independent,Front Wheel Walker Gait Distance 200 Other Goals improve transfers and ambulation using LRAD 300 ft mod I up/down 2 steps using LRAD mod I Days to Meet Goals 10 Frequency of Treatment Frequency Of Treatment Once a Day Treatment Plan Physical Therapy Treatment Plan Bed Mobility Training,Transfer Training,Gait Training, Therapeutic Exercise,Balance Retraining,Discharge Planning, Hot or Cold Pack,Neuromuscular Re-ed,Coordination Retraining Precautions Other Precautions Covid; falls Recommendations To Nursing Amount of Assist Needed 1 Person Assist Discharge Recommendations PT Discharge Recommendations Home with 06/10 Assist Available,Home Health,SNF Rehab Transportation Needs at Discharge Private Vehicle,Wheelchair/ Cabulance
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
--- NOTE | 2023-09-13 18:53 | PC.NURSE ---
Pt's daughter Tyra Alexander phone #
[2023-09-13 20:09] VITALS: BP 135/59; PULSE 57; RESP 17; TEMP 36.4; O2SAT 98
[2023-09-13] MEDS: DOCUSATE 100 MG CAPSULE PO (20:56)
[2023-09-13] MEDS: SENNOSIDES 8.6 MG TABLET 17.2 MG PO (20:56)
[2023-09-14 07:00] VITALS: BP 124/55; PULSE 55; RESP 14; TEMP 36.6; O2SAT 98
--- NOTE | 2023-09-14 08:05 | PT.IPTN ---
Current Diagnoses Rhabdomyolysis (09/07/23) Physical Therapy Treatment Note M2 PT-IP Current Condition Start: 09/09/23 18:30 Freq: NEEDED Status: Active Protocol: Document 09/14/23 07:55 SP (Rec: 09/14/23 09:07 SP [id number]) Physical Therapy Current Condition Current Condition Evaluation Date 09/09/23 Treatment Diagnosis s/p fall; acute encephalopathy ; Covid; difficulty in walking Onset Date 09/07/23 M3 PT-IP Subjective Start: 09/09/23 18:30 Freq: NEEDED Status: Active Protocol: Document 09/14/23 07:55 SP (Rec: 09/14/23 09:07 SP [id number]) Subjective Physical Therapy Visit Type Type Treatment Note Visit Start Time 07:55 Visit Stop Time 08:05 Number of SERVICE ATTENDANT CAFETERIA Visits 3 Physical Therapy Visit Comments Patient Comments Pt agreeable to seeing pt, just woke up supine in bed. Therapy Pain Assessment Pain Present Pain Present Denied Pain M4 PT-IP Mobility and Gait Start: 09/09/23 18:30 Freq: NEEDED Status: Active Protocol: Document 09/14/23 07:55 SP (Rec: 09/14/23 09:07 SP [id number]) PT-Bed Mobility Assessment Supine to Sit Supine to Sit Standby Assistance Scooting Scooting to Edge of Bed Standby Assistance PT-Transfer Assessment Sit to and From Stand Sit to and from Stand Contact Guard Assistance,1 Person Assistance,Use of Upper Extremities Equipment Transfer Assistive Device Gait Belt,Tripod Cane/Hurry Cane Orthotic/Prosthetic Devices or Brace: No Transfers Transfer Destination Chair Transfer Technique ambulated /c Hurry cane, FWW Transfer Ability Level of Assist Contact Guard Assistance,1 Person Assistance,Use of Upper Extremities Comments Mobility Comments Pt demonstrates heavy BUE support self sup>sit and scoot EOB pull/push on bed rails & use sheets. Sit>stand CGA /c hurry cane, initial retro lean BLEs into bed self recovery / c cues wt shift fwd. Attempted balance: unable NBOS, requires WBOS and occasional contact for self support. Gait around room /c hurry cane CGA 60 ft, use FWW 30 ft room SBA and pt occasional contact end of bed stabilize self and cued for end bed obstacle mgt. Completed asc/desc 1 portable step x2 sets /c hurry cane in RUE and ART HANDLER on R, slight sways but no LOB.He returned to chair with alarm donned and all needs and call light in reach. Pt not very verbal, alert to self and in [place] but unaware in [facility]. Continue recommend SNF, care mgt stated family feel spouse unable to assist pt at home and they aren't available to be home with pt either. Gait Assessment Gait Gait Assistance Required: Contact Guard Assist,1 Person Assist Distance (Feet) 60 Able to Maintain Weight Bearing Status Yes During Gait Assistive Devices Assistive Device Gait Belt,Tripod Cane/Hurry Cane,Front Wheeled Walker Orthotic/Prosthetic Devices or Brace: No Gait Deviations General Gait Pattern Ataxic,Decreased Stride Length ,Decreased Feet Clearance Factors Limiting Gait Function Factors Limiting Gait Function Decreased Activity Tolerance, Decreased Strength,Poor Balance,Poor Safety Awareness Comments Gait Comments See mobility comments Stair Climbing Assessment Evaluation Level of Assist On Stairs Minimal Assistance,1 Person Assistance Devices Stair Climbing Assistive Devices Tripod Cane/Hurry Cane Technique/Endurance Stair Climbing Direction Ascend and Descend Stair Climbing Technique Step to Step Number of Steps Climbed 1 Stair Climbing Set # Repetitions (reps) 2 Comments Stair Climbing Comments see mobility comments PT-Balance Assessment Sitting Balance and Reactions Static Sitting Balance Ability Good Dynamic Sitting Balance Ability Good Standing Balance and Reactions Static Standing Balance Ability Fair Dynamic Standing Balance Ability Fair Device Used hurrycane Comments Other Balance Tests/Deviations/Treatment see mobility comments: WBOS : Head turns, sway needs contact end bed for recovery, CGA via SERVICE ATTENDANT CAFETERIA. M5 PT-IP Objective Assessments Start: 09/09/23 18:30 Freq: NEEDED Status: Active Protocol: Document 09/09/23 15:55 AB (Rec: 09/09/23 18:46 AB [id number]) Orientation Orientation/Cognition Level of Alertness Confusional State Orientation Name Safety Awareness Decreased Safety Awareness Memory Description Short Term Impaired,Fpc Impaired Gross Range of Motion Lower Extremity ROM Assessment Within Functional Limits Strength Lower Extremity Strength Assessment Within Functional Limits Muscle Tone Muscle Tone WNL Yes M6 PT-IP Treatment Start: 09/09/23 18:30 Freq: NEEDED Status: Active Protocol: Document 09/14/23 07:55 SP (Rec: 09/14/23 09:07 SP [id number]) Physical Therapy Treatment Education Education Provided Safety M7 PT-IP Assessment and Plan Start: 09/09/23 18:30 Freq: NEEDED Status: Active Protocol: Document 09/14/23 07:55 SP (Rec: 09/14/23 09:07 SP [id number]) PT Summary Assessment and Plan Potential Rehabilitation Potential Fair Summary Impairments Pain,ROM,Strength,Balance, Coordination,Sensation,Tone, Cognition,Bed Mobility, Transfers,Gait,Activity Tolerance Progress Towards Goals Slow Progress - Other Assessment Summary Pt continues require CGA with hurry cane SBA FWW, SBA bed mobility heavily BUE support self, Min A 2 portable step /c hurry cane & ART HANDLER. Recommending SNF, care mgt states not able to assist pt and family isn't available assist home. Will assess progress. Goals Bed Mobility Goal Independent Transfer Goal Independent,Front Wheeled Walker Gait Goal Independent,Front Wheel Walker Gait Distance 200 Other Goals improve transfers and ambulation using LRAD 300 ft mod I up/down 2 steps using LRAD mod I Days to Meet Goals 10 Frequency of Treatment Frequency Of Treatment Once a Day Treatment Plan Physical Therapy Treatment Plan Bed Mobility Training,Transfer Training,Gait Training, Therapeutic Exercise,Balance Retraining,Discharge Planning, Hot or Cold Pack,Neuromuscular Re-ed,Coordination Retraining Other Recommendations and Next Treatment further gait, LRAD safety, Focus stair mgt (has home) Precautions Other Precautions Covid; falls Recommendations To Nursing Amount of Assist Needed 1 Person Assist Discharge Recommendations PT Discharge Recommendations SNF Rehab Transportation Needs at Discharge Private Vehicle,Wheelchair/ Cabulance
[2023-09-14 09:04] VITALS: BP 125/55; PULSE 55
[2023-09-14] MEDS: lisinopriL 10 MG TABLET 20 MG PO (09:04)
[2023-09-14] MEDS: ENOXAPARIN 40 MG/0.4 ML SYRINGE SUBCUT (09:04)
--- NOTE | 2023-09-14 10:19 | P.DS_ITS ---
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 coli yesterday who presented with altered mental status after being found in his bedroom next to his bed. According to his spouse, his head was in between his dresser and bed. He was not able to get up. He is usually very with in mentally but was and currently remains confused. He was also seen to be possibly shaking his hands and his R arm, though this did not continue. He cannot reliably state why he is in the hospital and cannot recall what happened currently. In the ER, patient was hypertensive but the remainder of his vitals were unremarkable. labs showed a CK of 3022. He was started on IV fluids, UA was negative for infection. CXR showed possible volume overload but no consolidations. Ammonia was undetectable. He was admitted for further evaluation and management of rhabdomyolysis. Discharge Providers Provider Date of admission: 09/07/23 16:33 Discharge Date: 09/14/23 Primary care physician: Zaheer Charlton MD Consults: 09/09/23 12:05 Consult to Occupational Therapy Evaluate & Treat Comment: Physician Instructions: Evaluate and treat Consult to Physical Therapy Evaluate & Treat Comment: Physician Instructions: Evaluate and Treat 09/13/23 14:32 Consult to Occupational Therapy Evaluate & Treat Comment: [facility] Cog eval Physician Instructions: Evaluate and treat Discharge provider: Ron Cristobal DO Summary Hospital Course Discharge Diagnosis: 1. Acute metabolic encephalopathy, present on admission and improving. 2. Acute non-traumatic rhabdomyolysis, present on admission and improving 3. Essential hypertension, present on admission and active. 4. COVID 19 infection (cough), present on admission and active. 5. Probable baseline cognitive impairment, present on admission and active. Hospital Course: This is an 83 year old male admitted after a fall at home with acute metabolic encephalopathy and rhabdomyolysis. His tested positive for COVID shortly after his admission, he was asymptomatic but also tested positive. He was started on IV fluids with improvement in his CK levels, and subsequently IV fluids were stopped. He was also noted to have likely cognitive impairment. After therapy evaluations due to weakness from rhabdomyolysis, fall, and COVID he was recommended for SNF for ongoing PT and OT. No medication changes were recommended on discharge. Time Spent with Patient Time spent: Greater than 30 minutes Exam Vital Signs (past 8 hours): - 09/14/23 07:00 09/14/23 09:04 Temperature 97.8 F Pulse Rate 55 L 55 L Respiratory Rate 14 Blood Pressure 124/55 L 125/55 L Pulse Oximetry 98 Oxygen Flow Rate 0 Oxygen Delivery Method Room Air Oxygen Flow Rate 0 Narrative Exam Narrative: NAD, alert and oriented. Fluent speech. Oriented to person, place with some assistance, but not month. He did get the year right. Lungs are clear, normal rate and effort. Heart is regular, no murmur gallop or rub. Abdomen is soft, non distended. Extremities are free of edema. Objective Labs 09/13/23 09:02 09/13/23 09:02 [facility] Medical History Stroke Hypertension Surgical History History of right hip replacement Family History Mother Myocardial infarction Father Myocardial infarction Social History household members: spouse Smoking Status: Never smoker alcohol intake: current Discharge Plan Discharge Plan Patient Disposition: SNF Discharge orders & Medications Prescriptions: New acetaminophen 325 mg Tablet 650 mg PO Q6H PRN (Reason: Fever/Mild Pain (1-3)) Qty: 30 0RF docusate sodium 100 mg Capsule 100 mg PO BID Qty: 60 0RF lisinopril 20 mg tablet 20 mg PO DAILY Qty: 30 0RF sennosides [senna] 8.6 mg Tablet 17.2 mg PO BEDTIME Qty: 60 0RF polyethylene glycol 3350 17 gram Powder In Packet 17 gm PO DAILY Qty: 14 0RF Continued acetaminophen 325 mg Tablet 650 mg PO Q6HR PRN (Reason: Fever/Mild Pain (1-3)) Qty: 30 0RF fexofenadine [Kay Allergy] 60 mg Tablet 60 mg PO DAILY ibuprofen 200 mg Tablet 200 mg PO Q6H PRN (Reason: Pain (Scale Score 4-6)) coenzyme Q10 30 mg Capsule 30 mg PO DAILY Adults Multivitamin 18 mg iron-400 mcg-25 mcg Tablet 1 tab PO DAILY Follow up/Referrals: Zaheer Charlton MD [Primary Care Provider] - Diet/Activity/Treatments Diet: Diet as Tolerated and Regular Liquid consistency: Normal/Thin Food texture: Regular Activity: As tolerated, no restrictions. Special Rehabilitation Services Reason for rehabilitation: Recovery r/t decondition Rehab type: Physical therapy and Occupational therapy Visit Report/Discharge Packet Stand Alone Forms: Patient Portal/API Discharge Data Primary Care Provider: Zaheer Charlton Quality VTE Deep Vein Thrombosis/Pulmonary Embolism Present on Admission: No
--- NOTE | 2023-09-14 11:49 | OT.IPNOTE ---
Pt planned for discharge to SNF at 1230 today. Will hold OT today to preserve endurance for transfer.
--- NOTE | 2023-09-14 12:12 | CM.DPC ---
DCP Continued Reviewed EMR and team rounds for pt?s medical status. Per hospitalist, pt medically cleared to discharge to SNF. DCP spoke with [facility], Maryjane, and it was confirmed that pt's insurance authorized for SNF admission. Pt being accepted by [facility] today. Transport arranged with [facility] at 1230. DCP notified hospitalist, pt's RN and spouse, Zulay. All verbalized agreement with discharge plan. Discharge clinicals kindly sent by Admin via fax. Plan: Pt to discharge to [facility] for rehab at 1230 via [facility]. CM Team will continue to follow for coordination of discharge plans. RAHUL Gómez
== END 2023-09-14 12:45 | DRG 177 ==
LOC: ED 16:34 → AC 09-08 06:19
PROVIDERS: Hospitalist; Admitting Provider Internal Medicine; Emergency Provider Emergency Medicine; PCP Family Medicine; Referring Provider Emergency Medicine; Visit Provider Internal Medicine
DX: U07.1 COVID-19 (principal); G93.41 Metabolic encephalopathy; M62.82 Rhabdomyolysis; I10 Essential (primary) hypertension; G31.84 Mild cognitive impairment of uncertain or unknown etiology; W06.XXXA Fall from bed, initial encounter; Z86.73 Personal history of transient ischemic attack (TIA), and cerebral infarction without residual deficits
CPT/HCPCS: 36415; 51701; 70450; 70551; 71045; 73030; 73060; 80048; 80053; 80305; 80320; 81001; 82140; 82550; 83735; 84146; 84484; 85025; 85027; 85610; 85730; 87635; 93005; 97116; 97162; 97166; 97530; 97535; 99284; J0360; J1650